=== PATIENT | male | born 1950 | race Caucasian/White ===

== ENCOUNTER 2020-07-13 16:32 | Emergency (ER) | payer OTHER ==
[2020-07-13 17:37] LABS: Absolute Lymphocytes (CBC) 4.5 K/uL (0.7-4.9); Basophils % 0.7 % (0-1.3); Hematocrit 46.1 % (39.6-49.0); Lymphocytes % 28.9 % (15.3-44.8); MPV 6.7 fL (7.6-11.3)
[2020-07-13 17:58] LABS: Albumin 3.3 g/dL (3.4-5.0); Bilirubin Direct 0.3 mg/dL (0-0.2); Bilirubin Total 0.8 mg/dL (0.2-1.0); Potassium 4.2 mmol/L (3.5-5.1); Protein, Total 8.5 g/dL (6.4-8.2)
--- NOTE | 2020-07-13 19:46 | RAD REPORT ---
EXAM DESCRIPTION: CT - Abdomen Pelvis W Contrast - 07/13/2020 7:19 pm CLINICAL HISTORY: Abdominal pain COMPARISON: none. TECHNIQUE: Computed axial tomography of the abdomen pelvis was obtained. 100 cc Isovue-300 was admin istered intravenously. Oral contrast was not requested which limits evaluation of bowel. All CT scans are performed using dose optimization technique as appropriate and may include automated exposure control or mA/KV adjustment according to patient size. FINDINGS: Contrast is not visualized within the mid and distal splenic artery. Low-density areas are present throughout most of the spleen having the appearance of an infarct. The liver, pancreas, adrenals and kidneys are unremarkable. Pulmonary and splenic granulomata No evidence diverticulitis. Small bilateral inguinal hernias contain fat. Small gallstone. No gallbladder wall thickening. 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
--- NOTE | 2020-07-13 19:48 | RAD REPORT ---
EXAM DESCRIPTION: Lizbet Single View07/13/2020 6:04 pm CLINICAL HISTORY: Cough COMPARISON: none FINDINGS: Mild to moderate bilateral interstitial opacities probably chronic Calcified granulomas left lung Heart is normal size
[2020-07-13] MEDS ORDERED: HEPARIN/D5W 25,000 UNIT/500 ML BAG IV ONE (20:19)
[2020-07-13] MEDS ORDERED: HEPARIN 5000 UNIT/ML 1 ML VIAL ONE (20:30)
[2020-07-13] MEDS ORDERED: CODEINE 30MG/APAP 300MG TAB ONE (20:51)
--- NOTE | 2020-07-13 21:58 | ER ---
Nurse's Notes [facility] Name: Rohan Bauman Age: 69 yrs Sex: Male : 1950 Arrival Date: 07/13/2020 Time: 16:37 Bed 19 Private MD: Diagnosis: Splenic artery occlusion with splenic infarct Presentation: 07/13 17:00 Chief complaint: Patient states: Diffuse abdominal pain since yesterday. Loss of ca1 appetite, feels full. This is the 3rd time in the last 5 - 6 weeks. Lost weight. Denies fever. Denies N/V/D. Coronavirus screen: Client denies travel out of the [place] in the last 14 days. At this time, the client does not indicate any symptoms associated with coronavirus-19. The client denies any previous COVID testing. Ebola Screen: Patient negative for fever greater than or equal to 101.5 degrees Fahrenheit, and additional compatible Ebola Virus Disease symptoms Patient denies exposure to infectious person. Patient denies travel to an Ebola-affected area in the 21 days before illness onset. No symptoms or risks identified at this time. Initial Sepsis Screen: Does the patient meet any 2 criteria? No. Patient's initial sepsis screen is negative. Does the patient have a suspected source of infection? No. Patient's initial sepsis screen is negative. Risk Assessment: Do you want to hurt yourself or someone else? Patient reports no desire to harm self or others. Onset of symptoms was July 13, 2020. 17:00 Method Of Arrival: Ambulatory ca1 17:00 Acuity: SOFIA 3 ca1 Historical: - Allergies: 17:05 No Known Allergies; ca1 - Home Meds: 17:05 levothyroxine oral [Active]; Allopurinol Oral [Active]; Furosemide Oral [Active]; ca1 losartan oral oral [Active]; - PMHx: 17:05 Thyroid problem; Gout; Hypertension; ca1 - PSHx: 17:05 Knee surgery; ca1 - Immunization history:: Adult Immunizations up to date, Pneumococcal vaccine is not up to date, Flu vaccine is up to date. - Social history:: Smoking status: Patient reports the use of cigarette tobacco products, smokes one-half pack cigarettes per day. Screenin:00 Abuse screen: Denies threats or abuse. Nutritional screening: No deficits noted. ll2 Tuberculosis screening: No symptoms or risk factors identified. Fall Risk None identified. Assessment: 16:15 General: Appears in no apparent distress. Behavior is calm, cooperative, appropriate ll2 for age. Pain: Complains of pain in left upper quadrant and right upper quadrant and umbilical area. Neuro: Level of Consciousness is awake, alert, obeys commands, Oriented to person, place, time, situation. Cardiovascular: Patient's skin is warm and dry. Respiratory: Airway is patent Respiratory effort is even, unlabored, Respiratory pattern is regular, symmetrical. GI: Abd is soft Abdomen is tender to palpation in right lower quadrant and left lower quadrant. : No signs and/or symptoms were reported regarding the genitourinary system. EENT: No signs and/or symptoms were reported regarding the EENT system. Derm: Skin is intact, is healthy with good turgor, Skin is pink, warm \T\ dry. Musculoskeletal: Circulation, motion, and sensation intact. Range of motion:. 19:46 General: Appears in no apparent distress. comfortable, Behavior is calm, cooperative, aj1 appropriate for age. Pain: Complains of pain in abdomen diffusely Pain does not radiate. Neuro: Level of Consciousness is awake, alert, obeys commands, Oriented to person, place, time, situation. Cardiovascular: Patient's skin is warm and dry. Respiratory: Airway is patent Respiratory effort is even, unlabored, Respiratory pattern is regular, symmetrical. GI: Abdomen is non-distended, Bowel sounds present X 4 quads. Abd is soft X 4 quads Abdomen is tender to palpation in right lower quadrant and left lower quadrant Reports inability to pass gas Patient currently denies constipation, diarrhea. : No signs and/or symptoms were reported regarding the genitourinary system. EENT: No signs and/or symptoms were reported regarding the EENT system. Derm: No signs and/or symptoms reported regarding the dermatologic system. Skin is pink, warm \T\ dry. normal. Musculoskeletal: No signs and/or symptoms reported regarding the musculoskeletal system. Circulation, motion, and sensation intact. 20:45 Reassessment: Patient appears in no apparent distress at this time. No changes from aj1 previously documented assessment. Patient and/or family updated on plan of care and expected duration. Pain level reassessed. Patient is alert, oriented x 3, equal unlabored respirations, skin warm/dry/pink. 20:50 Reassessment: transfer center called stating pt needed general surgery Mireya Faria APNS bb notified. 21:44 Reassessment: Patient appears in no apparent distress at this time. No changes from [facility] previously documented assessment. Patient and/or family updated on plan of care and expected duration. Pain level reassessed. Patient is alert, oriented x 3, equal unlabored respirations, skin warm/dry/pink. 22:45 Reassessment: Patient appears in no apparent distress at this time. Patient and/or aj1 family updated on plan of care and expected duration. Pain level reassessed. General: Appears comfortable, Behavior is calm, cooperative, appropriate for age. Neuro: Level of Consciousness is awake, alert, obeys commands. Cardiovascular: Patient's skin is warm and dry. Respiratory: Airway is patent Respiratory effort is even, unlabored, Respiratory pattern is regular, symmetrical. GI: Abdomen is non-distended, Reports lower abdominal pain, upper abdominal pain. : No signs and/or symptoms were reported regarding the genitourinary system. Derm: Skin is pink, warm \T\ dry. normal. Musculoskeletal: Circulation, motion, and sensation intact. 22:56 Reassessment: Attempted to call report to MACY Brice at [facility], who states she cannot [facility] accept a patient on a Heparin drip. 23:08 Reassessment: Transfer center repeats that Heparin drip must be stopped prior to [facility] transfer, which is [facility] hospital policy per receiving nurse, MACY Brice. Dr. Storey notified. Vital Signs: 17:00 BP 120 / 71; Pulse 89; Resp 17 S; Temp 97.9(TE); Pulse Ox 95% on R/A; Weight 130.18 kg ca1 (R); Height 6 ft. 3 in. (190.50 cm) (R); Pain 4/10; 17:55 BP 157 / 87 RA (auto/reg); Pulse 73; Pulse Ox 96% on R/A; jp3 18:54 BP 137 / 66; Pulse 72; Resp 17; Pulse Ox 94% ; jl7 19:48 BP 142 / 78; Pulse 81; Resp 18; Pulse Ox 95% on R/A; aj1 20:45 BP 143 / 67; Pulse 84; Resp 18; Pulse Ox 96% on R/A; aj1 21:44 BP 142 / 77; Pulse 75; Resp 18; Pulse Ox 95% on R/A; aj1 22:45 BP 147 / 74; Pulse 74; Resp 18; Pulse Ox 95% on R/A; aj1 17:00 Body Mass Index 35.87 (130.18 kg, 190.50 cm) ca1 ED Course: 16:37 Patient arrived in ED. ds1 16:47 [facility] snw 16:47 Romeo Morgan MD is Attending Physician. snw 17:02 Triage completed. ca1 17:05 Arm band placed on right wrist. ca1 17:10 Bed in low position. Call light in reach. Lights dimmed. Verbal reassurance given. jp3 Pulse ox on. NIBP on. 17:10 Patient maintains SpO2 saturation greater than 95% on room air. jp3 17:15 Inserted saline lock: 20 gauge in left antecubital area, using aseptic technique. Blood jp3 collected. 17:15 First set of blood cultures drawn by me. jp3 17:25 Initial lab(s) drawn, by me, sent to lab. Second set of blood cultures drawn by me. jp3 17:49 Luisana Francis, RN is Primary Nurse. ll2 17:49 EKG done, by ED staff, reviewed by Mireya MULLEN. jp3 18:05 Chest Single View XRAY In Process Unspecified. EDMS 19:20 CT Abd/Pelvis - PO and IV Contrast In Process Unspecified. EDMS 19:46 No provider procedures requiring assistance completed. aj1 20:07 Initiated transfer with Lexus at [facility]. tt3 21:09 Updated Lexus on the case. tt3 21:20 Shell called back with the vascular surgeon for Dr. Storey. tt3 21:46 Lexus called back with Dr. Mcdaniel for Dr. Storey. tt3 Administered Medications: 20:43 Drug: Heparin (DVT/PE Drip) 18 units/kg/hr - (HEParin 49275 units, D5W 500 ml) aj1 {Co-Signature: jb4 (Basim Hernandez RN).} Route: IV; Rate: calculated rate; Site: right antecubital; 20:55 Drug: Tylenol #3 (300 mg-30 mg) 2 tabs {Note: RASS score 1.} Route: PO; aj1 Outcome: 21:58 ER care complete, transfer ordered by . rn 23:47 Patient left the ED. bb Signatures: Dispatcher [employer] Kasandra Husain, RN RN aj1 Mireya Faria, MRI SPECIALIST-C MRI SPECIALIST-Csnw Walker, Renu ds1 Bernie Parrish, RN RN bb Fransico Storey MD MD rn Leal, Jahala RN RN jl7 Joselito Hare jp3 Jackeline Hays RN RN ca1 Luisana Francis RN RN ll2 Gui Ruby 3 Basim Hernandez RN jb4 Corrections: (The following items were deleted from the chart) 17:31 17:00 Patient maintains SpO2 saturation greater than 95% on room air. jp3 jp3 22:57 21:50 Reassessment: Attempted to call [facility] to notify them that we aj had arranged transport for patient, no answer to multiple calls [facility]
--- NOTE | 2020-07-13 21:58 | EDPHYS ---
Physician Documentation [facility] Name: Rohan Bauman Age: 69 yrs Sex: Male : 1950 Arrival Date: 07/13/2020 Time: 16:37 Bed 19 Private MD: VANESSA Physician Romeo Morgan HPI: 07/13 17:54 This 69 yrs old Male presents to ER via Ambulatory with complaints of SENT BY snw DR LOUIE, Abdominal Pain. 17:54 The patient presents with abdominal pain that is diffuse. Onset: The symptoms/episode snw began/occurred gradually, 6 week(s) ago, and became worse 3 week(s) ago. The symptoms do not radiate. Associated signs and symptoms: Pertinent positives: early satiety, wt loss. The symptoms are described as "I feel like I swallowed a bowling ball". Modifying factors: The symptoms are alleviated by nothing. Severity of pain: At its worst the pain was moderate severe. The patient has not experienced similar symptoms in the past. The patient has been recently seen by a physician: the patient's primary care provider, Dr. Louie. Historical: - Allergies: 17:05 No Known Allergies; ca1 - Home Meds: 17:05 levothyroxine oral [Active]; Allopurinol Oral [Active]; Furosemide Oral [Active]; ca1 losartan oral oral [Active]; - PMHx: 17:05 Thyroid problem; Gout; Hypertension; ca1 - PSHx: 17:05 Knee surgery; ca1 - Immunization history:: Adult Immunizations up to date, Pneumococcal vaccine is not up to date, Flu vaccine is up to date. - Social history:: Smoking status: Patient reports the use of cigarette tobacco products, smokes one-half pack cigarettes per day. ROS: 17:49 Constitutional: Negative for fever, chills, and weight loss, Eyes: Negative for injury, snw pain, redness, and discharge, ENT: Negative for injury, pain, and discharge, Neck: Negative for injury, pain, and swelling, Cardiovascular: Negative for chest pain, palpitations, and edema, Respiratory: Negative for shortness of breath, cough, wheezing, and pleuritic chest pain, Back: Negative for injury and pain, : Negative for injury, bleeding, discharge, and swelling, MS/Extremity: Negative for injury and deformity, Skin: Negative for injury, rash, and discoloration, Neuro: Negative for headache, weakness, numbness, tingling, and seizure, Psych: Negative for depression, anxiety, suicide ideation, homicidal ideation, and hallucinations. 17:49 Abdomen/GI: Positive for abdominal pain, weight loss, early satiety. Exam: 17:48 Constitutional: This is a well developed, well nourished patient who is awake, alert, snw and in no acute distress. Head/Face: Normocephalic, atraumatic. Eyes: Pupils equal round and reactive to light, extra-ocular motions intact. Lids and lashes normal. Conjunctiva and sclera are non-icteric and not injected. Cornea within normal limits. Periorbital areas with no swelling, redness, or edema. ENT: Nares patent. No nasal discharge, no septal abnormalities noted. Tympanic membranes are normal and external auditory canals are clear. Oropharynx with no redness, swelling, or masses, exudates, or evidence of obstruction, uvula midline. Mucous membranes moist. Neck: Trachea midline, no thyromegaly or masses palpated, and no cervical lymphadenopathy. Supple, full range of motion without nuchal rigidity, or vertebral point tenderness. No Meningismus. Chest/axilla: Normal chest wall appearance and motion. Nontender with no deformity. No lesions are appreciated. Cardiovascular: Regular rate and rhythm with a normal S1 and S2. No gallops, murmurs, or rubs. Normal PMI, no JVD. No pulse deficits. 17:48 Back: No spinal tenderness. No costovertebral tenderness. Full range of motion. Skin: Warm, dry with normal turgor. Normal color with no rashes, no lesions, and no evidence of cellulitis. MS/ Extremity: Pulses equal, no cyanosis. Neurovascular intact. Full, normal range of motion. Neuro: Awake and alert, GCS 15, oriented to person, place, time, and situation. Cranial nerves II-XII grossly intact. Motor strength 5/5 in all extremities. Sensory grossly intact. Cerebellar exam normal. Normal gait. Psych: Awake, alert, with orientation to person, place and time. Behavior, mood, and affect are within normal limits. 17:48 Respiratory: the patient does not display signs of respiratory distress, Respirations: normal, no acute changes, Breath sounds: wheezing: expiratory is heard diffusely. 17:48 Abdomen/GI: Inspection: abdomen appears normal, Bowel sounds: diminished, Palpation: moderate abdominal tenderness, in the umbilical area, right upper quadrant and left upper quadrant. Vital Signs: 17:00 BP 120 / 71; Pulse 89; Resp 17 S; Temp 97.9(TE); Pulse Ox 95% on R/A; Weight 130.18 kg ca1 (R); Height 6 ft. 3 in. (190.50 cm) (R); Pain 4/10; 17:55 BP 157 / 87 RA (auto/reg); Pulse 73; Pulse Ox 96% on R/A; jp3 18:54 BP 137 / 66; Pulse 72; Resp 17; Pulse Ox 94% ; jl7 19:48 BP 142 / 78; Pulse 81; Resp 18; Pulse Ox 95% on R/A; aj1 20:45 BP 143 / 67; Pulse 84; Resp 18; Pulse Ox 96% on R/A; aj1 21:44 BP 142 / 77; Pulse 75; Resp 18; Pulse Ox 95% on R/A; aj1 22:45 BP 147 / 74; Pulse 74; Resp 18; Pulse Ox 95% on R/A; aj1 17:00 Body Mass Index 35.87 (130.18 kg, 190.50 cm) ca1 MDM: 17:06 Patient medically screened. evelin 20:00 Counseling: I had a detailed discussion with the patient and/or guardian regarding: the snw historical points, exam findings, and any diagnostic results supporting the discharge/admit diagnosis, the presence of at least one elevated blood pressure reading (>120/80) during this emergency department visit, lab results, radiology results, the need to transfer to another facility, for higher level of care, [facility] does not immediately have the required specialist. Physician consultation: [facility] initiate transfer. 21:09 Data reviewed: vital signs, nurses notes, lab test result(s), EKG, radiologic studies. snw Data interpreted: Pulse oximetry: on room air is 96 %. Interpretation: acceptable. Physician consultation: Basim Rockwell MD was called at 21:10, was contacted at 21:10, regarding consult, patient's condition, after a discussion of the case, a recommendation for transfer for higher level of care is made. 21:26 Transition of care: After a detail discussion of the patient's case, care is snw transferred to Fransico Storey MD. 21:27 Physician consultation: [facility] was called at 21:28, was contacted at 21:28, snw regarding regarding transfer, to [facility]. consult, patient's condition, Will consult, need Hospitalist to admit. 07/13 16:48 Order name: Blood Culture Adult (2) sn 07/13 16:48 Order name: BMP; Complete Time: 18:07 snw 07/13 16:48 Order name: CT Abd/Pelvis - PO and IV Contrast; Complete Time: 19:50 snw 07/13 16:48 Order name: CBC with Diff; Complete Time: 17:38 snw 07/13 16:48 Order name: Hepatic Function; Complete Time: 18:07 w 07/13 16:48 Order name: Lipase; Complete Time: 18:07 w 07/13 16:48 Order name: EKG - Nurse/Tech; Complete Time: 19:31 w 07/13 16:48 Order name: IV Saline Lock; Complete Time: 17:31 snw 07/13 16:48 Order name: Labs collected and sent; Complete Time: 17:31 snw 07/13 16:48 Order name: NPO; Complete Time: 17:32 snw 07/13 17:43 Order name: Chest Single View XRAY; Complete Time: 19:51 snw Administered Medications: 20:43 Drug: Heparin (DVT/PE Drip) 18 units/kg/hr - (HEParin 63354 units, D5W 500 ml) aj1 {Co-Signature: jbAmerico (Basim Hernandez RN).} Route: IV; Rate: calculated rate; Site: right antecubital; 20:55 Drug: Tylenol #3 (300 mg-30 mg) 2 tabs {Note: RASS score 1.} Route: PO; aj1 Disposition: 21:57 Co-signature as Attending Physician, Fransico Storey MD. rn Disposition: 07/13/20 21:58 Transfer ordered to [facility]. Diagnosis is Splenic artery occlusion with splenic infarct. - Reason for transfer: Higher level of care. - Accepting physician is Dr. Mcdaniel. - Condition is Stable. - Problem is new. - Symptoms are unchanged. Signatures: Dispatcher [employer] Kasandra Husain, RN RN aj1 Romeo Morgan MD MD cha Waters, Shelly, MANAGER OF EXHIBITIONS AND COLLECTIONS-C MANAGER OF EXHIBITIONS AND COLLECTIONS-Csnw Bernie Parrish, RN RN bb Fransico Storey MD MD rn Acob, Cheryl, RN RN ca1 Basim Hernandez RN jb4 Corrections: (The following items were deleted from the chart) 23:47 21:58 07/13/2020 21:58 Transfer ordered to [facility]. bb Diagnosis is Splenic artery occlusion with splenic infarct. Reason for transfer: Higher level of care. Accepting physician is Dr. Mcdaniel. Condition is Stable. Problem is new. Symptoms are unchanged. rn
[2020-07-14 06:01] VITALS: TEMP 97.9
[2020-07-14 06:09] VITALS: O2SAT 95
[2020-07-14 06:11] VITALS: BP 147/74
--- NOTE | 2020-07-14 18:06 | EKG ---
Test Date: 2020-07-13 Test Time: 17:49:28 Floor And Wall Applier Liquid: SRINIVAS MEASUREMENT RESULTS: Intervals: Rate: 75 SC: 160 QRSD: 88 QT: 380 QTc: 424 [place]: P: 68 SC: 160 QRS: 22 T: 64 INTERPRETIVE STATEMENTS: Normal sinus rhythm Normal ECG No previous ECG available for comparison Electronically Signed On 07-14-20 18:02:48 MAMMOGRAPHY TECHNOLOGIST by Gabe Pizarro
== END 2020-07-13 23:47 | disposition short-term general hospital (02) ==
LOC: ER 16:32
DX: D73.5 Infarction of spleen (principal); I10 Essential (primary) hypertension; E07.9 Disorder of thyroid, unspecified; F17.210 Nicotine dependence, cigarettes, uncomplicated
CPT/HCPCS: 93005; 87040 ×2; 85025; 80048; 36415; 80076; 83690; 74177; 71045; Q9967; J1644 ×2; 96374; 99285

== ENCOUNTER 2020-11-15 10:04 | Observation (INO) | payer OTHER ==
--- OUTSIDE RECORDS SUMMARY | 2020-11-15 10:08 | XMS REPORT | Continuity of Care Document ---
:1950 Author Organization [facility] t Address [address] [place] [address] Care Team Providers Name Role Phone CHRISTO KOCH Attending Clinician Unavailable Christo oKch MD Attending Clinician Unavailable Anthony Crowley MD Attending Clinician KEVIN MCDANIEL Attending Clinician Unavailable Kevin Mcdaniel MD Attending Clinician Shyanne Mcclain MD Attending Clinician CHRISTO KOCH Admitting Clinician Unavailable KEVIN MCDANIEL Admitting Clinician Unavailable Payers Payer Name Policy Type Policy Effective Date Expiration Date Sour ce Number AETNA - MEDICARE [id number] [address] [facility] [address] Carmona ukes MGD CAREAETNA 00:00:00 - Medical MEDICARE HMO Center [id number] [phone], [place] [address]Kfsh Contracted Problems Condition Condition Condition Status Onset Resolution Last Treating Co mments Source Name Details Category Date Date Treatment Clinician Date Lung Lung Disease Active 2019-[address] [facility] nodule nodule 09-19kes - 00:00: Medical 00 [place] Splenic Splenic Disease Active 2019-[address] infarct infarct 09-13 - :: Medical 00 [place] Allergies, Adverse Reactions, Alerts This patient has no known allergies or adverse reactions. Social History Social Habit Start Date Stop Date Quantity Comments Source Sex Assigned At [facility] Cigarettes smoked 2020-07-20 2020-07-20 [facility] - current (pack per 00:00:00 00:00:00 Medical Center day) - Reported Cigarette 2020-07-20 2020-07-[address] [facility] - pack-years 00:00:00 00:00:00 [facility] Tobacco use and 2020-07-20 2020-07-[address] [facility] [address] Candi kes - exposure 00:00:00 00:00:00 [facility] Alcohol intake 2020-07-20 2020-07-20 Ex-drinker [facility] es - 00:00:00 00:00:00 (finding) [facility] Alcohol Comment 2020-07-19 2020-07-19 usually 3-[address] [facility] [address] [facility] - 00:00:00 00:00:00 beers/week but Medical Ce nter non currently History of tobacco 2020-07-13 [facility] sm[facility] - use 00:[facility]00 [facility] Smoking Status Start Date Stop Date Source Former smoker 2020-07-20 00:00:00 2020-07-20 00:00:00 [facility] - [facility] Medications Ordered Filled Start Stop Current Ordering Indication Dosage Frequency Signature Comments Components Source Medication Medication Date Date Medication? Clinician (SIG) Name Name apixaban 2019-09- No Take [address] [facility] [address] (ELIQUIS) 5 1-18 12-25 tablets Luke s - mg Tab 00:00: 23:59 (10 mg Medical tablet 00 :00 total) by [place] mouth 2 (two) times daily for 7 days, THEN 1 tablet (5 mg total) 2 (two) times daily for 30 days. tadalafil 2019-09 Yes QD Take by [facility] S t (CIALIS 1-17 mouth [facility] - ORAL) 13:03: daily. Medical 18 [place] acetaminoph 2019-09 Yes 2{tbl} QD Take [address] (TYLENOL 1-17 tablets by Candi montoya - ARTHRITIS 13:03: mouth Medical ORAL) 18 daily. [place] budesonide- 2019-09- No 2{puff} Q.5D Inhale [address] formoteroL -12 11-12 puffs by Dino s - (SYMBICORT) 00:00: 23:59 mouth via Medical 160-4.5 00 :00 inhaler 2 [place] mcg/actuati (two) on inhaler times daily. tiotropium 2019-09- No 18ug QD Inhale [address] (SPIRIVA) -12 11-12 capsule [facility] - 18 mcg 00:00: 23:59 (18 mcg Medical inhalation 00 :00 total) by Cent er capsule mouth via inhaler daily. albuterol 2019-09 No 1{puff} Inhale [address] HFA 1-12 11-12 puff by [facility] - (VENTOLIN 00:00: 23:59 mouth via Me dical HFA) 90 00 :00 inhaler Center mcg/actuati every 6 on inhaler (six) hours as needed for Wheezing or Shortness of Breath. HYDROcodone 2019-09- No 1{tbl} Take [address] -acetaminop 09-14 11-22 tablet by Candi mancia (NORCO 00:00: 23:59 mouth Medic al 10-325) 00 :00 every 6 Center 10-325 mg (six) per tablet hours as needed for up to 10 days. Max Daily Amount: 4 tablets enoxaparin 2019-09 No 120mg Inject 0.[address] (LOVENOX) 12 11-15 mLs (120 [facility] - 120 mg/0.8 00:00: 23:59 mg total) M edical mL Syrg 00 :00 subcutaneo Center usly every 12 (twelve) hours for 3 days Last dose Sunday. Then start Eliquis after the biopsy. tiotropium 2019-09- No 18ug QD Inhale [address] (SPIRIVA) - 11-12 capsule [facility] - 18 mcg 00:00: 00:00 (18 mcg Medical inhalation 00 :00 total) by Cent er capsule mouth via inhaler daily. budesonide- 2019-09- No 2{puff} Q.5D Inhale [address] formoteroL -12 11-12 puffs by Luke s - (SYMBICORT) 00:00: 00:00 mouth via Medical 160-4.5 00 :00 inhaler 2 Center mcg/actuati (two) on inhaler times daily. albuterol 2019-09- No 1{puff} Inhale [address] HFA 1-12 11-12 puff by [facility]ukes - (VENTOLIN 00:00: 00:00 mouth via Me dical HFA) 90 00 :00 inhaler Center mcg/actuati every 6 on inhaler (six) hours as needed for Wheezing or Shortness of Breath. spironolact 2019-09 Yes 50mg QD Take [address] one 0-14 by mouth [facility] - (ALDACTONE) 00:00: every Medic al 50 MG 00 morning. [place] tablet testosteron 2019-09 Yes INJECT [address] e cypionate 0-12 ML ONCE [facility] - (DEPOTESTOT 00:00: EVERY 4 Med ical ERONE 00 WEEKS [place] CYPIONATE) 200 mg/mL injection torsemide Yes 20mg QD Take [address] (DEMADEX) 9-24 by mouth [facility] - 20 MG 00:00: every Medical tablet 00 morning. [place] levothyroxi Yes 200ug QD Take [address] ne 9-14 mcg by [facility]ukes - (SYNTHROID, 00:00: mouth Medic al LEVOTHROID) 00 every Center 200 MCG morning. tablet allopurinoL Yes 300mg QD Take [address] (ZYLOPRIM) 9-06 mg by [facility] - 300 MG 00:00: mouth Medical tablet 00 every Center morning. Vital Signs Vital Name Observation Time Observation Value Comments Source Systolic blood 2020-07-20 12:15:00 125 mm[Hg] [facility] Diastolic blood 2020-07-20 12:15:00 70 mm[Hg] [facility] S [facility] Heart rate 2020-07-20 12:15:00 88 /min [facility] Respiratory rate 2020-07-20 12:15:00 20 /min [facility] Oxygen saturation in 2020-07-20 12:15:00 97 /min [facility] - Arterial blood by Medical Ce nter Pulse oximetry Body temperature 2020-07-20 11:00:00 36.67 Radha [facility] Body height 2020-07-20 05:45:00 190.5 cm [facility] Body weight 2020-07-20 05:45:00 123.197 kg [facility] BMI 2020-07-20 05:45:00 33.95 kg/m2 [facility] Procedures Procedure Date / Time Performed Performing Clinician Sourc e XR CHEST 1 VIEW 2020-07-20 11:19:00 Zee, Ali [facility] PORTABLE/BEDSIDE Medical Center REPORT OF PROCEDURE - 2020-07-20 10:58:[facility] 2020-07-20 10:36:31 Solange Koch [facility] FINE NEEDLE ASPIRATE BY 2020-07-20 10:36:00 Solange Koch [facility] EBUS FNA REQUEST 2020-07-20 10:31:49 Solange Koch [facility] FINE NEEDLE ASPIRATE BY 2020-07-20 10:31:00 Solange Koch [facility] EBUS FNA REQUEST 2020-07-20 10:23:39 Solange Koch [facility] FINE NEEDLE ASPIRATE BY 2020-07-20 10:23:00 Solange Koch [facility] EBUS FNA REQUEST 2020-07-20 10:16:43 Solange Koch [facility] FINE NEEDLE ASPIRATE BY 2020-07-20 10:16:00 Solange Koch [facility] FUNGUS CULTURE + SMEAR 2020-07-20 10:05:03 Solange Koch [facility] BRONCHIAL CULTURE + GRAM 2020-07-20 10:05:03 Solange Koch [facility] AFB CULTURE + SMEAR 2020-07-20 10:05:03 Solange Koch [facility] - (NON-SPUTUM) [facility] SPIN/CONCENTRATION CHARGE 2020-07-20 10:05:00 Solange Koch [facility] FL FLUORO NON-SPECIFIC UP 2020-07-20 10:00:00 Solange Koch [facility] - TO 1 HOUR [facility] FUNGUS CULTURE + SMEAR 2020-07-20 09:41:34 Solange Koch [facility] SURGICALLY OBTAINED 2020-07-20 09:41:34 [facility]AM STAIN Medical [facility] ter AFB CULTURE + SMEAR 2020-07-20 09:41:34 Solange Kochul [facility] uk - (NON-SPUTUM) [facility] MISCELLANEOUS LAB ORDER 2020-07-20 09:41:00 [facility] 2020-07-20 09:40:00 [facility] FINE NEEDLE ASPIRATE 2020-07-20 09:13:09 [facility] FINE NEEDLE ASPIRATION BY 2020-07-20 09:13:00 Solange Koch [facility] AFB CULTURE + SMEAR 2020-07-20 08:59:37 [facility] ([facility] FUNGUS CULTURE + SMEAR 2020-07-20 08:59:37 Solange Koch [facility] SURGICALLY OBTAINED 2020-07-20 08:59:37 [facility] + GRAM STAIN [facility] MISCELLANEOUS LAB ORDER 2020-07-20 08:59:00 Solange Koch [facility] FINE NEEDLE ASPIRATE 2020-07-20 08:55:29 [facility] FINE NEEDLE ASPIRATION BY 2020-07-20 08:55:00 Solange Koch [facility] BRONCHOSCOPY,ENDOBRONCHIA 2020-07-20 07:34:00 Solange Koch CH [facility] ULTRASOUND (EBUS) Medical Cent er TRANSTRACH/ TRANSBRONCH SAMPLING BRONCHOSCOPY,SUPER D 2020-07-20 07:34:00 Solange Koch [facility] PROCEDURE W/ C-ARM 2020-07-20 07:34[facility]00 [facility],TRANSBRONCHI 2020-07-20 07:34:00 Solange Koch CH, I [facility] NEEDLE ASPIRATION [facility] ter BIOPSY BRONCHOSCOPY,TRANSBRONCHI 2020-07-20 07:34:00 Solange Koch CH [facility] LUNG BIOPSY [facility] BRONCHOSCOPY,BRONCHIAL 2020-07-20 07:34:00 [facility] ALVEOL[facility] LAVAGE [facility] BRONCHOSCOPY,ENDOBRONCHIA 2020-07-20 07:34:00 Solange Koch [facility] ULTRASOUND (EBUS) Medical [facility] er DIAGNOSTIC/ THERAPEUTIC ABORH, MANUAL 2020-07-20 06:42:00 Anika Stover [facility] COMPREHENSIVE METABOLIC 2020-07-20 06:17:00 [facility]T [facility] & AUTO 2020-07-20 06:17:00 [facility] PROTHROMBIN TIME/INR 2020-07-20 06:17:00 Zee [facility] APTT 2020-07-20 06:17:00 Solange Koch [facility] TYPE AND SCREEN, 2020-07-20 06:17:00 Solange Koch [facility] AUTOMATED [facility] POCT-GLUCOSE METER 2020-07-20 06:00:00 Solange Koch [facility] SARS-COV2/RT-PCR ([facility] & 2020-07-15 16:24:00 Farhan Mcclain [facility] LABS) [facility] CT CHEST WITHOUT IV 2020-07-15 15:25:00 Solange Koch [facility] ukes - CONTRAST [facility] PROTHROMBIN TIME/INR 2020-07-15 04:02:00 Farhan Mcclain [facility] CBC (HEMOGRAM ONLY) 2020-07-15 04:02:00 Farhan Mcclain [facility] COMPREHENSIVE METABOLIC 2020-07-15 04:02:00 Farhan Mcclain CH, I [facility] ECHO W CONTRAST & DOPPLER 2020-07-14 10:37:42 Lori Larry sa [facility] CTA CHEST 2020-07-14 09:44:00 Lori Larry [facility] SARS-COV2/RT-PCR ([facility] & 2020-07-14 03:50:00 Lori Larry [facility] - REF LABS) [facility] CBC W/PLT COUNT & AUTO 2020-07-14 03:43:00 Lori Larry [facility] DIFFERENTIAL [facility] HC LAB PROTHROMBIN FACTOR 2020-07-14 03:43:00 Lori Larry sa [facility] II [facility] (CELLAVISION MANUAL DIFF) 2020-07-14 03:43:00 Lori Larry sa [facility] BASIC METABOLIC PANEL (7) 2020-07-14 03:42:00 Lori Larry sa [facility] MAGNESIUM 2020-07-14 03:42:00 Lori Larry [facility] PHOSPHORUS 2020-07-14 03:42:00 Lori Larry [facility] FACTOR 5 LEIDEN PCR 2020-07-14 03:42:00 Lori Larry [facility] (THROMBOTIC RISK) [facility] PROTEIN S ACTIVITY 2020-07-14 03:42[facility]IV[facility] 2020-07-14 03:42:00 Lori Larry [facility] REPORT OF PROCEDURE - 2020-07-14 00:00:00 Provider, Norris [facility] ENDOSCOPY SCAN Scanning [facility] Plan of Care Planned Activity Planned Date Details Comments Source Future Scheduled 2020-09-[address] [facility] - Test 00:00:00 WELLNESS (YEAR 2 or [facility] FIRST YEAR if no IPPE) [code = MEDICARE ANNUAL WELLNESS (YEAR 2 or FIRST YEAR if no IPPE)] Future Scheduled 2020-09-[address] [facility] - Test 00:00:00 (12+) [code = Medical Center DEPRESSION SCREENING (12+)] Future Scheduled 2020-05-04 INFLUENZA VACCINE (#1) [facility] - Test 00:00:00 [code = INFLUENZA Medical Ce nter VACCINE (#1)] Future Scheduled 2016 PNEUMOCOCCAL 65+ YRS [facility] - Test 00:00:00 (1 of 1 - [facility] [id number] PCV13) [code = PNEUMOCOCCAL 65+ YRS (1 of 1 - [id number] PCV13)] Future Scheduled 1950 Screening for [facility] es - Test 00:00:00 malignant neoplasm of Medica l Center colon (procedure) [code = 459567568] Results Test Description Test Time Test Comments Results Result Comments Source AFB culture + smear (non-sputum) 2020-09-07 09:16:00 Test Item Value Reference Range Interpretation Comme nts Result (test code = 6463-4) No acid-fast bacilli isolated in 42 day s AFB Smear (test code = 69319-6) No acid fast bacilli [facility] (NON-SPUTUM)2020-09-07 09:16:00 Test Item Value Reference Range Interpretation Comments CULTURE (BEAKER) (test No acid-fast bacilli code = 1095) isolated in 42 days AFB SMEAR (BEAKER) No acid fast bacilli (test code = 994) seen AFB CULTURE + SMEAR (NON-SPUTUM)2020-09-07 09:16:00 Test Item Value Reference Range Interpretation Comments CULTURE (BEAKER) (test No acid-fast bacilli code = 1095) isolated in 42 days AFB SMEAR (BEAKER) No acid fast bacilli (test code = 994) seen AFB CULTURE + SMEAR (NON-SPUTUM)2020-09-07 09:16:00 Test Item Value Reference Range Interpretation Comments CULTURE (BEAKER) (test No acid-fast bacilli code = 1095) isolated in 42 days AFB SMEAR (BEAKER) No acid fast bacilli (test code = 994) seen MISCELLANEOUS LAB [id number] 07:55:00 Test Item Value Reference Range Interpretation Comments SCAN RESULT (test code = 1350916) MISCELLANEOUS LAB [id number] 07:54:00 Test Item Value Reference Range Interpretation Comments SCAN RESULT (test code = 6653812) [place] [id number] 07:54:00[facility] + [id number] 02:35:00 Test Item Value Reference Range Interpretation Comments Result (test code = No fungus isolated in 6463-4) 28 days Fungus Smear (test No fungi seen code = 1406) [facility] + [id number] 02:35:00 Test Item Value Reference Range Interpretation Comments CULTURE (BEAKER) (test No fungus isolated in code = 1095) 28 days FUNGUS SMEAR (BEAKER) No fungi seen (test code = 1406) FUNGUS CULTURE + [id number] 02:35:00 Test Item Value Reference Range Interpretation Comments CULTURE (BEAKER) (test No fungus isolated in code = 1095) 28 days FUNGUS SMEAR (BEAKER) No fungi seen (test code = 1406) FUNGUS CULTURE + [id number] 02:35:00 Test Item Value Reference Range Interpretation Comments CULTURE (BEAKER) (test No fungus isolated in code = 1095) 28 days FUNGUS SMEAR (BEAKER) <1+ yeast (test code = 1406) Surgically obtained culture + gram [id number] 14:21:00 Test Item Value Reference Range Interpretation Comments Result (test code = 6463-4) No growth Gram Stain Result (test No organisms seen code = 1123) [facility] GRAM [id number] 14:21:00 Test Item Value Reference Range Interpretation Comments CULTURE (BEAKER) (test code No growth = 1095) GRAM STAIN RESULT (BEAKER) <1+ WBCs (test code = 1123) GRAM STAIN RESULT (BEAKER) No organisms seen (test code = 38601) SURGICALLY OBTAINED CULTURE + GRAM [id number] 14:20:00 Test Item Value Reference Range Interpretation Comments CULTURE (BEAKER) (test code No growth = 1095) GRAM STAIN RESULT (BEAKER) <1+ WBCs (test code = 1123) GRAM STAIN RESULT (BEAKER) No organisms seen (test code = 77770) Bronchial culture + gram [id number] 11:52:00 Test Item Value Reference Range Interpretation Comments Result (test code = <1+ Normal respiratory 6463-4) reyes present Gram Stain Result No organisms seen (test code = 1123) [facility] GRAM [id number] 11:52:00 Test Item Value Reference Range Interpretation Comments CULTURE (BEAKER) <1+ Normal respiratory (test code = 1095) reyes present GRAM STAIN RESULT <1+ WBCs (BEAKER) (test code = 1123) GRAM STAIN RESULT No organisms seen (BEAKER) (test code = 65283) Tissue [id number] 11:37:00 Test Item Value Reference Range Interpretation Comments Case Report (test code Surgical Pathology = 104) Report Case: [id number] Authorizing Provider: Solange Koch MD Collected: 07/20/2020 09:40 AM Ordering Location: [facility] Received: 07/20/2020 11:53 AM SERVICES Pathologist: Maria A Ayala MD Specimen: Lung, Left Upper Lobe, TBBX. Process in Cytology for collodion bag. Reflex Genetic Markers. DIAGNOSIS (test code = z8fxxMSrCKGqe5rlEWRpbGQ 3220) uZzEwMzNcZnRuYmpcdWMxIH tccnRmMVxlcGljOTIwMFxhb iTtMDZzyCXlH8KzeyhaQQck SC3mKR8wnDqefLBcfBPsSSK kBiXyh7awm903sYOyj9ntVK QGxytyjPy0yAoeP03cr2K4Q qgkR51wnGPpEImkbONvaqsu uwFyWDNxiiCSRsSQHE6CPBI MRUZUIFVQUEVSIExPQkUsIF WRZH4IKoQZDnNDAUYIRBIVW 1BTWTpccGFyICAgICAtIFNR LPDRS2UKYRCQTFciH7EZT3b YP86TBjmfQXHcNXIwRC6xC9 RJPUEOTG5HLdNpVCHibp01A ZM6LgWfs1M2UFZ1GXFuLDIp w1dcNILvgEDzLxQrUfTdZqE cUuagiDVjNRYkJcNqm4gkz4 11vHPlx1hjNODpIsP9tYGpL TRtyQStC118SPDxRIclx5wi z9KnKXVitLShn2E4IVRBmjf mpBx7kTpcH40qn9B6NhhxJ6 oaPBVuGRJoZ9JdNU7zOVOgG ec7TWI9ZBF3DUGrSUNsA4Uv OL0aBETmuILwJZy4d7qvuAk cVGEkLZS9a7cyLZvzwvUoOJ 7ujn9xnSw2d5bbteJbABXtF EDaxECVQWWuB6QbzMrwEl6g qUl5wTkrQhcwGYY2Rlz2LX0 aqs71lim4aMmiRIFmhuiwMu O1MKvyYTWptwxiCGs0BEnrO GCfaJT2EXCjdISaJ1SqAGJv AN2erup2KJM8IAadYFOfMwZ 2MNSsgKVgRXZuoAurWOsrh9 80LFE8GzVeYN9sX3Bri8E0d A7rxREfJGTfkTKlHgAfFPRq ra1jsBPiNXbyg5ZeVYF2udX 5pAYsbVNkWEReNlM3ACgbXA 8kvc16LGYdKSK0kd1reDZyp CivyqDxhGWkCHlzS5MtGZWy g571IYEnQ3TrIONew5H9llD xGpXpARQdpCF0dvM8FUCtKL 6lqrqan8vdVWdnKMyrTLZcq jA3aiR7ZQMymPRjT5NvuU8w JEKcLD7nsqkyd4chEQW0OAg nJZAzVTI6BbZvNSScr0Groo n8CmDrm2FbaZVpDUcnS26bh 682ZADbivNxF2usdNYoaqcv fEBvyimoEQacnvF3XLKzGLn oqwkhXIKiFOzzK1vpCqUzEJ YkdVbeNMsrj8QhNEHmMFIxK lPhiOFqFPKeZdw6RIWxtKWn WABtXiNrT5cwcszlDyCSXUC ex3qtO1zxtNUTtZIvN8AhKG huyzHnGZmaAVpiUKEoEOZ3A S4kGvF5XFKvgw82 COMMENT (test code = n0ssxLTrIKDqcAG3YgSzMEF 3359) ki9swy0EarQQljSPmRBqlyB QygnFhzs79gWO2kR29BT5dY CYdLrV2RLNjccA1Iak7RLNg ZRTytDEwD253k9oim2xvxlS qjEN9pJpxDYWyDUKbFZiaVO WaAhNoJFwtQZO1lV1aXRmfV CBvk0h5tTCmGURnqnRYYKOh FV3wEQ2gN4V6fDNlEQRjquQ OJc44ETVgZGYWXBPjUT4vBP Bhcn0= CPT Code(s) (test code r6rtqECwKUDyrCC8ExJoEAA = 3357) iw2kwq3LuwJCtlATbYHjpoP SjfcXpcg26gOC5lO41XD7jY UNvBtZ7OSDgwrZ4Tfg6EEAd PGFxaLJvS200z1djv9cfxqW oqSR1zTopNNScSVUkXAeyMX VoSvAkTFvdUQJnIAy3DmUcM YK1YLI2TZD9CNIrxPPztA== GROSS DESCRIPTION b4awvEJhNGHfgRZ7UqSnOLX (test code = 3366) iu1xrn9VntVBsuNCmUItijO WkmwYdpk22cQO7yD10IP1eD XYfDrM4NWQqfoK7Twp5DMNf QSZppCSiB180b6ohz7iwojZ jlAS0aJpnPYNpEZLrYIjuZB AkUuNaU5BmK3wgWG9iWCywL GhlIHNwZWNpbWVuIGlzIHJl C9BtzwKhBYbuMJStIs7yeVR vsL0gBbvmcWJuFPPsdwEimU 6hfdBkwgQsyYNlFVhzNMH9b LTqLMWqIXNdGNLkDT41K1Tu nC9cl3GvOKRwq61fZU6mEAy hYmVsZWQgIkxlZnQgdXBwZX SvfN7pXANhiN9oCEYYXakjT IEmBPGbw54bzYN5rvCsWkCs aQu8sQRpCVNgtjTvgKIfnAL lu0ZugCZjJR8sMxV6sDz0JK Fal7D4RWWpk1I3CPCmopGro BTho0VjpWRweCGxa32lbTL5 lNSggXGogW5iXTtrxyOvTJN kAW4gTKP4eeoaJjNnJwPcwI KoUsNxQ85gRHD8Sc9rnXGsJ CBlbnRpcmVseSBBMSBpbiBh VH6cd7cnBsMgNrQjgjskHHL ccGFyfQ== MICROSCOPIC y8rygVYyXBBjwEE4LxTaWEN DESCRIPTION (test code sr7gnz6QksYQabWHvPCjovK = 3371) KqumCorm65nZL1dW78HN2kU BNvVkN5IFWuvwB9Mqv2XSCs JBRwoQTaQ119w7lrr1omhvM weFS9oHwdYFFpXEEdJGyfHL XnShSjLUAyXp4exWKqNebxI XJ9 SPECIAL STUDIES (test x0stfAYuQQCer2kyAQYwdNM code = 3376) uZzEwMzNcZnRuYmpcdWMxIH ufoqYwKQafn2YwX2VpWpBiN FxhbnNpXGRlZmxhbmcxMDMz WUQ4foNgIDJgQFgyNUQxSFj uNb9cePCvpShtXfIxXHEfd5 dmsbYQzeadjNw1f4smPQGpO wR3pRKfNMcwL0tngwXddVTu S4PunIKcfZt1n9jzXuHeMwC 1tMKjSKewR1ilvcZzvOSiWQ QsBDz1gS12GHKxgL4kqQTpI OgqemAfFiS2MKqhRPGyFdY7 WZRgrSLiZAVeE3zzBWMrVGk zRYKwIGppwSGcQSX0mOiac1 X3qOBbsWHhnWfqNuWqWyEoI jCFg7BxZYu6gLaxC8IyBPWw TiG6iDVbLRGuRLihSQAgRDW foaX1mZhuesAeb49fiTDrQX YwXGZzMjBcbGkwXHJpMCBDb 8ZkoTfzKLB2oSh4rMxqHgig GSH4Wkc3PM9dif19mxg6vKd vGLYoijztMnL3YKogCVXple bsSBa2XCknKFUpsSQ8QTNjw SMtS1DaXWZfIW2orky5DDI0 AGvgQWGsRhK8OKQqjGLoAWH veGkpKVhfx877DKO6KaMxWM 5iC6Dyy8W5aY6hgEPcOZRyp NJwLcMvVBBwiw2bcUMsQBhx b7YkZHL9jrN4qKJxhZFtWCG iLY72Baqjz5HcIxtuq8ElD6 4alTH1RQwfh7meBX1qZrJ4k jGlUXxlq6glfR3lPkX8GRce VV8jKR3nQLUklQ7gxgmuFDS nYnJkcmhlYWRccGdicmRyZm 6yiAxbGCB1OXsmD7hmxM2gY eB8FGppQ7pnqH5wQGf5ZUpq yIX3OPDoeR9jZP7rekoqe0c yCIqtSXpqGRLnevX2eyO0UQ JpcVTtZ0QvmG4hPSIvME3pd yyfx1dyYUB1GQugBLRiEOO5 ImAuKEPxo3Vhzip5VoCdp7K euNYtZJciQ25fq689SBMjux PtW1jmzGQwtsuouWDnnqzeH IcbqcW4AZHkETEtBBovGOTi XGZzMjJcbGFuZzEwMzNcaGl jaFxmMVxkYmNoXGYxXGxvY2 ogGjIpP1UzHMSbEoQcQIjyB RqrySYjjYBqtFA7eT9hCH5p ZMImpHRuE1TrQWOkobBurYG kHUC0cHDvgWLqLQ2vODqxuC Pqz1amk4RzT8tbgBetsKR7D W1wACBgQSKiMZftd9HmkE1d LlxwbGFpblxmMVxmczIyXGx uouhxPIFaOAfcA0rnThNdRE TneAecRQpbi8MoHDLiYMNtG fyzktXyQCe5jxBwQNVgbcos BWXlzDkpbW7jCjFaTfMxMky yGT5yANMcU0uvtLVaTFWfAA BtG1oiZnEkdS5oqQvqTTfvC zKxPyCuNnIHx531mm3xAIJc sGDxfzTVtTJocB7eYQsjPTj jRHhkzQUeTLtyg3vuDKYhs1 c4sIRzAFBtmrDwv0anLLtfy uYzOUVmjTScbASwRPTbu83f HPzmrEglpMurXQVpc2VmlIc lc6OqUaZeFWqja7YlS71hyA JvbCBzbGlkZXMgcnVuIGFsb 74kv7ecEVDuCjT2xABpxFO0 fGGovXQnq8IbkKklTCVeh4n iSONnug3riboocLCup8GigO 5pbmcuIEludGVybmFsIHBvc 4u3fXDaQAIyUPDaDFrvoQz0 STOlj931ou6ezeI5rCPvGMG 2YWlsYWJsZSBhcmUgZXZhbH VhdGVkXHBsYWluXGYxXGZzM jJcbGFuZzEwMzNcaGljaFxm AAogSlVnGHRyGDuqF1quYaO mU5NwIYEcQnKtdDRcQ5mfmD FyXHBsYWluXGYxXGZzMjJcb GFuZzEwMzNcaGljaFxmMVxk JnBvSBAeNAqyU0qyAhWeV1V yXGZzMjIgIFxwbGFpblxmMV xmczIyXGxhbmcxMDMzXGhpY 9ysYrWwZNIyqYwlARtdc2Yz NQLxWVXiQkazrbBqOAm0xtU oXHBhclxwbGFpblxmMVxmcz WiTUmyzaimJXMiAQpzM9lcX fQrLWMzxPsoSExev7WyETUu CDFsGvatmjJzKPbanYVex0k mv1FmT8ikxNvawRI6NGAxC2 kitCUxvPO9ODT9sU8gOEonk cUiWHCmi3BrFKOkTGZkKxT3 nI9tHEC7LcPRoMuzKBFcRZh uXGYxXGZzMjJcbGFuZzEwMz NcaGljaFxmMVxkYmNoXGYxX KaoQ0skHjJvG6IrTKXgZiGd aZurJArfPKq0BxkjeSRugrm mMVxmczIyXGxhbmcxMDMzXG cqX2qgEyYhVQNeoLsnEOhzd 2NoXGYxXGNmMlxmczIyIHMg LMUuoIBsgANVRD81QYCoHFI lxZayvN8caCXTJSOzzmM3u4 M5VPtoEERzXYw4SKmnafJoN QGyhM4mKGGoDG6aYYj4fzRa LARee3IvRI2zDXTgyVZbROV 9EYKym3UrL6Agd4NkXFHhAG Gazl1fsxYpPaINmQFsUZHuj s75FEJjXM0eV5nxZEShULLo nyLkeGDbw5BaKXRdrTL2eRL sPN4XFhEPs33fQHQdCZZFbm GnVYLwnIpawQA8tdC9aE3gY iBUaGUgRkRBIGhhcyBkZXRl qn0vhbBgRHFsMAMfs1XyhHC oyNCpfaWjA1Vbg0IcOMHeek 93GOulpYZxli68UU4jY5Ndc 3FdlL8uZRtvEVJxh5ZmrNDv gJXmOWAit1DxR6dniakvPFy vtWIxsO2dBDFoSLq2CLYsr8 JhBXUlt2QtYeHuokBuZFAnC SNhHYLfdJ89DHB6xMxqqEds qyFfYX7hURLnvuBgNFTvEDU suQ2bWYkufcLsQTUdjdW3n1 S3SHssFLYlcdPsFevlQCA7h jJuwfS2qFGsN4ceeejtTCuw QUXeo1GfsX3xlBMQaTTai6Z aeMGwhQLCzGYaTR8vllYcWW 6mSQY8FDtfIGGLYGDvPUwsW HBxFLM8AWsmHdtmRHX7zdUr CQVtn2ToGWcuA2zeD82guYb tkOh2wLCwsWemfHUihNXcWM ZnopH8b1T8ACHin5YfpitpO HBsYWluXGYyXGZzMjJcbGFu ZzEwMzNcaGljaFxmMlxkYmN tKGMhWGolF5fmNzUrFxZqDu haCHY3rQ== Gross assessment was [facility] performed at ([facility], code = 2777) Department of Pathology, [address] [place] [address], Technical component [facility] was performed at ([facility], code = 2778) Department of Pathology, [address] [place], [place] [address], Professional component [facility] was performed at ([facility], code = 2779) Department of Pathology, [address] [place] [address], [facility] Hospital[facility] [id number] 11:37:00Surgical Pathology Report Case: [id number] Authorizing Provider: Solange Koch MD Collected: 07/20/2020 09:40 AM Ordering Location: [facility] Received: 07/20/2020 11:53 AM SERVICES Pathologist: Maria A Ayala MD Specimen: Lung, Left Upper Lobe, TBBX. Process in Cytology for collodion bag. Reflex Genetic Markers. A. LUNG, LEFT UPPER LOBE, TRANSBRONCHIAL BIOPSY: - SQUAMOUS CELL CARCINOMA. - SEE COMMENT. Signing PathologistDirect Phone Line: [phone] signed by Maria A Ayala MD on 07/22/2020 at 11:37 AMThe tumor is positive for P40 and negative for CK-7 and TTF-1. 04561, 63840, 48484 x 2Specimen A: The specimen is received in a formalin-filled container and labeled with the patient's information and labeled "Left upper lobe lung TBBX" and consists of multiple fragments of gan off white soft tissue and hemorrhagic soft tissue in aggregate measuring 2.0 x 2.0 cm, submitted entirely A1 in a mesh bag. Performed.The interpretation of this case included the use of immunohistochemistry or special stains.Control Slides Examined: In-house known positive controls were evaluated along with the test tissue. These control slides run alongside of the patients sample show appropriate staining. Internal positive and negative controls when available are evaluated Immunohistochemistry technical testing was performed at [facility], Pathology Laboratory where it was developed and its performance characteristics were determined. It has not been cleared or approved by the U.S. Food and Drug Admi nistration. The FDA has determined that such clearance or approval is not necessary. The test is used for clinical purposes. It should not be regarded as investigational or for research. This laboratory is certified under the Clinical Laboratory Improvement Amendments of 1988 (CLIA-88) as qualified toperform high complexity clinical laboratory testing.[facility], Department of Pathology, [address] [place] [address], [facility], Department of Pathology, [address] [place], [place] [address], ExpiclSan [facility], Department of Pathology, [address] [place] [address], QGKS NEEDLE ASPIRATION BY [id number] 08:49:00Medical Cytology Report Case: [id number] Authorizing Provider: Solange Koch MD Collected: 07/20/2020 08:55 AM Ordering Location: [facility] Received: 07/20/2020 09:03 AM SERVICES Pathologist: Adir Rangel MD Specimen: Lung, Left Upper Lobe POSITIVE FOR MALIGNANCY LUNG, LEFT UPPER LOBE, MASS, FNA #1 BY CLINICIAN (DIRECT SMEARS AND CELL BLOCK OF ASPIRATE): - SQUAMOUS CELL CARCINOMA (SEE COMMENT) Signing Pathologist Direct Phone Line: [phone] signed by Adri Rangel MD on 07/22/2020 at 8:49 AMPlease also see surgical pathology report [id number] cytopathology reports [id number] through [id number]. 51224, 52474, 00744Kqfa upper lobe lung nodule,history of smokingLUNG, LEFT UPPER LOBE, MASS FNA #1Prepared 6 direct smear slides from FNA samples collected in 40 ml cytorich red fixative; prepared cell block(A2)PASS 1-3 : BORDERLINE ADEQUATE, DR KOCH DOING BIOPSIES (9:16 AM, )Performed. [facility], Department of Pathology, [address] [place] [address], LuclhgSan Joaquin [facility], Department of Pathology, [address] [place] [address], DklzjmSan Joaquin [facility], Department of Pathology, [address] [place] [address], [employer] Needle Aspirate by [id number] 08:36:00 Test Item Value Reference Range Interpretation Comments Case Report (test code = Medical Cytology 104) Report Case: [id number] Authorizing Provider: Solange Koch MD Collected: 07/20/2020 09:13 AM Ordering Location: [facility] Received: 07/20/2020 11:18 AM PERIOPERATIVE SERVICES Pathologist: Adri Rangel MD Specimen: Lung, Left Upper Lobe DIAGNOSIS (test code = t5qioPFtANCmm0jtIOZhg 3220) GFuZzEwMzNcZnRuYmpcdW MxIHtccnRmMVxlcGljOTI qTGgclvLwMXFlbXKfG3Ho xnblTStmJA6cWA4sjVpbw KTgyERbYVNuAcDom4rge1 57oQUdo0jqHANMtlrjaJw 2sVqpW25np7X4AxxrC77w cGFyZFxwbGFpblxmczIwI ExVTkcsIExFRlQgVVBQRV QyZW7FZCilWGKRVzXaPmB FQlVTIEZOQSBCWSBDTElO YFXANU0mRBNFNjCVJEEYV KLNHyDjPR9QWKSMCJcnFv xTC4ooN3MgWVUNBITRQPS aBpBenMAtAUPbQX3hR2SR DS3UVQHfA5ZIPDRDJGZFG D4ATLYfdDWbnGwifjEdWG syg7VvCRvcFDTeTV7ddQq xQIHbWL9cKLThG7jfqE7t glv0VwXiPZUfKxL5RXNqx nS3Inl2GMGyWHksn0gsa8 QyCHWkGUh4fTonUvTfLRX cf7tyszTjJqEuEODeYWKs DEMdqGWyK007b3wpo3ibr zGgpBF1XIAtBGK0ERjlmx FhulK3IWfwtDTcVeU1CPs ccmVkMFxncmVlbjBcYmx1 IZRbX229DCP6rFjyy6lmY SZ9QONvLLBcToAvHb6enF EmU192WIAuHTIFAEGyuSk 2FRJganAodnNquZEGs119 K408p4fpONMikbIbcCrFt ryxz8uqV467SBUpzZKceq NxBbCyTMOhpKSayTA9NHV fWU3gthqxOIegZNnqCAXb bhC8NIDcmCOvK2XbDBGnQ W7avhumRZL9QRnsFOUrED C6BdBuJNOtn5Badyg8AzN fxc8gqm09CUC8v6BqwLgx DWR5UTC5WeOvQd9oqUOqS OVsSW9hCxSbhCOqGWFrbn 83eUslACwdIMO6UOEiedR rg0Jif8orBtHnlwDbE6xv I2SfMZXeMNXcSZZrLmTuj oXon8Hyo3XblSSicWr0w7 coNDNiIWKhfFrcs7mhBQH 8NKFckDDoK9ggqA4mRHMk CY7zltnpt5qcWOnbCUvyB EHalSB7bwI8GQZuqGDoB6 NszL2sACRaGQpxMVLnnpi 1SjPhBp5qyOXomEalQNzw YmtwYWdlXHBnbmNvbnRcc GduZGVjXHBsYWluXHBsYW luXGYwXGZzMjRccWxcbGF uZzEwMzNcaGljaFxmMVxk QgItWPHfRVrhQ8zbHmFaL jQkWid9KRSynHCuXLJzLs h2XSDphUSlHKVRbQmtsO3 hCNBnmJmupJ9loSD8DAVb llRrjVZLdX4xUEWKvX2nJ oS6JvXfVhC7KQU7IfcIEM Bhcn19 COMMENT (test code = r6mbsESfOSLkcNL7TyJcT 3354) RWfe0bnn0OwfQLnnGHnZJ lwaZLsgaJxaj48hLK6sZ5 7RO7hQLPzNyJ5VSClqcH7 Hsh2YUEjCQSxgXYvC332n 4slq2hdveJcyYZ7wIdrHL JkXHBsYWluXGZzMjAgVGh oBGX7hB6uXRAxrNwmQKUr EZVta3UbzJm4XFAvv4Qwz RJoCFElyZnkv8L5ESVgUU FjFyYdEUKMHl3dHUGbOYC UeD6bwUEpoHw0j6nmQQQl YPHjCCzelCm4XD3yOWwzR X5mocAdf4qsB1wwWZ2sEO ldvFNpw8Wvv4QpyELhSPR hKTEbdiAid5EyjyJqa3c8 pHGwgCOdzD98oiCiRBnfT PVfyoSjwm7kEJOjcgNewl PeeALwt3YnlIN4FUEoaRr fjGBtvBAgXSR2rN6zHfgl YXJccGFyXGYwIFBsZWFzZ SBhbHNvIHNlZSBzdXJnaW VsgGIyHQSil8mhC1uwstM bl8Z6VHAfBK2oBthdHfIg duZuS6z4w8BnbCgrnJ7ej JZgMZIclgSqZULjXK7jPI HcNJOnOUSJLzEyYfy7FYM 8zUZxxMftGIZzWA3wIKC9 LiBccGFyfQ== CPT Code(s) (test code = g8yhmUUfNDFwaOY0WxCaU 3357) UNmy5pks8KksHWrjOSvGD qwbXSycwXjan40ePH2uK9 4IV7xXXCxDoE9MWAuuxC5 Ola7GOFsPQMngEVlI153o 7ylj2gofuSnyQI8lQfsSL JkXHBsYWluXGZzMjAgODg dOgLsRDs2SZzrJBQ2DWRs ZRkqIElbXIU4XQn7HiZuA TbnH2uhZAV7 CLINICAL DATA (test code k3muxFLwFZLrdPT4UpXiL = 3355) AKzh3asm6PrfXKutRAwDN ojrWScxpIaxc38dNJ0jE3 8XS5nQKQlNfF9XJVlkcP8 Cex1UHUvXHSijTMfK267l 2yrw5ilqmEliNH6gQeqTE JkXHBsYWluXGZzMjAgTGV bxPM8vTAoqrKqu1MdWWb7 ielekh4moIehYLAlhLS5q 3B7JM3uWPBmn9inorcfkD FyfQ== SPECIMEN SOURCE (test n4klzRVqNTAtuSW1FkNrA code = 3377) HJwq8iwm5VasZEqdVSvTP edaYEqikSznl17tKS3qB5 6IG2jHMXcChQ2FUNtysG2 Zug4DAMsJHSnmSLeF677g 1hbe0uxzwYyfAH0qHzuCC JkXHBsYWluXGZzMjAgTFV ORywgTEVGVCBVUFBFUiBM P1FCLZWKZVIZUJCDTANaQ lxwYXJ9 GROSS DESCRIPTION (test j6kwrENoWOHltHH2GfHjM code = 3366) CGai1mqb5KrzLPbdHXlDU pffCJrtoTtqo37oYS3kS3 7KA1cLEJbNbF2EEJldmF0 Qwu3SQDaVFRmsMLhC547m 0kjt1xuhwBniNR4nZsrWI JkXHBsYWluXGZzMjAgMiB 3EDZ1CN2kmjIizyUtqUYj hhjorZTuYFQ0ZBXpAIoeQ WL5IFFeVRIyDTCejZNope bpE4KsfVOwiS9rgoPcDKR pXHBhcn0= INTRAPROCEDURAL ADEQUACY f4qvuDPnDSIoyVK2CnTaC (test code = 3370) ZGkt7jqd2LuxAZyrREdOW lwaIErnoNfsc22sAQ1lN2 1WS5xTVNwXnU2VYFzlwA3 Bgn1RRCpQUZytXCeN825y 3tub2lhnqKqwMJ4fVwnDC JkXHBsYWluXGZzMjAgUFJ LTI0EMC4FLyUFEITZLV6V RCBBTkQgQSBSQVJFIEFUW VAHS1XWHFrEE1MSZPXvmq 0= MICROSCOPIC DESCRIPTION r0rtbEQxHNJeaUK7IhFyI (test code = 3371) NLqh3ucy8RsnBQvbXGiUX daxZNwbeGynh19dYW9nX5 3DN3kJMCcMtE3HYPikrD4 Xhd8LJEsMUMpsEVeK528v 6eyw9fpxnJivCQ4jHstKB JkXHBsYWluXGZzMjAgUGV wTe2xlKZiKmDceSSqeP== SPECIAL STUDIES (test z7ggkGWgVCLpuCR0PlVbV code = 3376) QHjw1ykj2BveMWdiTGgQJ ysyJYdylPeqs06qAS7rL2 7ZV1wPDTrXjW8IHCvonZ7 Eai0JBFtBNKcvTGjQ470G DJaIRVryVwvrwk9cY90NB CexL8zxVBuBBn0TPIoscO trAmdkE9zFbZzHsTiXtHX mSNmvZ75ISAxmuF4GSPin 77ve0GkcAdcvsVyRZXfJJ wbI1r0EIZcAGLmZXD7n7C aj9CpxR3xzJ1wrRdyfT5n gQSjfMI3zprzp0Rgh7JrD 2lhbCBzdGFpbnMuXHBhci VVJVHiTLbqP3pOBXJTG6X IWVNJTjsgUDQwOyBQNjNc tQVoQJXnxnAui6ovP2yyR SOqVAE6RG6gjoOmQlTbCQ 6rxV27m2Mgf19wp93ybT1 eaJSszaKbN66utVTcsQRj o4LbROXfpdSdtEL5LZHaE Avznwcpx2f5iUE5xLJvkT CbpIU7eIBuoZIyJOSOyLC tPLGpr988tz9jYELmtOFs gzWeaO8mDUaycbezqWSfQ Q2sPCXmNWArJZTaHD01eg TtMD2prMNkp0btknMfaNG bb1YbzLU1EXHxiXBndakq Ih6fZB24FPNkTEdrrN6nw DAtggFoDU4uAK5vV5U8cV HjYMLqgaVka6xiCXboXC0 gYXZhaWxhYmxlIGFyZSBl eyGijJJ6UKCarHJgAEIyv QHvJJhkwDOya2oux3YqL5 cakKmcnVI2DCRdI4hlhNC zjGL6HPB0nU7nNXxnauQc VQSns3HiZNOiQJRrQkR9u T5bKHP4CxZMoFiaHJP2Te D1SWzjVKPdER5oYLvkZSo xT3LseSIeMWXQHWBls0lu I2dvRCLas7ChxL8peEV7v NIaMDUgmTR2GLJoZYP1EF xvcGVkIGFuZCBpdHMgcGV bBa1clNAoQ6RfH0thayKv tSSawIO9lSQlZSmcnjLqH PZ5EHGthG9dYK1iGOXgzL XbHX6rpVSrCIEcXJHrZAO uPVTrk0GkODNlgi57WVYp TrsouKftLYQqZp8vZq7xR TTkcdOjNEO9SeFUDE3sbj ozxMFwoKxhxr5bAHixKLJ JKOBoQNXqYLB6RMVndB2p RPF9nCX8KNY0X1trT9sqP DLmskLnJP7yZLMmkZBzek OeOPabZS5yhGUeYHImy8K cqvkeCUZaXMC0MAV2XRup AIYbRPKqBf6yQQAkqS6wT 5XuXMB8hqUpt5DhAsNJwI HzyY59lLOrbd67YBLoNPF vS8OaEZTjSUAaTWquqwAl bRcfBTAsx89iuGSpjtDgd 8NdqsEjAOYnW4tfAODesA TnwODgl9TlrA4vlUKlfcE wDXA2zVXaEKGxeT8eCMCp wNraJASxmB0tV9FbFDthR m4sPVCtcychVS0jyw70SM 8amoNwSK3prpXtQX28tmG kTcYiWXu7XCkYAEnUMDo2 KSBhcyBxdWFsaWZpZWQgd K8rxYDvZz5vqAAtbKcrMY ZvmNHuEUlelPbpG4gonno aCUkoiCPvs0FyqD2coJY5 YXM5fA8oMboxTIJ2 Gross assessment was [facility] performed at ([facility], = 2777) Department of Pathology, [address] [place] [address], Technical component was [facility] performed at ([facility], = 4058) Department of Pathology, [address] [place] [address], Professional component [facility] was performed at ([facility], code = 2775) Department of Pathology, [address] [place] [address], [facility] HospitalF[facility] ASPIR[facility] BY [id number] 08:36:00 Medical Cytology Report Case: [id number] Authorizing Provider: Solange Koch MD Collected: 07/20/2020 10:16 AM Ordering Location: [facility] Received: 07/20/2020 11:18 AM PERIOPERATIVE SERVICES Pathologist: Adri Rangel MD Specimen: Lymph Node, Interlobar, Right, Station 11R LYMPH NODE, INTERLOBAR RIGHT, STATION 11R EBUS FNA BY CLINICIAN (CYTOSPINS AND CELL BLOCK OF ASPIRATE): - STRIPS OF DYSPLASTIC SQUAMOUS EPITHELIUM IN THE CELL BLOCK ONLY, SUSPICIOUS FOR METASTASIS FROM SQUAMOUS CELL CARCINOMA (SEE COMMENT) Signing Pathologist Direct Phone Line: [phone] signed by Adri Rangel MD on 07/22/2020 at 8:36 AMCorrelation with radiologic studies recommended.Please also see surgical pathology report [id number] and cytopathology reports [id number] and [id number] through [id number]. 13636, 53683Foys upper lobe lung nodule, history of smokingLYMPH NODE, INTERLOBAR RIGHT, STATION 11R EBUS FNA50 mls in cytorich red; 2 cytospins, cell block (A2)Performed. The interpretation of this case included the use of immunohistochemistry or special stains.Control Slides Examined: In-house known positive controls were evaluated along with the test tissue. These control slides run alongside of the patients sample show appropriate staining. Internal positive and negativecontrols when available are evaluated Immunohistochemistry technical testing was performed at [facility], Pathology Laboratory where it was developed and its performance characteristics were determined. It has not been cleared or approved by the U.S. Food and Drug Administration.The FDA has determined that such clearance or approval is not necessary. The test is used for clinical purposes. It should not be regarded as investigational or for research. This laboratory is certified under the Clinical Laboratory Improvement Amendments of 1988 (CLIA-88) as qualified to perform high complexity clinical laboratory testing.[facility], Department of Pathology, [address] [place] [address], YrzpngSan [facility]aquin [facility], Department of Pathology, [address] [place] [address], CyaclhSan Joaquin Valley Rehabilitation [facility], Department of Pathology, [address] [place], [place] [address], DMJQ NEEDLE ASPIRATION BY [id number] 08:36:00Medical Cytology Report Case: [id number] Authorizing Provider: Solange Koch MD Collected: 07/20/2020 09:13 AM Ordering Location: [facility] Received: 07/20/2020 11:18 AM PERIOPERATIVE SERVICES Pathologist: Adri Rangel MD Specimen: Lung, Left Upper Lobe LUNG, LEFT UPPER LOBE, MASS #2 EBUS FNA BY CLINICIAN (DIRECT SMEARS AND CELL BLOCK OF ASPIRATE): - SQUAMOUS CELL CARCINOMA Signing Pathologist Direct Phone Line: [phone] signed by Adri Rangel MD on 07/22/2020 at 8:36 AMThe tumor cells are positive for u53-jgwuwbxe and p63. TTF-1 and Synaptophysin are negative. The morphology and immunoprofile are consistent with squamous cell carcinoma in an appropriate clinical setting.Please also see surgical pathology report [id number] and cytopathology reports [id number] and [id number] through [id number]. 51081, 36736, 44618; 11169; 21604 x 3Left upper lobe lung nodule, history of smokingLUNG, LEFT UPPER LOBE, MASS FNA #22 x 45 mls in cytorich red; 5 direct smear slides, cell block (A2)PREDOMINANTLY BLOOD AND A RARE ATYPICAL GROUPPerformed. The interpretation of this case included the use of immunohistochemistry or special stains.TTF-1; SYNAPTOPHYSIN; P40; P85Befccsl Slides Examined: In-house known positive controls were evaluated along with the test tissue. These control slides run alongside of the patients sample show appropriate staining. Internal positive and negative controls when available are evaluated Immunohistochemistry technicaltesting was performed at [facility], Pathology Laboratory where it was developed and its performance characteristics were determined. It has not been cleared or approved by the U.S. Food and Drug Administration. The FDA has determined that such clearance or approval is not necessary. The test is used for clinical purposes. It should not be regarded as investigational or for research. This laboratory is certified under the Clinical Laboratory Improvement Amendments of 1988 (CLIA-88) as qualified to perform high complexity clinical laboratory testing.[facility], Department of Pathology, [address] [place] [address], VbwgmdGood [facility]aritan Hospital, Department of Pathology, [address] [place] [address], YntpkzSan Joaquin Valley Rehabilitation [facility], Department of Pathology, [address] [place] [address], TFAT NEEDLE ASPIRATE BY [id number] 12:02:00Medical Cytology Report Case: [id number] Authorizing Provider: Solange Koch MD Collected: 07/20/2020 10:31 AM Ordering Location: [facility] Received: 07/20/2020 11:18 AM PERIOPERATIVE SERVICES Pathologist: Adri Rangel MD Specimen: Lymph Node, Subcarinal, Station 7 LYMPH NODE, SUBCARINAL, STATION 7 EBUS FNA BY CLINICIAN (CYTOSPINS AND CELL BLOCK OF ASPIRATE): - NEGATIVE FOR EPITHELIAL MALIGNANCY LYMPHOCYTES AND HISTIOCYTES PRESENT Signing Pathologist Direct Phone Line: [phone] signed by Adri Rangel MD on 07/21/2020 at 12:02 PMPlease also see surgical pathology report [id number] and cytopathology reports [id number] and [id number] through [id number]. [address], [address]Gkpu upper lobe lung nodule, history of smokingLYMPH NODE, SUBCARINAL, STATION 7 [id number] mls in cytorich red; 2 cytospins, cell block (A2)Performed. The interpretation of this case included the use of immunohistochemistry or special stains.Control Slides Examined: In-house known positive controls were evaluated along with the test tissue. These control slides run alongside of the patients sample show appropriate staining. Internal positive and negative controls when available areevaluated Immunohistochemistry technical testing was performed at [facility], Pathology Laboratory where it was developed and its performance characteristics were determined. It has not been cleared or approved by the U.S. Food and Drug Administration. The FDA has determined thatsuch clearance or approval is not necessary. The test is used for clinical purposes. It should not be regarded as investigational or for research. This laboratory is certified under the Clinical Laboratory Improvement Amendments of 1988 (CLIA-88) as qualified to perform high complexity clinical laboratory testing.[facility], Department of Pathology, [address] [place] [address], ZccentSan Joaquin Valley Rehabilitation [facility], Department of Pathology, [address] [place] [address], XktlhhSan Joaquin Valley Rehabilitation Hospital, Department of Pathology, [address] [place] [address], [employer] Needle Aspiration by [id number] 11:53:00 Test Item Value Reference Range Interpretation Comments Case Report (test code Medical Cytology Report = 104) Case: [id number] Authorizing Provider: Solange Koch MD Collected: 07/20/2020 10:36 AM Ordering Location: [facility] Received: 07/20/2020 11:18 AM PERIOPERATIVE SERVICES Pathologist: Adri Rangel MD Specimen: Lymph Node, Interlobar, Left, Station 11L DIAGNOSIS (test code = z4utcCQqJRQcw8wlFVHvzLL 3220) uZzEwMzNcZnRuYmpcdWMxIH tccnRmMVxlcGljOTIwMFxhb jSsEYEjvWPdS9AiwsiqQUjy OC2uPI2ltRjakAGiiSExQTA iQfTwj4bap298nMXir3ieNZ GSmlzxlKc1lSsjU82wb8Z1I ruiT31ftZAfXApgpIFpafmc aaJnLHqDXYPJYN5PSRByOBf TBPUZVW2INYOpYPyLHcKgFG HXIKPNC26gJLFEISNDDTLuC r8LKWKJKYXPQN1RK3kFPvFk Q0pJM8NKXN5YVFZVOHHXONj FHLDGX3PSWX4PXQPSASoSED RMQUttbUTxQAVtOO1kPpVHZ TOIJvQcNh6AKNINAZYWZRsS EGfyBILFUAuVAY8IJWiiFKZ gFGKlEEITZC7WJW7PPMZRHs EISjNTCU0KVOOxtd27YJX8F uMfs1F7QLK7XYEhFVEmg3ti ZGVmbGFuZzEwMzNcZnRuYmp raHSeEKAdQbUyn2kjq708iC Jyl3pwSFQmAeZ5dEOnXSMua XSuR556KDPfWKgql2gze7Td BFXvhSNfv3W0PLYOhlegdXa 6dEcwZ62ga0M1OgsaD5yeTV JkFEQvM2QcKX5pFFUrAye7E YZ6ZZH8JAHoBLTiV7FpNE1q HAZyeICrKEy9b9xujVojZZT gXXO5c8kqDCkhhyNnDW6ete 4zeCl9c3ckqlJfJGAfASVwf FQLSTNjD0JqhDnuQc7fzCn3 cTvjTghdBCA7Zef6UO0gpu6 0qtx2zSytMHSlpprcYzM0QI ejTZRpzflmFJk4HKnpSQRqb YW4AUHcnQEfB6EsXVWwOM0g bqa5RDZ5GFioVPVzWqJ4PAU zfMXdSISviYgtUGlxv330YI V8BsAiKW4pT6Yud9K8pH9ac HXtYQAxnOLdWeZgGCPqlm8x xPByBJmjd5ArZEV8liO6rFV eeOYcAYMjAuF4JPadUI3fqc 14KDBkHNU9yq1kmIQguLtje kEvxNYpZXcbI2WwSWPfn513 DQZuP0DuRIKpq4D6wlJrMcJ wHGRjdWZ8ibH6EPMdPX8hdz lzn3roIGtvVPlzFMOwoyO7a eH5UOTulLZbD4SzrP9rRDVf BR6hmwmmz2gwIOA6GLeoJMM gNCZ9IdRjNXCwa6Amgpo5Ke Kro9SjjSMrAKioN32ka203L GDcdvQnN7ltmTJlsxgymAGu lvpbXVytkcP8ISTkYHdmpqx fTTOgQWtbA3phWzXoWQKauV tcSZqlv4QfUVIvCCOaJlDxn NDfCCYmVup6XRTkmMFhACEo OfTxN4zotlmwGrRQLEPis0n yM4zpoMGWkWCyG2RyKOuidc IvYKawLMwtLWXtTUP8BB31Y IV6CoheVAR5uL== COMMENT (test code = s5hpgVWnQGOksYN2NaQiSPE 335) un9hnj9BfqEVzlVLrKDuarK ZqrcTixg44dAR9fO01ZF4iY FIeBkL1KBJmrdF7Epw9QTEf PYEuzUPpW122l5zfz6hsbmE hbPY1vCahACYkEBKeXXqwFX ZzMjBccGFyIFBsZWFzZSBhb HNvIHNlZSBzdXJnaWNhbCBw CDJel7njK1hlfaZas8X0VNX nAG5pUhvoRrGspeUfF3n1a4 CxjWumoD7ugUFlPRIlfhAfJ FAgVD7vJGWyMBSyHLUGJiFe Yww8RAO1aMKdeTlfDDBjXE2 gLMR7GpEebGXytE== CPT Code(s) (test code g0nehWZnEMCcwMS9GmFpNKK = 3357) fw2sxq1XnnOWnjKGbFNdfqE IurzNpyw78rIY5oC78QL7wR HDaWiS1SHPvaqI4Mum0MUBb FMRfnZVxO565b6lwa9samcT vhAI1gWzzQXIoGZEvADwnHJ BpSpDhXIteVxIfRQx1OuV8J HBhcn0= CLINICAL DATA (test z2pyaCLzWTBqyOM6VvFsHBD code = 3355) qq6vgq2HonYZcaTTtNPjccR GbleGtun45rDD0lN58FM2sJ KJpRkL1JHDnvvT7Vzg8MRGg JDPhgWCcD243s3fgk0maylS hrSN3wDytYYEgRPKjVFwbJQ FxZcRcUDMvwGS0pBRohzDta 3NrFNq2ntthir1ddUgyIFDo cEW9i0J9HJ0dERWpz6jivyt ccGFyfQ== SPECIMEN SOURCE (test e6vpnPHkXKRnwNH2NsKvCRM code = 3377) eh0myx0ZtzIJmvAJoILpnhU DbfdJont01mOD7aD74RS3kW DXzMjU3GZFtavO2Brb3HGUa BFZwbYKlP647n6gyf0lqizV nsSN9bJebMGHjHNCdBGnpJH YvDkQdITuYKCmnRu9IVAyjA E9XOUVLQ6FWYoneNTQNYVgj Z2WKWArPKmFnBVvyYUTYPsD GTkFccGFyfQ== GROSS DESCRIPTION m6cqpZEiHQNsoUV2EtMdEUE (test code = 3366) rf8hmc0ZfaTIzvJCpUSnzyB GnanMong26dZC1dP36NT1yS HRgTbO5KGFcpkN9Vwq7HZZf TAWrgPYyG978d0hrs4ebcgT dcOR7xCvhKOSlIVBiHGotNP JuQrBxPNEhcQruKZfmYBL8c B2gvNLcOZRaRDsdJkTceSOl c6HtcsEuCVXgxQxeRehxM8p gKEEyKVxwYXJ9 MICROSCOPIC f4rnbMGzCZJrmJQ1LcDpHYR DESCRIPTION (test code vf9fpi1XwqKRhaQTbPQsubV = 3371) PwdgQehc21cXG2fZ47HH1hC UXrIgY3MXUlngB9Yom6KSTf ZHZxgXPaA371q5vdo1hwwrZ zpHV6vMuwFBRfEQIfHRaxFJ OcAxFcTFNoPi7nxWYmSpUpk GFyfQ== SPECIAL STUDIES (test h3ftcPYmOJBnz3bgGPMnaMD code = 3376) uZzEwMzNcZnRuYmpcdWMxIH vkqiSvBVwrm0MaQ3UgNlXfK FxhbnNpXGRlZmxhbmcxMDMz BET0cnQbZWTyGTdfCASyBSr xCk9roPKwpIiaFpSvHBTdq6 aapdXJkoefhTe5c7cwKGGyI jO2bXCoBYurS2zvpcVnkRYs E9JtlOZsyIu8t2nfChPtFxC 5wUGfKMaeO2gjoyQyqXZzEM BdQDp7qL55KHCetJ6lzZGlB TdcflLvNsX8AJecYPWlRfW6 TKVcqCEySEQrD4hoEYCtRNf xRDRfDJmdmVLvUPH0rShss0 I0jVPkyNRaxIohDrBaBmDyW dKGd3QuSZy3uNiwA8XpMMZn QwI6tSBcZGZeEDmuLRNzSGU whtA8dVpafeVvb44wrNStFD YwXGZzMjBcbGkwXHJpMCBDb 8MbmPrdPZI3aRw7zJhxJhrj TBX2Ohe1XZ4nla04rwj3qBa pKYVdmapcOpG8HUryUHVivj smDAj2HTbbMQRqmBN4WTYlw PUfS5LcEUNqWO7xilo8GFP4 PHubRUEmEgV9HUKdcKSuCKG tvDdpGWzmr793DAF0UnBxVF 3iW4Hua7J6dJ8djOHwWXRvz CJlQdCpVKKxcj6taPIcKTpp k0IhHDJ0orL1dTUkdZVuTCK dKV51Ebgsp2YkYwvbo3XvQ1 3nbUV2FUuda6vuKJ6iFzB1y nInMRdac0zxiX4rByR8QUsu PZ2nCS7gHEXemH4jtjskHQF nYnJkcmhlYWRccGdicmRyZm 2lcIvjHSJ2NEqtK6evnC2qW pO7SWahU6ixbT0iCDr1PAgb tZN3JGXvqF6vHG0heikso1f dLCztBIuvXFRmauM1tfW0HV IfpYVdS5VhnB0dWOKtLR0ps wxbi1xfAGX5ZLttGOJrLIM4 OnOhNQDdt9Tlahj1GcXvu2Q vbEGmBGfaA53vn581IDDwrr ZyE3yfzQYqljjlwRToieqjR VdcamX4RCHeNZHzURkiRBSt XGZzMjJcbGFuZzEwMzNcaGl jaFxmMVxkYmNoXGYxXGxvY2 wcPiZiK4ZvAJZkIvTaELqaO KozyQKosRWcsBT0vV3cDX2b ESPngVDuS5DcQCPuhjTobND lUEQ8lJRqpPFwEU2kPKvjgT Btp2orq2PjB8gqyPfydTE3I R7yTHJnBMSjHSmgw8MlgT4d LlxwbGFpblxmMVxmczIyXGx mpwqoYGPzRTbgQ0thInNhMQ SoaAldCFlgx6RgAVMzUSKzN ufqrtWvHCh1jlYnPLJadxgl VXVolMicxB8gFoMxSfAvHmw gSA3vEWWrC7gjuAWtCKUpER DpV0vdJjKetG0kgVdnZBhmV yGbKgEdCbLRv508gt8aUGBk zJOhreCNrBKhpF8fSGnfEDo fTHzurCVsUDgnu5ziYGSvv7 n4xOOmBBKvqjLlv6ekJKrrv cVhGBAheYLzzCWyULWng49q NBvirIimoEqmRHWjf1RahFf yb9YpVgOkQNkfg0AjY16mcN JvbCBzbGlkZXMgcnVuIGFsb 82cj2asIUTsDrA7eLMcxWU8 iVNuqVLfo8GbfLaePDQwh9k wYWQwbj8mrewgiSGqg2OdiP 5pbmcuIEludGVybmFsIHBvc 5n7wRPgJXEpTXJyIImpoJf1 HELav686qy7fgnK3gMFhZWQ 2YWlsYWJsZSBhcmUgZXZhbH VhdGVkXHBsYWluXGYxXGZzM jJcbGFuZzEwMzNcaGljaFxm IWaaJbOuJGAjCBqcR0akAjE gY1DsJYYtGxPaaIAeZ5uwdD FyXHBsYWluXGYxXGZzMjJcb GFuZzEwMzNcaGljaFxmMVxk AnLeEDGcFXipQ6mgEoEdO7O yXGZzMjIgIFxwbGFpblxmMV xmczIyXGxhbmcxMDMzXGhpY 6tjUqMuMCQvqQulWUjtm7Ny KHWpIKSvKcsncfDaGZf6cmI oXHBhclxwbGFpblxmMVxmcz QmZTdhpckhOZKsPNioU8tdT xTcSMRggMukNWhaa8IjCHHk WJLfRvjakaFiPEpnrUKhd6f xj7PmN0sbyZdyrAX7AZXjZ1 ipzBMonBC0WTC0lN6jLLzhs bVvFOLqs3YsFBVySLAbPhQ4 lT6cODT1TpPVhKsbQJIdHIm uXGYxXGZzMjJcbGFuZzEwMz NcaGljaFxmMVxkYmNoXGYxX LihQ9kgUjIeP3FaUIKmMdKz bQsdEZihGJd6PtyoiYLyltd mMVxmczIyXGxhbmcxMDMzXG agA6pzLjJqCLOsvFalOQtuy 2NoXGYxXGNmMlxmczIyIHMg FYTgpCKqvFOEXI33MRLpWJI qzCoqsQ6dnZMTXMXqarK5w6 G7HXueAKVkCPa2COrzwnOaW CCxpK6lNSPlEK8lGWg0byJh ESMlc3IrYW2yUYGplOQzGID 5UVOgg5GgF1Gxr3YbARZtTH Gbnt6xvfNhZgFSdDXwODAic b79ICWvFW2zB9bwWNWiSCNh mwFcnEXlj1WuWMQbmDS2lDL aCC8VTxYFc39jTEHhDYDJck MhMPTxxLhwfMM7tmO6yD0nS iBUaGUgRkRBIGhhcyBkZXRl bj2lukLyBLVfFEQku7AorIH qmCUomuHvG4Pdr3DnAMMuei 55DGaalCZrgu00AX0hC4Rvn 6HvuE4aGUuaTVIyz0DrpWUa cJSvUXXdu6SvX5eiruivABo haBDshX4bCGZbXNa4VRRtv4 CvYPFxi8UnTgVrzwFbKJUaC IHdXPKsjD40KHS9sBbwqIfl otYjTJ4vISKgbtYvDZJcTOP rgD0rMLtgvrAuCDTitpX9k2 K7GPhiYOGxqbWiLprsODC3x yZjpsT9uIXlH3hdmutrDGpc QLJtm1QufY1dvKZHaJQjv6C oiKRbtGCBfGZiQL3iliSrFY 3aKZB6CAexFFBLETJwYHjkP EUpGPL5KKyhXnabNKH9ctUj PRNol7UrRQaxG0ixH86ieAg myMt0hOGrfXqivPWliCThSS HprhP1s6U2GJBow4DzxhdhC HBsYWluXGYyXGZzMjJcbGFu ZzEwMzNcaGljaFxmMlxkYmN lDIYcZPlyE7bwHjFzKzMdXb bvBYN1sJ== Gross assessment was [facility] performed at ([facility], code = 2777) Department of Pathology, [address] [place] [address], Technical component [facility] was performed at ([facility], code = 2778) Department of Pathology, [address] [place] [address], Professional component [facility] was performed at ([facility], code = 2779) Department of Pathology, [address] [place] [address], [facility] Hospital[facility] ASPIRATE BY [id number] 11:53:00 Medical Cytology Report Case: [id number] Authorizing Provider: Solange Koch MD Collected: 07/20/2020 10:36 AM Ordering Location: [facility] Received: 07/20/2020 11:18 AM PERIOPERATIVE SERVICES Pathologist: Adri Rangel MD Specimen: Lymph Node, Interlobar, Left, Station 11L LYMPH NODE, INTERLOBAR, LEFT, STATION 11L EBUS FNA BY CLINICIAN (CYTOSPINS AND CELL BLOCK OF ASPIRATE): - NEGATIVE FOR EPITHELIAL MALIGNANCY LYMPHOCYTES PRESENT Signing Pathologist Direct Phone Line: [phone] signed by Adri Rangel MD on 07/21/2020 at 11:53 AMPlease also see surgical pathology report [id number] and cytopathology reports [id number] and [id number] through [id number]. 14630, 52031Wmjz upper lobe lung nodule, history of smokingLYMPH NODE, INTERLOBAR, LEFT, STATION 11L [id number] mls in cytorich red; 2 cytospins, cell block (A2)Performed. The interpretation of this case included the use of immunohistochemistry or special stains.Control Slides Examined: In-house known positive controls were evaluated along with the test tissue. These control slides run alongside of the patients sample show appropriate staining. Internal positive and negative controls when available areevaluated Immunohistochemistry technical testing was performed at [facility], Pathology Laboratory where it was developed and its performance characteristics were determined. It has not been cleared or approved by the U.S. Food and Drug Administration. The FDA has determined thatsuch clearance or approval is not necessary. The test is used for clinical purposes. It should not be regarded as investigational or for research. This laboratory is certified under the Clinical Laboratory Improvement Amendments of 1988 (CLIA-88) as qualified to perform high complexity clinical laboratory testing.[facility], Department of Pathology, [address] [place] [address], XtwtenSan [facility], Department of Pathology, [address] [place] [address], BbyupfSan Joaquin Valley [facility] Hospital, Department of Pathology, [address] [place], [place] [id number], QASF NEEDLE ASPIRATE BY [id number] 11:33:00Medical Cytology Report Case: [id number] Authorizing Provider: Solange Koch MD Collected: 07/20/2020 10:23 AM Ordering Location: [facility] Received: 07/20/2020 11:18 AM PERIOPERATIVE SERVICES Pathologist: Adri Rangel MD Specimen: Lymph Node, Lower Paratracheal, Right, Station 4R LYMPH NODE, LOWER PARATRACHEAL, RIGHT, STATION 4R EBUS FNA BY CLINICIAN (CYTOSPINS AND CELL BLOCK OF ASPIRATE): - NEGATIVE FOR EPITHELIAL MALIGNANCY LYMPHOCYTES AND HISTIOCYTES PRESENT Signing Pathologist DirectPhone Line: [phone] signed by Adri Rangel MD on 07/21/2020 at 11:33AMPlease also see surgical pathology report [id number] and cytopathology reports [id number] and [id number] through [id number]. 70015, 70230Cvdy upper lobe lung nodule, history of smokingLYMPH NODE, LOWER PARATRACHEAL, RIGHT, STATION 4R EBUS FNA37 mls in cytorich red; 2 cytospins, cell block (A2)Performed. The interpretation of this case included the use of immunohistochemistry or special stains.Control Slides Examined: In-house known positive controls were evaluated along with the test tissue. These control slides run alongside of the patients sample show appropriate staining. Internal positive and negative controls when available are evaluated Immunohistochemistry technical testing was performed at [facility], Pathology Laboratory where it was developed and its performance characteristics were determined. It has not been cleared or approved by the U.S. Food and Drug Administration. The FDA has determined that such clearance or approval is not necessary. The test is used for clinical purposes. It should not be regarded as investigational or for research. This laboratory is certified under the Clinical Laboratory Improvement Amendments of 1988 (CLIA-88) as qualified to performhigh complexity clinical laboratory testing.[facility], Department of Pathology, [address] [place] [address], CflgngSan Joaquin Valley Rehabilitation [facility], Department of Pathology, [address] [place] [address], IfwpxpSan Joaquin Valley Rehabilitation Hospital, Department of Pathology, [address] [place] [address], KHSD/CONCENTRATION [id number] 02:37:00 Test Item Value Reference Range Interpretation Comments Concentration charged (test code = Done 2657) [facility] [id number] 02:37:00 Test Item Value Reference Range Interpretation Comments CONCENTRATION CHARGED (BEAKER) (test Done code = 2657) FINE NEEDLE ASPIRATE (FNA) [id number] 13:00:00 Test Item Value Reference Range Interpretation Comments Cytology (test code = See Separate Report 2629) [facility] Hospital[facility] F[facility] [id number] 13:00:00 Test Item Value Reference Range Interpretation Comments Cytology (test code = See Separate Report 2629) [facility] HospitalEB FNA [id number] 13:00:00 Test Item Value Reference Range Interpretation Comments CYTOLOGY RESULT POINTER See Separate Report (BEAKER) (test code = 2629) EBUS FNA [id number] 13:00:00 Test Item Value Reference Range Interpretation Comments CYTOLOGY RESULT POINTER See Separate Report (BEAKER) (test code = 2629) EBUS FNA [id number] 13:00:00 Test Item Value Reference Range Interpretation Comments CYTOLOGY RESULT POINTER See Separate Report (BEAKER) (test code = 2629) EBUS FNA [id number] 13:00:00 Test Item Value Reference Range Interpretation Comments CYTOLOGY RESULT POINTER See Separate Report (BEAKER) (test code = 2629) FINE NEEDLE ASPIRATE (FNA) [id number] 13:00:00 Test Item Value Reference Range Interpretation Comments CYTOLOGY RESULT POINTER See Separate Report (BEAKER) (test code = 2629) RAD, CHEST, 1 VIEW, NON [id number] 12:01:00Reason for exam:->s/p KRYSTAL TBBX [facility] : 1950 Sex: MFINAL REPORT CLINICAL HISTORY: s/p KRYSTAL TBBX TECHNIQUE: 1 view of the chest. COMPARISON: CT 07/15/2020 IMPRESSION: There is no evidence of pneumothorax status post biopsy of the left upper lobe mass. Diffuse bilateral interstitial lung opacities are grossly similarto the CT allowing for differences in technique. There are no significant appearing effusions. The ca rdiomediastinal silhouette is magnified by technique. Signed: Jonny Franklin Verified Date/Time: 07/20/2020 12:01:07 Reading Location: [facility] Radiology Reading Room XR chest 1 view portable / [id number] 12:01:00 Interface, External Ris In - 07/20/2020 12:03 PM CSTFINAL REPORT CLINICAL HISTORY: s/p KRYSTAL TBBX TECHNIQUE: 1 view of the chest. COMPARISON: CT 07/15/2020 IMPRESSION: There is noevidence of pneumothorax status post biopsy of the left upper lobe mass. Diffuse bilateral interstitial lung opacities are grossly similar to the CT allowing for differences in technique. There are no significant appearing effusions. The cardiomediastinal silhouette is magnified by technique. Signed: Jonny Franklin Verified Date/Time: 07/20/2020 12:01:07 Reading Location: [facility] Radiology Reading Room [facility] ([facility]NA) [id number] 11:00:00 Test Item Value Reference Range Interpretation Comments CYTOLOGY RESULT POINTER See Separate Report (BEGAETANO) (test code = 2629) FL, FLUORO, NON-SPECIFIC, UP TO 1 [id number] 10:36:00Reason for exam:- >bronch procedure [facility] : 1950 Sex: MFluoroscopic unit utilized for a procedure performed in the OR. No interpretation wasrequested. Refer to the operative report for findings. Refer to PACS for patient radiation dose information.FL fluoro non-specific up to 1 [id number] 10:00:00 Interface, External Ris In - 07/20/2020 1:29 PM CSTFluoroscopic unit utilized for a procedure performed in the OR. No interpretation was requested. Refer to the operative report for findings. Referto PACS for patient radiation dose information.[facility] HospitalABORH, [id number] 07:40:00 Test Item Value Reference Range Interpretation Comments ABO Grouping (test code = 2588) A Rh Factor (test code = 2589) POS [facility] HospitalType and screen, [id number] 07:20:00 Test Item Value Reference Range Interpretation Comments ABO/RH AUTOMATED (BEAKER) (test A POSITIVE code = 2260) Ab Scrn (test code = 890-4) NEGATIVE [facility] HospitalComprehensive metabolic [id number] 07:07:00 Test Item Value Reference Range Interpretation Comments Protein, Total (test 8.1 See_Comment [Autom ated code = 2885-2) message] The system which generated this result transmit anthony reference range : 6.0 - 8.3 gm/dL . The reference range was not u sed to interpret th is result as normal/abnormal . Albumin (test code = 3.7 g/dL 3.5-5 48692-6) Alkaline Phosphatase 165 U/L 40-150 H (test code = 6768-6) Total Bilirubin (test 0.7 mg/dL 0.2-1.2 code = 1975-2) Sodium (test code = 131 meq/L 136-145 L 2951-2) Potassium (test code 4.5 meq/L 3.5-5.1 = 2823-3) Chloride (test code = 98 meq/L 98-107 2074-0) CO2 (test code = 25 meq/L -2027-9) BUN (test code = 14 mg/dL 7-21 3094-0) Creatinine (test code 0.94 mg/dL 0.57-1.25 = 2160-0) Glucose (test code = 125 mg/dL 70-105 H 2345-7) Calcium (test code = 9.3 mg/dL 8.4-10.2 76897-1) AST (test code = 39 U/L 5-34 H 1920-8) ALT (test code = 47 U/L 6-55 1742-6) EGFR (test [place] = [place] [address]-0) CLINICAL DATA T O CALCULATE ESTIMATED GFR. ALAINA (test code = ALAINA) Internet Researcher ID - PENNY M Lab Interpretation Abnormal (test code = 86348-7) [facility] HospitalCOMPREHENSIVE METABOLIC [id number] 07:07:00 Test Item Value Reference Range Interpretation Comments TOTAL PROTEIN 8.1 gm/dL 6.0-8.3 (BEAKER) (test code = 770) ALBUMIN (BEAKER) 3.7 g/dL 3.5-5.0 (test code = 1145) ALKALINE PHOSPHATASE 165 U/L 40-150 H (BEAKER) (test code = 346) BILIRUBIN TOTAL 0.7 mg/dL 0.2-1.2 (BEAKER) (test code = 377) SODIUM (BEAKER) (test 131 meq/L 136-145 L code = 381) POTASSIUM (BEAKER) 4.5 meq/L 3.5-5.1 (test code = 379) CHLORIDE (BEAKER) 98 meq/L 98-107 (test code = 382) CO2 (BEAKER) (test 25 meq/L - code = 355) BLOOD UREA NITROGEN 14 mg/dL 7-21 (BEAKER) (test code = 354) CREATININE (BEAKER) 0.94 mg/dL 0.57-1.25 (test code = 358) GLUCOSE RANDOM 125 mg/dL 70-105 H (BEAKER) (test code = 652) CALCIUM (BEAKER) 9.3 mg/dL 8.4-10.2 (test code = 697) AST (SGOT) (BEAKER) 39 U/L 5-34 H (test code = 353) ALT (SGPT) (BEAKER) 47 U/L 6-55 (test code = 347) EGFR (BEAKER) (test INSUFFIC IENT CLINICAL code = 1092) DATA TO CALCULA TE ESTIMATED GFR. Internet Researcher ID - PENNY [id number] 06:44:00 Test Item Value Reference Range Interpretation Comments PTT (test code = 60432-3) 29.6 See_Comment [ Automated message] The system whic h generated this result transmitted ref erence range: 22.5 - 3 6.0 seconds. The re ference range was not u sed to interpret this result as normal/abnor mal. Lab Interpretation (test Normal code = 82514-7) [facility] HospitalAPTT2020-11-17 06:44:00 Test Item Value Reference Range Interpretation Comments PARTIAL THROMBOPLASTIN TIME 29.6 seconds 22.5-36.0 (BEAKER) (test code = 760) Prothrombin time/[id number] 06:43:00 Test Item Value Reference Interpretation Comments Range Protime (test code = 13.3 See_Comment [Autom ated 5902-2) message] The system which generated this result transmitted reference range : 11.9 - 14.2 seconds. The reference range was not used to interpret this result as normal/abnormal . INR (test code = 1.04 See_Comment [Automated 6301-6) message] The system which generated this result transmitted reference range : <=5.90. The reference range was not used to interpret this result as normal/abnormal . ALAINA (test code = Effective 01/29/2019: ALAINA) PT Reference Range ChangeNew: 11.9-14.2 Previous: 11.7-14.7 RECOMMENDED COUMADIN/WARFARIN INR THERAPY RANGESSTANDARD DOSE: 2.0-3.0 Includes: PROPHYLAXIS for venous thrombosis, systemic embolization; TREATMENT for venous thrombosis and/or pulmonary embolus.HIGH RISK: Target INR is 2.5-3.5 for patients wiht mechanical heart valves. Lab Interpretation Normal (test code = 95365-4) [facility] HospitalPROTHROMBIN TIME/[id number] 06:43:00 Test Item Value Reference Range Interpretation Comments PROTIME (BEAKER) (test code = 13.3 seconds 11.9-14.2 759) INR (BEAKER) (test code = 370) 1.04 <=5.90 Effective 01/29/2019: PT Reference Range ChangeNew: 11.9-14.2 Previous: 11.7- 14.7RECOMMENDED COUMADIN/WARFARIN INR THERAPY RANGESSTANDARD DOSE: 2.0-3.0 Includes: PROPHYLAXIS for venous thrombosis, systemic embolization; TREATMENT for venous thrombosis and/or pulmonary embolus.HIGH RISK: Target INR is2.5-3.5 for patients wiht mechanical heart valves.CBC with platelet count + automated [id number] 06:35:00 Test Item Value Reference Range Interpretation Comments WBC (test code = 6690-2) 12.4 See_Comment H [A utomated message] The system [employer] generated this result transmitted ref erence range: 3.5 - 10 .5 K/L. The refe rence range was not u sed to interpret this result as normal/abnor mal. RBC (test code = 789-8) 4.89 See_Comment [Au tomated message] The system [employer] generated this result transmitted ref erence range: 4.63 - 6 .08 M/L. The refe rence range was not u sed to interpret this result as normal/abnor mal. MCHC (test code = 786-4) 33.2 See_Comment [A utomated message] The system [employer] generated this result transmitted ref erence range: 32.3 - 3 6.5 GM/DL. The refe rence range was not u sed to interpret this result as normal/abnor mal. Hematocrit (test code = 46.7 % 40.1-51 4544-3) MCV (test code = 787-2) 95.5 fL 79-92.2 H MCH (test code = 785-6) 31.7 pg 25.7-32.2 RDW (test code = 788-0) 13.1 % 11.6-14.4 Platelets (test code = 355 See_Comment [Aut omated message] 777-3) The system [employer] generated this result transmitted ref erence range: 150 - 45 0 K/CU MM. The referen ce range was not u sed to interpret this result as normal/abnor mal. MPV (test code = 8.5 fL 9.4-12.4 L 16981-6) nRBC (test code = 413) 0 See_Comment [Aut omated message] The system [employer] generated this result transmitted ref erence range: 0 - 0 /1 00 WBC. The refere nce range was not u sed to interpret this result as normal/abnor mal. % Neutros (test code = 48 % 429) % Lymphs (test code = 36 % 430) % Monos (test code = 10 % 431) % Eos (test code = 432) 5 % % Baso (test code = 437) 1 % # Neutros (test code = 5.90 See_Comment H [Aut omated message] 670) The system [employer] generated this result transmitted ref erence range: 1.78 - 5 .38 K/L. The refe rence range was not u sed to interpret this result as normal/abnor mal. # Lymphs (test code = 4.48 See_Comment H [Auto mated message] 414) The system [employer] generated this result transmitted ref erence range: 1.32 - 3 .57 K/L. The refe rence range was not u sed to interpret this result as normal/abnor mal. # Monos (test code = 1.27 See_Comment H [Autom ated message] 415) The system [employer] generated this result transmitted ref erence range: 0.30 - 0 .82 K/L. The refe rence range was not u sed to interpret this result as normal/abnor mal. # Eos (test code = 416) 0.56 See_Comment H [Au tomated message] The system [employer] generated this result transmitted ref erence range: 0.04 - 0 .54 K/L. The refe rence range was not u sed to interpret this result as normal/abnor mal. # Baso (test code = 417) 0.10 See_Comment H [A utomated message] The system [employer] generated this result transmitted ref erence range: 0.01 - 0 .08 K/L. The refe rence range was not u sed to interpret this result as normal/abnor mal. Immature 1 % 0-1 Granulocytes-Relative (test code = 2801) Lab Interpretation (test Abnormal code = 07457-7) [facility] W/PLT COUNT & AUTO [id number] 06:35:00 Test Item Value Reference Range Interpretation Comments WHITE BLOOD CELL COUNT (BEAKER) 12.4 K/ L 3.5-10.5 H (test code = 775) RED BLOOD CELL COUNT (BEAKER) 4.89 M/ L 4.63-6.08 (test code = 761) HEMOGLOBIN (BEAKER) (test code = 15.5 GM/DL 13.7-17.5 410) HEMATOCRIT (BEAKER) (test code = 46.7 % 40.1-51.0 411) MEAN CORPUSCULAR VOLUME (BEAKER) 95.5 fL 79.0-92.2 H (test code = 753) MEAN CORPUSCULAR HEMOGLOBIN 31.7 pg 25.7-32.2 (BEAKER) (test code = 751) MEAN CORPUSCULAR HEMOGLOBIN CONC 33.2 GM/DL 32.3-36.5 (BEAKER) (test code = 752) RED CELL DISTRIBUTION WIDTH 13.1 % 11.6-14.4 (BEAKER) (test code = 412) PLATELET COUNT (BEAKER) (test 355 K/CU MM 150-450 code = 756) MEAN PLATELET VOLUME (BEAKER) 8.5 fL 9.4-12.4 L (test code = 754) NUCLEATED RED BLOOD CELLS 0 /100 WBC 0-0 (BEAKER) (test code = 413) NEUTROPHILS RELATIVE PERCENT 48 % (BEAKER) (test code = 429) LYMPHOCYTES RELATIVE PERCENT 36 % (BEAKER) (test code = 430) MONOCYTES RELATIVE PERCENT 10 % (BEAKER) (test code = 431) EOSINOPHILS RELATIVE PERCENT 5 % (BEAKER) (test code = 432) BASOPHILS RELATIVE PERCENT 1 % (BEAKER) (test code = 437) NEUTROPHILS ABSOLUTE COUNT 5.90 K/ L 1.78-5.38 H (BEAKER) (test code = 670) LYMPHOCYTES ABSOLUTE COUNT 4.48 K/ L 1.32-3.57 H (BEAKER) (test code = 414) MONOCYTES ABSOLUTE COUNT (BEAKER) 1.27 K/ L 0.30-0.82 H (test code = 415) EOSINOPHILS ABSOLUTE COUNT 0.56 K/ L 0.04-0.54 H (BEAKER) (test code = 416) BASOPHILS ABSOLUTE COUNT (BEAKER) 0.10 K/ L 0.01-0.08 H (test code = 417) IMMATURE GRANULOCYTES-RELATIVE 1 % 0-1 PERCENT (BEAKER) (test code = 2801) POC-Glucose [id number] 06:11:00 Test Item Value Reference Range Interpretation Comments POC-Glucose Meter (test 114 mg/dL 70-110 H : TE STED AT [facility] code = 1538) [address] [facility], 7[address]: Internet Researcher/Techni rosalva ID = [id number] for Susan Crews Lab Interpretation (test Abnormal code = 79971-4) [facility] HospitalPOCT-GLUCOSE [id number] 06:11:00 Test Item Value Reference Range Interpretation Comments POC-GLUCOSE METER 114 mg/dL 70-110 H : TESTED A T [facility] 6720 (BEAKER) (test code = [facility], 1538) [address]: Internet Researcher/Techni rosalva ID = [id number] for Susan Celestin Prothrombin Gene [id number] 13:07:00 Test Item Value Reference Interpretation Comments Range PROTHROMBIN GENE SEE BELOW RESULT: G20 210A ANALYSIS (test code variant not detected = [id number]) Interpretation SEE BELOW INTERPRETATIO N: This (test code = individual is n egative 0067668) (normal) for e Z22550E variant in the Prothrombin/Fac tor II gene. Increased risk of thrombophili a can becaused by a v ariety of genetic and non-genetic fac tors not screened fo r bythis assay. Laboratory test ing supervised and results monitored by Opal Robledo, Ph.D.,D [facility]. The G20 210A mutation [AF478 696.1: g.50740G>A (c.* 97G>A)] in theProthrombin/ Factor II gene is the second most common inh erited risk factorfor thrombosis occu rring in approximatel y 2% of Caucasians. Pre sence of themutation is associated with an elevation of prothrombin lev els to about 30%above normal in heterozygote s and to 70% above no rmal in homozygotes. Prothrombin (G2 0210A) mutations are d etected by amplificatio n of theirselected g po regions by poly merase chain reaction (PCR) and fluorescent probe hybridization t o the targeted region , followed by george leyva curveanalysis w ith a real time PCR s ystem. Although rare, false positive or falsenegative r esults may occur. All results should be inter preted in context ofcl inical findings, relev ant history, and ot her laboratory data . Health care pro viders, please contact your local [employer] geneticcounselo r or call [phone] ([phone]) for assistance withinterpretat ion of these results. This test was develo ped and its analytical performance characteristics havebeen determ ined by [employer] [facility] .It has not been cleare d or approved by FDA . This assay has been validatedpursua nt to the CLIA regula tions and is used for clinical purpos es. ALAINA (test code = Performing Lab ALAINA) [employer] [facility] [address] [place] [address] Bryson Lopez MD, PhD, GLENN [facility] HospitalFactor 5 Leiden PCR (thrombotic risk)2020-07-17 15:45:00 Test Item Value Reference Interpretation Comments Range Factor V Leiden SEE BELOW RESULT: FACT OR V Mutation (test code LEIDEN ( R506Q) VARIANT = [id number]) NOT DETECTED Interpretation SEE BELOW INTERPRETATIO N: This (test code = individual is n egative 4263964) (normal) for th e Factor V Leiden (R506Q) variant in the Factor V gene. Increas ed risk of thrombophili a can becaused by a v ariety of genetic and non-genetic fac tors not screened fo r bythis assay. Laboratory test ing supervised and results monitored by Betsy Boss MD, PhD, FACMG, MBS. MUTATI ON ANALYSIS:The Fa ctor V Leiden (R506Q) mutation [NM 00 0130.2: c.1601G>A (p.R5 34Q)] inthe Factor V gene is one of the most common causes of inheritedthromb ophilia . This mutation causes resistance to degradation of activatedFactor V protein by acti vated protein C (APC) . The Factor V Leiden (R506Q)mutation is detected by amplification o f the selected region of Factor V geneby polymerase rafa n reaction (PCR) and fluorescent pro be hybridization t o thetargeted reg ion, followed by george ting curve analysis with a real time PCRsy stem. Although rare, false positive or fal se negative result s may occur.All resul ts should be inter preted in context of c linical findings, relevanthistory , and other laborator y data. This test was developed and i ts analytical perf ormance characteristics havebeen determ ined by [employer] [facility] .It has not been cleare d or approved by FDA . This assay has been validatedpursua nt to the CLIA regula tions and is used for clinical purpos es. Health care pro viders, please contact your local [employer] geneticcounselo r or call [phone] [employer] ([phone]) for assistance withinterpretat ion of these results. ALAINA (test code = Performing Lab ALAINA) [employer] [facility] [address] [place] [address] Bryson Lopez MD, PhD, GLENN [facility] HospitalProtein S [id number] 00:12:00 Test Item Value Reference Range Interpretation Comments Protein S 75 See_Comment Decreased leve ls of Functional (test Protein S a ctivity code = 7696347) may be found in patients withhereditary deficiency, war farin therapy, vitami n k deficiency, vik er disease,DIC, or recent thrombos is as well as after surgery. In addition, it ma y bephysiologic i n . An elevated Protei n S activity is not clinicallysigni fican t. Only deficie ncies are associated with an increased thromboticrisk. [Automated mess age] The system [employer] generated this result transmit anthony reference range : 70 - 150 % normal. The reference range was not used to interpret this result as normal/abnormal . ALAINA (test code = Performing Lab ALAINA) [employer] [place] [address] [place] [address] Bryson Lopez MD, PhD, GLENN [facility]ARS-CoV[facility]/RT-PCR (Asymptomatic ONLY)2020-07-16 16:25:00 Test Item Value Reference Range Interpretation Comments SARS-COV2/RT-PCR Negative Not Detected, (test code = Negative, See 18700-6) external report for linked test SARS-COV-2 [facility] PERFORMING LAB (test code = 00013-8) ALAINA (test code = Negative result for this ALAINA) test determines that SARS-CoV-2 RNA was not present in the specimen above the Limit of Detection (LOD). However, Negative results do not preclude SARS-CoV-2 infection and should not be used as the sole basis for treatment or patient management decisions. Negative results must be combined with clinical observations, patient history, and epidemiological information. A false negative result may occur if a specimen is improperly collected, transported or handled. A false negative result should be considered if patient's recent exposures or clinical presentation indicate that COVID-19 (SARS-CoV-2) is likely and diagnostic tests for other causes of illness are negative. Re-testing should be considered in cases of suspected false negatives. The limit of detection for this assay is 800 copies/mL. This SARS CoV-2 test is a real-time RT-PCR test intended for the qualitative detection of nucleic acid from SARS-CoV-2 in a nasopharyngeal swab specimen collected from individuals suspected of COVID-19 by their healthcare provider. This test has not been Food and Drug Administration (FDA) cleared or approved. This is a modified version of an approved Emergency Use Authorization (EUA) and is in the process of review by the FDA. Once authorized by the FDA, the issued EUA will be effective until the declaration that circumstances exist justifying the authorization of the emergency use of in vitro diagnostic tests for detection and/or diagnosis of COVID-19 is terminated under Section 564(b)(2) of the Act or the EUA is revoked under Section 564(g) of the Act. Fact Sheet for Healthcare Providers:https://www.[employer]/sites/default/f donta/product/documents/F act_Sheet_HC_Providers_L xzf_VWFH-PvR-9.pdf Fact Sheet for Healthcare Patients:https://www.[employer].com/sites/default/fi les/product/documents/Fa ct_Sheet_Patients_Lyra_S ARS-CoV-2.pdf Performing Laboratory:[facility] [place] [address] [facility]2020-07-16 16:25:00 Test Item Value Reference Range Interpretation Comments SARS-COV2/RT-PCR (test Negative Not Detected, Negative, code = 3368801) See external report for linked test SARS-COV-2 PERFORMING LAB [facility] (test code = 9384243) Negative result for this test determines that SARS-CoV-2 RNA was not present in the specimen above the Limit of Detection (LOD). However, Negative results do not preclude SARS-CoV-2 infection and should not be used as the sole basis for treatment or patient management decisions. Negative results mustbe combined with clinical observations, patient history, and epidemiological information. A false negative result may occur if a specimen is improperly collected, transported or handled. A false negative result should be considered if patient's recent exposures or clinical presentation indicate that COVID-19 (SARS-CoV-2) is likely and diagnostic tests for other causes of illness are negative. Re-testing should be considered in cases of suspected false negatives.The limit of detection for this assay is 800 copies/mL.This SARS CoV-2 test is a real-time RT-PCR test intended for the qualitative detection of nucleic acid from SARS-CoV-2 in a nasopharyngeal swab specimen collected from individuals susp ected of COVID-19 by their healthcare provider.This test has not been Food and Drug Administration (FDA) cleared or approved. This is a modified version of an approved Emergency Use Authorization (EUA) and is in the process of review by the FDA. Once authorized by the FDA, the issued EUA will be effective until the declaration that circumstances exist justifying the authorization of the emergency use of in vitro diagnostic tests for detection and/or diagnosis of COVID-19 is terminated under Section 564(b)(2) of the Act or the EUA is revoked under Section 564(g) of the Act.Fact Sheet for Healthcare Providers:https://www.[employer]/sites/default/files/product/documents/Fact_Shelionel boewrsf_ZV_Sdreustky_Nimc_ZWAK-VlT-7.pdfFact Sheet for Healthcare Patients:https://www.[employer]/sites/default/files/product/ documents/Kxvc_Gnabr_Kkhhewbg_Fecc_YBXI-HsJ-0.pdfPerforming Laboratory:[facility], [place] [address]RD, CHEST, WITHOUT [id number] 15:54:00THIN CUT, 0.625 mm, HIGH RES, VERAN CUTSFOR OR PROCEDUREUnlisted Reason for Exam - Click Yes and Enter Reason Below->No [facility] : 1950 Sex: MFINAL REPORT TECHNIQUE: CT of the chest WITHOUT intravenous contrast. Dose modulation, iterative reconstruction, and/or weight-based adjustment of the mA/kV was utilized to reduce the radiation dose to as low as reasonably achievable. INDICATION: Lung nodule greater than 1 cm. COMPARISON: CTA 07/14/2020. FINDINGS: ABSENCE OF INTRAVENOUS CONTRAST DECREASES SENSITIVITY FOR DETECTION OF FOCAL LESIONS AND VASCULAR PATHOLOGY. LINES/TUBES: None. LUNGS AND AIRWAYS: Mild bronchial wall thickening and subsegmental mucus plugging in the bilateral lung bases. Central airways are otherwise patent. There is severe centrilobular and paraseptal emphysema.. There is a spiculated left upper lobe pulmonary nodule measuring 2.5 x 2.7 cm. (Axial image 165). Two calcified granulomas in the anterior basilar segment of the left lower lobe. Mild dependent atelectasis in the left lower lobe significant pleural effusion. Spiculated nodule within the medial segment of the right middle lobe measuring 1.7 x 1.4 cm. On (axial image 341). 0.7 cm nodule along the right minor fissure likely representing intrapulmonary lymph node. On (axial image 272). 0.8 subpleural nodule within the anterior right upper lobe. (Axial image 285). Subpleural nodule in the posterior right upper lobe measuring 0.9 cm. (See axial image 162). There is mild biapical scarring. PLEURA: Small left-sided pleural effusion, new since previous exam yesterday.. HEART AND MEDIASTINUM: Partially calcified left hilar lymph node.. No significant mediastinal, hilar, or axillary lymphadenopathy. The heart and pericardium are within normal limits. Atherosclerotic calcifications in the thoracic aorta and coronary arteries. SOFT TISSUES AND BONES: Unremarkable. UPPER ABDOMEN: Unremarkable. IMPRESSION:Emphysema. 2.7 cm spiculated nodule in the left upper lobe concerning for primary bronchogenic carcinoma. 1.7 cm spiculated nodule within the right middle lobe which is also concerning for malignancy. Few additional nonspecific subcentimeter pulmonary nodules in the right lung. Metastatic disease is not excluded. New small left-sided pleural effusion and lower lobe atelectasis Severe emphysema. Signed: Gio Joya MDReport Verified Date/Time: 07/15/2020 15:54:45 Reading Location: [address] Body Reading Room CT chest without IV [id number] 15:54:00Interface, External Ris In - 07/15/2020 3:57 PM CSTFINAL REPORT TECHNIQUE: CT of the chest WITHOUT intravenous contrast. Dose modulation, iterative reconstruction, and/or weight-based adjustment of the mA/kV was utilized to reduce the radiation dose to as low as reasonably achievable. INDICATION: Lung nodule greater than 1 cm. COMPARISON: CTA 07/14/2020. FINDINGS: ABSENCE OFINTRAVENOUS CONTRAST DECREASES SENSITIVITY FOR DETECTION OF FOCAL LESIONS AND VASCULAR PATHOLOGY. SONA ES/TUBES: None. LUNGS AND AIRWAYS: Mild bronchial wall thickening and subsegmental mucus plugging inthe bilateral lung bases. Central airways are otherwise patent. There is severe centrilobular and paraseptal emphysema.. There is a spiculated left upper lobe pulmonary nodule measuring 2.5 x 2.7 cm. (Axial image 165). Two calcified granulomas in the anterior basilar segment of the left lower lobe. Mild dependent atelectasis in the left lower lobe significant pleural effusion. Spiculated nodule within the medial segment of the right middle lobe measuring 1.7 x 1.4 cm. On (axial image 341). 0.7 cm nodule along the right minor fissure likely representing intrapulmonary lymph node. On (axial image 272). 0.8 subpleural nodule within the anterior right upper lobe. (Axial image 285). Subpleural nodule in the posterior right upper lobe measuring 0.9 cm. (See axial image 162). There is mild biapical scarring. PLEURA: Small left- sided pleural effusion, new since previous exam yesterday.. HEART AND MEDIAST INUM: Partially calcified left hilar lymph node.. No significant mediastinal, hilar, or axillary lymphadenopathy. The heart and pericardium are within normal limits. Atherosclerotic calcifications in the thoracic aorta and coronary arteries. SOFT TISSUES AND BONES: Unremarkable. UPPER ABDOMEN: Unremarkable. IMPRESSION:Emphysema. 2.7 cm spiculated nodule in the left upper lobe concerning for primary bronchogenic carcinoma. 1.7 cm spiculated nodule within the right middle lobe which is also concerning for malignancy. Few additional nonspecific subcentimeter pulmonary nodules in the right lung. Metastatic disease is not excluded. New small left-sided pleural effusion and lower lobe atelectasis Severe emphysema. Signed: Gio Joya MDReport Verified Date/Time: 07/15/2020 15:54:45 ReadingLocation[facility] Body Reading Room Electronically signed by: GIO JOYA MD on07/15/2020 03:54 [facility], [id number] 10:19:00Unlisted Reason for Exam - Click Yes and Enter Reason Below->YesUnlisted Reason for Exam->Splenic embolism/infarct. Rule out proximal aortic source (ulcer, aneurysm) [facility] : 1950 Sex: MAddendum BeginsREPORT STATUS:A I agree with the nonvascular find ings with the following additional comment: There is diffusely decreased enhancement of the spleen with mild adjacent fat stranding consistent with history of splenic infarct. Signed: Gio Joya Verified Date/Time: 07/15/2020 10:19:44 Reading Location: [address] Body Reading RoomAddendum EndsFINAL REPORT CT angiography of the thoracic aorta, 14-Jul-20 INDICATION: This is a 69 year old male male with splenic embolism, concern for any aortic aetiology. TECHNIQUE: Spiral acquisition before and during intravenous contrast administration using a Marty CT scanner. Images were obtained before and during the dynamic passage of intravenous contrast material. Multi-planar 3-D volume-rendering reconstruction was performed using an independent workstation interactively by the interpreting physician as well as the 3-D specialist for optimal visualisationof the thoracic aorta and its proximal branches. Please refer to the contrast sheet scanned in the EPIC system for the amount and route of contrast given. This exam was performed according to our departmental dose- optimisation programme, which includes automated exposure control, adjustment of the mA and/or kV according to patient size and/or use of iterative reconstruction technique. Dose modulation, iterative reconstruction, and/or weight based adjustment of the mA/kV was utilized to reduce the radiation dose to as low as reasonably achievable. FINDINGS: VASCULAR: No pericardial effusion is identified. The central pulmonary artery is normal in calibre. The cardiac chambers demonstrate normal atrioventricular and ventriculoarterial concordance, and systemic and pulmonary venous return. The leftventricle is normal in size. Left atrial prominence is identified. Mild mitral annular calcificationis seen in the posterior mitral valve annulus. No aortic valve calcification is seen. Coronary artery origins are normal. There is diffuse calcification identified in the ramus system, also calcific lesion seen in the proximal and mid LAD, as well as in the left main coronary artery. Aspiration is also identified in the LCx and RCA territories. The aortic root is ectatic, and descending thoracic aorta and the transverse arch and descending thoracic aorta is normal in calibre. Scattered calcific lesion is seen in the descending thoracic aorta. In both the axial and sagittal orientation, no hanging atherosclerosis is seen. No atherosclerotic ulceration is appreciated. There is no evidence of acute aortic pathology, specifically, there is no dissection, intramural hematoma, or contained rupture. The arch vessel branching pattern is normal and the visualised portion of the arch vessels are widely patent. Quantitaive dimensions of the aorta are as follows: 4.1 x 4.2 cm at the sinuses of Valsalva (the sino-tubular junction is preserved); 3.6 x 3.5 cm at the proximal ascending thoracic aorta; 3.8 x 3.8 cm at the mid ascending aorta; 3.7 x 3.6 cm at the distal ascending aorta; 3.0 cm at the mid transverse arch; 2.5 cm at the proximal descending aorta; 2.5 cm at the mid descending aorta; 2.5 cm at the diaphragmatic hiatus. NON-VASCULAR: The thyroid gland is unremarkable. The chest wall and mediastinum appear normal. Some scattered small lymph nodes are seen in the mediastinum, not enlarged, considered nonspecific in nature. Some hilar lymph nodes are seen, with calcification seen in the left indicating prior granulomatous disease. Mild gynecomastia is identified. In the lung windows, no endobronchial lesion is seen, and no pleural effusion identified. Diffuse centrilobular emphysematous changes is identified, bilaterally. Most importantly, aneurysmal margin nodule is identified in the leftupper lobe at image 64. Please see snapshot for details. By multiplanar reformation, this measured 2.4 x 2.1 cm with a height of 2.1 cm. In the right lung, image 108, a 7 mm nodule is identified, and at image 130, a 1.7 x 1.2 cm nodule is seen, with irregular margin. Another nodule is seen in the right lung at image 101, measure 4 to 5 mm in diameter. Calcified granuloma is identified in the left lung at image 135. No prior examinations available for comparison. Limited images of the upper abdomen reveals no gross abnormality. Fatty infiltration of the liver is identified with precontrast Hounsfield unit less than 40. In the bony windows, no acute bony pathology is present. Mild degenerative changes is noted. No obvious lytic or blastic lesion is appreciated. CONCLUSIONS: 1. There is mild ectasia identified in the descending thoracic aorta, and thereafter remainder of the thoracic aorta is normal in course, contour, and calibre. Scattered atherosclerosis is seen. NO atherosclerotic ulcerationis seen and NO hanging atherosclerosis is identified. There is no evidence of acute aortic pathology, specifically, there is no dissection, intramural hematoma, or contained rupture. Quantitative dimension of the thoracic aorta are as described above. No aortic aneurysm is identified. Please see snapshot for details. 2. Coronary atherosclerosis. The left ventricle and the left atrial appendage is free of thrombus. 3. The central pulmonary artery is normal in calibre. Evidence of prior granulomatous disease. Most importantly, various pulmonary nodules are seen with the largest one identified in the right upper lobe measure 2.4 x 2.1 cm with irregular margin. Other smaller nodules are seen. No prior examination is available for comparison. The concern is of underlying lung cancer. An addendum will be dictated thereafter regarding optimal recommendation and in the setting of diffuse pulmonary emphysematous changes, it is uncertain if biopsy is possible for the 2.4 cm mass. A formal addendum will be provided thereafter. 4. Other findings as described above. 5. An addendum will be dictated regarding the non-vascular findings by the Climatologist Radiologist. Signed: Deandre Lujan MDReport Verified Date/Time: 07/14/2020 10:42:49 Reading Location: [place] [address] CT Reading [facility] [id number] 05:29:00 Test Item Value Reference Range Interpretation Comments TOTAL PROTEIN 7.0 gm/dL 6.0-8.3 (BEAKER) (test code = 770) ALBUMIN (BEAKER) 3.3 g/dL 3.5-5.0 L (test code = 1145) ALKALINE PHOSPHATASE 117 U/L 40-150 (BEAKER) (test code = 346) BILIRUBIN TOTAL 1.9 mg/dL 0.2-1.2 H (BEAKER) (test code = 377) SODIUM (BEAKER) (test 132 meq/L 136-145 L code = 381) POTASSIUM (BEAKER) 4.2 meq/L 3.5-5.1 (test code = 379) CHLORIDE (BEAKER) 98 meq/L 98-107 (test code = 382) CO2 (BEAKER) (test 26 meq/L 22-29 code = 355) BLOOD UREA NITROGEN 12 mg/dL 7-21 (BEAKER) (test code = 354) CREATININE (BEAKER) 0.87 mg/dL 0.57-1.25 (test code = 358) GLUCOSE RANDOM 116 mg/dL 70-105 H (BEAKER) (test code = 652) CALCIUM (BEAKER) 8.7 mg/dL 8.4-10.2 (test code = 697) AST (SGOT) (BEAKER) 27 U/L 5-34 (test code = 353) ALT (SGPT) (BEAKER) 23 U/L 6-55 (test code = 347) EGFR (BEAKER) (test INSUFFIC IENT CLINICAL code = 1092) DATA TO CALCULA TE ESTIMATED GFR. Internet Researcher ID - PENNY MPROTHROMBIN [id number] 04:56:00 Test Item Value Reference Range Interpretation Comments PROTIME (BEAKER) (test code = 14.8 seconds 11.9-14.2 H 759) INR (BEAKER) (test code = 370) 1.19 <=5.90 Effective 01/29/2019: PT Reference Range ChangeNew: 11.9-14.2 Previous: 11.7- 14.7RECOMMENDED COUMADIN/WARFARIN INR THERAPY RANGESSTANDARD DOSE: 2.0-3.0 Includes: PROPHYLAXIS for venous thrombosis, systemic embolization; TREATMENT for venous thrombosis and/or pulmonary embolus.HIGH RISK: Target INR is2.5-3.5 for patients wiht mechanical heart valves.CBC (Hemogram only)2020-07-15 04:25:00 Test Item Value Reference Range Interpretation Comments WBC (test code = 6690-2) 19.5 See_Comment H [A utomated message] The system [employer] generated this result transmitted ref erence range: 3.5 - 10 .5 K/L. The refe rence range was not u sed to interpret this result as normal/abnor mal. RBC (test code = 789-8) 4.78 See_Comment [Au tomated message] The system [employer] generated this result transmitted ref erence range: 4.63 - 6 .08 M/L. The refe rence range was not u sed to interpret this result as normal/abnor mal. MCHC (test code = 786-4) 33.1 See_Comment [A utomated message] The system [employer] generated this result transmitted ref erence range: 32.3 - 3 6.5 GM/DL. The refe rence range was not u sed to interpret this result as normal/abnor mal. Hematocrit (test code = 46.2 % 40.1-51 4544-3) MCV (test code = 787-2) 96.7 fL 79-92.2 H MCH (test code = 785-6) 32.0 pg 25.7-32.2 RDW (test code = 788-0) 13.1 % 11.6-14.4 Platelets (test code = 241 See_Comment [Aut omated message] 777-3) The system [employer] generated this result transmitted ref erence range: 150 - 45 0 K/CU MM. The referen ce range was not u sed to interpret this result as normal/abnor mal. MPV (test code = 8.4 fL 9.4-12.4 L 37030-5) nRBC (test code = 413) 0 See_Comment [Aut omated message] The system [employer] generated this result transmitted ref erence range: 0 - 0 /1 00 WBC. The refere nce range was not u sed to interpret this result as normal/abnor mal. Lab Interpretation (test Abnormal code = 65056-6) [facility] (HEMOGRAM ONLY)2020-07-15 04:25:00 Test Item Value Reference Range Interpretation Comments WHITE BLOOD CELL COUNT (BEAKER) 19.5 K/ L 3.5-10.5 H (test code = 775) RED BLOOD CELL COUNT (BEAKER) 4.78 M/ L 4.63-6.08 (test code = 761) HEMOGLOBIN (BEAKER) (test code = 15.3 GM/DL 13.7-17.5 410) HEMATOCRIT (BEAKER) (test code = 46.2 % 40.1-51.0 411) MEAN CORPUSCULAR VOLUME (BEAKER) 96.7 fL 79.0-92.2 H (test code = 753) MEAN CORPUSCULAR HEMOGLOBIN 32.0 pg 25.7-32.2 (BEAKER) (test code = 751) MEAN CORPUSCULAR HEMOGLOBIN CONC 33.1 GM/DL 32.3-36.5 (BEAKER) (test code = 752) RED CELL DISTRIBUTION WIDTH 13.1 % 11.6-14.4 (BEAKER) (test code = 412) PLATELET COUNT (BEAKER) (test 241 K/CU MM 150-450 code = 756) MEAN PLATELET VOLUME (BEAKER) 8.4 fL 9.4-12.4 L (test code = 754) NUCLEATED RED BLOOD CELLS 0 /100 WBC 0-0 (BEAKER) (test code = 413) ECHO W CONTRAST & [id number] 14:46:21Ejection FractionSLEH ECHO HEARTLAB MKCKESSON CPACSInterface, External Ris In - 07/14/2020 2:46 PM C STTransthoracic Echocardiography Report (TTE) Demographics Patient Name LISA HERRON Date of Study 07/14/2020 OMARI Gender Male Visit Number [id number] Race Unknown Room Number 2442 Number Date of 1950 Referring DELGADO MCDANIEL Physician Age 69 year(s) Bag Cutter Odilia Marino Communicable Disease Specialist Sheryl James [facility] Interpreting Maya Durand Physician Procedure Type of Study TTE procedure:2DECHO W/CONTRAST & DOPPLER (Pending Discharge) Indications:Embolism.Clinical HistoryHYPOTHYROID, HTNHGB 15.2HCT44.7 %Contrast Medium: Definity.Height: 75 inches Weight: 128.82 kg (284 lbs) BSA: 2.55 m^2 BMI: 35.5 kg/m^2HR: 85 bpm BP: 136/75 mmHg Summary 1. All of the LV segments are hyperkinetic. LVEF is increased (>70%) . 2. RV is normal size and function. 3. Grade 1 diastolic dysfunction (impaired relaxation and low-normal LA pressure). 4. Unable to estimate peak systolic PA pressure 5. IV saline contrast injection was negative for a PFO (patent foramen ovale) at rest and post Valsalva Previous Study No prior studies available for comparison. Signature Findings Technical Quality: Technically difficult exam. Left Ventricle LV endocardium is adequately visualized with IV ultrasound enhancing agent. The left ventricle is chamber size (by vol index) is normal (male - LVED vol - 34-74ml/m2). No evidence of LV hypertrophy. All of the LV segments are hyperkinetic . Global LV systolic function hyperdynamic . LVEF by Atkins's method of disk assessment is increased (>70%) . Grade 1 diastolic dysfunction (impaired relaxation and low-normal LA pressure). Left Atrium LA size is normal (16-34 ml/m2) . Right Ventricle The right ventricular chamber size and systolic function are within normal limits. Right Atrium RA size is normal. Atrial Septum IV saline contrast injection was negative for a PFO (patent foramen ovale) at rest and post Valsalva . Aortic Valve Mild AoV cusp thickening. No evidence of aortic regurgitation. Mitral Valve Mild MV leaflet calcification. Trace mitral regurgitation. Tricuspid Valve TV structure is normal. A trace of tricuspid regurgitation. Unable to estimate peak systolic PA pressure; inadequate TR velocity signal. Pulmonic Valve Normal PV structure and function by limited views and Doppler. Aorta Aortic root size (SInus of Valsalva diameter) is normal . Pericardium No pericardial effusion is visualized. IVC/SVC/PA/PV/Pleural The estimated RA pressure by IVC dynamics 0-5mmHg . Chambers/Structures Left Atrium LA Volume: 62.35 ml LA Area: 20.32 cm^2 LA Vol. Index: 24 ml/m^2 Left Ventricle LVIDd: 5.16 cm LV Septum Diastolic: 0.76 cm LV PW Diastolic: 0.79 cm LVEDV Atkins's:125.21 ml LVESV Atkins's:34.22 ml LVEF Atkins's: 72.7 % LVEDVI: 49 ml/m^2 LVESVI: 13 ml/m^2 LVOT Diameter: 2.2 cm Aorta Ao Root S of Ashwini.: 3.88 cm Doppler/Quantitative Measurements Mitral Valve MV Peak E-Wave: 0.53 m/s MV Peak A-Wave: 0.8 m/s E/A Ratio: 0.67 Peak Gradient: 1.14 mmHg Deceleration Time: 402.5 msec MV Zack. Peak: Tissue Doppler E' Lateral Velocity: 0.06 m/s E/E': 8.37 Aortic Valve Peak Velocity: 1.37 m/s MeanVelocity: 0.96 m/s Peak Gradient: 7.48 mmHg Mean Gradient: 4.16 mmHg AV Area (continuity): 3.37 cm^2 AV VTI: 23.08 cm AV DVI: 0.89 LVOT Peak Velocity: 1.23 m/s Peak Gradient: 6.04 mmHg Mean Velocity: 0.91 m/s Mean Gradient: 3.67 mmHg LVOT Diameter: 2.2 cm LVOT VTI: 20.45 cm LVOT Area: 3.8 cm^2 LVOT SV:77.7 ml LVOT CO: 6.6 l/min LVOT CI: 2.59 l/min/m^2C[facility]– [place]ARS[place] ([facility])2020-07-14 12:56:00 Test Item Value Reference Range Interpretation Comments SARS-COV2/RT-PCR (test Negative Not Detected, Negative, code = 4973250) See external report for linked test SARS-COV-2 PERFORMING LAB [facility] (test code = 7383844) Negative result for this test determines that SARS-CoV-2 RNA was not present in the specimen above the Limit of Detection (LOD). However, Negative results do not preclude SARS-CoV-2 infection and should not be used as the sole basis for treatment or patient management decisions. Negative results mustbe combined with clinical observations, patient history, and epidemiological information. A false negative result may occur if a specimen is improperly collected, transported or handled. A false negative result should be considered if patient's recent exposures or clinical presentation indicate that COVID-19 (SARS-CoV-2) is likely and diagnostic tests for other causes of illness are negative. Re-testing should be considered in cases of suspected false negatives.The limit of detection for this assay is 800 copies/mL.This SARS CoV-2 test is a real-time RT-PCR test intended for the qualitative detection of nucleic acid from SARS-CoV-2 in a nasopharyngeal swab specimen collected from individuals susp ected of COVID-19 by their healthcare provider.This test has not been Food and Drug Administration (FDA) cleared or approved. This is a modified version of an approved Emergency Use Authorization (EUA) and is in the process of review by the FDA. Once authorized by the FDA, the issued EUA will be effective until the declaration that circumstances exist justifying the authorization of the emergency use of in vitro diagnostic tests for detection and/or diagnosis of COVID-19 is terminated under Section 564(b)(2) of the Act or the EUA is revoked under Section 564(g) of the Act.Fact Sheet for Healthcare Providers:https://www.[employer]/sites/default/files/product/documents/Fact_Shee n_CF_Dxkxbwvhx_Ckbw_USSJ-LuU-0.pdfFact Sheet for Healthcare Patients:https://www.[employer]/sites/default/files/product/ documents/Ticb_Mbkgd_Evredvrg_Wgfb_LAMU-ZqQ-4.pdfPerforming Laboratory:[facility], [place] [address]Gbaundy C activity 2020-07-14 11:44:00 Test Item Value Reference Range Interpretation Comments Protein C Activity (test code = 89.0 % 70-130 38809-7) Lab Interpretation (test code = Normal 21923-7) [facility] [id number] 11:44:00 Test Item Value Reference Range Interpretation Comments PROTEIN C ACTIVITY (BEAKER) (test code 89.0 % 70.0-130.0 = 582) CTA [id number] 10:42:00Interface, External Ris In - 07/15/2020 10:21 AM CSTAddendum BeginsREPORT STATUS:A I agree with the nonvascular findings with the following additional comment: There is diffusely decreased enhancement of the spleen with mild adjacent fat stranding consistent with history of splenic infarct. Signed: Gio Joya MDReport Verified Date/Time: 07/15/2020 10:19:44 ReadingLocation[facility] C[facility] Body Reading RoomAddendum EndsFINAL REPORT CT angiography of the thoracic aorta, 14-Jul-20 INDICATION: This is a 69 year old male male with splenic embolism, concern for any aortic aetiology. TECHNIQUE: Spiral acquisition before and during intravenous contrast administration using a Marty CT scanner. Images were obtained before and during the dynamic passage of intravenous contrast material. Multi-planar 3-D volume-rendering reconstruction was performed using an independent workstation interactively by the interpreting physician as well as the 3-D specialist for optimal visualisation of the thoracic aorta and its proximal branches. Please refer to the contrast sheet scanned in the [employer] system for the amount and route of contrast given. This exam was performed according to our departmental dose- optimisation programme, which includes automated exposure control, adjustment of the mA and/or kV according to patient size and/or use of iterative giorgi nstruction technique. Dose modulation, iterative reconstruction, and/or weight based adjustment of the mA/kV was utilized to reduce the radiation dose to as low as reasonably achievable. FINDINGS: VASCULAR: No pericardial effusion is identified. The central pulmonary artery is normal in calibre. The cardiac chambers demonstrate normal atrioventricular and ventriculoarterial concordance, and systemicand pulmonary venous return. The left ventricle is normal in size. Left atrial prominence is identified. Mild mitral annular calcification is seen in the posterior mitral valve annulus. No aortic valvecalcification is seen. Coronary artery origins are normal. There is diffuse calcification identifiedin the ramus system, also calcific lesion seen in the proximal and mid LAD, as well as in the left main coronary artery. Aspiration is also identified in the LCx and RCA territories. The aortic root isectatic, and descending thoracic aorta and the transverse arch and descending thoracic aorta is normal in calibre. Scattered calcific lesion is seen in the descending thoracic aorta. In both the axial and sagittal orientation, no hanging atherosclerosis is seen. No atherosclerotic ulceration is appreciated. There is no evidence of acute aortic pathology, specifically, there is no dissection, intramural hematoma, or contained rupture. The arch vessel branching pattern is normal and the visualised portion of the arch vessels are widely patent. Quantitaive dimensions of the aorta are as follows: 4.1 x 4.2 cm at the sinuses of Valsalva (the sino-tubular junction is preserved); 3.6 x 3.5 cm at the proximal ascending thoracic aorta; 3.8 x 3.8 cm at the mid ascending aorta; 3.7 x 3.6 cm at the distal ascending aorta; 3.0 cm at the mid transverse arch; 2.5 cm at the proximal descending aorta; 2.5 cm at the mid descending aorta; 2.5 cm at the diaphragmatic hiatus. NON-VASCULAR: The thyroid gland isunremarkable. The chest wall and mediastinum appear normal. Some scattered small lymph nodes are seen in the mediastinum, not enlarged, considered nonspecific in nature. Some hilar lymph nodes are seen, with calcification seen in the left indicating prior granulomatous disease. Mild gynecomastia is identified. In the lung windows, no endobronchial lesion is seen, and no pleural effusion identified. Diffuse centrilobular emphysematous changes is identified, bilaterally. 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 Please see snapshot for details. By multiplanar reformation, this measured 2.4 x 2.1 cm with a height of 2.1 cm. In the right lung, image 108, a 7 mm nodule is identified, and at image 130, a 1.7 x 1.2 cm nodule is seen, with irregular margin. Another nodule is seen in the right lung at image 101, measure 4 to 5 mm in diameter. Calcified granuloma is identified in the left lung at image 135. No prior examinations available for comparison.Limited images of the upper abdomen reveals no gross abnormality. Fatty infiltration of the liver is identified with precontrast Hounsfield unit less than 40. In the bony windows, no acute bony pathology is present. Mild degenerative changes is noted. No obvious lytic or blastic lesion is appreciated.CONCLUSIONS: 1. There is mild ectasia identified in the descending thoracic aorta, and thereafter remainder of the thoracic aorta is normal in course, contour, and calibre. Scattered atherosclerosis is seen. NO atherosclerotic ulceration is seen and NO hanging atherosclerosis is identified. There isno evidence of acute aortic pathology, specifically, there is no dissection, intramural hematoma, orcontained rupture. Quantitative dimension of the thoracic aorta are as described above. No aortic aneurysm is identified. Please see snapshot for details. 2. Coronary atherosclerosis. The left ventricle and the left atrial appendage is free of thrombus. 3. The central pulmonary artery is normal in calibre. Evidence of prior granulomatous disease. Most importantly, various pulmonary nodules are seen with the largest one identified in the right upper lobe measure 2.4 x 2.1 cm with irregular margin.Other smaller nodules are seen. No prior examination is available for comparison. The concern is of underlying lung cancer. An addendum will be dictated thereafter regarding optimal recommendation and in the setting of diffuse pulmonary emphysematous changes, it is uncertain if biopsy is possible for the 2.4 cm mass. A formal addendum will be provided thereafter. 4. Other findings as described above. 5. An addendum will be dictated regarding the non-vascular findings by the Climatologist Radiologist.Signed: Deandre Lujan MDReport Verified Date/Time: 07/14/2020 10:42:49 Reading Location: [place] [address] [address] Reading [facility] [id number] 07:48:00 Test Item Value Reference Range Interpretation Comments % Neutros (test code = 70 % 2816) % Lymphs (test code = 6 % 2817) % Monos (test code = 17 % 2818) % Eos (test code = 1 % 2819) % Baso (test code = 1 % 2820) % Atypical Lymphs (test 5 % 0-0 H code = 2829) # Neutros (test code = 11.27 K/ul 1.78-5.38 H 2830) # Lymphs (test code = 0.97 K/ul 1.32-3.57 L 2831) # Monos (test code = 2.74 K/uL 0.3-0.82 H 2832) # Eos (test code = 0.16 K/uL 0.04-0.54 2834) # Baso (test code = 0.16 K/uL 0.01-0.08 H 2835) # Atypical Lymphs (test 0.81 K/uL 0-0 H code = 2858) Total Counted (test 100 code = 1351) WBC Morphology (test Normal code = 487) Giant Platelet (test Present code = 313) Large Platelet (test Present code = 2156) Basophilic Stippling Present (test code = 473) Artifact (test code = Present 3432) Platelet Conc (test Adequate code = 3438) ALAINA (test code = ALAINA) Internet Researcher ID - Melinda Smithshivani comments: Slide comments: Lab Interpretation Abnormal (test code = 82140-3) [facility] W/PLT COUNT & AUTO [id number] 07:48:00 Test Item Value Reference Range Interpretation Comments WHITE BLOOD CELL COUNT (BEAKER) 16.1 K/ L 3.5-10.5 H (test code = 775) RED BLOOD CELL COUNT (BEAKER) 4.74 M/ L 4.63-6.08 (test code = 761) HEMOGLOBIN (BEAKER) (test code = 15.2 GM/DL 13.7-17.5 410) HEMATOCRIT (BEAKER) (test code = 44.7 % 40.1-51.0 411) MEAN CORPUSCULAR VOLUME (BEAKER) 94.3 fL 79.0-92.2 H (test code = 753) MEAN CORPUSCULAR HEMOGLOBIN 32.1 pg 25.7-32.2 (BEAKER) (test code = 751) MEAN CORPUSCULAR HEMOGLOBIN CONC 34.0 GM/DL 32.3-36.5 (BEAKER) (test code = 752) RED CELL DISTRIBUTION WIDTH 13.0 % 11.6-14.4 (BEAKER) (test code = 412) PLATELET COUNT (BEAKER) (test 295 K/CU MM 150-450 code = 756) MEAN PLATELET VOLUME (BEAKER) 8.3 fL 9.4-12.4 L (test code = 754) NUCLEATED RED BLOOD CELLS 0 /100 WBC 0-0 (BEAKER) (test code = 413) (CELLAVISION MANUAL DIFF)2020-07-14 07:48:00 Test Item Value Reference Range Interpretation Comments NEUTROPHILS - REL 70 % (CELLAVISION)(BEAKER) (test code = 2816) LYMPHOCYTES - REL 6 % (CELLAVISION)(BEAKER) (test code = 2817) MONOCYTES - REL 17 % (CELLAVISION)(BEAKER) (test code = 2818) EOSINOPHILS - REL 1 % (CELLAVISION)(BEAKER) (test code = 2819) BASOPHILS - REL 1 % (CELLAVISION)(BEAKER) (test code = 2820) ATYPICAL LYMPHOCYTES - REL 5 % 0-0 H (CELLAVISION)(BEAKER) (test code = 2829) NEUTROPHILS - ABS 11.27 K/ul 1.78-5.38 H (CELLAVISION)(BEAKER) (test code = 2830) LYMPHOCYTES - ABS 0.97 K/ul 1.32-3.57 L (CELLAVISION)(BEAKER) (test code = 2831) MONOCYTES - ABS 2.74 K/uL 0.30-0.82 H (CELLAVISION)(BEAKER) (test code = 2832) EOSINOPHILS - ABS 0.16 K/uL 0.04-0.54 (CELLAVISION)(BEAKER) (test code = 2834) BASOPHILS - ABS 0.16 K/uL 0.01-0.08 H (CELLAVISION)(BEAKER) (test code = 2835) ATYPICAL LYMPHOCYTES - ABS 0.81 K/uL 0.00-0.00 H (CELLAVISION)(BEAKER) (test code = 2858) TOTAL COUNTED (BEAKER) (test code 100 = 1351) WBC MORPHOLOGY (BEAKER) (test code Normal = 487) GIANT PLATELETS (BEAKER) (test Present code = 313) LARGE PLT(BEAKER) (test code = Present 2156) BASOPHILIC STIPPLING (BEAKER) Present (test code = 473) ARTIFACT (CELLAVISION)(BEAKER) Present (test code = 3432) PLATELET CONCENTRATION Adequate (CELLAVISION)(BEAKER) (test code = 3438) Internet Researcher ID - Melinda Roman comments: Slide comments:Basic Metabolic [id number] 04:42:00 Test Item Value Reference Range Interpretation Comments Sodium (test code = 131 meq/L 136-145 L 2951-2) Potassium (test code 4.8 meq/L 3.5-5.1 = 2823-3) Chloride (test code = 97 meq/L 98-107 L 2075-0) CO2 (test code = 26 meq/L 22-29 8-9) BUN (test code = 12 mg/dL 7-21 3094-0) Creatinine (test code 0.85 mg/dL 0.57-1.25 = 2160-0) Glucose (test code = 137 mg/dL 70-105 H 2345-7) Calcium (test code = 8.7 mg/dL 8.4-10.2 76676-7) EGFR (test code = [place] [address]-0) CLINICAL DATA T O CALCULATE ESTIMATED GFR. ALAINA (test code = ALAINA) Internet Researcher ID - EDASI Lab Interpretation Abnormal (test code = 44034-4) [facility] [id number] 04:42:00 Test Item Value Reference Range Interpretation Comments SODIUM (BEAKER) (test 131 meq/L 136-145 L code = 381) POTASSIUM (BEAKER) 4.8 meq/L 3.5-5.1 (test code = 379) CHLORIDE (BEAKER) 97 meq/L 98-107 L (test code = 382) CO2 (BEAKER) (test 26 meq/L 22-29 code = 355) BLOOD UREA NITROGEN 12 mg/dL 7-21 (BEAKER) (test code = 354) CREATININE (BEAKER) 0.85 mg/dL 0.57-1.25 (test code = 358) GLUCOSE RANDOM 137 mg/dL 70-105 H (BEAKER) (test code = 652) CALCIUM (BEAKER) 8.7 mg/dL 8.4-10.2 (test code = 697) EGFR (BEAKER) (test INSUFFIC IENT CLINICAL code = 1092) DATA TO CALCULA TE ESTIMATED GFR. Internet Researcher ID - [id number] 04:40:00 Test Item Value Reference Range Interpretation Comments Magnesium (test code = 1.9 mg/dL 1.6-2.6 28900-0) ALAINA (test code = ALAINA) Internet Researcher ID - EDASI Lab Interpretation (test Normal code = 26553-3) [facility]2020-[facility] 04:40:00 Test Item Value Reference Range Interpretation Comments Phosphorus (test code = 3.5 mg/dL 2.3-4.7 2777-1) ALAINA (test code = ALAINA) Internet Researcher ID - EDASI Lab Interpretation (test Normal code = 27318-8) [facility]2020-[facility]-11 04:40:00 Test Item Value Reference Range Interpretation Comments MAGNESIUM (BEAKER) (test code = 1.9 mg/dL 1.6-2.6 627) Internet Researcher ID - [id number] 04:40:00 Test Item Value Reference Range Interpretation Comments PHOSPHORUS (BEAKER) (test code = 3.5 mg/dL 2.3-4.7 604) Internet Researcher ID - [id number] 00:00:00Ordered by an unspecified provider.[facility]
[2020-11-15 10:55] LABS: Absolute Lymphocytes (CBC) 1.4 K/uL (0.7-4.9); Basophils % 0.5 % (0-1.3); Hematocrit 43.1 % (39.6-49.0); Lymphocytes % 11.9 % (15.3-44.8); MPV 7.4 fL (7.6-11.3)
[2020-11-15 10:56] LABS: Protime INR 1.25
--- NOTE | 2020-11-15 10:58 | RAD REPORT ---
EXAM DESCRIPTION: RAD - Chest Single View - 11/15/2020 10:38 am CLINICAL HISTORY: COUGH COMPARISON: August 2020 radiation planning study, portable chest July 2020 TECHNIQUE: AP portable chest image was obtained 11/15/2020 10:38 am . FINDINGS: Patient has prominent interstitial opacification throughout both lung shaw. Spiculated m ass in the left upper lobe is present known malignant site. There is focal nodular density along the right heart border also matching the small mass seen on the planning study. Focal right upper lung pa renchymal opacification abuts the minor fissure. Reviewing the radiation planning study this is proba jerri chronic disease. Correlation is needed with any acute respiratory symptoms. Heart and vasculature are normal. No measurable pleural effusion and no pneumothorax. No acute bony abnormality seen. No acute aortic findings suspected. IMPRESSION: Spiculated mass left upper lobe and along the medial right heart border known findings s imilar August 2020 radiation planning study. Focal lung parenchymal opacification along the minor fissure right upper lobe appears to be chronic b ased on the radiation planning study. Correlation is needed with any acute respiratory symptoms. Overall diffuse interstitial pattern matches comparison.
[2020-11-15] MEDS ORDERED: NA CHLORIDE 0.9% 1,000 ML ONE (11:02)
[2020-11-15] MEDS ORDERED: METOPROLOL TAR 50 MG TAB ONE (11:02)
[2020-11-15] MEDS ORDERED: METOPROLOL TARTRATE 5 MG/5 ML INJ IV ONE ×2 (11:02→11:29)
[2020-11-15] MEDS ORDERED: DIGOXIN 0.25 MG/ML AMP ONE (11:28)
[2020-11-15] MEDS ORDERED: FAMOTIDINE 20 MG/2 ML VIAL IV ONE (11:29)
[2020-11-15 11:36] LABS: ALT/SGPT 30 U/L (12-78); AST/SGOT 23 U/L (15-37); Albumin 2.8 g/dL (3.4-5.0); Alkaline Phosphatase 114 U/L (45-117); BUN Blood Urea Nitrogen 20 mg/dL (7-18); Bicarbonate 23 mmol/L (21-32); Bilirubin Direct 0.2 mg/dL (0-0.2); Bilirubin Total 0.4 mg/dL (0.2-1.0); Glucose Level 376 mg/dL (74-106); Lipase 98 U/L (73-393); Magnesium 2.3 mg/dL (1.8-2.4); NT PRO-BNP 2363 pg/mL (<125); Potassium 4.8 mmol/L (3.5-5.1); Protein, Total 7.7 g/dL (6.4-8.2); Sodium Level 136 mmol/L (136-145); Thyroid Stimulating Hormone 0.063 uIU/mL (0.360-3.740); Troponin (Emerg Dept Use Only) < 0.02 ng/mL (0.0-0.045)
--- NOTE | 2020-11-15 11:57 | EDPHYS ---
Physician Documentation [facility] Name: Rohan Bauman Age: 70 yrs Sex: Male : 1950 Arrival Date: 11/15/2020 Time: 10:05 Bed 4 Private MD: Toño Louie T ED Physician Romeo Morgan HPI: 11/15 11:03 This 70 yrs old Male presents to ER via Ambulatory with complaints of evelin Abdominal Pain, pulse high. 11:03 The patient presents with a history of heart racing. Context: The symptoms occur at [facility]. Onset: The symptoms/episode began/occurred yesterday. Duration: The patient or guardian reports a single episode, that is still ongoing. Modifying factors: The symptoms are aggravated by nothing. The patient presents with abdominal pain right lower quadrant. Onset: The symptoms/episode began/occurred yesterday. Associated signs and symptoms: The patient has no apparent associated signs or symptoms. The symptoms do not radiate. 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 - Social history:: Smoking status: Patient/guardian denies using tobacco, Stopped _ months ago 4. - Family history:: not pertinent. ROS: 11:03 Constitutional: Negative for fever, chills, and weight loss, Eyes: Negative for injury, evelin pain, redness, and discharge, ENT: Negative for injury, pain, and discharge, Neck: Negative for injury, pain, and swelling, Respiratory: Negative for shortness of breath, cough, wheezing, and pleuritic chest pain, Back: Negative for injury and pain, : Negative for injury, bleeding, discharge, and swelling, MS/Extremity: Negative for injury and deformity, Skin: Negative for injury, rash, and discoloration, Neuro: Negative for headache, weakness, numbness, tingling, and seizure, Psych: Negative for depression, anxiety, suicide ideation, homicidal ideation, and hallucinations, Allergy/Immunology: Negative for hives, rash, and allergies, Endocrine: Negative for neck swelling, polydipsia, polyuria, polyphagia, and marked weight changes, Hematologic/Lymphatic: Negative for swollen nodes, abnormal bleeding, and unusual bruising. 11:03 Cardiovascular: Positive for palpitations. 11:03 Abdomen/GI: Positive for abdominal pain, of the left lower quadrant. Exam: 11:03 Constitutional: This is a well developed, well nourished patient who is awake, alert, evelin and in no acute distress. Head/Face: Normocephalic, atraumatic. Eyes: Pupils equal round and reactive to light, extra-ocular motions intact. Lids and lashes normal. Conjunctiva and sclera are non-icteric and not injected. Cornea within normal limits. Periorbital areas with no swelling, redness, or edema. ENT: Nares patent. No nasal discharge, no septal abnormalities noted. Tympanic membranes are normal and external auditory canals are clear. Oropharynx with no redness, swelling, or masses, exudates, or evidence of obstruction, uvula midline. Mucous membranes moist. Neck: Trachea midline, no thyromegaly or masses palpated, and no cervical lymphadenopathy. Supple, full range of motion without nuchal rigidity, or vertebral point tenderness. No Meningismus. Chest/axilla: Normal chest wall appearance and motion. Nontender with no deformity. No lesions are appreciated. Back: No spinal tenderness. No costovertebral tenderness. Full range of motion. Male : Normal genitalia with no discharge or lesions. Skin: Warm, dry with normal turgor. Normal color with no rashes, no lesions, and no evidence of cellulitis. MS/ Extremity: Pulses equal, no cyanosis. Neurovascular intact. Full, normal range of motion. Neuro: Awake and alert, GCS 15, oriented to person, place, time, and situation. Cranial nerves II-XII grossly intact. Motor strength 5/5 in all extremities. Sensory grossly intact. Cerebellar exam normal. Normal gait. Psych: Awake, alert, with orientation to person, place and time. Behavior, mood, and affect are within normal limits. 11:03 Cardiovascular: Rate: tachycardic, Rhythm: regular, Pulses: Pulses are 4+ in bilateral radial, brachial, femoral, popliteal, posterior tibial and and dorsalis pedis arteries.. Heart sounds: normal, Edema: is not appreciated, JVD: is not appreciated. 14:45 ECG was reviewed by the Attending Physician. evelin 14:45 ECG was reviewed by the Attending Physician. evelin Vital Signs: 10:13 BP 135 / 86; Pulse 146; Resp 18 S; Temp 97.7(O); Pulse Ox 94% on R/A; Weight 136.08 kg ca1 (R); Height 6 ft. 3 in. (190.50 cm) (R); Pain 1/10; 10:59 BP 111 / 60; Pulse 131; Resp 18; Pulse Ox 92% on R/A; ph 11:10 BP 119 / 79; Pulse 131; Resp 19; Pulse Ox 95% ; jl7 11:30 BP 104 / 71; Pulse 128; Resp 15; Pulse Ox 96% ; jl7 12:30 BP 132 / 96; Pulse 131; Resp 17; Pulse Ox 96% on R/A; jl7 13:30 BP 103 / 89; Pulse 130; Resp 17; Pulse Ox 95% ; jl7 14:00 BP 114 / 94; Pulse 110; Resp 18; Pulse Ox 96% ; jl7 14:15 BP 114 / 93; Pulse 104; Resp 17; Pulse Ox 96% ; jl7 10:13 Body Mass Index 37.50 (136.08 kg, 190.50 cm) ca1 MDM: 10:13 Patient medically screened. evelin 11:06 Differential diagnosis: arrythmia, bowel obstruction, cholecystitis, Cholelithiasis, evelin diverticulitis, gastritis, gastroesophageal reflux disease. Data reviewed: vital signs, nurses notes, old medical records, lab test result(s), EKG, radiologic studies, CT scan, plain films. Data interpreted: athletic monitor: rate is 131 beats/min, rhythm is regular, Pulse oximetry: on room air is 136 %. Test interpretation: by ED physician or midlevel provider: ECG, plain radiologic studies. Counseling: I had a detailed discussion with the patient and/or guardian regarding: the historical points, exam findings, and any diagnostic results supporting the discharge/admit diagnosis, lab results, radiology results, the need for further work-up and treatment in the hospital. 11/15 10:15 Order name: Basic Metabolic Panel [facility] 11/15 10:15 Order name: CBC with Diff [facility] 11/15 10:15 Order name: LFT's; Complete Time: 11:49 [facility] 11/15 10:15 Order name: Magnesium; Complete Time: 11:49 [facility] 11/15 10:15 Order name: NT PRO-BNP; Complete Time: 11:49 [facility] 11/15 10:15 Order name: PT-INR; Complete Time: 10:59 [facility] 11/15 10:15 Order name: Troponin (emerg Dept Use Only); Complete Time: 11:49 [facility] 11/15 10:15 Order name: Lipase; Complete Time: 11:49 [facility] 11/15 10:15 Order name: Urine Culture [facility] 11/15 10:15 Order name: TSH; Complete Time: 11:49 [facility] 11/15 10:16 Order name: Basic Metabolic Panel; Complete Time: 11:49 [facility] 11/15 10:16 Order name: CBC with Automated Diff; Complete Time: 10:59 [facility] 11/15 12:02 Order name: SARS-COV-2 RT PCR [facility] 11/15 10:15 Order name: XRAY Chest (1 view); Complete Time: 10:59 [facility] 11/15 10:15 Order name: EKG; Complete Time: 10:16 [facility] 11/15 11:03 Order name: CT Abd/Pelvis - IV Contrast Only evelin 11/15 13:57 Order name: EKG; Complete Time: 13:58 evelin 11/15 10:15 Order name: Cardiac monitoring; Complete Time: 10:20 11/15 10:15 Order name: EKG - Nurse/Tech; Complete Time: 10:20 11/15 10:15 Order name: IV Saline Lock; Complete Time: 10:42 11/15 10:15 Order name: Labs collected and sent; Complete Time: 10:42 [facility] 11/15 10:15 Order name: O2 Per Protocol; Complete Time: 10:42 [facility] 11/15 10:15 Order name: O2 Sat Monitoring; Complete Time: 10:43 11/15 13:57 Order name: EKG - Nurse/Tech; Complete Time: 14:49 [facility] EC:45 Rate is 141 beats/min. Rhythm is regular. QRS Beth[place] is Normal. NC interval is normal. evelin QRS interval is normal. QT interval is normal. No Q waves. T waves are Normal. No ST changes noted. Clinical impression: Atrial Flutter. Interpreted by me. Reviewed by me. 14:45 Rate is 102 beats/min. Rhythm is irregular. QRS Bethany is Normal. NC interval is normal. evelin QRS interval is normal. QT interval is normal. No Q waves. T waves are Normal. No ST changes noted. Clinical impression: Atrial Flutter. Interpreted by me. Reviewed by me. Administered Medications: 10:55 Drug: NS 0.9% 500 ml Route: IV; Rate: bolus; Site: right forearm; ph 11:25 Follow up: IV Status: Completed infusion; IV Intake: 500ml jl7 10:56 Drug: Lopressor 5 mg Route: IVP; Site: right forearm; ph 11:10 Follow up: Response: No adverse reaction; Cardiac rhythm is unchanged jl7 10:56 Drug: Lopressor (metoprolol TARTRATE) 50 mg Route: PO; ph 11:56 Follow up: Response: No adverse reaction; Cardiac rhythm is unchanged jl7 11:11 Drug: Lopressor 2.5 mg Route: IVP; Site: right forearm; jl7 11:20 Follow up: Response: No adverse reaction; Cardiac rhythm is unchanged jl7 11:15 Drug: Pepcid 20 mg Route: IVP; Site: right forearm; jl7 11:57 Follow up: Response: No adverse reaction jl7 11:20 Drug: Lopressor 2.5 mg Route: IVP; Site: right forearm; jl7 11:35 Follow up: Response: No adverse reaction; Cardiac rhythm is unchanged jl7 11:25 Drug: NS 0.9% 1000 ml Route: IV; Rate: 125 ml/hr; Site: right forearm; jl7 15:10 Follow up: IV Status: Infusion continued upon admission jl7 11:35 Drug: Lopressor 2.5 mg Route: IVP; Site: right forearm; jl7 11:40 Follow up: Response: No adverse reaction; Cardiac rhythm is unchanged jl7 11:40 Drug: Lopressor 2.5 mg Route: IVP; Site: right forearm; jl7 11:56 Follow up: Response: No adverse reaction; Cardiac rhythm is unchanged jl7 12:25 Drug: Digoxin 0.5 mg Route: IVP; Site: right forearm; 7 13:00 Follow up: Response: No adverse reaction; Cardiac rhythm is unchanged jl 13:54 CANCELLED (Duplicate Order): amiodarone 150 mg 100 ml IVPB once over 10 mins; (mix in evelin D5W) 13:54 CANCELLED (Duplicate Order): amiodarone 900 mg, D5W 500 ml IVPB at 1 mg/min continuous; evelin for 6 hrs, then change to 0.5 mg/min Disposition: 11/15/20 11:57 Hospitalization ordered by Memo Saenz for Inpatient Admission. 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 - Bed requested for Telemetry/MedSurg (Inpatient). - Status is Inpatient Admission. iw - Condition is Fair. - Problem is new. - Symptoms have improved. Signatures: Dispatcher [employer] [facility] Florencia Ryan RN RN Romeo Morgan MD MD cha Williams, Irene, RN RN Shilpa Hough RN RN ph Leal, Jahala, RN RN jl7 Jackeline Hays RN RN ca1 Corrections: (The following items were deleted from the chart) 11:23 11:02 CORONAVIRUS+LAB.ESDRAS ordered. [facility] 13:46 11:57 Hospitalization Ordered by Memo Saenz DO for Inpatient Admission. 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 Bed requested for Telemetry/MedSurg (Inpatient). Status is Inpatient Admission. Condition is Fair. Problem is new. Symptoms have improved. evelin 13:54 13:53 amiodarone 150 mg 100 ml IVPB once over 10 mins; (mix in D5W) ordered. evelin evelin 13:54 13:53 amiodarone 900 mg, D5W 500 ml IVPB at 1 mg/min continuous; for 6 hrs, then change evelin to 0.5 mg/min ordered. evelin 14:31 10:21 PMHx: Hypertension; ca1 jl7 15:34 13:46 11/15/2020 11:57 Hospitalization Ordered by Memo Saenz DO for Inpatient iw Admission. 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 Bed requested for Telemetry/MedSurg (Inpatient). Status is Inpatient Admission. Condition is Fair. Problem is new. Symptoms have improved. dw
--- NOTE | 2020-11-15 11:57 | ER ---
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 in the last 14 days. At this ca1 time, the client does not indicate any symptoms associated with coronavirus-19. Ebola Screen: Patient negative for fever greater than or equal to 101.5 degrees Fahrenheit, and additional compatible Ebola Virus Disease symptoms Patient denies exposure to infectious person. Patient denies travel to an Ebola-affected area in the 21 days before illness onset. No symptoms or risks identified at this time. Initial Sepsis Screen: Does the patient meet any 2 criteria? No. Patient's initial sepsis screen is negative. Does the patient have a suspected source of infection? No. Patient's initial sepsis screen is negative. Risk Assessment: Do you want to hurt yourself or someone else? Patient reports no desire to harm self or others. Onset of symptoms was November 15, 2020. 10:13 Method Of Arrival: Ambulatory ca1 10:13 Acuity: SOFIA 2 ca1 10:13 Chief complaint: Patient states: L flank pain x 9-10 days. Was going to have 1st chemo ca1 session today for lung Ca, they checked pulse and it was high. Denies chest pain. 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 - Social history:: Smoking status: Patient/guardian denies using tobacco, Stopped _ months ago 4. - Family history:: not pertinent. Screenin:30 Abuse screen: Denies threats or abuse. Denies injuries from another. Nutritional jl7 screening: No deficits noted. Tuberculosis screening: No symptoms or risk factors identified. Fall Risk IV access (20 points). Total Huerta Fall Scale indicates No Risk (0-24 pts). Assessment: 10:30 General: Appears in no apparent distress. uncomfortable, Behavior is calm, cooperative, jl7 appropriate for age. Pain: Complains of pain in posterior aspect of left lateral abdomen and anterior aspect of left lateral abdomen Pain currently is 1 out of 10 on a pain scale. Neuro: Level of Consciousness is awake, alert, obeys commands, Oriented to person, place, time, situation. Cardiovascular: Heart tones S1 S2 present Patient's skin is warm and dry. Respiratory: Airway is patent Respiratory effort is even, unlabored, Respiratory pattern is regular, symmetrical, Breath sounds are clear bilaterally. GI: Abdomen is round non-distended, Bowel sounds present X 4 quads. Abd is soft and non tender. Derm: Skin is pink, warm \T\ dry. 10:56 General: Appears in no apparent distress. comfortable, well groomed, Behavior is calm, ph cooperative, appropriate for age, Denies fever. Pain: Complains of pain in anterior aspect of left lateral abdomen and posterior aspect of left lateral abdomen. Neuro: Level of Consciousness is awake, alert, obeys commands, Oriented to person, place, time, situation. Cardiovascular: Denies chest pain, nausea, vomiting, Capillary refill < 3 seconds in bilateral fingers Patient's skin is warm and dry. Rhythm is sinus tachycardia. Respiratory: Airway is patent Respiratory effort is even, unlabored, Respiratory pattern is regular, symmetrical. GI: Abdomen is round non-distended. : Reports pain in left flank(s). Derm: Skin is intact, is healthy with good turgor, Skin is pink, warm \T\ dry. Musculoskeletal: Circulation, motion, and sensation intact. Range of motion: intact in all extremities. 11:57 Reassessment: Patient appears in no apparent distress at this time. No changes from jl7 previously documented assessment. Patient and/or family updated on plan of care and expected duration. Pain level reassessed. Patient is alert, oriented x 3, equal unlabored respirations, skin warm/dry/pink. Patient denies pain at this time. 13:00 Reassessment: Patient appears in no apparent distress at this time. No changes from jl7 previously documented assessment. Patient and/or family updated on plan of care and expected duration. Pain level reassessed. Patient is alert, oriented x 3, equal unlabored respirations, skin warm/dry/pink. 14:00 Reassessment: Patient appears in no apparent distress at this time. No changes from jl7 previously documented assessment. Patient and/or family updated on plan of care and expected duration. Pain level reassessed. Patient is alert, oriented x 3, equal unlabored respirations, skin warm/dry/pink. Vital Signs: 10:13 BP 135 / 86; Pulse 146; Resp 18 S; Temp 97.7(O); Pulse Ox 94% on R/A; Weight 136.08 kg ca1 (R); Height 6 ft. 3 in. (190.50 cm) (R); Pain 1/10; 10:59 BP 111 / 60; Pulse 131; Resp 18; Pulse Ox 92% on R/A; ph 11:10 BP 119 / 79; Pulse 131; Resp 19; Pulse Ox 95% ; jl7 11:30 BP 104 / 71; Pulse 128; Resp 15; Pulse Ox 96% ; jl7 12:30 BP 132 / 96; Pulse 131; Resp 17; Pulse Ox 96% on R/A; jl7 13:30 BP 103 / 89; Pulse 130; Resp 17; Pulse Ox 95% ; jl7 14:00 BP 114 / 94; Pulse 110; Resp 18; Pulse Ox 96% ; jl7 14:15 BP 114 / 93; Pulse 104; Resp 17; Pulse Ox 96% ; jl7 10:13 Body Mass Index 37.50 (136.08 kg, 190.50 cm) ca1 ED Course: 10:05 Patient arrived in ED. am2 10:05 Toño Louie MD is Private Physician. am2 10:13 Romeo Morgan MD is Attending Physician. evelin 10:13 Arm band placed on right wrist. ca1 10:19 Triage completed. ca1 10:22 Jad Simon RN is Primary Nurse. jl7 10:30 Patient has correct armband on for positive identification. Placed in gown. Bed in low jl7 position. Call light in reach. Side rails up X 1. monitoring analyst on. Pulse ox on. NIBP on. 10:30 Missed attempt(s): 20 gauge in right wrist. Bleeding controlled, band aid applied, jl7 catheter tip intact. 10:38 XRAY Chest (1 view) In Process Unspecified. EDMS 10:42 Initial lab(s) drawn, by wa, sent to lab. Inserted saline lock: 20 gauge in right ph forearm, using aseptic technique. Blood collected. 10:58 Basic Metabolic Panel Sent. [facility] 10:58 CBC with Diff Sent. [facility] 10:58 LFT's Sent. [facility] 10:59 Magnesium Sent. [facility] 10:59 NT PRO-BNP Sent. [facility] 11:53 Memo Saenz DO is Hospitalizing Provider. [facility] 12:05 CT Abd/Pelvis - IV Contrast Only In Process Unspecified. EDMS 14:37 No provider procedures requiring assistance completed. Patient admitted, IV remains in jl7 place. intact, No redness/swelling at site. 14:49 EKG done, by ED staff, reviewed by Romeo Morgan MD. jl7 Administered Medications: 10:55 Drug: NS 0.9% 500 ml Route: IV; Rate: bolus; Site: right forearm; ph 11:25 Follow up: IV Status: Completed infusion; IV Intake: 500ml jl7 10:56 Drug: Lopressor 5 mg Route: IVP; Site: right forearm; ph 11:10 Follow up: Response: No adverse reaction; Cardiac rhythm is unchanged jl7 10:56 Drug: Lopressor (metoprolol TARTRATE) 50 mg Route: PO; ph 11:56 Follow up: Response: No adverse reaction; Cardiac rhythm is unchanged jl7 11:11 Drug: Lopressor 2.5 mg Route: IVP; Site: right forearm; jl7 11:20 Follow up: Response: No adverse reaction; Cardiac rhythm is unchanged jl7 11:15 Drug: Pepcid 20 mg Route: IVP; Site: right forearm; jl7 11:57 Follow up: Response: No adverse reaction jl7 11:20 Drug: Lopressor 2.5 mg Route: IVP; Site: right forearm; jl7 11:35 Follow up: Response: No adverse reaction; Cardiac rhythm is unchanged jl7 11:25 Drug: NS 0.9% 1000 ml Route: IV; Rate: 125 ml/hr; Site: right forearm; jl7 15:10 Follow up: IV Status: Infusion continued upon admission jl7 11:35 Drug: Lopressor 2.5 mg Route: IVP; Site: right forearm; jl7 11:40 Follow up: Response: No adverse reaction; Cardiac rhythm is unchanged jl7 11:40 Drug: Lopressor 2.5 mg Route: IVP; Site: right forearm; jl7 11:56 Follow up: Response: No adverse reaction; Cardiac rhythm is unchanged jl7 12:25 Drug: Digoxin 0.5 mg Route: IVP; Site: right forearm; jl7 13:00 Follow up: Response: No adverse reaction; Cardiac rhythm is unchanged jl7 13:54 CANCELLED (Duplicate Order): amiodarone 150 mg 100 ml IVPB once over 10 mins; (mix in evelin D5W) 13:54 CANCELLED (Duplicate Order): amiodarone 900 mg, D5W 500 ml IVPB at 1 mg/min continuous; evelin for 6 hrs, then change to 0.5 mg/min Intake: 11:25 IV: 500ml; Total: 500ml. jl7 Outcome: 11:57 Decision to Hospitalize by Provider. evelin 14:37 Condition: stable jl7 14:49 Admitted to Tele accompanied by [facility], via wheelchair, room 212, with chart, Report jl7 called to MACY Yoo 14:49 Discharge instructions given to patient, Instructed on the need for admit, Demonstrated understanding of instructions. 15:34 Patient left the ED. iw Signatures: Dispatcher [employer] EDRomeo Perez MD MD cha Williams, Irene, RN Shilpa Jerome RN Lisa Aparicio ph Jad Proctor RN RN jl7 Bárbara Apple Cheryl, RN RN ca1 Corrections: (The following items were deleted from the chart) 10:22 10:21 Chief complaint: Patient states: L flank pain x 9-10 days. Was going to have 1st ca1 chemo session today for lung Ca, they checked pulse and it was high. Denies chest pain ca1 11:54 11:40 Response: No adverse reaction; Cardiac rhythm is unchanged jl7 jl7 11:55 11:40 Lopressor 2.5 mg IVP in right forearm jl7 jl7 14:31 10:21 PMHx: Hypertension; ca1 jl7
--- NOTE | 2020-11-15 12:30 | RAD REPORT ---
EXAM DESCRIPTION: CT - Abdomen Pelvis W Contrast - 11/15/2020 12:05 pm CLINICAL HISTORY: ABD PAIN, left flank pain for 9 days, history of lung cancer COMPARISON: Abdomen Pelvis W Contrast dated 07/13/2020 TECHNIQUE: Biphasic, helical CT imaging of the abdomen and pelvis was performed following 100 ml non -ionic IV contrast. No oral contrast administered. All CT scans are performed using dose optimization technique as appropriate and may include automated exposure control or mA/KV adjustment according to patient size. FINDINGS: No cardiomegaly or pericardial effusion. Patient has small left-side and small to moderate right-sided pleural effusions. A 13 millimeter pleural abutting nodular focus lateral lower left donita g field present. This can be monitored as part of the patient's lung cancer surveillance. Liver and pancreas show no suspicious findings. Liver attenuation is borderline to mild fatty infiltr ated. Minimal cholelithiasis without acute gallbladder finding. No biliary tree dilatation. Spleen has lost volume since the prior study. There is nodularity in areas of diminished attenuation . 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 Current findings indicate infarct ion related volume loss. Splenic artery has reduced in size since the comparison study likely due to thrombosed artery. An acute splenic artery finding is not confirmed. Symmetric renal function is seen with no hydronephrosis or suspicious renal mass. No pyelonephritis o r acute parenchymal process. No bladder abnormalities. No adrenal abnormalities. No dilated bowel loops or bowel wall thickening. No acute colon finding. No free air, free fluid or i nflammatory stranding. No bulky lymphadenopathy or mass. Patient has bilateral fat filled inguinal h ernias with no acute component. Disc and bone degenerative changes are present. Significant L4-5 spinal stenosis is present with slig htly less prominent L3-4 spinal stenosis. Changes are due to disc bulge, facet hypertrophy and ligame ntous thickening. 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 An acu te process of the spleen is not identifiable. No pyelonephritis, renal obstruction or other acute finding to explain left flank pain. Patient maldonado s no colitis or acute GI etiology for the left-sided pain pattern. Small left-side and small to moderate right-sided pleural effusions. Small pleural abutting nodule lo wer left lung field can be monitored at over the course of the lung cancer surveillance. Additional nonacute findings detailed in the body of the report.
--- NOTE | 2020-11-15 13:59 | P.HP ---
Certification for Inpatient Patient admitted to: Observation With expected LOS: >2 Midnights Patient will require the following post-hospital care: None Practitioner: I am a practitioner with admitting privileges, knowledge of patient current condition, hospital course, and medical plan of care. Services: Services provided to patient in accordance with Admission requirements found in Title 42 Section 412.3 of the Code of Federal Regulations Patient History Date of Service: 11/15/20 Primary Care Provider: Dr. Louie; Oncology-Dr. Mccray; Rad/Onc-Dr. Fuchs Reason for admission: Abnormal heart rate History of Present Illness: 70-year-old male with history of stage II squamous cell lung cancer, hypothyroidism, and splenic infarct. Patient presented to the ER after he was seen at the chemotherapy clinic. Patient had rapid heart rate. He was sent to the ER for further evaluation. Patient recently diagnosed with stage 2 lung squamous cell carcinoma. Patient reports that he recently had radiation therapy. He was to get chemotherapy today. Patient reported that this all started after he had some abdominal pain were he found to have a splenic infarct. He currently takes levothyroxine for thyroid disease, torsemide and Aldactone, and Eliquis. He denies any significant chest pain, shortness of breath. Some palpitations noted. In the ER patient was evaluated. EKG shows possible AFib verses a flutter. Patient was given digoxin and multiple rounds of metoprolol. Heart rate still in the 120s. Chest x-ray showed a spiculated mass to the left upper lobe and to the medial right side. Tsh low at 0.063. Troponin unremarkable. BNP 2363. Sodium 136, potassium 4.5. BN of 20, creatinine 1.01 with a GFR 73. Glucose 376. White count 11.5. CT scan perform showed a splenic infarct. Small left and moderate right pleural effusion noted. Patient admitted for further evaluation and treatment. Patient does not appear in any distress. Home medications list reviewed: Yes - Past Medical/Surgical History Diabetic: No -: Stage II squamous cell lung carcinoma -: Splenic infarct -: Hypothyroidism -: Chronic anti coagulation therapy -: Hernia repair Psychosocial/ Personal History: Patient is . Lives by himself. - Family History Family History: Reviewed- Non-Contributory - Social History Smoking Status: Former smoker Alcohol use: No CD- Drugs: No Caffeine use: Yes Place of Residence: Home Review of Systems General: As per HPI Eyes: Unremarkable ENT: Unremarkable Respiratory: As per HPI Cardiovascular: Palpitations, As per HPI Gastrointestinal: Abdominal Pain, As per HPI Musculoskeletal: Pedal edema, As per HPI Integumentary: Unremarkable Neurological: Unremarkable Lymphatics: Unremarkable Physical Examination - Physical Exam General: Alert, In no apparent distress, Oriented x3, Cooperative HEENT: Atraumatic, Normocephalic, Mucous membr. moist/pink Neck: Supple Respiratory: Diminished (Decreased to the bases bilateral) Cardiovascular: Irregular heart rate/rhythm (AFib rate around 120) Gastrointestinal: Normal bowel sounds, Non-distended, No ascites, No tenderness, No masses, No rebound, No guarding Integumentary: No erythema, No warmth, No cyanosis, Tenderness/swelling (Nonpitting edema to the lower extremities) Neurological: Normal speech, Normal strength at 5/5 x4 extr, Normal tone, Normal affect - Studies Laboratory Data (last 24 hrs) 11/15/20 10:40: PT 14.4 H, INR 1.25 11/15/20 10:40: WBC 11.50 H, Hgb 14.3, Hct 43.1, Plt Count 320 11/15/20 10:40: Sodium 136, Potassium 4.8, BUN 20 H, Creatinine 1.01, Glucose 376 H, Magnesium 2.3, Total Bilirubin 0.4, AST 23, ALT 30, Alkaline Phosphatase 114, Lipase 98 Assessment and Plan - Plan Impression: Palpitations secondary to atrial fibrillation/atrial flutter Hypothyroidism 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 Patient now in sinus tachycardia with rate around 110. Case discussed with cardiology. Was to start amiodarone but since patient is in sinus tachycardia we will continue with metoprolol. Will adjust accordingly. Patient already takes Eliquis, therefore well continue with medication. Will monitor this patient closely. Obtain echocardiogram to further evaluate. Await further recommendations from cardiology. Anticipate improvement over the next 24 hr. Hypothyroidism: Tsh abnormal. Will decrease thyroid medication to 150 mcg daily. 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 Stage II squamous cell lung carcinoma: Patient recently had radiation therapy. Was to have chemotherapy today. Will discuss with Oncology. Hyperglycemia suspect diabetes mellitus type 2: Will check A1c. Monitor Accu- Cheks. Will provide sliding scale. Bilateral pleural effusions likely related to carcinoma: Will obtain echocardiogram. Continue with diuresis. Patient takes torsemide and Aldactone. Continue IV Lasix and Aldactone now. Discharge Plan: Home Plan to discharge in: 48 Hours - Advance Directives Does patient have a Living Will: No Does patient have a Durable POA for Healthcare: No - Code Status/Comfort Care Code Status Assessed: Yes (Patient is full code) Time Spent Managing Pts Care (In Minutes): 55
[2020-11-15 15:56] VITALS: BMI 37.5
[2020-11-15] MEDS ORDERED: D50W 25 GM/50 ML SYRINGE IV PRN (15:57)
[2020-11-15] MEDS ORDERED: ACETAMINOPHEN 500 MG TAB PO PRN (15:57)
[2020-11-15] MEDS ORDERED: GLUCAGON 1 MG/VIAL IM PRN (15:57)
[2020-11-15] MEDS ORDERED: ONDANSETRON 4 MG/2 ML VIAL IV PRN (15:57)
[2020-11-15] MEDS: INSULIN -REGULAR HUMAN 50 UNIT/0.5 ML ML SQ SCH ×2 (16:30→21:00)
[2020-11-15] MEDS: FUROSEMIDE 20 MG/ 2ML VIAL IV SCH (17:00)
[2020-11-15] MEDS: METOPROLOL TAR 25 MG TAB PO SCH (17:37)
[2020-11-15 17:53] LABS: CKMB Creatine Kinase MB 1.5 ng/mL (0.3-3.6); Creatine Phosphokinase 47 U/L (39-308); Troponin I < 0.02 ng/mL (0.0-0.045)
[2020-11-15] MEDS: APIXABAN 5 MG TABLET PO SCH (21:29)
[2020-11-15] MEDS: SPIRONOLACTONE 25 MG TABLET PO SCH (21:29)
[2020-11-15 21:54] VITALS: O2SAT 93
[2020-11-16] MEDS ORDERED: LORazepam 2 MG/ML VIAL IV PRN (00:11)
[2020-11-16 01:44] LABS: CKMB Creatine Kinase MB 1.3 ng/mL (0.3-3.6); Creatine Phosphokinase 50 U/L (39-308); Troponin I < 0.02 ng/mL (0.0-0.045)
[2020-11-16] MEDS: METOPROLOL TAR 25 MG TAB PO SCH (05:31)
[2020-11-16 06:16] LABS: Absolute Lymphocytes (CBC) 1.8 K/uL (0.7-4.9); Basophils % 0.1 % (0-1.3); Hematocrit 41.5 % (39.6-49.0); Lymphocytes % 12.6 % (15.3-44.8); MPV 7.2 fL (7.6-11.3); RBC Red Blood Cell Count 4.28 M/uL (4.33-5.43)
[2020-11-16] MEDS ORDERED: LEVOTHYROXINE SOD 0.075 MG TAB PO SCH (06:30)
[2020-11-16 06:31] LABS: Magnesium 2.6 mg/dL (1.8-2.4); Potassium 4.6 mmol/L (3.5-5.1); Thyroid Stimulating Hormone 0.053 uIU/mL (0.360-3.740)
[2020-11-16] MEDS: INSULIN -REGULAR HUMAN 50 UNIT/0.5 ML ML SQ SCH ×2 (07:22→11:30)
--- NOTE | 2020-11-16 08:01 | RAD REPORT ---
EXAM DESCRIPTION: Handyt Pa And Lat (2 Views)11/16/2020 5:27 am CLINICAL HISTORY: Pleural effusions COMPARISON: November 15 FINDINGS: No significant change in the bilateral pulmonary opacities/masses. Right upper lobe alveolar opacity unchanged perhaps post treatment change. Small pleural effusions are unchanged. Heart is normal size
[2020-11-16] MEDS: FUROSEMIDE 20 MG/ 2ML VIAL IV SCH (08:40)
[2020-11-16] MEDS: APIXABAN 5 MG TABLET PO SCH (08:40)
[2020-11-16] MEDS: SPIRONOLACTONE 25 MG TABLET PO SCH (08:44)
--- NOTE | 2020-11-16 09:41 | P.DS ---
Admission Date: 11/15/20 Discharge Date: 11/16/20 Primary Care Provider: Dr. Louie; Oncology-Dr. Mccray; Rad/Onc-Dr. Fuchs Disposition: ROUTINE DISCHARGE Discharge Condition: GOOD Reason for Admission: Abnormal heart rate Consultations: Cardiology-Dr. Pizarro/Dr. Tabares Procedures: COVID: Negative CT Scan: FINDINGS: No cardiomegaly or pericardial effusion. Patient has small left-side and small to moderate right-sided pleural effusions. A 13 millimeter pleural abutting nodular focus lateral lower left lung field present. This can be monitored as part of the patient's lung cancer surveillance. Liver and pancreas show no suspicious findings. Liver attenuation is borderline to mild fatty infiltrated. Minimal cholelithiasis without acute gallbladder finding. No biliary tree dilatation. Spleen has lost volume since the prior study. There is nodularity in areas of diminished attenuation. 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 Current findings indicate infarction related volume loss. Splenic artery has reduced in size since the comparison study likely due to thrombosed artery. An acute splenic artery finding is not confirmed. Symmetric renal function is seen with no hydronephrosis or suspicious renal mass. No pyelonephritis or acute parenchymal process. No bladder abnormalities. No adrenal abnormalities. No dilated bowel loops or bowel wall thickening. No acute colon finding. No free air, free fluid or inflammatory stranding. No bulky lymphadenopathy or mass. Patient has bilateral fat filled inguinal hernias with no acute component. Disc and bone degenerative changes are present. Significant L4-5 spinal stenosis is present with slightly less prominent L3-4 spinal stenosis. Changes are due to disc bulge, facet hypertrophy and ligamentous thickening. 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 An acute process of the spleen is not identifiable. No pyelonephritis, renal obstruction or other acute finding to explain left flank pain. Patient has no colitis or acute GI etiology for the left-sided pain pattern. Small left-side and small to moderate right-sided pleural effusions. Small pleural abutting nodule lower left lung field can be monitored at over the course of the lung cancer surveillance. Additional nonacute findings detailed in the body of the report. Follow up CXR: COMPARISON: November 15 FINDINGS: No significant change in the bilateral pulmonary opacities/masses. Right upper lobe alveolar opacity unchanged perhaps post treatment change. Small pleural effusions are unchanged. 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 Patient presented to the ER after he was seen at the chemotherapy clinic. Patient had rapid heart rate. He was sent to the ER for further evaluation. Patient recently diagnosed with stage 2 lung squamous cell carcinoma. Patient reports that he recently had radiation therapy. He was to get chemotherapy today. Patient reported that this all started after he had some abdominal pain were he found to have a splenic infarct. He currently takes levothyroxine for thyroid disease, torsemide and Aldactone, and Eliquis. He denies any significant chest pain, shortness of breath. Some palpitations noted. In the ER patient was evaluated. EKG shows possible AFib verses a flutter. Patient was given digoxin and multiple rounds of metoprolol. Heart rate still in the 120s. Chest x-ray showed a spiculated mass to the left upper lobe and to the medial right side. Tsh low at 0.063. Troponin unremarkable. BNP 2363. Sodium 136, potassium 4.5. BN of 20, creatinine 1.01 with a GFR 73. Glucose 376. White count 11.5. CT scan perform showed a splenic infarct. Small left and moderate right pleural effusion noted. Patient admitted for further evaluation and treatment. Hospital Course: Patient presented with accelerated heart rate. He had been seen at the [facility] to initiate medication. Patient was seen in the ER and found to have atrial fibrillation/atrial flutter. Patient was given digoxin and metoprolol. Patient admitted for further evaluation and treat. Patient was seen and evaluated by Cardiology. The patient has done well with metoprolol. Medication had to be increased while in the hospital due to elevated HR. Blood pressure stable with rate around 80-110s. Patient already takes anti coagulation therapy for splenic infarct. At discharge patient will continue with metoprolol 50 mg 1 pill twice daily. The patient will also continue with Eliquis 5 mg 1 pill twice daily. Recommend follow up with cardiology this week to monitor his progress and follow up this hospitalization. Education on atrial fibrillation will be provided. Patient with hypothyroidism. Tsh was abnormal. Medications have been adjusted. Patient previously on levothyroxine 200 mcg daily. Medication will be decreased to 175 mcg daily. At discharge patient will continue with levothyroxine 175 mcg daily. Recommend to recheck tsh and free T4 in 1 month to monitor his progress. Further adjustment can be done by his PCP. Patient with history of splenic infarct. Currently on chronic anti coagulation therapy. At discharge she will continue with Eliquis 5 mg 1 pill twice daily. Patient with stage II squamous cell lung carcinoma. Patient recently had radiation therapy. Patient is to start chemotherapy soon. Recommend follow up with oncology in the next week to further address and monitor. Patient with bilateral pleural effusions. This appears chronic. Patient takes diuretic therapy. At discharge patient will continue with a 1500 cc per day fluid restriction and low-salt diet. Patient will continue with torsemide 20 mg daily and Aldactone 50 mg daily. Patient does not require any oxygen. Recommend recheck chest x-ray in 2-4 weeks to monitor resolution. Patient with hyperglycemia. Hemoglobin A1c obtained and pending at discharge. He had been on prednisone recently for his chemo. Recommend to follow up with his PCP in one week to further address and follow up on this lab. If greater than 7 then he may need to start medication. Education on diabetes will be provided. Suspect underlying obstructive sleep apnea. Recommend patient to follow up with PCP to order sleep study to be done as an outpatient to further evaluate and address. Vital Signs/Physical Exam: Temp Pulse Resp BP Pulse Ox 97 F 92 H 14 116/63 94 11/16/20 04:00 11/16/20 04:00 11/16/20 04:00 11/16/20 04:00 11/16/20 04:00 General: Alert, In no apparent distress, Oriented x3, Cooperative HEENT: Atraumatic Neck: Supple Respiratory: Clear to auscultation bilaterally (anteriorly), Diminished (to the bases, slightly) Cardiovascular: Irregular heart rate/rhythm (atrial fibrillation) Gastrointestinal: Normal bowel sounds, No tenderness, No masses, No rebound, No guarding Integumentary: No tenderness/swelling Neurological: Normal speech, Normal strength at 5/5 x4 extr, Normal tone, Normal affect Laboratory Data at Discharge: WBC 14.60 K/uL (4.3-10.9) H D 11/16/20 05:41 Hgb 13.8 g/dL (13.6-17.9) 11/16/20 05:41 Hct 41.5 % (39.6-49.0) 11/16/20 05:41 Plt Count 338 K/uL (152-406) 11/16/20 05:41 PT 14.4 SECONDS (9.5-12.5) H 11/15/20 10:40 INR 1.25 11/15/20 10:40 Sodium 138 mmol/L (136-145) 11/16/20 05:41 Potassium 4.6 mmol/L (3.5-5.1) 11/16/20 05:41 BUN 20 mg/dL (7-18) H 11/16/20 05:41 Creatinine 0.89 mg/dL (0.55-1.3) 11/16/20 05:41 Glucose 160 mg/dL (74-106) H 11/16/20 05:41 Magnesium 2.6 mg/dL (1.8-2.4) H 11/16/20 05:41 Total Bilirubin 0.4 mg/dL (0.2-1.0) 11/15/20 10:40 AST 23 U/L (15-37) 11/15/20 10:40 ALT 30 U/L (12-78) 11/15/20 10:40 Alkaline Phosphatase 114 U/L (45-117) 11/15/20 10:40 Troponin I < 0.02 ng/mL (0.0-0.045) 11/16/20 00:53 Triglycerides 80 mg/dL (<150) 11/16/20 05:41 Cholesterol 196 mg/dL (<200) 11/16/20 05:41 HDL Cholesterol 28 mg/dL (40-60) L 11/16/20 05:41 Cholesterol/HDL Ratio 7.00 11/16/20 05:41 Lipase 98 U/L (73-393) 11/15/20 10:40 Home Medications: Allopurinol 300 mg PO DAILY 11/15/20 Apixaban [Eliquis] 5 mg PO BID 11/15/20 Spironolactone [Aldactone] 50 mg PO DAILY 11/15/20 Torsemide [Demadex*] 20 mg PO DAILY 11/15/20 Levothyroxine Sodium [Levothyroxine] 175 mcg PO DAILY #30 capsule 11/16/20 Metoprolol Tartrate [Lopressor*] 50 mg PO BID #60 tab 11/16/20 New Medications: Levothyroxine Sodium [Levothyroxine] 175 mcg PO DAILY #30 capsule Metoprolol Tartrate [Lopressor*] 50 mg PO BID #60 tab Physician Discharge Instructions: Patient presented with accelerated heart rate. He had been seen at the chemotherapy center to initiate medication. Patient was seen in the ER and found to have atrial fibrillation/atrial flutter. Patient was given digoxin and metoprolol. Patient admitted for further evaluation and treat. Patient was seen and evaluated by Cardiology. The patient has done well with metoprolol. Medication had to be increased while in the hospital due to elevated HR. Blood pressure stable with rate around 80-110s. Patient already takes anti coagulation therapy for splenic infarct. At discharge patient will continue with metoprolol 50 mg 1 pill twice daily. The patient will also continue with Eliquis 5 mg 1 pill twice daily. Recommend follow up with cardiology this week to monitor his progress and follow up this hospitalization. Education on atrial fibrillation will be provided. Patient with hypothyroidism. Tsh was abnormal. Medications have been adjusted. Patient previously on levothyroxine 200 mcg daily. Medication will be decreased to 175 mcg daily. At discharge patient will continue with levothyroxine 175 mcg daily. Recommend to recheck tsh and free T4 in 1 month to monitor his progress. Further adjustment can be done by his PCP. Patient with history of splenic infarct. Currently on chronic anti coagulation therapy. At discharge she will continue with Eliquis 5 mg 1 pill twice daily. Patient with stage II squamous cell lung carcinoma. Patient recently had radiation therapy. Patient is to start chemotherapy soon. Recommend follow up with oncology in the next week to further address and monitor. Patient with bilateral pleural effusions. This appears chronic. Patient takes diuretic therapy. At discharge patient will continue with a 1500 cc per day fluid restriction and low-salt diet. Patient will continue with torsemide 20 mg daily and Aldactone 50 mg daily. Patient does not require any oxygen. Recommend recheck chest x-ray in 2-4 weeks to monitor resolution. Patient with hyperglycemia. Hemoglobin A1c obtained and pending at discharge. He had been on prednisone recently for his chemo. Recommend to follow up with his PCP in one week to further address and follow up on this lab. If greater than 7 then he may need to start medication. Education on diabetes will be provided. Suspect underlying obstructive sleep apnea. Recommend patient to follow up with PCP to order sleep study to be done as an outpatient to further evaluate and address. Diet: AHA Activity: Ad nancy Followup: Toño Louie MD [Primary Care Provider] - Time spent managing pt's care (in minutes): 55
[2020-11-16 10:27] LABS: Urine Appearance CLEAR; Urine Bilirubin NEGATIVE (NEG); Urine Blood NEGATIVE (NEG); Urine Color YELLOW; Urine Glucose TRACE (NEG); Urine Protein NEGATIVE (NEG); Urine pH 6.5 (5.0-7.0)
[2020-11-16 11:06] LABS: Urine Microscopic Reflex NO UMIC
[2020-11-16] MEDS: METOPROLOL TARTRATE 5 MG/5 ML INJ IV PRN ×2 (12:14→14:04)
[2020-11-16 14:33] VITALS: BP 115/20; TEMP 97.5
--- NOTE | 2020-11-17 04:37 | EKG ---
Test Date: 2020-11-15 Test Time: 13:40:11 Legal Billing Clerk: JORDYN MEASUREMENT RESULTS: Intervals: Rate: 102 DE: QRSD: 102 QT: 336 QTc: 437 [place]: P: DE: QRS: 5 T: 78 INTERPRETIVE STATEMENTS: Suspect unspecified pacemaker failure Atrial flutter with variable AV block Abnormal ECG Compared to ECG 11/15/2020 09:22:23 T-wave abnormality no longer present Electronically Signed On 11-17-20 04:32:50 CDT by Gabe Pizarro
--- NOTE | 2020-11-17 09:03 | ECHO ---
HEIGHT: 6 ft 3 in WEIGHT: 300 lb 0 oz DATE OF STUDY: 11/16/[address]: Memo Saenz DO 2-DIMENSIONAL: YES M.MODE: YES DOPPLER: YES COLOR FLOW: YES TDS: YES PORTABLE: NO DEFINITY: NO BUBBLE STUDY: NO DIAGNOSIS: ATRIAL FIBRILLATION, ATRIAL FLUTTER CARDIAC HISTORY: CATHERIZATION: NO SURGERY: NO PROSTHETIC VALVE: NO PACEMAKER: NO MEASUREMENTS (cm) DIASTOLIC (NORMALS) SYSTOLIC (NORMALS) IVSd 1.1 (0.6-1.2) LA Diam 3.3 (1.9-4.0) LVEF 53% LVIDd 4.4 (3.5-5.7) LVIDs 3.2 (2.0-3.5) %FS 27% LVPWd 1.1 (0.6-1.2) Ao Diam 3.3 (2.0-3.7) 2 DIMENSIONAL ASSESSMENT: RIGHT ATRIUM: NORMAL LEFT ATRIUM: NORMAL RIGHT VENTRICLE: NORMAL LEFT VENTRICLE: NORMAL TRICUSPID VALVE: NORMAL MITRAL VALVE: NORMAL PULMONIC VALVE: NORMAL AORTIC VALVE: SCERLOSIS PERICARDIAL EFFUSION: NONE AORTIC ROOT: NORMAL LEFT VENTRICULAR WALL MOTION: NORMAL DOPPLER/COLOR FLOW: NORMAL COMMENTS: NORMAL LEFT VENTRICULAR SIZE AND FUNCTION. AORTIC SCLEROSIS WITH NO STENOSIS. NO WALL MOTION ABNORMALITY. TECHNOLOGIST: Marisela CONTRERAS
== END 2020-11-16 16:08 | disposition home or self-care (01) ==
LOC: ER 10:04 → ERHOLD 12:57 → 2ND 14:59
PROVIDERS: ADMIT Family Medicine; ATTEND Family Medicine
DX: I48.91 Unspecified atrial fibrillation (principal); I48.92 Unspecified atrial flutter; E03.9 Hypothyroidism, unspecified; D73.5 Infarction of spleen; Z79.01 Long term (current) use of anticoagulants; E11.65 Type 2 diabetes mellitus with hyperglycemia; Z20.822 Contact with and (suspected) exposure to COVID-19; J90 Pleural effusion, not elsewhere classified; C34.12 Malignant neoplasm of upper lobe, left bronchus or lung; Z92.3 Personal history of irradiation; Z87.891 Personal history of nicotine dependence
CPT/HCPCS: 93005 ×2; 93306; 87088; 85025 ×2; 87086; 80048 ×2; 36415; 83735 ×2; 82550 ×2; 85610; 80061; 82947 ×2; 80076; 84443 ×2; 81003; 83036; 84484 ×3; 82553 ×2; 84439; 83690; 83880; 74177; 71045; 71046; U0003; Q9967; J1940 ×2; J1160; J7030; 96361; 96367; 96374; 96375; 99285; G0378; J1200; J1453; J2150; J2469; J3475; J3480; J7042; J7050; J9060; J9171

== ENCOUNTER 2020-12-07 12:00 | Inpatient (IN) | payer OTHER ==
--- OUTSIDE RECORDS SUMMARY | 2020-12-07 12:05 | XMS REPORT | Continuity of Care Document ---
:1950 Author Organization [facility] t Address [address] [place] [address] Care Team Providers Name Role Phone CHRISTO KOCH Attending Clinician Unavailable Christo Koch MD Attending Clinician Unavailable Anthony Crowley MD Attending Clinician KEVIN GURROLA Attending Clinician Unavailable Jonas ESTRADA, Kevin Attending Clinician Shyanne Mcclain MD Attending Clinician CHRISTO KOCH Admitting Clinician Unavailable KEVIN GURROLA Admitting Clinician Unavailable Payers Payer Name Policy Type Policy Effective Date Expiration Date Sour ce Number AETNA - MEDICARE [id number] [address] [facility] [address] Carmona ukes MGD CAREAETNA 00:00:00 - Medical MEDICARE HMO Center [id number] [address]Gfbk Contracted Problems Condition Condition Condition Status Onset Resolution Last Treating Co mments Source Name Details Category Date Date Treatment Clinician Date Lung Lung Disease Active 2019-09 [facility] [address] nodule nodule 09-19 - 00:00: Medical 00 [place] Splenic Splenic Disease Active 2019-09 [facility] [address] infarct infarct 09-13 - :: Medical 00 [place] Allergies, Adverse Reactions, Alerts This patient has no known allergies or adverse reactions. Social History Social Habit Start Date Stop Date Quantity Comments Source Sex Assigned At [facility] Cigarettes smoked 2020-07-20 2020-07-20 [facility] - current (pack per 00:00:00 00:00:00 Medical Center day) - Reported Cigarette 2020-07-20 2020-07-[address] [facility] - pack-years 00:00:00 00:00:00 [facility] Tobacco use and 2020-07-20 2020-07-[address] [facility] kes - exposure 00:00:00 00:00:00 [facility] Alcohol intake 2020-07-20 2020-07-20 Ex-drinker [facility] [place] es - 00:00:00 00:00:00 (finding) [facility] Alcohol Comment 2020-07-19 2020-07-19 usually 3-[address] [facility] [address] [facility] - 00:00:00 00:00:00 beers/week but Medical Ce nter non currently History of tobacco 2020-07-13 [facility] sm[facility] use 00[facility]00 [facility] Smoking Status Start Date Stop Date Source Former smoker 2020-07-20 00:00:00 2020-07-20 00:00:00 [facility] - [facility] Medications Ordered Filled Start Stop Current Ordering Indication Dosage Frequency Signature Comments Components Source Medication Medication Date Date Medication? Clinician (SIG) Name Name apixaban 2019-09- No Take [address] [facility] (ELIQUIS) 5 1-18 12-25 tablets Luke s - mg Tab 00:00: 23:59 (10 mg Medical tablet 00 :00 total) by [place] mouth 2 (two) times daily for 7 days, THEN 1 tablet (5 mg total) 2 (two) times daily for 30 days. tadalafil 2019-09 Yes QD Take by [facility] S t (CIALIS 1-17 [facility] - ORAL) 13:03: daily. [address] acetaminoph 2019-09 Yes 2{tbl} QD Take [address] (TYLENOL 1-17 tablets by Candi montoya - ARTHRITIS 13:03: mouth Medical ORAL) 18 daily. [place] budesonide- 2019-09- No 2{puff} Q.5D Inhale [address] formoteroL 1-12 11-12 puffs by Luke s - (SYMBICORT) 00:00: 23:59 mouth via Medical 160-4.5 00 :00 inhaler 2 [place] mcg/actuati (two) on inhaler times daily. tiotropium 2019-09- No 18ug QD Inhale [address] (SPIRIVA) 1-12 11-12 capsule [facility] - 18 mcg 00:00: 23:59 (18 mcg Medical inhalation 00 :00 total) by Cent er capsule mouth via inhaler daily. albuterol 2019-09- No 1{puff} Inhale 1 [...] days. Max Daily Amount: 4 tablets enoxaparin 2019-09- No 120mg Inject 0.[address] (LOVENOX) 09-14 11-15 mLs (120 [facility] - 120 mg/0.8 00:00: 23:59 mg total) M edical mL Syrg 00 :00 subcutaneo Center usly every 12 (twelve) hours for 3 days Last dose Sunday. Then start Eliquis after the biopsy. tiotropium 2019-09- No 18ug QD Inhale [address] (SPIRIVA) 1-12 11-12 [facility] - 18 mcg 00:00: 00:00 (18 mcg Medical inhalation 00 :00 total) by Cent er capsule mouth via inhaler daily. budesonide- 2019-09- No 2{puff} Q.5D Inhale [address] formoteroL 1-12 11-12 puffs by Luke s - (SYMBICORT) [...] every Medic al 50 MG 00 morning. [place] tablet testosteron 2019-09 Yes INJECT [address] e cypionate 0-12 ML ONCE [facility] - (DEPOTESTOT 00:00: EVERY 4 Med ical ERONE 00 WEEKS [place] CYPIONATE) 200 mg/mL injection torsemide Yes 20mg QD Take [address] (DEMADEX) 9-24 by mouth [facility] - 20 MG 00:00: every Medical tablet 00 morning. [place] levothyroxi Yes 200ug QD Take 200 C [...] Source Systolic blood 2020-07-20 12:15:00 125 mm[Hg] [facility] Diastolic blood 2020-07-20 12:15:00 70 mm[Hg] [facility] S [facility] Heart rate 2020-07-20 12:15:00 88 /min [facility] Respiratory rate 2020-07-20 12:15:00 20 /min [facility] Oxygen saturation in 2020-07-20 12:15:00 97 /min [facility] - Arterial blood by Medical Ce nter Pulse oximetry Body temperature 2020-07-20 11:00:00 36.67 Radha [facility] Body height 2020-07-20 05:45:00 190.5 cm [facility] Body weight 2020-07-20 05:45:00 123.197 kg [facility] BMI 2020-07-20 05:45:00 33.95 kg/m2 [facility] Procedures Procedure Date / Time Performed Performing Clinician Sourc e XR CHEST 1 VIEW 2020-07-20 11:19[facility] REPORT OF PROCEDURE - 2020-07-20 10:58:17 [facility] EBUS FNA REQUEST 2020-07-20 10:36:31 Solange Koch [facility] FINE NEEDLE ASPIRATE BY 2020-07-20 10:36:[address] [facility] EBUS FNA REQUEST 2020-07-20 10:31:49 Solange Koch [facility] FINE NEEDLE ASPIRATE BY 2020-07-20 10:31:[address] [facility] EBUS FNA REQUEST 2020-07-20 10:23:39 Solange Koch [facility] FINE NEEDLE ASPIRATE BY 2020-07-20 10:23:[address] [facility] EBUS FNA REQUEST 2020-07-20 10:16:43 Solange Koch [facility] FINE NEEDLE ASPIRATE BY 2020-07-20 10:16:[address] [facility] FUNGUS CULTURE + SMEAR 2020-07-20 10:05:03 Solange Koch [facility] BRONCHIAL CULTURE + GRAM 2020-07-20 [facility]:05[facility] 2020-07-20 10:05:03 [facility] SPIN/CONCENTRATION CHARGE 2020-07-20 10:05:00 Solange Koch [facility] [place] FLUORO NON-SPECIFIC UP 2020-07-20 10:00:00 Solange Koch [facility] - TO 1 HOUR [facility] FUNGUS CULTURE + SMEAR 2020-07-20 09:41:34 Solange Koch [facility] SURGICALLY OBTAINED 2020-07-20 09:41:34 Solange Koch Christo [facility] - CULTURE + GRAM STAIN Medical [facility] ter AFB CULTURE + SMEAR 2020-07-20 09:41:34 Solange Koch [facility] - (NON-SPUTUM) [facility] MISCELLANEOUS LAB ORDER 2020-07-20 09:41:00 [facility] 2020-07-20 09:40:00 Solange Koch [facility] FINE NEEDLE ASPIRATE 2020-07-20 09:13:09 [facility] FINE NEEDLE ASPIRATION BY 2020-07-20 09:13:00 Solange Koch [facility] [employer] CULTURE + SMEAR 2020-07-20 08:59:37 Solange Koch [facility] - (NON-SPUTUM) [facility] FUNGUS CULTURE + SMEAR 2020-07-20 08:59:37 Solange Koch [facility] SURGICALLY OBTAINED 2020-07-20 08:59:37 [facility] GRAM STAIN Medical [facility] ter MISCELLANEOUS LAB ORDER 2020-07-20 08:59:00 Solange Koch [facility] FINE NEEDLE ASPIRATE 2020-07-20 08:55:29 [facility] FINE NEEDLE ASPIRATION BY 2020-07-20 08:55:00 Solange Koch [facility] BRONCHOSCOPY,ENDOBRONCHIA 2020-07-20 07:34:00 Solange Koch CH, I [facility] ULTRASOUND (EBUS) Medical Cent er TRANSTRACH/ TRANSBRONCH SAMPLING BRONCHOSCOPY,SUPER D 2020-07-20 07:34:00 [facility]/ C-ARM 2020-07-20 07:34[facility]TRANSBRONCHI 2020-07-20 07:34:00 Solange Koch CH[facility] I [facility] NEEDLE ASPIRATION Medical [facility] ter BIOPSY BRONCHOSCOPY,TRANSBRONCHI 2020-07-20 07:34:00 [facility] [place] LUNG BIOPSY [facility] BRONCHOSCOPY,BRONCHIAL 2020-07-20 07:34:00 Solange Koch [facility] ALVEOLAR LAVAGE [facility] BRONCHOSCOPY,ENDOBRONCHIA 2020-07-20 07:34:00 Solange Koch [facility] ULTRASOUND (EBUS) Medical Cent er DIAGNOSTIC/ THERAPEUTIC ABORH, MANUAL 2020-07-20 06:42:00 Anika Stover [facility] COMPREHENSIVE METABOLIC 2020-07-20 06:17:[address] [facility] CBC W/PLT COUNT & AUTO 2020-07-20 06:17:00 Solange Koch [facility] PROTHROMBIN TIME/INR 2020-07-20 06:17:00 Solange Koch [facility] APTT 2020-07-20 06:17:00 Zee [facility] TYPE AND SCREEN, 2020-07-20 06:17:00 Solange Koch [facility] AUTOMATED [facility] POCT-GLUCOSE METER 2020-07-20 06:00:00 Solange Koch [facility] SARS-COV2/RT-PCR ([facility] & 2020-07-15 16:24:[address] [facility] REF LABS) [facility] CT CHEST WITHOUT IV 2020-07-15 15:25:00 Solange Koch [facility] ukes - CONTRAST [facility] PROTHROMBIN TIME/INR 2020-07-15 04:02:00 Farhan Mcclain [facility] CBC (HEMOGRAM ONLY) 2020-07-15 04:02:00 Farhan Mcclain [facility] COMPREHENSIVE METABOLIC 2020-07-15 04:02:00 Farhan Mcclain CH, I [facility] ECHO W CONTRAST & DOPPLER 2020-07-14 10:37:42 Lori Larry sa [facility] CTA CHEST 2020-07-14 09:44:00 Lori Larry [facility] SARS-COV2/RT-PCR ([facility] & 2020-07-14 03:50:00 Lori Larry [facility] - REF LABS) [facility] CBC W/PLT COUNT & AUTO 2020-07-14 03:43:[address] [facility] DIFFERENTIAL [facility] HC LAB PROTHROMBIN FACTOR 2020-07-14 03:43:[address] [facility] II [facility] (CELLAVISION MANUAL DIFF) 2020-07-14 03:43:00 Lori Larry sa [facility] BASIC METABOLIC PANEL (7) 2020-07-14 03:42:00 Lori Larry sa [facility] MAGNESIUM 2020-07-14 03:42:00 Lori Larry [facility] PHOSPHORUS 2020-07-14 03:42:00 Lori Larry [facility] FACTOR 5 LEIDEN PCR 2020-07-14 03:42:[address] [facility] (THROMBOTIC RISK) [facility] PROTEIN S ACTIVITY 2020-07-14 03:42[facility] 2020-07-14 03:42:00 Lori Larry [facility] REPORT OF PROCEDURE - 2020-07-14 00:00:00 Provider, [facility] ENDOSCOPY SCAN Scanning [facility] Plan of Care Planned Activity Planned Date Details Comments Source Future Scheduled 2020-09-[address] [facility] [facility] - Test 00:00:00 WELLNESS (YEAR 2 or [facility] FIRST YEAR if no IPPE) [code [...] - Test 00:00:00 (1 of 1 - Medical Center [id number] PCV13) [code = PNEUMOCOCCAL 65+ YRS (1 of 1 - [id number]_Xvoqxot PCV13)] Future Scheduled 1950 Screening for [facility] es - Test 00:00:00 malignant neoplasm of Medica l Center colon (procedure) [code = 810569913] Results Test Description Test Time Test Comments Results Result Comments Source AFB culture + smear (non-sputum) 2020-09-07 09:16:00 Test Item Value Reference Range Interpretation Comme nts Result (test code = 6463-4) No acid-fast bacilli isolated in 42 day s AFB Smear (test code = 31524-5) No acid fast bacilli seen [facility] (NON-SPUTUM)2020-09-07 09:16:00 Test Item [...] (test code = 994) seen MISCELLANEOUS LAB [id number] 07:55:00 Test Item Value Reference Range Interpretation Comments SCAN RESULT (test code = 8331067) MISCELLANEOUS LAB [id number] 07:54:00 Test Item Value Reference Range Interpretation Comments SCAN RESULT (test code = 6184117) [place] [id number] 07:54:00[facility] HospitalFung[facility] culture + [id number] 02:35:00 Test Item Value Reference Range Interpretation Comments Result (test code = No fungus isolated in 6463-4) 28 days Fungus Smear (test No fungi seen code = 1406) [facility] + [id number] 02:35:00 Test Item Value Reference Range Interpretation Comments CULTURE (BEAKER) (test No fungus isolated in code = 1095) 28 days FUNGUS SMEAR (BEAKER) No fungi seen (test code = 1406) FUNGUS CULTURE + [id number] 02:35:00 Test Item Value Reference Range Interpretation Comments CULTURE (BEAKER) (test No fungus isolated in code = 1095) 28 days FUNGUS SMEAR (BEAKER) No fungi seen (test code = 1406) FUNGUS CULTURE + [id number] 02:35:00 Test Item Value Reference Range Interpretation Comments CULTURE (BEAKER) (test No fungus isolated in code = 1095) 28 days FUNGUS SMEAR (BEAKER) <1+ yeast (test code = 1406) Surgically obtained culture + gram [id number] 14:21:00 Test Item Value Reference Range Interpretation Comments Result (test code = 6463-4) No growth Gram Stain Result (test No organisms seen code = 1123) [facility] + GRAM [id number] 14:21:00 Test Item Value Reference Range Interpretation Comments CULTURE (BEAKER) (test code No growth = 1095) GRAM STAIN RESULT (BEAKER) <1+ WBCs (test code = 1123) GRAM STAIN RESULT (BEAKER) No organisms seen (test code = 39369) SURGICALLY OBTAINED CULTURE + GRAM [id number] 14:20:00 Test Item Value Reference Range Interpretation Comments CULTURE (BEAKER) (test code No growth = 1095) GRAM STAIN RESULT (BEAKER) <1+ WBCs (test code = 1123) GRAM STAIN RESULT (BEAKER) No organisms seen (test code = 31291) Bronchial culture + gram [id number] 11:52:00 Test Item Value Reference Range Interpretation Comments Result (test code = <1+ Normal respiratory 6463-4) reyes present Gram Stain Result No organisms seen (test code = 1123) [facility] GRAM [id number] 11:52:00 Test Item Value Reference Range Interpretation Comments CULTURE (BEAKER) <1+ Normal respiratory (test code = 1095) reyes present GRAM STAIN RESULT <1+ WBCs (BEAKER) (test code = 1123) GRAM STAIN RESULT No organisms seen (BEAKER) (test code = 68399) Tissue [id number] 11:37:00 Test Item Value Reference Range Interpretation Comments Case Report (test code Surgical Pathology = 104) Report Case: [id number] Authorizing Provider: Solange Koch MD Collected: 07/20/2020 09:40 AM Ordering Location: [facility] Received: 07/20/2020 11:53 AM SERVICES Pathologist: Maria A Ayala MD Specimen: Lung, Left Upper Lobe, TBBX. Process in Cytology for collodion bag. Reflex Genetic Markers. DIAGNOSIS (test code = [id number] 3220) uZzEwMzNcZnRuYmpcdWMxIH tccnRmMVxlcGljOTIwMFxhb hTyAOYvjGMhG1MhylqiFHzi XH7oSK6ifWkacTXlkZZuBES aDhJte8kej556fUStr6dbJY RJvpvyuXp9aZygR26qr9B7L awrO76tlNLsCTyggWXnoopc uyPbKZFwugKCWmOEWX3CSMG MRUZUIFVQUEVSIExPQkUsIF QFDL8WCdHQVpCQYLOJUEHOL 1BTWTpccGFyICAgICAtIFNR KLVGZ6JUAOQQKTexL8YUP1w TT15HGnvfQLBzMSJmNM0hW2 INXEQECJ3EXpTyMKMzhj24Z WY6TyDpz5F2BOH8JLWuIRNk d5baKKSydCPoEmLbQvMpFeY yLljvdFEhVOZqVqJuf1eft2 86uPRgo3rfCFFlHoX3iCNmW SRetOUlP862PPXeTKhhd7uq o3CuBKOjuEYwp0X1BOZOerw ngVc1xJvkM63ch6V3ZaccQ7 rcQXUoSERxQ0VmDB8uSSNeM fw6ICU3PAB4FFFsDKUtR5Ix XK2zQXWueZRfPTd7r9wbnOe hKGEcNRN7g8jsBTwwiwJdML 9nko7btDv4q1cjejShTQKuY SEvsWMGAZUzK6QexZtvQx9e nGt0qQikNxmnGEZ4Aag7AI1 kdw90vhs6kBuuWSRapzdwSg O1EOqaREStajwuKWf0NBtaF CHrwFL1SAZofACaA2DyBEUf IP1rifr0CNB0WQndUEOfOuG 9LSMivNUtOTJssFskMMiid3 98YHG7DrRmID5hS1Mzy7R5l P8efMLbHZYvjXGwEwWjPLPs zn4tzGHbJMtgv8CgLQM8uzF 4bRPzsOYnMYTnJvR0GHkrAJ 5txe90OFXkKJE0ob9kdPGqf CvsiqXfaJVnEOunK3UkBYBq v730CXMyT2EuKAZgb7K6coY aSiAxTMAslAX8xqA9ZFSsVF 9btlncr6tiWBdlCPfhTOEqo aF2fgY2KAQdaOBlL9EgxQ8t XTPiBL8dpmzrd4uiJZE4PXd rPSAcVOY9YeEoQFDxm9Rlhn n7ZcXvc5NauUOiHAjoQ95lr 724IFRxeuNeF6jafQZyejra bGYlabqfSYdvqbS9AQAjJSy zvojkVAVgLGheM2izUiLcEL LhvLbcWMdqq5GeZKTtQTZrQ kNodKWyPSXoXfi2HPAvyNCk JLRlGtPzT0rlbygcIuXZPPA ma8jrH4vrwLZGgXTzL4HbBB ufzfCqZGqeEPwkZNJaPLL8V B5qUcG0OVAkrn65 COMMENT (test code = n4nrwJEoLVWjvJB0JrLwPAU 3359) yb0ylh8XbhFUmgGFtWSolvG ZcynDvhf87qWB0fC68HO0qU KEcPbU1ELKtncB4Faz0DINz TVKgdGHhV552z0chj6jwziY lxGZ1aIqxDYKcZNJtMCaeLY TxTgJtRKhcSWP4tI8vNKnxT PVnw7e2wFIdQRPqxhTGFBFw OE7aCC9rO5F2xMAuHAFibhV ZJw62FGSpNVSVBTCnLG7zWF Bhcn0= CPT Code(s) (test code j5pvyEUqSLOjwCM9KnZjSFY = 3357) ww8qjd1AwfCFjaQDeLGufvL QksbXbhv15aOL8hM86OV5oS CWmNhE1JEIurfZ7Rlc9CAYt NSVlaCNnZ832p9hme7mxzbE gjRC2iKffRAPsPWVnWMkgWG AhFfDhFMknGCHrKMr4KrRnV BJ8GVQ5YAS0FZQieSFqoH== GROSS DESCRIPTION z6cduJJpTFYxjPG8IzSsIUI (test code = 3366) kg1bdp7GmkIYutYMhZWjpsV PmnrExfd33cGW1kC86SH6sH DNkUfH1QEOsasD8Gef2DOWm RTVsuQYkU040c6lqh8eoabI dyJL3rDxzFYOiRZLlJWazJV OdZkGiN5JoY4lyIV0oLGvbP GhlIHNwZWNpbWVuIGlzIHJl C6CvwwEkNKudYNOfXr3zxQA dmI1wEypdoXToVXJkweNeyR 6nhfJstkOjrHXzZVhsVIJ0k UIgTTJsOJCrCIMvSB68D2Fs rG9dt5TpUUFor41oGP3xRBt hYmVsZWQgIkxlZnQgdXBwZX LdqQ0uLBZxzN8fCCLDTahrE NZrWVJhx17pgDP9olShOcUf sQb2sODfVDIbeiUxzNVizMO ec6PhhCAqPN2xVeC3zHs1FD Cfm5E9YIQdq0F0WPXqbsGiq HLtx3ZowOGgiFTgu98bgHX1 rIPodDKdlM4wWIbedxHrLHB vIA8lFZI1phcpBvQsUsHjpS YmFbUoK24yQMZ0Kd7vzYLnE CBlbnRpcmVseSBBMSBpbiBh EZ5ma3pqWwPmUnOhzyhuGZM ccGFyfQ== MICROSCOPIC h9eirXDzBMTljJY5VlGtZQG DESCRIPTION (test code rp2iyl1EcfZShoSJwHKpgyQ = 3371) UgqcPbdj60iBY1bE28IG7hW BQyFmR5UVOeweV9Jvv8UOKu KBHwnREwP278q8ktu2vrnmW ylJQ8uZoiOILjBKCqBTczNR KoPmKiGAPlAt2lrISvDozxQ XJ9 SPECIAL STUDIES (test m3focDJiGDIwr0rpSQVhbMO code = 3376) uZzEwMzNcZnRuYmpcdWMxIH sdiqMiKLqgc3OwV7BeIqMlJ FxhbnNpXGRlZmxhbmcxMDMz LZP2dlQdQXEuQByeCLUqLNq nYf6fcYPxzVilGeQlQYQmj8 nuhqGSowwksHt8a7eqTOQbS jK5tPJdWEbkI3auaiZlmTBh J2NxtOKmeFc8w7yvCbDdRoE 4aOJeYZyfE3paliZyvQHaDU KeKXe1vO59AUOtfA7mvIGcZ XvldzZxKrF6EZodSLYlYgO4 QZShpRAwZIWaP0auJGFrXAq uTHZoYIpajDQmRSV5xGijg8 Y8gIKvtNVqjRotMdTgGwQmM qGSr4HtCQc9pElaR5NuSKGq RaL0oMQvULFjLGzxJTIgYLH fktB8hCmfjlGka61dkYPmJO YwXGZzMjBcbGkwXHJpMCBDb 7HiuOwhCWP8rFa6iZobDobj UIS5Zlm4IM1sja16yhg4uWa jCXAmenyhMnM3LGriZKNgvj ebYCn0INcuKLSrfTF4BJFht XDlG7IeHBZeEY5ikme2QUW5 HMguCPXyVnY6UPLvnNKsKXQ tyFglBZrdo317VJD6SkXcAP 9gE6Ltn6S7fO4ekVScKFWnf HTmMzAiHIJtlg3zqJOyQWfr f7OlQSP5ljO7kXDyfDRpEWE cTY97Jbmbs1UhFtlrm6TsM2 8hvBG5IWaqv2voYH4tDfC6v mBxZYfvj8khuQ0gCfV5DEiw QU6kJW3lGZXmyA7nlntsPNI nYnJkcmhlYWRccGdicmRyZm 7ziEptXFZ7AMtsS5ldpG7vR cI4GMmzE3rvfD6vHWb9PQcd uLB8GWYzmK3wLI1zyyhco6l dNLvsJKakDUScfoM7riE4HH OdlRGnM0LrkQ4xPEGdZU0sj ugaq1izBYO9AGeqPTQpVOY7 MqYqXCGhs6Djytp9FkEzc7S rtLBmWKusL72vl261QVGmii UaR7urdOWxnseosNQgyvsiS JkqpxJ0XIRbBKEkZZphKLUn XGZzMjJcbGFuZzEwMzNcaGl jaFxmMVxkYmNoXGYxXGxvY2 pvMfUqG4LbABKzIcIqUTwaI GzdqYEbkLEvcXE4kH4dNN0y BNJegOCfW0LnYNUwiwEpsEP wSXD7jFLieJQtTD6oBYougM Bpw0vst7HhM2dhwQljmAZ6A V6zHIBpDBUeAShrf6UszT0a LlxwbGFpblxmMVxmczIyXGx clnpuPMOzWJxsZ1ghIfCgAE QglTteIAyex2SeHOTuNSIgA jhcyqEdHXu7kdOyUECnphkc CKBqkTyrpU8qBeIwItOwBck wUA5bAHNnQ0dhgNHnRKYuUB KtM6rlLgQwvB2jzMwfTZcyL wReDhEsCfHLk717aw3uQOBz kOAekvJMgZLsgP0kZMclTRl fUQrdaOEzCTcnv8qvETYjh0 u9mEEuWJTexzHxx3gyIRqgs lMzWWDhbHKbwYMdVCJqx88h TNkifTmilXmvUDYfc8BsrQp tb3LzVzOuMGffy2TiV98imS JvbCBzbGlkZXMgcnVuIGFsb 01le9opVGBjYcR6mDXueFG6 wYSzhDYgo9MovJanVMPke8d aDUUame1aefrswQZzs5PcoS 5pbmcuIEludGVybmFsIHBvc 0q9gSHrKUCsKFMjDEemyJw0 MGTwm127hm0xlcE5rUYrJET 2YWlsYWJsZSBhcmUgZXZhbH VhdGVkXHBsYWluXGYxXGZzM jJcbGFuZzEwMzNcaGljaFxm RYqxCyBzZWBxQDykM7vvWwO lJ3YwAUJtWxQqcJYlR0oltX FyXHBsYWluXGYxXGZzMjJcb GFuZzEwMzNcaGljaFxmMVxk NbSlDNErMAsuW9wyWcAtZ0H yXGZzMjIgIFxwbGFpblxmMV xmczIyXGxhbmcxMDMzXGhpY 5qaCxBsLAEvcLviSCseq6Cx HAKzLOAhOmjtmxJrNGh8tkJ oXHBhclxwbGFpblxmMVxmcz NeSFlvavfwEWEmSKdgJ6qwK yRnCZAxjDziMTjoc0RdLDIw XGNaXkvlvhKgBWulxCWws2r nl0UnM0dpaRcvfJK5HJDoH2 zmtJIwpGF0PUC7zQ5cOVgyu pUaCHEbu2EoIETbDYFbKpX3 dS5fPRF3GrHKkQidYDTpOUh uXGYxXGZzMjJcbGFuZzEwMz NcaGljaFxmMVxkYmNoXGYxX NdrP4vdGqOrV1XcTBWhYtHl gHamNZzeHPz5QsulmVSsqdi mMVxmczIyXGxhbmcxMDMzXG xgQ1msNdLkKCDmpKsmPTneh 2NoXGYxXGNmMlxmczIyIHMg ASGoeBBkeWVPQT35ILZkHHU cnSzwvL3ejAOMHSQlskD5o5 N7DLvhGEFhSTq9CVxbiwHzQ JAxmK2lUTUkZK0hCYq0hsNf AMVea2NhAE8aXPGtoYMsNSJ 9UDCxy9SzF4Jjs1DgKGTbLL Cqay1qcpQeJqCWaNTzHAEcc e66WUThLQ0mA8boHTCbXTUy ipUlpYYxa3AyPLQonMA3rOB wSD7RQrCKm06eQFTxZRISco JpBUGydQttaBZ8syD2qP7nN iBUaGUgRkRBIGhhcyBkZXRl tn5doiYpVFGfXDJey7ZweXP rcDVkgaSeP8Orm0OzSUIuxq 75CXipjXHqrv50FH4xX1Sjf 3HylN5wTNakTSUtk1ZwsZZw fFSvREJum5AkT9lmturgABk zyBCunR5hDVDeKWp7FUQqh7 GzNTZte0MaSgOvasCxZRRgC PRvYZUyhD42MMZ9iUwucZic vuKgCJ6rXQQcsvHcBJFeEHX ybB2tCXswqoKzJUEsdnV7g2 G7LRnjGZWmjbKyYvpyWEA1k tHmzcR6aRDgA9olxugtZGax XXUxc0JkkL3paZBPnNKty4L dhQKuzLXUlXCdAZ9cumLwHC 0bTIN2JAorZAZYGQCcSAleY OStIXM3BKucAkavHAR1owHu BMPua5YsMOgsD6nzK98osAf wrKa6gGEskYhmcCIvwISoKS DssbU6r7X8KLEjy2IcixmjV HBsYWluXGYyXGZzMjJcbGFu ZzEwMzNcaGljaFxmMlxkYmN mYBDjRXctM9axBxSmMsCrBl otERN8mJ== Gross assessment was [facility] performed at ([facility], code = 2777) Department of Pathology, [address] [place] [address], Technical component [facility] was performed at ([facility], code = 2778) Department of Pathology, [address] [place] [address], Professional component [facility] was performed at ([facility], code = 2779) Department of Pathology, [address] [place] [address], [facility] [id number] 11:37:00Surgical Pathology Report Case: [id number] Authorizing Provider: Solange Koch MD Collected: 07/20/2020 09:40 AM Ordering Location: [facility] Received: 07/20/2020 11:53 AM SERVICES Pathologist: Maria A Ayala MD Specimen: Lung, Left Upper Lobe, TBBX. Process in Cytology for collodion bag. Reflex Genetic Markers. A. LUNG, LEFT UPPER LOBE, TRANSBRONCHIAL BIOPSY: - SQUAMOUS CELL CARCINOMA. - SEE COMMENT. Signing [employer] Phone Line: [phone] signed by Maria A Ayala MD on 07/22/2020 at 11:37 AMThe tumor is positive for P40 and negative for CK-7 and TTF-1. [id number], [id number], [id number] x 2Specimen A: The specimen is received [...] evaluated Immunohistochemistry technical testing was performed at [facility], Pathology Laboratory where it was developed [...] as qualified toperform high complexity clinical laboratory testing.[facility], Department of Pathology, [address] [place] [id number], [facility], [address] [place] [id number], [facility], [address] [place] [id number], ZBJR NEEDLE ASPIRATION BY [id number] 08:49:00Medical Cytology Report Case: [id number] Authorizing Provider: Solange Koch MD Collected: 07/20/2020 08:55 AM Ordering Location: [facility] Received: 07/20/2020 09:03 AM SERVICES Pathologist: Adri Rangel MD Specimen: Lung, Left Upper Lobe POSITIVE FOR MALIGNANCY LUNG, LEFT UPPER LOBE, MASS, FNA #1 BY CLINICIAN (DIRECT SMEARS AND CELL BLOCK OF ASPIRATE): - SQUAMOUS CELL CARCINOMA (SEE COMMENT) Signing Pathologist Direct Phone Line: [phone] signed by Adri Rangel MD on 07/22/2020 at 8:49 AMPlease also see surgical pathology report [id number] cytopathology reports [id number] through [id number]. 35641, 11844, 85870Pkau upper lobe lung nodule,history of smokingLUNG, LEFT UPPER LOBE, MASS FNA #1Prepared 6 direct smear slides from FNA samples collected in 40 ml cytorich red fixative; prepared cell block(A2)PASS 1-3 : BORDERLINE ADEQUATE, DR KOCH DOING BIOPSIES (9:16 AM, )Performed. [facility], Department of Pathology, [address] [place] [address], [facility], [facility] of Pathology, [address] [place] [address], [facility], Department of Pathology, [address] [place] [address], Tmpr Needle Aspirate by [id number] 08:36:00 Test Item Value Reference Range Interpretation Comments Case Report (test code = Medical Cytology 104) Report Case: [id number] Authorizing Provider: Solange Koch MD Collected: 07/20/2020 09:13 AM [facility]ing [facility] Received: 07/20/2020 11:18 AM PERIOPERATIVE SERVICES Pathologist: Adri Rangel MD Specimen: Lung, Left Upper Lobe DIAGNOSIS (test code = a9kaiVExVAFkp6yzNTAcx 3220) GFuZzEwMzNcZnRuYmpcdW MxIHtccnRmMVxlcGljOTI tZXecfjElZEBufYVgN3Vv tnjiTFrsPP9xSD8rePuha SMeuXFiRKHlAbDep1gaw0 30iPLvt2tjGUKJlgyutAo 6rFdkM04ep1K2XxifZ79o cGFyZFxwbGFpblxmczIwI ExVTkcsIExFRlQgVVBQRV IlLM0DYXjfDXKYPtZxCeJ FQlVTIEZOQSBCWSBDTElO LRNPON8hBOFGUrUHNGRMC XUFQdBpPQ6CNZWQINlcYt tTK3tcO1DtHVHXZBEBGWZ iUdGivQVmKSOtVP9vD4HP YN8KTSMkN0OLKAFPIKZYK T8CGPXtrHEzfQwmriVkJP grz3WxDPibMIZcDF8iiOh cCKAzZS5qROAmI6gulU5q qny1YsSsTDPzFmO2GVNph vY6Rrh4YMCyGGzkw1gll4 HfPWHgVLo2pEdgRcExDXN oy3jivoKuJtIeVPIcIIZk VQSkcVYcN301z1tbr5vdi xCgbDN2WHMvHAS0PQynus AkqhI2EMwksMWeCpT5BRh ccmVkMFxncmVlbjBcYmx1 ABLbU971LIO4jHemr4paU BR0ACYtQGCgCaXbNy4xiD PrN964JWSoFDQETVFyeFy 2PLBwbgTqjxVfiEVQi684 U353z2srBBIxlgDlxRkOh urlq1bnX993XPHvnTGqka XtCsDjSUMunWAlkBG5BFJ zIZ7eavuhWPtgKXsyPHNc eiC2IFGxbBIaO4OeGVKeV J3xvlpiUKO9JDjfVZGwPG T8RxLwCRVbm2Hmogv1QrR qgz7scd86LLQ8e6QqdWod FXR5HNK0YiFpMm6auASfS UPcBD4dKxAnzBQjRQAuvn 10cXcyHUdeYDL5URKzbqB gq4Unf1yrGbNlvnPcZ3ey X2SaABOkUKRuTNCuTxTag eAih3Gmm7BgiWOqqSo4v0 xbWGJkJREiqXdmt4dsZSH 4JAWtyFIbV9nwfG2wBDZn CD0jhhkmc7vsBJiePSvmY RCsoKQ8iuJ8IJXirCOwZ3 IolJ1nVTTjTGvvXKFxeme 8BhEeXy2ldYGfjSvnMFzy YmtwYWdlXHBnbmNvbnRcc GduZGVjXHBsYWluXHBsYW luXGYwXGZzMjRccWxcbGF uZzEwMzNcaGljaFxmMVxk SbKnXFXoKNqkE6wjEwVqQ eMwSph0HWFyrKToZQSsTa e6ITGnlMYgEAAFkZuupF3 ySJYytFbcuG6rbAV5HACz wgAdcMCOpX8hUBKZrT1jJ oY8BmByWpE7DRV1EgkQXS Bhcn19 COMMENT (test code = l8vuuCNmCMVumBZ0EmEzJ 3350) UYof5vru9CwsQAzyNPgME phlFVvetGrpl31qJG1lD5 4MB6dGFBbUmM0NTPgkeS8 Sao6GHTgIMNxjSEoD134j 1ocw4lvedEcsDD2yHxlIX JkXHBsYWluXGZzMjAgVGh yWIF7eD0yMCQvbKoeWPNz FFWzu5QkaXs9KADfj1Tkf UPgRLShlUamj9P5NUKgVK QzUvLsJECOPe9wQXSdRLL VuK0htPSzyBn2v9qrHNZa QHFsYJewjVm0GP8cHHwvN W7zfiLgf7hiF8iiZT5sNP ozbJThc7Mlt1UzfYNcNRU xRJUzspKew0QwjrElc6z4 mYOejOXyhW35qrEwLAojD VYrnlVdzj1pXDGgqiEreo MhaYUkx7XrxPT8BNArmTb ugWTubDUoDRY3yX9jSbvr YXJccGFyXGYwIFBsZWFzZ SBhbHNvIHNlZSBzdXJnaW DpeMXcCVWxy5lcB0biifM qk3Z3ETAqGO3rLybdGxQr wfUaC4b8x0DqcCcpcI8yx GOdQKFudiLmNJAaTN3qXV IvZYCuZEUKNiXqXee8MKZ 2tRJcvEneGUVaDJ6lBLU3 LiBccGFyfQ== CPT Code(s) (test code = e9bqaVGjODDuqTS8SeIlK 3357) QYlz5kzn2UvgWKxwPCzMM lzzKZjjcBxta15kYW7mZ8 5BD7rIGHwJmX2RLClpoI0 Fpi7QEIsHWVqlRXbR719k 8nqz4mvjkYnoSM7kEvtHX JkXHBsYWluXGZzMjAgODg qXeZeEBh9QWqoCOE4UNLi PCxkRGikZAB6WTu7ZkXnK RfmP5svDRI6 CLINICAL DATA (test code z4tzdSTjALCyaTV6FeFkO = 3355) QCwr5tsi0FccWDofHVgIO atcIVsnaDjpu52cQM8qH1 1HR8pXMQwIcN7WSAnyiS9 Hzn5LWZrDWIpxPRbS551b 1ckw4eyfqTwhIX4kSyaCK JkXHBsYWluXGZzMjAgTGV dfKX3nPLqorZvi4WoGPc3 tvpyxc5ezTnlNSFalDO5u 4F7JT5yAFJou1pmdgdchK FyfQ== SPECIMEN SOURCE (test s9cnyMFuCNTzcHI3QyByR code = 3377) YQcm8npe4KyfTRcmOLgMU rznCVgpaWgyd50bUN3wU7 8VU0dKDVeQvH6KFIaypA5 Keh5VICjEXNnpCEfP172r 6aff1bznfZygSP9mBtaSQ JkXHBsYWluXGZzMjAgTFV ORywgTEVGVCBVUFBFUiBM F7LKUGLUXVJEXNLBUAYmX lxwYXJ9 GROSS DESCRIPTION (test l6walSUfUNRlyAI4UfUmI code = 3366) FGjf4ezn9BvfDDpyBQxWR cvdZWwilDoqr26aJV7zV4 6DC8eBRXpCmO2QUKnbmP0 Pfv1AVIvDWZumUEvV799c 8bgc2thsxKvxKF1xTjtGW JkXHBsYWluXGZzMjAgMiB 7YAV5DY6xmmYcfiLdrKDr kigrnFSeEXO9GGBdSYcbV PT3NIYrDVVrRIUruZFznl dcK1PmhKAbbJ4tlnUnQAP pXHBhcn0= INTRAPROCEDURAL ADEQUACY d8oyfLNdEDHplOI8FyUgI (test code = 3370) GAfx0qyn9QmlGZvbJTjUM zneZXfhmJedi85fIY1nH0 0FO1hPWAjZeX3FVUjjlM6 Ldn4QTJzTTKirAYbT229g 6hen2firvEtqUE0aHnkNS JkXHBsYWluXGZzMjAgUFJ ORA1SWD0MMuPHPQCESU0I RCBBTkQgQSBSQVJFIEFUW TWSU8MYRXbTX6OHXBGoid 0= MICROSCOPIC DESCRIPTION x0ctjXJoTBAukJQ0OcNxO (test code = 3371) RXzg1cct6CjuBCrsNDnPV zwkQHfsfKtty79oSA2aJ0 8SS9mUINlVtV5OFWaqoV0 Tbb0ANPsLBDbwLBaN780i 7yle9rxqiOzjBU1aCudQF JkXHBsYWluXGZzMjAgUGV mGz3xnZXuJjLehCKtyA== SPECIAL STUDIES (test s7sacZSsOEHobUL6TsVoR code = 3376) ROrq8ogm7PysAOeiMLzIV fulXFikuEkiu99aRP9bE2 5YX7tTEQxMwR1IVFhqrR4 Qpr4MBZwVIKetZNbW273U IHzEPVtpAocnbv4dI61NP TyvZ5qrZKxVMh0GIZzlsH lhXelqA9rAfFlSlXrRgID xHTdeI77AKNsawU6KWXbd 77lm4FeaEvouhPwFTNjFS wcT9m5YVTvDPQzURD5t6F bw9KwtO4jkO0ciGgkfV8i oVPtdNM0koqda9Gba2ZgB 2lhbCBzdGFpbnMuXHBhci ZTOTPnMLveE6vGHOIYU2C IWVNJTjsgUDQwOyBQNjNc kLPkPTVpzhPmp5cbC8rfE CFhYEQ4RU8zbcNcReCgCF 5vlM06z1Qbq02za60wyL3 juVMjtxXkI78ipZWapJNc u4NcEODyprZmgFH7ZSTfV Qmpilzuo8h2tYM6zFEqrH ZnaFU9nUCusEMvUZDLgKQ mUJXfa998bb1hAQRmgHJv vvLmlN5dQFmtrutloPJuF G8bDKRuWSAfTPLmIO46gp YaEY8gvOFeg2fmoaEhaDU ou6DgcIN9ZIIiiEOzawnc Zh9oCY15JDQcTNkgzI2lj QTpkiTbWL3wPZ6nN3P0zY HjFXKgfjJtz8lxMItkAZ6 gYXZhaWxhYmxlIGFyZSBl asIdzTV7FETvpYBuPMBsm KFrKBbyuLFck1nbg7CeW2 ejnAeejRY1PGNbW0ijwRM ooWP3COO3yB1vEZxcduFx TYBsn7ZbRUIqOKXqOmE2m Y1iORW3AeUTkZgbNUY7Nx L6FBufDNGtUA5uNUyoOCp yK8VdoDUyJCDYDXKlf5pj X3knFWEyw2DxrM6jrWS8j UBoBWCjyFO7QZAsHEA7CA xvcGVkIGFuZCBpdHMgcGV iRd5upHGxC3UmW3awwnSc tCOhsBB0gIIsXXcxanHxQ WM1TDJyhQ4gIO2oUGCplC TsCR1vuLOoJKKxOPJlVAU jCXWby4ReJUZlok71YAGy CyazqKmxKTPiGc7sTz4sH NYypqSsHBB0FsVPZC2rqg ccsWHwaZvpaq7dOXolFMN EINVmUQOxXYQ7KNHohJ5m PJS5oXZ2XDW9B0znM0ohX YUcigLyIU1bBVDcsHQxkl BuEOztCO4neKGmBRBug5X qnzwwVOXyHYB4LPJ4SNlp LIVfCRTmVx0gHBUmvM1mM 3EkWJW9emAhd5IqAzBNjF KswJ49nCYnjs39KTAoASF fX2EaRYThBVRgQKbzgcWs rXweARFtq20vqZQidvBwm 4EtuvOrCEKkM1kbUGPacE ObvXPvz6PehA8anKFytjA vGGZ8eIRdEFCreR6yAZFl pUzzABRjbA5fB4OzGHmgS q0cCDCgipxhRS5jan96LY 9iqrWnJO5wdvJsNB54tgI hImClKRh9HTqYXOcCSDq1 KSBhcyBxdWFsaWZpZWQgd V6swXExCx3luERbjWxxIR CrpBOfZRezvWjpU7pamdp uONxqpBIvn0GjtR3cdRI0 IFZ3vT0pSfjiZMK3 Gross assessment was [facility] performed at ([facility], = 2777) Department of Pathology, [address] [place] [address], Technical component was [facility] performed at ([facility], = 4273) Department of Pathology, [address] [place] [address], Professional component [facility] was performed at ([facility], code = 2770) Department of Pathology, [address] [place] [address], [facility] ASPIR[facility] BY [id number] 08:36:00 Medical Cytology Report Case: [id number] Authorizing Provider: Solange Koch MD Collected: 07/20/2020 10:16 AM [facility] Received: 07/20/2020 11:18 AM PERIOPERATIVE SERVICES Pathologist: Adri Rangel MD Specimen: Lymph Node, Interlobar, Right, Station 11R LYMPH NODE, INTERLOBAR RIGHT, STATION 11R EBUS FNA BY CLINICIAN (CYTOSPINS AND CELL BLOCK OF ASPIRATE): - STRIPS OF DYSPLASTIC SQUAMOUS EPITHELIUM IN THE CELL BLOCK ONLY, SUSPICIOUS FOR METASTASIS FROM SQUAMOUS CELL CARCINOMA (SEE COMMENT) Signing Pathologist Direct Phone Line: [phone] signed by Adri Rangel MD on 07/22/2020 at 8:36 AMCorrelation with radiologic studies recommended.Please also see surgical pathology report [id number] and cytopathology reports [id number] and [id number] through [id number]. [address], 43700Xivv upper lobe lung nodule, history of smokingLYMPH [...] evaluated Immunohistochemistry technical testing was performed at [facility], Pathology Laboratory where it was developed [...] qualified to perform high complexity clinical laboratory testing.[facility], Department of Pathology, [address] [place] [address], [facility]fwuzK[facility], Department of Pathology, [address] [place] [address], BpdrleAd[facility], Department of Pathology, [address] [place] [address], FNCL NEEDLE ASPIRATION BY [id number] 08:36:00Medical Cytology Report Case: [id number] Authorizing Provider: Solange Koch MD Collected: 07/20/2020 09:13 AM [facility] Received: 07/20/2020 11:18 AM PERIOPERATIVE SERVICES Pathologist: Adri Rangel MD Specimen: Lung, Left Upper Lobe LUNG, LEFT UPPER LOBE, MASS #2 EBUS FNA BY CLINICIAN (DIRECT SMEARS AND CELL BLOCK OF ASPIRATE): - SQUAMOUS CELL CARCINOMA Signing Pathologist Direct Phone Line: [phone] signed by Adri Rangel MD on 07/22/2020 at 8:36 AMThe tumor cells are positive for c00-pghxasxm and p63. TTF-1 and Synaptophysin are negative. The morphology and immunoprofile are consistent with squamous cell carcinoma in an appropriate clinical setting.Please also see surgical pathology report [id number] and cytopathology reports [id number] and [id number] through [id number]. 69019, 49733, 04193; 59382; 09150 x 3Left upper lobe lung nodule, history of smokingLUNG, LEFT UPPER LOBE, MASS FNA #22 x 45 mls in cytorich red; 5 direct smear slides, cell block (A2)PREDOMINANTLY BLOOD AND A RARE ATYPICAL GROUPPerformed. The interpretation of this case included the use of immunohistochemistry or special stains.TTF-1; SYNAPTOPHYSIN; P40; P50Yrpxzdk Slides Examined: In-house known positive controls were evaluated along with the test tissue. These control slides run alongside of the patients sample show appropriate staining. Internal positive and negative controls when available are evaluated Immunohistochemistry technicaltesting was performed at [facility], Pathology Laboratory where it was developed [...] qualified to perform high complexity clinical laboratory testing.[facility], Department of Pathology, [address] [place] [address], [facility]vb[facility], Department of Pathology, [address] [place] [address], JvidupAd[facility], Department of Pathology, [address] [place] [address], YRRV NEEDLE ASPIRATE BY [id number] 12:02:00Medical Cytology Report Case: [id number] Authorizing Provider: Solange Koch MD Collected: 07/20/2020 10:31 AM [facility] Received: 07/20/2020 11:18 AM PERIOPERATIVE SERVICES Pathologist: Adri Rangel MD Specimen: Lymph Node, Subcarinal, Station 7 LYMPH NODE, SUBCARINAL, STATION 7 EBUS FNA BY CLINICIAN (CYTOSPINS AND CELL BLOCK OF ASPIRATE): - NEGATIVE FOR EPITHELIAL MALIGNANCY LYMPHOCYTES AND HISTIOCYTES PRESENT Signing Pathologist Direct Phone Line: [phone] signed by Adri Rangel MD on 07/21/2020 at 12:02 PMPlease also see surgical pathology report [id number] and cytopathology reports [id number] and [id number] through [id number]. 72562, 34065Iwvj upper lobe lung nodule, history of smokingLYMPH NODE, SUBCARINAL, STATION 7 [id number] mls in cytorich red; 2 cytospins, cell block (A2)Performed. The interpretation of this case included the use of immunohistochemistry or special stains.Control Slides Examined: In-house known positive controls were evaluated along with the test tissue. These control slides run alongside of the patients sample show appropriate staining. Internal positive and negative controls when available areevaluated Immunohistochemistry technical testing was performed at [facility], Pathology Laboratory where it was developed [...] qualified to perform high complexity clinical laboratory testing.[facility], Department of Pathology, [address] [place] [address], HeyuokAd[facility], Department of Pathology, [address] [place], [place] [address], QlupagAd[facility]ist [facility], Department of Pathology, [address] [place] [address], Roic Needle Aspiration by [id number] 11:53:00 Test Item Value Reference Range Interpretation Comments Case Report (test code Medical Cytology Report = 104) Case: [id number] Authorizing Provider: Solange Koch MD Collected: 07/20/2020 10:36 AM [facility] Received: 07/20/2020 11:18 AM PERIOPERATIVE SERVICES Pathologist: Adri Rangel MD Specimen: Lymph Node, Interlobar, Left, Station 11L DIAGNOSIS (test code = e5dzeSVdWWQsj3utAFZyjOS 3220) uZzEwMzNcZnRuYmpcdWMxIH tccnRmMVxlcGljOTIwMFxhb zYvRTNwiSKgL4KwkiwwFXry PV3aNZ3zpBgyxDEuwBYwUSW oTkPnv7wcz121iOEly8soDV KNxzttbKa7gLbcL62cq1W8M slmX95gcAUpLEbxsKLjlnyv wiBfDHeAEYGSAT7GWGRuUWl MORTPLD1XRIBkCUoPEkYvDQ RNTVTNO96rUWPWPQPEFVXdO w6EWDACPSRXKJ6QM5nZPfZk S5gCQ7AFHM9SQOZENXTBPFw UDYHRR8CZPT0STDYASJsZCF IOBHxcvRUjHMYsEJ7xHbJPL RONZhWnTl1VJMQIGBNUOLfN NOtpIODLCXeTPR2YBFxcUXU zSJRhPWOGLQ9LYP5ZLCZTIl IJVfNOAG7DTSNmnh54ZWR1B qPbp8N7NKV5KEZcJEHuk1mf ZGVmbGFuZzEwMzNcZnRuYmp aoXEvRXHjUcRhk6hig848rZ Zqc1zxVTQzQuN1eVVbLPDum LHmG999IJFcNXcab1ayo1Us QDNwbUOuz7F5EKSPqbqjaBw 0iUjpT26wv7H5LkppF3piDI EtXQTmU8WyQZ7xWLWbHtj4P ZC0ULO0BAIbXIAuF0QnGA7j IXPbtJAqUKz3v1nlzPfnPKY hAMF2s9dkMNtkcqCzKL5axm 9pcHp5y5iqgcJcLMMkWFPde RWNYRGyQ0AmgHwgWt4ccAu2 rXyqPylcJOG4Zwe7BG1sjq8 0qjj4xWmlUJFkwxyiLmJ7WQ zmVIFktdwkMGu7YXdqUMIba DI5TQNeePNcH5YePYXhKD3w qjs5FNS7GKrdCAIsWhG1WNP eoAKeFSRpmVnuTNxyu299QH Q9SwHrCP8jH8Kmv5J4lS5vy GYhMDPplMQnCtNxZCTmat3g aZPjATmld1SuUKU5jhE3ySZ hqKJvBCOcNpP3CWlySH6lyl 04HCFgUYY5ud5mgNIjkNyec jZojSKdIOodD0TxBYSge608 PTYjO9IdRBGqy2A4isPoGrS oOCOkjWI5mwV0XSMdPS6etr zfh4waKDxdIEvvOLEwwoH5y tO5TIMzoUNmZ2VgvM0hRQBm AV6hvyuse9jhWLI4MUsbQVJ gSNX4WpVfFWPch0Rjgov6Yl Pfd2UvgVDhGYczF54qz577W RJncfJdD4pvkSOjpkbakVTp dxbpKWotllA9CCXvGLoatxk nTFBdZMyoT9lbFjQxIHWemJ euFGyht5ClHQUnBYKhSjBoa LYkLCUzBmp7AYIoyBVoUWEp McJgF9yxsoxqOyQXHFKrq7j sJ4kycHTPoRAiP9HcBSajtr BuXVsqGMufNOXsMKY7PX75S GP6VvltFHT1pP== COMMENT (test code = w8eaiHOfEMAjaRH1ZiXnIKG 3354) jw1tqa9UcqLHiqESlDJdfvS BmdoFuid68mXX6pA38QI8uL EUfHxG0RYZrugI7Vjb2CPEd IITksINyK772s8cha5iuauZ zoHV3vUeqVNLmRPLcKMmoPW ZzMjBccGFyIFBsZWFzZSBhb HNvIHNlZSBzdXJnaWNhbCBw MOOdw9jwP0rsddDhs7O3MRS eME1tJihwEbPpnoZnM0w4x0 XvxTsndQ6vrIVtKJZoqaHyB ARcGC0mPSEmZCGrLSKBZqQx Cqu1HHP5iXWpaMzwTUFrRD4 zBSL9LrFupFNkgV== CPT Code(s) (test code s5jcrVGlBFOupMD4WdHlVKG = 3357) by7tpb4OhnOCixHNePMniaH BixiMgss10xNR8aJ59JL5yZ QOuXvK6SODoxpW1Twg6LWYg LRMofSPdT581w0els7ftxtS epYV9pBcwGLOyAFPySNvgTK OiYfKpMBchKiHvZTi1GwL2M HBhcn0= CLINICAL DATA (test r5lscMWsAGPmjGO0SxGmMJP code = 3355) lx2zzc4IhhQBgfKQjBHhpkI HtunMigs35fPJ3aA28BD3lE VKiUzZ2RYTiegK1Ugv3LXMb SGChxCEfJ673e8ubb0oixeN sbIA7xQtkEGOvTBHtHEouHD LsCaDpEYIvdBQ2sTChrdHwj 1MmMDj3iwdrsk4kzLmrTKWn gKT6y5I9KW6gBRIhv7koxbc ccGFyfQ== SPECIMEN SOURCE (test h4lplEKyIKNpzZV1JqLrWVI code = 3377) bo2dua0PpwALglCSpJTzvwH EmtwZphl58gIG3kT95QR4aB NZiOhD2WTEypgL6Dtf4MQRf YBPfrOBvX601g4wwi8zjxoW yhNM4xOdwSNOoQOKcNNbhLC YaSoFcLYyJLIykZs3VFPtzW U4BQVQDQ4CLMyvrXZMELVpo F1CSYYiAZvOwEQptCIUWBjD GTkFccGFyfQ== GROSS DESCRIPTION m3gtrPSwBYKwgRP6WyWfTEY (test code = 3366) jd5zwc9AvaOYigBGdXQpgaK CqyvKcnj02bBZ0oP41UV9hZ FKkJjB6XRBefmK1Klh6QUJn LEUxhIXlU975s4ruh7kbqqE vsCC5cTdzRZKyKHDgLIfyJU GoTvCePMKpaOidCWfeGFZ9h R5ceFCmJPByHJesExVspQQb r0KtpdPdVDLlaKydFbjkT4s gKEEyKVxwYXJ9 MICROSCOPIC h8iqwFYzVOYyqEN0NsQsHNC DESCRIPTION (test code co0xew5JkjGXnrQFeMVuiyV = 3371) KmtdSnya93tNB3cB28QN4lW HXhJgE1BOGmhnA6Qsb5KKJt XNRrxLBnO388h4rwb4zmvzU fwQZ2hTpuEYNfSYRpFCzvKJ UrFgXqBFTdRx5llGLgMsVdb GFyfQ== SPECIAL STUDIES (test y7fttKHnJEFzs1gzCEEejPT code = 3376) uZzEwMzNcZnRuYmpcdWMxIH sntmTgLGzgu4LdC5WfCaSqB FxhbnNpXGRlZmxhbmcxMDMz RTH1hfEuNPCeHUmxDCNyUKb mHh9mdIUsaZngDqEjZDHil2 dshcOIypyziQy0w8keMKTaX xR9wRLaTVsyV9bgoxEixVVl L2LdbENneTf0l4ptSyUoItU 6wLRvDVyaL9xwkxQpvCWiTY PjLHg7oG18FDXosB1waYDvS WxqqdMjSvF8URqyVDUbWbR7 ZFXjwKXzXWIzL9kbXBPiUCf qXMMtZZfcuVGfKDM9sKcxe6 M2qJLgzTEkqZecOzBnOvWnK wCPq5TwVPs4sFuoJ9QsWMYa OmQ6oNKnUNRiETenCWLkDKK bqjK2qCbjhoRfa83xwYBxSU YwXGZzMjBcbGkwXHJpMCBDb 4HjyOvwEWH0wIf4sFskIhxy OQO2Jiu2NL9ewh36yhn9bRp zRRUbybsfCsT7AEieLTMpfv zwYXr5QRxrCXCdqWH1XSBdm ZFtK2ByFJVaFD0sikt1LLF3 JKpbGKTtAgF4BMRrcRYqIWM qeXxrZCeii134YTN1JiZwSW 3xM2Tsv8Z8tQ8sdPQjXDAsd ICyImSxFIAcxm8wlDNlLFak q8FuAQC3voB4tSEbiBOgTRO hOW52Vmbtk9GnUjrnd0AzC3 0enYF5BNdcn7kuAT9aTpO6m rGnQGzjq7konK4eKjW8GEkv XL4oNA5wGXRbqN3fqcfrESE nYnJkcmhlYWRccGdicmRyZm 7fkVnmXIT1SAkoU5vahO6rN vM8UErpA5lrvC2pWXi5YPke mVV2FTAfkY4oRG4azljut4y rKGaiEUozPMXsdwM3jsD1AV UusBFqD9WsvI7mZOYfZC0qn fjkb1fpPSQ5RWfaCBKrGZA6 AcHmVEKpu5Sbalj6BnKnq5W eaUScMHavM49bn218XOLtpk KpL2bvbMYhpnsfbRJtczsqG HgwumG7HOShHXLaNJbgBCLb XGZzMjJcbGFuZzEwMzNcaGl jaFxmMVxkYmNoXGYxXGxvY2 voIuHjV1KjPPQlNmTkDCmxA IlxlYJmiKAnjGK3lD8sVL5z KDTboCLpC6WjMKDmowWveTX oESN8qVEpkWJnKP9pZPnopW Ufq8nob3AkV6ekgHhgmJE0I C7iQXKaLWYbUWrzi5XqdU4m LlxwbGFpblxmMVxmczIyXGx dgiitUPDaCUpuT6wbHaWoEE TimFbdESdgj6CdWBRaUEPaX jxqinVdIFb5ihAhTXVoutwc RDUkoTzuoR8oPvDhQjPqAfk qBT5eKAMlS5peoWWiFHEuDG YdS2kzOkZkjY4ezRzuFSbqS fQqQfGhXhCCq846tw7yXTPc oMLxyjVMrXOouE8lJQwgOIx vSRrnlHGcOIagj1ffJAOzv6 n6zDPhSFBupiVqh7ykFUxcy fAxBVDdgELwlTMyMBDdw92w GVltuRqsbHxtXVAlu1WtjYn yn8HbWbKxVZcll4XiD07ekA JvbCBzbGlkZXMgcnVuIGFsb 82tc1gtBPXzPeO2hAHfpQI9 hWZypVHrg6SndHysTYXpp2p eJXQexz0pypjsuAXdo4JajM 5pbmcuIEludGVybmFsIHBvc 2l3hGJwTUNaTUHtTUkqiJh2 EZYgx749wj2kgzP3fGJjRNK 2YWlsYWJsZSBhcmUgZXZhbH VhdGVkXHBsYWluXGYxXGZzM jJcbGFuZzEwMzNcaGljaFxm EPcmMmRgLHQsMXbpU3pjVwS yQ9QfDPFeVmOzaSUdE5btwL FyXHBsYWluXGYxXGZzMjJcb GFuZzEwMzNcaGljaFxmMVxk BpVbUAYpHHibK1mmYhBgR3W yXGZzMjIgIFxwbGFpblxmMV xmczIyXGxhbmcxMDMzXGhpY 1kdGeVdOQUvdIsiWXrgc2Ed AOJiVAYxRdsqwiAcWVf3dlB oXHBhclxwbGFpblxmMVxmcz SzLSnzgdqtDEPzWSinJ0vhN jTmLRXadEuhTOhaf5VdVILa NOWgWqfbzbGyKRqiaWIye9l xw8GqL3hsdKxemLS0KRBnK8 nrmHWkmII9BJH1nS9dWRqnr bBiYWKmd2PoPTEbAFUoAlV1 kR9kPVK3VbBHeHfzTABxJYy uXGYxXGZzMjJcbGFuZzEwMz NcaGljaFxmMVxkYmNoXGYxX VvnK7xdDtUuK0VgUVZoHcKk aBkgVZssGFs8FhdexRTagke mMVxmczIyXGxhbmcxMDMzXG qsK8xtUsJtOQVlaMqhJEdei 2NoXGYxXGNmMlxmczIyIHMg DAUyrLJbeRCKBJ53LKNhOZG uxBekgE6hqQSNCZGikwL9x4 K2OUjySUUsTNa9OIyxuuNqV YGydO4iWQUtFV6nBJc2uoZs UVVsi9MaAG0xOYEqtKXzPYP 3LORnx5KgE7Rks9GaUMXnWA Ygco7pacYdZyEXhTUfYCOlt p74CIXaPM1dA9wfLSKtXIZx waWfkUCaj0YzITDimKM8sBJ iOM4DIjNKv26jWVQdXNRAqg HtZMHwlNqkpYB9dpN7bB2fR iBUaGUgRkRBIGhhcyBkZXRl ok9ewiKrPBZgPBEst9RebAX maNBhkmCjI5Xpa7ClUMRzuu 43OFfccPYsmm65WD1oJ9Tae 6EuvJ6oHKfaYTJkr0UotACn hUZfMKKbe3PtN9ssjstvWFp esAVhwQ7gBOHeRZd7UTOib9 ZmSJKet7WqSiFgqhWbLAIxR HDnRIYezK17SSV2iAygwFft kgGfXM2yQYBciyWvQBBaFWF nnF8jMRezzfLjQEPwklC2x6 Z9DWioDLTyluGzRjibJMS7m rCawvS8qNQfK1hwpsmlHSua MSJna7TlsK5awSAWjCSrt3A kmZZkuDAPnOLzBC2smnAwQW 5rMHM3SQanNIGRANNqSUcqB PSnCDA1GMixFbbuGYG4mdRq VPHgt7WxWPpwC8ovD79cvDe gyJm7oUKpwKyncLVoaPHhIB GuxvU2p8L2DNYva0PvtyueB HBsYWluXGYyXGZzMjJcbGFu ZzEwMzNcaGljaFxmMlxkYmN jRZEdFDimL9veDqRsRoNeUl uqEPN4aZ== Gross assessment was [facility] performed at ([facility], code = 2777) Department of Pathology, [address] [place] [address], Technical component [facility] was performed at ([facility], code = 2778) Department of Pathology, [address] [place] [id number], Professional component [facility] was performed at ([facility], code = 2779) Department of Pathology, [address] [place] [address], [facility] ASPIR[facility] BY [id number] 11:53:00 Medical Cytology Report Case: [id number] Authorizing Provider: Solange Koch MD Collected: 07/20/2020 10:36 AM Ordering Location: [facility] Received: 07/20/2020 11:18 AM PERIOPERATIVE SERVICES Pathologist: Adri Rangel MD Specimen: Lymph Node, Interlobar, Left, Station 11L LYMPH NODE, INTERLOBAR, LEFT, STATION 11L EBUS FNA BY CLINICIAN (CYTOSPINS AND CELL BLOCK OF ASPIRATE): - NEGATIVE FOR EPITHELIAL MALIGNANCY LYMPHOCYTES PRESENT Signing Pathologist Direct Phone Line: [phone] signed by Adri Rangel MD on 07/21/2020 at 11:53 AMPlease also see surgical pathology report [id number] and cytopathology reports [id number] and [id number] through [id number]. 01961, [id number] upper lobe lung nodule, history of smokingLYMPH NODE, INTERLOBAR, LEFT, STATION 11L [id number] mls in cytorich red; 2 cytospins, cell block (A2)Performed. The interpretation of this case included the use of immunohistochemistry or special stains.Control Slides Examined: In-house known positive controls were evaluated along with the test tissue. These control slides run alongside of the patients sample show appropriate staining. Internal positive and negative controls when available areevaluated Immunohistochemistry technical testing was performed at [facility], Pathology Laboratory where it was developed [...] qualified to perform high complexity clinical laboratory testing.[facility], Department of Pathology, [address] [place] [address], [facility], [facility] of [facility], [address] [place] [address], [facility], Department of Pathology, [address] [place] [address], PBAF NEEDLE ASPIRATE BY [id number] 11:33:00Medical Cytology Report Case: [id number] Authorizing Provider: Solange Koch MD Collected: 07/20/2020 10:23 AM Ordering Location: [facility] Received: 07/20/2020 11:18 AM PERIOPERATIVE SERVICES Pathologist: Adri Rangel MD Specimen: Lymph Node, Lower Paratracheal, Right, Station 4R LYMPH NODE, LOWER PARATRACHEAL, RIGHT, STATION 4R EBUS FNA BY CLINICIAN (CYTOSPINS AND CELL BLOCK OF ASPIRATE): - NEGATIVE FOR EPITHELIAL MALIGNANCY LYMPHOCYTES AND HISTIOCYTES PRESENT Signing Pathologist DirectPhone Line: [phone] signed by Adri Rangel MD on 07/21/2020 at 11:33AMPlease also see surgical pathology report [id number] and cytopathology reports [id number] and [id number] through [id number]. 20297, [id number] upper lobe lung nodule, history of smokingLYMPH [...] evaluated Immunohistochemistry technical testing was performed at [facility], Pathology Laboratory where it was developed [...] as qualified to performhigh complexity clinical laboratory testing.[facility], Department of Pathology, [address] [place] [address], [facility], Department of Pathology, [address] [place] [address], [facility]Ad[facility], Department of Pathology, [address] [place] [address], NOYC/CONCENTRATION [id number] 02:37:00 Test Item Value Reference Range Interpretation Comments Concentration charged (test code = Done 2657) [facility] [id number] 02:37:00 Test Item Value Reference Range Interpretation Comments CONCENTRATION CHARGED (BEAKER) (test Done code = 2657) FINE NEEDLE ASPIRATE (FNA) [id number] 13:00:00 Test Item Value Reference Range Interpretation Comments Cytology (test code = See Separate Report 2629) [facility] [id number] 13:00:00 Test Item Value Reference Range Interpretation Comments Cytology (test code = See Separate Report 2629) [facility] [id number] 13:00:00 Test Item Value Reference Range Interpretation Comments CYTOLOGY RESULT POINTER See Separate Report (BEAKER) (test code = 2629) EBUS FNA [id number] 13:00:00 Test Item Value Reference Range Interpretation Comments CYTOLOGY RESULT POINTER See Separate Report (BEAKER) (test code = 2629) EBUS FNA [id number] 13:00:00 Test Item Value Reference Range Interpretation Comments CYTOLOGY RESULT POINTER See Separate Report (BEAKER) (test code = 2629) EBUS FNA [id number] 13:00:00 Test Item Value Reference Range Interpretation Comments CYTOLOGY RESULT POINTER See Separate Report (BEAKER) (test code = 2629) FINE NEEDLE ASPIRATE (FNA) [id number] 13:00:00 Test Item Value Reference Range Interpretation Comments CYTOLOGY RESULT POINTER See Separate Report (BEAKER) (test code = 2629) RAD, CHEST, 1 VIEW, NON [id number] 12:01:00Reason for exam:->s/p KRYSTAL TBBX [facility] 1950 Sex: MFINAL REPORT [...] Franklin Verified Date/Time: 07/20/2020 12:01:07 Reading Location: [facility] Radiology Reading Room XR chest 1 view portable / [id number] 12:01:00 Interface, External Ris In - 07/20/2020 [...] Franklin Verified Date/Time: 07/20/2020 12:01:07 Reading Location: [facility] Radiology [facility] [id number] 11:00:00 Test Item Value Reference Range Interpretation Comments CYTOLOGY RESULT POINTER See Separate Report (NYDIA) (test code = 2629) FL, FLUORO, NON-SPECIFIC, UP TO 1 [id number] 10:36:00Reason for exam:- >bronch procedure [facility] : 1950 Sex: MFluoroscopic unit utilized for a procedure performed in the OR. No interpretation wasrequested. Refer to the operative report for findings. Refer to PACS for patient radiation dose information.FL fluoro non-specific up to 1 [id number] 10:00:00 Interface, External Ris In 07/20/2020 1:29 PM CSTFluoroscopic unit utilized for a procedure performed in the OR. No interpretation was requested. Refer to the operative report for findings. Referto PACS for patient radiation dose information.[facility] CenterABORH, [id number] 07:40:00 Test Item Value Reference Range Interpretation Comments ABO Grouping (test code = 2588) A Rh Factor (test code = 2589) POS [facility] CenterType and screen, [id number] 07:20:00 Test Item Value Reference Range Interpretation Comments ABO/RH AUTOMATED (BEAKER) (test A POSITIVE code = 2260) Ab Scrn (test code = 890-4) NEGATIVE [facility] CenterComprehensive metabolic [id number] 07:07:00 Test Item Value Reference Range Interpretation Comments Protein, Total (test 8.1 See_Comment [Autom ated code = 2885-2) message] The system which generated this result transmit anthony reference range : 6.0 - 8.3 gm/dL . The reference range was not u sed to interpret th is result as normal/abnormal . Albumin (test code = 3.7 g/dL 3.5-5 46290-6) Alkaline Phosphatase 165 U/L 40-150 H (test code = 6768-6) Total Bilirubin (test 0.7 mg/dL 0.2-1.2 code = 1974-2) Sodium (test code = 131 meq/L 136-145 L 2951-2) Potassium (test code 4.5 meq/L 3.5-5.1 = 2823-3) Chloride (test code = 98 meq/L 98-107 2074-0) CO2 (test code = 25 meq/L -29 2027-9) BUN (test code = 14 mg/dL 7- 3094-0) Creatinine (test code 0.94 mg/dL 0.57-1.25 = 2160-0) Glucose (test code = 125 mg/dL 70-105 H 2345-7) Calcium (test code = 9.3 mg/dL 8.4-10.2 21574-8) AST (test code = 39 U/L 5-34 H 1920-8) ALT (test code = 47 U/L 6-55 1742-6) EGFR (test [place] = [place] [address]-8) CLINICAL DATA T O CALCULATE ESTIMATED GFR. ALAINA (test code = ALAINA) Corporate Relations Manager ID - PENNY M Lab Interpretation Abnormal (test code = 42045-5) [facility] CenterCOMPREHENSIVE METABOLIC [id number] 07:07:00 Test Item Value Reference Range Interpretation [...] = 355) BLOOD UREA NITROGEN 14 mg/dL 7- (BEAKER) (test code = 354) CREATININE (BEAKER) [...] 1092) DATA TO CALCULA TE ESTIMATED GFR. Corporate Relations Manager ID - PENNY [id number] 06:44:00 Test Item Value Reference Range Interpretation Comments PTT (test code = 18240-7) 29.6 See_Comment [ Automated message] The system whic h generated this result transmitted ref erence range: 22.5 - 3 6.0 seconds. The re ference range was not u sed to interpret this result as normal/abnor mal. Lab Interpretation (test Normal code = 44354-2) [facility] 06:44:00 Test Item Value Reference Range Interpretation Comments PARTIAL THROMBOPLASTIN TIME 29.6 seconds 22.5-36.0 (BEAKER) (test code = 760) Prothrombin time/[id number] 06:43:00 Test Item Value Reference Interpretation Comments Range Protime (test code = 13.3 See_Comment [Autom ated 5902-2) message] The system which generated this result transmitted reference range : 11.9 - 14.2 seconds. The reference range was not used to interpret this result as normal/abnormal . INR (test code = 1.04 See_Comment [Automated 7621-6) message] The system which generated this result [...] valves. Lab Interpretation Normal (test code = 73683-5) [facility] CenterPROTHROMBIN TIME/[id number] 06:43:00 Test Item Value Reference Range Interpretation [...] heart valves.CBC with platelet count + automated [id number] 06:35:00 Test Item Value Reference Range Interpretation Comments WBC (test code = 6690-2) 12.4 See_Comment H [A utomated message] The system [employer] generated this result transmitted ref erence range: 3.5 - 10 .5 K/L. The refe rence range was not u sed to interpret this result as normal/abnor mal. RBC (test code = 789-8) 4.89 See_Comment [Au tomated message] The system [employer] generated this result transmitted ref erence range: 4.63 - 6 .08 M/L. The refe rence range was not u sed to interpret this result as normal/abnor mal. MCHC (test code = 786-4) 33.2 See_Comment [A utomated message] The system [employer] generated this result transmitted ref erence range: [...] See_Comment [Aut omated message] 777-3) The system [employer] generated this result transmitted ref erence range: 150 - 45 0 K/CU MM. The referen ce range was not u sed to interpret this result as normal/abnor mal. MPV (test code = 8.5 fL 9.4-12.4 L 43808-1) nRBC (test code = 413) 0 See_Comment [Aut omated message] The system [employer] generated this result transmitted ref erence range: [...] H [Aut omated message] 670) The system [employer] generated this result transmitted ref erence range: 1.78 - 5 .38 K/L. The refe rence range was not u sed to interpret this result as normal/abnor mal. # Lymphs (test code = 4.48 See_Comment H [Auto mated message] 414) The system [employer] generated this result transmitted ref erence range: 1.32 - 3 .57 K/L. The refe rence range was not u sed to interpret this result as normal/abnor mal. # Monos (test code = 1.27 See_Comment H [Autom ated message] 415) The system [employer] generated this result transmitted ref erence range: 0.30 - 0 .82 K/L. The refe rence range was not u sed to interpret this result as normal/abnor mal. # Eos (test code = 416) 0.56 See_Comment H [Au tomated message] The system [employer] generated this result transmitted ref erence range: 0.04 - 0 .54 K/L. The refe rence range was not u sed to interpret this result as normal/abnor mal. # Baso (test code = 417) 0.10 See_Comment H [A utomated message] The system [employer] generated this result transmitted ref erence range: 0.01 - 0 .08 K/L. The refe rence range was not u sed to interpret this result as normal/abnor mal. Immature 1 % 0-1 Granulocytes-Relative (test code = 2801) Lab Interpretation (test Abnormal code = 51715-9) [facility] W/PLT COUNT & AUTO [id number] 06:35:00 Test Item Value Reference Range Interpretation [...] PERCENT (BEAKER) (test code = 2801) POC-Glucose [id number] 06:11:00 Test Item Value Reference Range Interpretation Comments POC-Glucose Meter (test 114 mg/dL 70-110 H : TE STED AT [facility] code = 1538) [address] [facility], 770 30: Corporate Relations Manager/Techni rosalva ID = [id number] for Susan Crews Lab Interpretation (test Abnormal code = 13117-1) [facility] CenterPOCT-GLUCOSE [id number] 06:11:00 Test Item Value Reference Range Interpretation Comments POC-GLUCOSE METER 114 mg/dL 70-110 H : TESTED A T [facility] 6720 (BEAKER) (test code = [facility], 1538) [address]: Corporate Relations Manager/Techni rosalva ID = [id number] for Susan Celestin Prothrombin Gene [id number] 13:07:00 Test Item Value Reference Interpretation Comments Range PROTHROMBIN GENE SEE BELOW RESULT: G20 210A ANALYSIS (test code variant not detected = [id number]) Interpretation SEE BELOW INTERPRETATIO N: This (test code = individual is n egative 5519779) (normal) for th e Y28014C variant in the Prothrombin/Fac tor II gene. Increased risk of thrombophili a can becaused by a v ariety of genetic and non-genetic fac tors not screened fo r bythis assay. Laboratory test ing supervised and results monitored by Opal Robledo, Ph.D.,D ABG, [facility]. The G20 210A mutation [AF478 696.1: g.53130T>A (c.* 97G>A)] in theProthrombin/ Factor II gene [...] care pro viders, please contact your local [facility]' geneticcounselo r or call [phone] ([phone]) for assistance withinterpretat ion of these results. This test was develo ped and its analytical performance characteristics havebeen determ ined by [employer] [facility] .It has not been cleare d or approved by FDA . This assay has been validatedpursua nt to the CLIA regula tions and is used for clinical purpos es. ALAINA (test code = Performing Lab ALAINA) [facility] [address] [place] [address] Bryson Lopez MD, PhD, GLENN [facility] CenterFactor 5 Leiden PCR (thrombotic risk)2020-07-17 15:45:00 Test Item Value Reference Interpretation Comments Range Factor V Leiden SEE BELOW RESULT: FACT OR V Mutation (test code LEIDEN ( R506Q) VARIANT = [id number]) NOT DETECTED Interpretation SEE BELOW INTERPRETATIO N: This (test code = individual is n egative 0721574) (normal) for th e Factor V Leiden (R506Q) variant in the Factor V gene. Increas ed risk of thrombophili a can becaused by a v ariety of genetic and non-genetic fac tors not screened fo r bythis assay. Laboratory test ing supervised and results monitored by Betsy Boss MD, PhD, FACMG, CGMBS. MUTATI ON ANALYSIS:The Fa ctor V Leiden [...] perf ormance characteristics havebeen determ ined by [employer] [facility] .It has not been cleare d or approved by FDA . This assay has been validatedpursua nt to the CLIA regula tions and is used for clinical purpos es. Health care pro viders, please contact your local [facility] geneticcounselo r or call [phone] ([phone]) for assistance withinterpretat ion of these results. ALAINA (test code = Performing Lab ALAINA) [facility] [address] [place] [address] Bryson Lopez MD, PhD, GLENN [facility] CenterProtein S [id number] 00:12:00 Test Item Value Reference Range Interpretation Comments Protein S 75 See_Comment Decreased leve ls of Functional (test Protein S a ctivity code = 1938027) may be found in patients withhereditary deficiency, war farin therapy, vitami n k deficiency, vik er disease,DIC, or recent thrombos is as well as after surgery. In addition, it ma y bephysiologic i n . An elevated Protei n S activity is not clinicallysigni fican t. Only deficie ncies are associated with an increased thromboticrisk. [Automated mess age] The system [employer] generated this result transmit anthony reference range : 70 - 150 % normal. The reference range was not used to interpret this result as normal/abnormal . ALAINA (test code = Performing Lab ALAINA) [employer] [facility] [address] [place] [address] Bryson Lopez MD, PhD, GLENN [facility] CenterARS-CoV[facility]/RT-PCR (Asymptomatic ONLY)2020-07-16 16:25:00 Test Item Value Reference Range Interpretation Comments SARS-COV2/RT-PCR Negative Not Detected, (test code = Negative, See 79[address]-9) external report for linked test SARS-COV-2 [facility] PERFORMING LAB (test code = 98102-1) ALAINA (test code = Negative result for [...] of the Act. Fact Sheet for Healthcare Providers:https://www.Readmill.com/sites/default/f donta/product/documents/F act_Sheet_HC_Providers_L qvg_KWUT-BfW-0.pdf Fact Sheet for Healthcare Patients:https://www.Group Commerce.com/sites/default/fi les/product/documents/Fa ct_Sheet_Patients_Ly_S ARS-CoV-2.pdf Performing Laboratory:[facility] [place] [address] [facility] CenterARS-COV2/RT-PCR ([facility] & REF LABS)2020-07-16 16:25:00 Test Item Value Reference Range Interpretation Comments SARS-COV2/RT-PCR (test Negative Not Detected, Negative, code = 7855062) See external report for linked test SARS-COV-[address] [facility] (test code = 1860612) Negative result for this test determines that [...] 564(g) of the Act.Fact Sheet for Healthcare Providers:https://www.Everest/sites/default/files/product/documents/Fact_Ana bowerst_RG_Baovjutfn_Sxms_XGDX-JkC-2.pdfFact Sheet for Healthcare Patients:https://www.Everest/sites/default/files/product/ documents/Tlcq_Dvesq_Zqctmbui_Mjmh_THCB-QzD-8.pdfPerforming Laboratory:[facility], [place] [address]QT, CHEST, WITHOUT [id number] 15:54:00THIN CUT, 0.625 mm, HIGH RES, VERAN CUTSFOR OR PROCEDUREUnlisted Reason for Exam - Click Yes and Enter Reason Below->No [facility] 1950 Sex: MFINAL REPORT [...] lower lobe atelectasis Severe emphysema. Signed: Gio oJya MDReport Verified Date/Time: 07/15/2020 15:54:45 Reading Location: [address] Body Reading Room CT chest without IV [id number] 15:54:00Interface, External Ris In - 07/15/2020 3:57 [...] Joya MDReport Verified Date/Time: 07/15/2020 15:54:45 ReadingLocation: [facility] B1 C013Y CT Body Reading Room Electronically signed by: GIO JOYA MD on07/15/2020 03:54 [facility], [facility], [id number] 10:19:00Unlisted Reason for Exam - Click Yes and Enter Reason Below->YesUnlisted Reason for Exam->Splenic embolism/infarct. Rule out proximal aortic source (ulcer, aneurysm) [facility] CENTERName: [facility] : 1950 Sex: MAddendum BeginsREPORT STATUS:A I agree with the nonvascular find ings with the following additional comment: There is diffusely decreased enhancement of the spleen with mild adjacent fat stranding consistent with history of splenic infarct. Signed: Gio Joya MDReport Verified Date/Time: 07/15/2020 10:19:44 Reading Location: [address] Body Reading RoomAddendum EndsFINAL REPORT [...] dictated regarding the non-vascular findings by the Stock Feeder Radiologist. Signed: Deandre Lujan MDReport Verified Date/Time: 07/14/2020 10:42:49 Reading Location: [place] [address] [address] Reading Room COMPREHENSIVE METABOLIC [id number] 05:29:00 Test Item Value Reference Range Interpretation [...] 1092) DATA TO CALCULA TE ESTIMATED GFR. Corporate Relations Manager ID - PENNY MPROTHROMBIN TIME/[id number] 04:56:00 Test Item Value Reference Range Interpretation [...] See_Comment H [A utomated message] The system [employer] generated this result transmitted ref erence range: 3.5 - 10 .5 K/L. The refe rence range was not u sed to interpret this result as normal/abnor mal. RBC (test code = 789-8) 4.78 See_Comment [Au tomated message] The system [employer] generated this result transmitted ref erence range: 4.63 - 6 .08 M/L. The refe rence range was not u sed to interpret this result as normal/abnor mal. MCHC (test code = 786-4) 33.1 See_Comment [A utomated message] The system [employer] generated this result transmitted ref erence range: [...] See_Comment [Aut omated message] 777-3) The system [employer] generated this result transmitted ref erence range: 150 - 45 0 K/CU MM. The referen ce range was not u sed to interpret this result as normal/abnor mal. MPV (test code = 8.4 fL 9.4-12.4 L 02639-9) nRBC (test code = 413) 0 See_Comment [Aut omated message] The system [employer] generated this result transmitted ref erence range: 0 - 0 /1 00 WBC. The refere nce range was not u sed to interpret this result as normal/abnor mal. Lab Interpretation (test Abnormal code = 21447-4) [facility] (HEMOGRAM ONLY)2020-07-15 04:25:00 Test Item Value Reference [...] code = 413) ECHO W CONTRAST & [id number] 14:46:21Ejection FractionSLEH ECHO HEARTLAB MKCKESSON CPACSInterface, External Ris In - 07/14/2020 2:46 PM C STTransthoracic Echocardiography Report (TTE) Demographics Patient Name LISA HERRON Date of Study 07/14/2020 OMARI Gender Male Visit Number [id number] Race Unknown Room Number 2442 Number Date of 1950 Referring DELGADO GURROLA Physician Age 69 year(s) District Administrative Assistant Odilia Marino School Bus Driver Sheryl James [facility] Interpreting Maya Durand, Physician Procedure Type of Study TTE procedure:2DECHO [...] LVOT CO: 6.6 l/min LVOT CI: 2.59 l/min/m^2CKaiser Fremont Medical CenterARS-COV2/RT-PCR ([facility] REF LABS)2020-07-14 12:56:00 Test Item Value Reference Range Interpretation Comments SARS-COV2/RT-PCR (test Negative Not Detected, Negative, code = 3042981) See external report for linked test SARS-COV-2 PERFORMING LAB [facility] (test code = 8851821) Negative result for this test determines that [...] 564(g) of the Act.Fact Sheet for Healthcare Providers:https://www.Gigaclear.Podimetrics/sites/default/files/product/documents/Fact_Shee j_JV_Hxdfrygzp_Efdw_GYRE-TnW-6.pdfFact Sheet for Healthcare Patients:https://www.Gigaclear.com/sites/default/files/product/ documents/Wqai_Eeozu_Bdfzesrn_Jziy_SQBN-GjL-1.pdfPerforming Laboratory:[facility], [place] [address]Cdlawgi C activity 2020-07-14 11:44:00 Test Item Value Reference Range Interpretation Comments Protein C Activity (test code = 89.0 % 70-130 12629-2) Lab Interpretation (test code = Normal 96987-3) [facility] CenterPROTEIN C [id number] 11:44:00 Test Item Value Reference Range Interpretation Comments PROTEIN C ACTIVITY (BEAKER) (test code 89.0 % 70.0-130.0 = 582) CTA [id number] 10:42:00Interface, External Ris In - 07/15/2020 10:21 AM CSTAddendum BeginsREPORT STATUS:A I agree with the nonvascular findings with the following additional comment: There is diffusely decreased enhancement of the spleen with mild adjacent fat stranding consistent with history of splenic infarct. Signed: Gio Joya MDReport Verified Date/Time: 07/15/2020 10:19:44 ReadingLocation: [facility] B1 C013Y CT Body Reading RoomAddendum [...] to the contrast sheet scanned in the Nanot[employer]ure system for the amount and route of [...] dictated regarding the non-vascular findings by the Stock Feeder Radiologist.Signed: Deandre Lujan [facility] Verified Date/Time: 07/14/2020 10:42:49 Reading Location: [place] [address] [address] Reading Room [facility] CenterManual [id number] 07:48:00 Test Item Value Reference Range Interpretation [...] = 3438) ALAINA (test code = ALAINA) Corporate Relations Manager ID - Melinda Smithshivani comments: Slide comments: Lab Interpretation Abnormal (test code = 84678-9) [facility] W/PLT COUNT & AUTO [id number] 07:48:00 Test Item Value Reference Range Interpretation [...] CONCENTRATION Adequate (CELLAVISION)(BEAKER) (test code = 3438) Corporate Relations Manager ID - Melinda Roman comments: Slide comments:Basic Metabolic [id number] 04:42:00 Test Item Value Reference Range Interpretation Comments Sodium (test code = 131 meq/L 136-145 L 2951-2) Potassium (test code 4.8 meq/L 3.5-5.1 = 2823-3) Chloride (test code = 97 meq/L 98-107 L 2075-0) CO2 (test code = 26 meq/L 22-29 2028-9) BUN (test code = 12 mg/dL 7-21 3094-0) Creatinine (test code 0.85 mg/dL 0.57-1.25 = 2160-0) Glucose (test code = 137 mg/dL 70-105 H 2345-7) Calcium (test code = 8.7 mg/dL 8.4-10.2 59839-5) EGFR (test code = [place] [address]-5) CLINICAL DATA T O CALCULATE ESTIMATED GFR. ALAINA (test code = ALAINA) Corporate Relations Manager ID - EDASI Lab Interpretation Abnormal (test code = 42310-5) [facility] CenterBASIC METABOLIC [id number] 04:42:00 Test Item Value Reference Range Interpretation [...] 1092) DATA TO CALCULA TE ESTIMATED GFR. Corporate Relations Manager ID - NDOJPOtcofuuou7044-51-16 04:40:00 Test Item Value Reference Range Interpretation Comments Magnesium (test code = 1.9 mg/dL 1.6-2.6 55157-7) ALAINA (test code = ALAINA) Corporate Relations Manager ID - EDASI Lab Interpretation (test Normal code = 76494-5) [facility] CenterPhosphorus2020-11-11 04:40:00 Test Item Value Reference Range Interpretation Comments Phosphorus (test code = 3.5 mg/dL 2.3-4.7 2777-1) ALAINA (test code = ALAINA) Corporate Relations Manager ID - EDASI Lab Interpretation (test Normal code = 51709-2) [facility] CenterMAGNESIUM2020-11-11 04:40:00 Test Item Value Reference Range Interpretation Comments MAGNESIUM (BEAKER) (test code = 1.9 mg/dL 1.6-2.6 627) Corporate Relations Manager ID - [id number] 04:40:00 Test Item Value Reference Range Interpretation Comments PHOSPHORUS (BEAKER) (test code = 3.5 mg/dL 2.3-4.7 604) Corporate Relations Manager ID - [id number]-GVSDKVM0582-20-11 00:00:00Ordered by an unspecified provider.[facility]
[2020-12-07] MEDS ORDERED: ONDANSETRON 4 MG/2 ML VIAL IV PRN (12:52)
[2020-12-07 12:53] VITALS: BMI 35.7
[2020-12-07 13:46] LABS: Absolute Lymphocytes (CBC) 1.3 K/uL (0.7-4.9); Basophils % 0.7 % (0-1.3); Lymphocytes % 31.3 % (15.3-44.8); RBC Red Blood Cell Count 4.46 M/uL (4.33-5.43)
[2020-12-07 13:59] LABS: Protime INR 1.55
[2020-12-07 14:15] LABS: Albumin 2.7 g/dL (3.4-5.0); Bilirubin Total 1.9 mg/dL (0.2-1.0); Folic Acid, (Folate) 12.7 ng/mL (3.1-17.5); Potassium 4.9 mmol/L (3.5-5.1); Protein, Total 7.1 g/dL (6.4-8.2)
[2020-12-07 14:43] LABS: Thyroid Stimulating Hormone 8.19 uIU/mL (0.360-3.740)
[2020-12-07] MEDS: NA CHLORIDE 0.9% 1,000 ML IV SCH (16:44)
--- NOTE | 2020-12-07 16:54 | RAD REPORT ---
EXAM DESCRIPTION: RAD - Chest Single View - 12/07/2020 3:24 pm CLINICAL HISTORY: pleural effusion Chest pain. COMPARISON: Chest Pa And Lat (2 Views) dated 11/16/2020; Chest Single View dated 11/15/2020; Chest Sin gle View dated 07/13/2020 FINDINGS: Portable technique limits examination quality. Extensive bilateral interstitial lung opacities show mild improvement since the prior study. The hear t is normal in size. Trace right pleural fluid. IMPRESSION: Mild improvement in lung aeration since comparative study.
[2020-12-07] MEDS ORDERED: AMIODARONE HCL 200 MG TAB PO ONE (18:37)
[2020-12-07] MEDS ORDERED: DIPHENHYDRAMINE 50 MG/ML VIAL IV ONE (18:39)
[2020-12-07] MEDS ORDERED: NA CHLORIDE 0.9% 250 ML IV ONE (18:40)
[2020-12-07] MEDS ORDERED: DIGOXIN 0.25 MG/ML AMP IV ONE (18:43)
[2020-12-07] MEDS: ACETAMINOPHEN 500 MG TAB PO PRN (19:10)
[2020-12-07] MEDS: APIXABAN 5 MG TABLET PO SCH (20:30)
[2020-12-07] MEDS ORDERED: DIPHENHYDRAMINE 25 MG TAB/CAP PO ONE (23:48)
[2020-12-08] MEDS: NA CHLORIDE 0.9% 1,000 ML IV SCH ×3 (02:20→18:07)
[2020-12-08] MEDS ORDERED: METOPROLOL TARTRATE 5 MG/5 ML INJ IV ONE (02:35)
[2020-12-08 04:51] LABS: Absolute Lymphocytes (CBC) 1.5 K/uL (0.7-4.9); Basophils % 0.9 % (0-1.3); Hematocrit 37.9 % (39.6-49.0); Lymphocytes % 60.3 % (15.3-44.8); MPV 9.9 fL (7.6-11.3); RBC Red Blood Cell Count 3.98 M/uL (4.33-5.43)
[2020-12-08] MEDS: AMIODARONE HCL 200 MG TAB PO SCH ×2 (05:10→08:17)
[2020-12-08 06:59] LABS: Albumin 2.5 g/dL (3.4-5.0); Bilirubin Direct 0.7 mg/dL (0-0.2); Bilirubin Total 1.6 mg/dL (0.2-1.0); Ferritin 734.3 ng/mL (26-388); Potassium 4.5 mmol/L (3.5-5.1); Prealbumin 14.1 mg/dL (20-40); Protein, Total 6.6 g/dL (6.4-8.2)
[2020-12-08] MEDS: TORSEMIDE 20 MG TAB PO SCH (08:16)
[2020-12-08] MEDS: APIXABAN 5 MG TABLET PO SCH ×2 (08:16→20:29)
[2020-12-08] MEDS: allopurinoL 300 MG TAB PO SCH (08:17)
--- NOTE | 2020-12-08 08:39 | P.HP ---
Certification for Inpatient Patient admitted to: Inpatient With expected LOS: >2 Midnights Patient will require the following post-hospital care: None Practitioner: I am a practitioner with admitting privileges, knowledge of patient current condition, hospital course, and medical plan of care. Services: Services provided to patient in accordance with Admission requirements found in Title 42 Section 412.3 of the Code of Federal Regulations Patient History Date of Service: 12/07/20 Reason for admission: GENERALIZED WEAKNESS; SHORTNESS OF BREATH; History of Present Illness: PATIENT IS A 70-YEAR-OLD GENTLEMAN WHO RECENTLY WAS ADMITTED TO THE HOSPITAL WITH ATRIAL FIBRILLATION. PATIENT ALSO HAS A HISTORY OF LUNG CANCER WITH METASTASIS. PATIENT HAS BEEN GETTING FOLLOWED BY OUTPATIENT ONCOLOGY. PATIENT WAS FOLLOWING UP WITH ONCOLOGY IN BECAUSE HE WAS SO WEAK AND SHORT OF BREATH. SHE CALLED ME FOR ADMISSION. WHEN PATIENT ARRIVED HE WAS QUIET AND NOT REALLY SAYING MUCH. I TRY TO TALK TO HIM ABOUT HIS CURRENT CLINICAL STATUS A JUST HOME WHEN HE DOES NOT FEEL WELL. HE HAS BEEN SHORT OF BREATH. WILL GO AHEAD AND GET HIM ADMITTED TO THE HOSPITAL AND DO LABS THAT WERE CHEMO INCLUDING CHEST X-RAY. HE IS A LITTLE TACHYCARDIC AND WILL GET HIM ON TELEMETRY AND SEE WHAT HIS RHYTHM AND HEART RATE IS DOING. HE WAS STARTED ON AMIODARONE WELL. HIS APPETITE HAS BEEN DIMINISHED SINCE THEN. MAY NEED TO CHANGE THE ANTI ARRHYTHMIC THEN WILL GET CARDIOLOGY CONSULTATION. LAST ECHOCARDIOGRAM REVEALED AN EJECTION FRACTION OF 53% WITH LVH. OTHERWISE NO ABNORMALITIES. THERE COULD ALSO BE A COMPONENT OF DEPRESSION. WILL REASSESS HIM IN THE MORNING. 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 Lives by himself. - Family History Father Family History: Reviewed- Non-Contributory - Social History Smoking Status: Former smoker Alcohol use: Yes CD- Drugs: No Caffeine use: Yes Place of Residence: Home Review of Systems 10-point ROS is otherwise unremarkable Physical Examination - Vital Signs Temperature: 97.7 F Blood Pressure: 128/69 Pulse: 109 Respirations: 18 Pulse Ox (%): 92 - Physical Exam General: Alert, In no apparent distress, Oriented x3 HEENT: Atraumatic, PERRLA, Mucous membr. moist/pink, EOMI, Sclerae nonicteric Neck: Supple, 2+ carotid pulse no bruit, No LAD, Without JVD or thyroid abnormality Respiratory: Diminished, Crackles/rales Cardiovascular: Irregular heart rate/rhythm, Systolic murmur Gastrointestinal: Normal bowel sounds, Soft and benign, Non-distended, No tenderness Musculoskeletal: No clubbing, No swelling, No tenderness Integumentary: No rashes Neurological: Normal gait, Normal speech, Normal strength at 5/5 x4 extr, Normal tone, Sensation intact, Cranial nerves 3-12 intact, Normal affect Lymphatics: No axilla or inguinal lymphadenopathy - Studies Laboratory Data (last 24 hrs) 12/08/20 04:04: Sodium 132 L, Potassium 4.5, BUN 25 H, Creatinine 1.05, Glucose 158 H, Total Bilirubin 1.6 H, AST 15, ALT 43, Alkaline Phosphatase 99 12/08/20 04:04: WBC 2.40 L D, Hgb 13.0 L, Hct 37.9 L, Plt Count 105 L 12/07/20 13:14: Sodium 131 L, Potassium 4.9, BUN 28 H, Creatinine 1.20, Glucose 171 H, Total Bilirubin 1.9 H, AST 16, ALT 54, Alkaline Phosphatase 109 12/07/20 13:14: PT 17.9 H, INR 1.55, APTT 29.8 12/07/20 13:14: WBC 4.00 L, Hgb 14.4, Hct 43.0, Plt Count 129 L Assessment & Plan - Problems (Diagnosis) (1) Shortness of breath Current Visit: Yes Status: Acute (2) Generalized weakness Current Visit: Yes Status: Acute (3) History of lung cancer Current Visit: Yes Status: Acute (4) Atrial fibrillation Current Visit: Yes Status: Acute (5) Depression Current Visit: Yes Status: Acute (6) Malnourished Current Visit: Yes Status: Acute - Plan PLAN: 1. MONITOR CARDIAC STATUS CLOSELY; PLACE ON TELEMETRY 2. GENTLE IV FLUIDS 3. MONITOR NUTRITIONAL STATUS 4. NUTRITIONAL SUPPLEMENTATION 5. ANTIDEPRESSANT 6. CONTINUE ANTI ARRHYTHMIC T'S IN CARDIOLOGY CONSULTATION 7. CHECK CORTISOL LEVEL, THYROID LEVEL, B12, FOLIC ACID, IRON LEVELS 8. GI AND DVT PROPHYLAXIS Discharge Plan: Home Plan to discharge in: Greater than 2 days - Advance Directives Does patient have a Living Will: No Does patient have a Durable POA for Healthcare: No - Code Status/Comfort Care Code Status Assessed: Yes Code Status: Full Code Critical Care: No Time Spent Managing PTS Care (In Minutes): 45
--- NOTE | 2020-12-08 08:40 | P.PN ---
Date of Service: 12/07/20 WAS NOTIFIED BY FOR NURSES THAT PATIENT'S TELEMETRY READINGS HAVE BEEN SHOWING HEART RATES OF 140 TO 160S. WE WENT AHEAD AND RESUMED AMIODARONE. MONITOR HEART RHYTHM AND HEART RATE. CARDIOLOGY CONSULTATION. EKG PENDING. PATIENT MAY NEED INPATIENT HOSPITALIZATION AND MAY CHANGE THIS TODAY.
--- NOTE | 2020-12-08 08:48 | P.PN ---
Subjective Date of Service: 12/08/20 Patient very been elevated. Spoke with Cardiology and change medication to sotalol. Continue anti coagulation. Hopefully symptoms start improving & weigh gets controlled. Most likely etiology of his symptoms. Thyroid studies and cortisol studies as well as nutritional status are stable. Speak with Oncology as well to keep them updated. Review of Systems 10-point ROS is otherwise unremarkable Physical Examination - Vital Signs Temperature: 97.7 F Blood Pressure: 128/69 Pulse: 109 Respirations: 18 Pulse Ox (%): 92 - Physical Exam General: Alert, In no apparent distress, Oriented x3 Respiratory: Clear to auscultation bilaterally, Normal air movement Cardiovascular: Regular rate/rhythm, Normal S1 S2, No murmurs Gastrointestinal: Normal bowel sounds, Soft and benign, Non-distended, No tend erness Musculoskeletal: No clubbing, No swelling, No tenderness Neurological: Sensation intact, Cranial nerves 3-12 intact - Studies Laboratory Data (last 24 hrs) 12/08/20 04:04: Sodium 132 L, Potassium 4.5, BUN 25 H, Creatinine 1.05, Glucose 158 H, Total Bilirubin 1.6 H, AST 15, ALT 43, Alkaline Phosphatase 99 12/08/20 04:04: WBC 2.40 L D, Hgb 13.0 L, Hct 37.9 L, Plt Count 105 L 12/07/20 13:14: Sodium 131 L, Potassium 4.9, BUN 28 H, Creatinine 1.20, Glucose 171 H, Total Bilirubin 1.9 H, AST 16, ALT 54, Alkaline Phosphatase 109 12/07/20 13:14: PT 17.9 H, INR 1.55, APTT 29.8 12/07/20 13:14: WBC 4.00 L, Hgb 14.4, Hct 43.0, Plt Count 129 L Medications List Reviewed: Yes Assessment & Plan - Problems (Diagnosis) (1) Shortness of breath Current Visit: Yes Status: Acute (2) Generalized weakness Current Visit: Yes Status: Acute (3) History of lung cancer Current Visit: Yes Status: Acute (4) Atrial fibrillation Current Visit: Yes Status: Acute (5) Depression Current Visit: Yes Status: Acute (6) Malnourished Current Visit: Yes Status: Acute - Plan PLAN: 1. changed medications is sotalol/continue anti coagulation 2. Monitor on telemetry closely 3. Continue IV hydration 4. Nutritional supplementation with Ensure 5. Continue antidepressant 6. GI and DVT prophylaxis Discharge Plan: Home Plan to discharge in: Greater than 2 days - Advance Directives Does patient have a Living Will: No Does patient have a Durable POA for Healthcare: No - Code Status/Comfort Care Code Status: Full Code Critical Care: No Time Spent Managing PTS Care (In Minutes): 35
[2020-12-08] MEDS: HOME MED 1 EA UNK (Levothyroxine Sodium [Levothyroxine] 175 MCG Capsule) PO SCH (09:00)
[2020-12-08] MEDS ORDERED: LORATADINE 10 MG TAB PO ONE (09:56)
[2020-12-08] MEDS: METOPROLOL TARTRATE 5 MG/5 ML INJ IV SCH ×3 (10:05→10:17)
[2020-12-08] MEDS: ACETAMINOPHEN 500 MG TAB PO PRN ×2 (10:16→18:05)
[2020-12-08 10:55] LABS: Platelet Estimate DECR
[2020-12-08 10:56] LABS: Blood Morphology Comment NOT SEEN (NOT SEEN)
[2020-12-08] MEDS ORDERED: SOTALOL HCL 80 MG TAB PO ONE (11:33)
[2020-12-08] MEDS ORDERED: LOPERAMIDE HCL 2 MG CAPSULE PO PRN (17:14)
[2020-12-08] MEDS: SOTALOL HCL 80 MG TAB PO SCH (18:05)
[2020-12-08] MEDS ORDERED: DIPHENHYDRAMINE 25 MG TAB/CAP PO ONE (23:56)
[2020-12-09] MEDS: NA CHLORIDE 0.9% 1,000 ML IV SCH ×2 (06:01→18:20)
[2020-12-09] MEDS: SOTALOL HCL 80 MG TAB PO SCH ×2 (06:02→17:41)
[2020-12-09 06:35] VITALS: O2SAT 96
[2020-12-09] MEDS: allopurinoL 300 MG TAB PO SCH (08:02)
[2020-12-09] MEDS: LORATADINE 10 MG TAB PO PRN (08:03)
[2020-12-09] MEDS: ACETAMINOPHEN 500 MG TAB PO PRN ×2 (08:03→21:09)
[2020-12-09] MEDS: TORSEMIDE 20 MG TAB PO SCH (08:03)
[2020-12-09] MEDS: APIXABAN 5 MG TABLET PO SCH ×2 (08:04→21:10)
--- NOTE | 2020-12-09 08:54 | EKG ---
Test Date: 2020-12-07 Test Time: 21:57:04 Industrial Hygenist: JAIDEN MEASUREMENT RESULTS: Intervals: Rate: 151 IN: QRSD: 90 QT: 272 QTc: 431 [place]: P: IN: QRS: 1 T: 136 INTERPRETIVE STATEMENTS: Atrial fibrillation with rapid ventricular response Abnormal QRS-T angle, consider primary T wave abnormality Abnormal ECG Compared to ECG 11/15/2020 13:40:11 T-wave abnormality now present Atrial flutter no longer present Electronically Signed On 12-09-20 08:50:34 CDT by Gabe Pizarro
[2020-12-09] MEDS: HOME MED 1 EA UNK (Levothyroxine Sodium [Levothyroxine] 175 MCG Capsule) PO SCH (09:00)
[2020-12-09] MEDS ORDERED: CYANOCOBALAMIN 1000MCG/ML INJ IM ONE (10:38)
[2020-12-09] MEDS ORDERED: DIPHENHYDRAMINE 25 MG TAB/CAP PO ONE (22:29)
[2020-12-10] MEDS: SOTALOL HCL 80 MG TAB PO SCH (05:40)
[2020-12-10] MEDS: LORATADINE 10 MG TAB PO PRN (06:23)
[2020-12-10] MEDS: ACETAMINOPHEN 500 MG TAB PO PRN (06:23)
[2020-12-10] MEDS ORDERED: LEVOTHYROXINE SOD 0.125 MG TAB PO SCH (06:30)
[2020-12-10] MEDS ORDERED: LEVOTHYROXINE SOD 0.05 MG TABLET PO SCH (06:30)
[2020-12-10] MEDS ORDERED: LEVOTHYROXINE SOD 0.075 MG TAB PO SCH (06:30)
[2020-12-10] MEDS: NA CHLORIDE 0.9% 1,000 ML IV SCH (07:40)
[2020-12-10] MEDS ORDERED: SOTALOL HCL 80 MG TAB PO ONE (07:42)
[2020-12-10] MEDS: APIXABAN 5 MG TABLET PO SCH (08:42)
[2020-12-10] MEDS: allopurinoL 300 MG TAB PO SCH (08:42)
[2020-12-10] MEDS: TORSEMIDE 20 MG TAB PO SCH (08:42)
[2020-12-10 13:52] VITALS: BP 101/61; TEMP 98.3
[2020-12-10] MEDS ORDERED: SOTALOL HCL 80 MG TAB PO SCH (18:00)
--- NOTE | 2020-12-10 20:14 | CON ---
Date of Consultation: 12/08/2020 Reason For Consultation: Recurrent atrial fibrillation. History Of Present Illness: Mr. Chapman is a patient who is a 70-year-old male, has been seen by Dr Altagracia Tabares, my partner recently. He has a history of atrial fibrillation that is paroxysmal. Has a hi story of lung cancer with metastatic disease. He is being followed up with Oncology, Dr. Montalvo on nancy motherapy. Came in with weakness, shortness of breath, failure to thrive. He was found to have atri al fibrillation with rapid ventricular response. He was started on amiodarone, but has been having a very low appetite since then. He has a known ejection fraction of 53%. He did not have any chest p ain. Denied PND, orthopnea, pedal edema, has palpitation, but no syncope. Denied any fever or chill s. Allergies: NONE. Medications: At home include Eliquis 5 mg b.i.d., Aldactone 50 mg daily, Demadex 20 mg daily, metopr olol 50 mg b.i.d., and he takes allopurinol 300 mg daily, torsemide 20 mg daily. Review of Systems: Negative. Social History: Negative. Family History: Noncontributory. Physical Examination: Vital Signs: Stable, afebrile, atrial fibrillation rate of 120. HEENT: Negative. Neck: Supple. No bruit. Chest: Clear. Cardiac: Exam revealed atrial fibrillation. Abdomen: Benign. Extremities: Revealed no clubbing, cyanosis, or edema. Diagnostic Data: Showed a glucose of 158, otherwise he was fairly unremarkable. His white count was low at 2.4. His INR was 1.55. His hemoglobin was 14. Impression And Plan: 1.Chronic anticoagulation therapy. 2.Paroxysmal atrial fibrillation, unresponsive to beta-blockers. He is intolerant to amiodarone. I will switch him to sotalol 80 mg b.i.d. Continue the Eliquis. 3.His other problems include splenic infarct, hypothyroidism, history of hernia repair, stage II squ amous cell carcinoma, on chemotherapy. He also has a history of gout, hypothyroidism. Has had a [facility] echocardiogram recently. I would not repeat any cardiac studies. I put him on sotalol 80 b.i.d. See how he does. If that does not work, we will consider cardioversion. NB/MODL Voice ID: [id number] Report ID: [id number]
--- NOTE | 2020-12-10 20:20 | PN ---
Date of Progress Note: 12/09/2020 Subjective: Mr. Chapman was admitted on 12/07/2020 with rapid atrial fibrillation, intolerant to be ta-igor, intolerant to amiodarone. He was placed on sotalol 80 mg 1 p.o. b.i.d. yesterday. He is on Eliquis 5 mg b.i.d. On 12/10/2019, he converted to sinus rhythm. Plan: He is feeling better. I would not repeat any cardiac studies now. His last ejection fraction was 53%. He is still undergoing chemotherapy for stage II lung cancer by Dr. Montalvo. From my standpo int, he can go home whenever it is okay with him and Dr. Benavidez, and we will see him in the office in t he next 2 weeks. AGUSTINA/LESA Voice ID: [id number] Report ID: [id number]
[2020-12-11] MEDS ORDERED: SOTALOL HCL 80 MG TAB PO SCH (06:00)
--- NOTE | 2020-12-15 23:57 | P.PN ---
Date of Service: 12/09/20 Subjective Patient is clinically improving. Who heart rate has somewhat improved. Continue adjusting medications. Add sotalol to patient's regimen and will monitor patient's heart rate closely. Review of Systems 10-point ROS is otherwise unremarkable Physical Examination - Vital Signs Reviewed - Physical Exam General: Alert, In no apparent distress, Oriented x3 Respiratory: Clear to auscultation bilaterally, Normal air movement Cardiovascular: Regular rate/rhythm, Normal S1 S2, No murmurs Gastrointestinal: Normal bowel sounds, Soft and benign, Non-distended, No tenderness Musculoskeletal: No clubbing, No swelling, No tenderness Neurological: Sensation intact, Cranial nerves 3-12 intact Assessment & Plan - Problems (Diagnosis) (1) Shortness of breath Current Visit: Yes Status: Acute (2) Generalized weakness Current Visit: Yes Status: Acute (3) History of lung cancer Current Visit: Yes Status: Acute (4) Atrial fibrillation Current Visit: Yes Status: Acute (5) Depression Current Visit: Yes Status: Acute (6) Malnourished Current Visit: Yes Status: Acute - Plan PLAN: 1. changed medications is sotalol/continue anti coagulation; monitor heart rate closely 2. Monitor on telemetry closely 3. Continue IV hydration 4. Nutritional supplementation with Ensure 5. Continue antidepressant 6. GI and DVT prophylaxis
--- NOTE | 2020-12-15 23:58 | P.DS ---
Discharge Date: 12/10/20 Disposition: ROUTINE DISCHARGE Discharge Condition: GOOD Reason for Admission: GENERALIZED WEAKNESS; SHORTNESS OF BREATH; Consultations: Cardiology - Problems (1) Shortness of breath Status: Acute (2) Generalized weakness Status: Acute (3) History of lung cancer Status: Acute (4) Atrial fibrillation Status: Acute (5) Depression Status: Acute (6) Malnourished Status: Acute Brief History of Present Illness: PATIENT IS A 70-YEAR-OLD GENTLEMAN WHO RECENTLY WAS ADMITTED TO THE HOSPITAL WITH ATRIAL FIBRILLATION. PATIENT ALSO HAS A HISTORY OF LUNG CANCER WITH METASTASIS. PATIENT HAS BEEN GETTING FOLLOWED BY OUTPATIENT ONCOLOGY. PATIENT WAS FOLLOWING UP WITH ONCOLOGY IN BECAUSE HE WAS SO WEAK AND SHORT OF BREATH. SHE CALLED ME FOR ADMISSION. WHEN PATIENT ARRIVED HE WAS QUIET AND NOT REALLY SAYING MUCH. I TRY TO TALK TO HIM ABOUT HIS CURRENT CLINICAL STATUS A JUST HOME WHEN HE DOES NOT FEEL WELL. HE HAS BEEN SHORT OF BREATH. WILL GO AHEAD AND GET HIM ADMITTED TO THE HOSPITAL AND DO LABS THAT WERE CHEMO INCLUDING CHEST X-RAY. HE IS A LITTLE TACHYCARDIC AND WILL GET HIM ON TELEMETRY AND SEE WHAT HIS RHYTHM AND HEART RATE IS DOING. HE WAS STARTED ON AMIODARONE WELL. HIS APPETITE HAS BEEN DIMINISHED SINCE THEN. MAY NEED TO CHANGE THE ANTI ARRHYTHMIC THEN WILL GET CARDIOLOGY CONSULTATION. LAST ECHOCARDIOGRAM REVEALED AN EJECTION FRACTION OF 53% WITH LVH. OTHERWISE NO ABNORMALITIES. THERE COULD ALSO BE A COMPONENT OF DEPRESSION. WILL REASSESS HIM IN THE MORNING. Hospital Course: Patient has done well during hospital stay. Patients symptoms are much better. At this time, patient's heart rate has stabilized on sotalol. Plan is to discharge patient home without patient followup. Follow with oncology as well as cardiology in 1-2 weeks. Continue with anticoagulation as well. Vital Signs/Physical Exam: Temp Pulse Resp BP Pulse Ox 98.3 F 103 H 18 101/61 95 12/10/20 12:00 12/10/20 12:00 12/10/20 12:00 12/10/20 12:00 12/10/20 12:00 General: Alert, In no apparent distress, Oriented x3 Laboratory Data at Discharge: WBC 2.40 K/uL (4.3-10.9) L D 12/08/20 04:04 Hgb 13.0 g/dL (13.6-17.9) L 12/08/20 04:04 Hct 37.9 % (39.6-49.0) L 12/08/20 04:04 Plt Count 105 K/uL (152-406) L 12/08/20 04:04 PT 17.9 SECONDS (9.5-12.5) H 12/07/20 13:14 INR 1.55 12/07/20 13:14 APTT 29.8 SECONDS (24.3-36.9) 12/07/20 13:14 Sodium 132 mmol/L (136-145) L 12/08/20 04:04 Potassium 4.5 mmol/L (3.5-5.1) 12/08/20 04:04 BUN 25 mg/dL (7-18) H 12/08/20 04:04 Creatinine 1.05 mg/dL (0.55-1.3) 12/08/20 04:04 Glucose 158 mg/dL (74-106) H 12/08/20 04:04 Total Bilirubin 1.6 mg/dL (0.2-1.0) H 12/08/20 04:04 AST 15 U/L (15-37) 12/08/20 04:04 ALT 43 U/L (12-78) 12/08/20 04:04 Alkaline Phosphatase 99 U/L (45-117) 12/08/20 04:04 Home Medications: Allopurinol 300 mg PO DAILY 11/15/20 Apixaban [Eliquis] 5 mg PO BID 11/15/20 Spironolactone [Aldactone] 50 mg PO DAILY 11/15/20 Torsemide [Demadex*] 20 mg PO DAILY 11/15/20 Levothyroxine Sodium [Levothyroxine] 175 mcg PO DAILY #30 capsule 11/16/20 Sotalol HCl [Betapace*] 80 mg PO 1800 #30 tab 12/10/20 Sotalol HCl [Betapace*] 160 mg PO [id number] #60 tab 12/10/20 New Medications: Sotalol HCl [Betapace*] 160 mg PO [id number] #60 tab Sotalol HCl [Betapace*] 80 mg PO 1800 #30 tab Physician Discharge Instructions: OK TO DC IV AND DC HOME FOLLOW-UP WITH PRIMARY CARE PROVIDER IN 1-2 WEEKS FOLLOW-UP WITH CARDIOLOGY IN 1-2 WEEKS FOLLOW-UP WITH ONCOLOGY IN 1 WEEK RETURN TO THE ER IF symptoms worsens CALL or TEXT DR. REESE AT [phone] IF ANY QUESTIONS REGARDING HOSPITAL STAY. PLEASE CALL THE FLOOR AT [phone] IF ANY MEDICATION OR NURSING QUESTIONS. Diet: AHA Activity: Fall precautions Followup: Gabe Pizarro MD [ACTIVE - CAN ADMIT] - Time spent managing pt's care (in minutes): 35
== END 2020-12-10 16:15 | disposition home or self-care (01) | DRG 309 ==
LOC: 2ND 12:00 → OBSVTOIN 12-08 12:14
PROVIDERS: ADMIT Hospitalist; ATTEND Hospitalist
DX: I48.0 Paroxysmal atrial fibrillation (principal); E44.0 Moderate protein-calorie malnutrition; C61 Malignant neoplasm of prostate; F32.9 Major depressive disorder, single episode, unspecified; E03.9 Hypothyroidism, unspecified; R00.0 Tachycardia, unspecified; Z68.35 Body mass index [BMI] 35.0-35.9, adult; Z85.118 Personal history of other malignant neoplasm of bronchus and lung; Z79.01 Long term (current) use of anticoagulants; Z79.890 Hormone replacement therapy; Z87.891 Personal history of nicotine dependence; Z79.899 Other long term (current) drug therapy; Z60.2 Problems related to living alone; Z20.822 Contact with and (suspected) exposure to COVID-19
CPT/HCPCS: 36415; 71045; 80053; 82140; 82248; 82533; 82607; 82728; 82746; 82947; 83540; 84134; 84439; 84443; 84466; 85025; 85610; 85652; 85730; 86140; 93005; G0378; G0379; J1200; J3420; J7030; J7050

== ENCOUNTER 2021-03-11 14:45 | Emergency (ER) | payer OTHER ==
--- OUTSIDE RECORDS SUMMARY | 2021-03-11 14:49 | XMS REPORT | Continuity of Care Document ---
:1950 Author Organization [facility] t Address [address] [place] [address] Care Team Providers Name Role Phone CHRISTO KOCH Attending Clinician Unavailable Christo Koch MD Attending Clinician Unavailable Anthony Crowley MD Attending Clinician KEVIN MCDANIEL Attending Clinician Unavailable Kevin Mcdaniel MD Attending Clinician Shyanne Mcclain MD Attending Clinician CHRISTO KOCH Admitting Clinician Unavailable KEVIN MCDANIEL Admitting Clinician Unavailable Payers Payer Name Policy Type Policy Effective Date Expiration Date Sour ce Number AETNA - MEDICARE [id number] [address] [facility] u[facility] MGD CAREAETNA 00:00:00 - Medical MEDICARE HMO Center [id number] [phone] [address]Imoq Contracted Problems Condition Condition Condition Status Onset Resolution Last Treating Co mments Source Name Details Category Date Date Treatment Clinician Date Lung Lung Disease Active 2019-[address] [facility] [address] nodule nodule 09-19kes - 00:00: Medical 00 [place] Splenic Splenic Disease Active 2019-[address] infarct infarct 09-13 - :: Medical 00 [place] Allergies, Adverse Reactions, Alerts This patient has no known allergies or adverse reactions. Social History Social Habit Start Date Stop Date Quantity Comments Source Sex Assigned At [facility] Cigarettes smoked 2020-07-20 2020-07-20 [facility] - current (pack per 00:00:00 00:00:00 Medical Center day) - Reported Cigarette 2020-07-20 2020-07-[address] [facility] - pack-years 00:00:00 00:00:00 [facility] Tobacco use and 2020-07-20 2020-07-[address] [facility] kes - exposure 00:00:00 00:00:00 [facility] Alcohol intake 2020-07-20 2020-07-[address] [facility] - 00:00:00 00:00:00 (finding) [facility] Alcohol Comment 2020-07-19 2020-07-19 usually 3-[address] [facility] [facility] - 00:00:00 00:00:00 beers/week but Medical Ce nter non currently History of tobacco 2020-07-13 [facility] - use 00:[facility]:00 [facility] Smoking Status Start Date Stop Date Source Former smoker 2020-07-20 00:00:00 2020-07-20 00:00:00 [facility] - [facility] Medications Ordered Filled Start Stop Current Ordering Indication Dosage Frequency Signature Comments Components Source Medication Medication Date Date Medication? Clinician (SIG) Name Name apixaban 2019-09- No Take [address] [facility] (ELIQUIS) 5 1-18 12-25 tablets Luke s - mg Tab 00:00: 23:59 (10 mg Medical tablet 00 :00 total) by [place] mouth 2 (two) times daily for 7 days, THEN 1 tablet (5 mg total) 2 (two) times daily for 30 days. tadalafil 2019-09 Yes QD Take by S t (CIALIS 1-17 [facility] - ORAL) 13:03: daily. Medical 18 [place] acetaminoph 2019-09 Yes 2{tbl} QD Take [address] [facility] (TYLENOL 1-17 tablets by Candi montoya - ARTHRITIS 13:03: mouth Medical ORAL) 18 daily. [place] budesonide- 2019-09- No 2{puff} Q.5D Inhale [address] formoteroL -12 11-12 puffs by Dino s - (SYMBICORT) 00:00: 23:59 mouth via Medical 160-4.5 00 :00 inhaler 2 [place] mcg/actuati (two) on inhaler times daily. tiotropium [...] every Medic al 50 MG 00 morning. [place] tablet testosteron 2019-09 Yes INJECT [address] [facility] [address] [facility] cypionate 0-12 ML ONCE [facility] - (DEPOTESTOT 00:00: EVERY 4 Med ical ERONE 00 WEEKS [place] CYPIONATE) 200 mg/mL injection torsemide Yes 20mg QD Take [address] (DEMADEX) 9-24 by mouth [facility] - 20 MG 00:00: every Medical tablet 00 morning. [place] levothyroxi Yes 200ug QD Take 200 C [...] Source Systolic blood 2020-07-20 12:15:00 125 mm[Hg] [facility] Diastolic blood 2020-07-20 12:15:00 70 mm[Hg] S [facility] Heart rate 2020-07-20 12:15:00 88 /min [facility] Respiratory rate 2020-07-20 12:15:00 20 /min [facility] Oxygen saturation in 2020-07-20 12:15:00 97 /min [facility] - Arterial blood by Medical Ce nter Pulse oximetry Body temperature 2020-07-20 11:00:00 36.67 Radha [facility] Body height 2020-07-20 05:45:00 190.5 cm [facility] Body weight 2020-07-20 05:45:00 123.197 kg [facility] BMI 2020-07-20 05:45:00 33.95 kg/m2 [facility] Procedures Procedure Date / Time Performed Performing Clinician Sourc e XR CHEST 1 VIEW 2020-07-20 11:19:00 Zee, Ali [facility] PORTABLE/BEDSIDE Medical Center REPORT OF PROCEDURE - 2020-07-20 10:58:17 [facility] 2020-07-20 10:36:31 Solange Koch [facility] FINE NEEDLE ASPIRATE BY 2020-07-20 10:36:00 Solange Koch [facility] EBUS FNA REQUEST 2020-07-20 10:31:49 Solange Koch [facility] FINE NEEDLE ASPIRATE BY 2020-07-20 10:31:00 Solange Koch [facility] EBUS FNA REQUEST 2020-07-20 10:23:39 Solange Koch [facility] FINE NEEDLE ASPIRATE BY 2020-07-20 10:23:00 Solange Koch [facility] EBUS FNA REQUEST 2020-07-20 10:16:43 Solange Koch [facility] FINE NEEDLE ASPIRATE BY 2020-07-20 10:16:00 Solange Koch [facility] FUNGUS CULTURE + SMEAR 2020-07-20 10:05:03 Solange Koch [facility] BRONCHIAL CULTURE + GRAM 2020-07-20 10:05:03 Solange Koch [facility] AF[facility] CULTURE + SMEAR 2020-07-20 10:05:03 Solange Koch [facility] - (NON-SPUTUM) [facility] SPIN/CONCENTRATION CHARGE 2020-07-20 10:05:00 Solange Koch [facility] [place] FLUORO NON-SPECIFIC UP 2020-07-20 10:00:00 Solange Koch [facility] - TO 1 HOUR [facility] FUNGUS CULTURE + SMEAR 2020-07-20 09:41:34 Solange Koch [facility] SURGICALLY OBTAINED 2020-07-20 09:41:[facility]AM STAIN Medical [facility] CULTURE + SMEAR 2020-07-20 09:41:34 Solange Kochul [facility] uk - (NON-SPUTUM) [facility] MISCELLANEOUS LAB ORDER 2020-07-20 09:41:00 [facility] 2020-07-20 09:40:00 Solange Koch [facility] FINE NEEDLE ASPIRATE 2020-07-20 09:13:09 [facility] FINE NEEDLE ASPIRATION BY 2020-07-20 09:13:00 Solange Koch [facility] FUNGUS CULTURE + SMEAR 2020-07-20 08:59:37 [facility] 2020-07-20 08:59:37 [facility] + GRAM STAIN Medical [facility] CULTURE + SMEAR 2020-07-20 08:59:37 [facility] MISCELLANEOUS LAB ORDER 2020-07-20 08:59:00 Solange Koch [facility] FINE NEEDLE ASPIRATE 2020-07-20 08:55:[facility] FINE NEEDLE ASPIRATION BY 2020-07-20 08:55:00 Solange Koch [facility] BRONCHOSCOPY,ENDOBRONCHIA 2020-07-20 07:34:[address] [facility] ULTRASOUND (EBUS) Medical Cent er TRANSTRACH/ TRANSBRONCH SAMPLING BRONCHOSCOPY,SUPER D 2020-07-20 07:34:00 Solange Koch [facility] PROCEDURE W/ C-ARM 2020-07-20 07:34[facility]00 [facility],TRANSBRONCHI 2020-07-20 07:34:[address] [facility] NEEDLE ASPIRATION [facility] ter BIOPSY BRONCHOSCOPY,TRANSBRONCHI 2020-07-20 07:34:[address] [facility] LUNG BIOPSY [facility] BRONCHOSCOPY,BRONCHIAL 2020-07-20 07:34:00 [facility] ALVEOLAR LAVAGE [facility] BRONCHOSCOPY,ENDOBRONCHIA 2020-07-20 07:34:00 Solange Koch [facility] ULTRASOUND (EBUS) Medical [facility] er DIAGNOSTIC/ THERAPEUTIC ABORH, MANUAL 2020-07-20 06:42:00 Anika Stover [facility] COMPREHENSIVE METABOLIC 2020-07-20 06:17:00 [facility] W/PLT COUNT & AUTO 2020-07-20 06:17:00 [facility]/INR 2020-07-20 06:17:00 Zee [facility] APTT 2020-07-20 06:17:00 Solnage Koch [facility] TYPE AND SCREEN, 2020-07-20 06:17:00 Solange Koch [facility] AUTOMATED [facility] POCT-GLUCOSE METER 2020-07-20 06:00:00 Solange Koch [facility] SARS-COV2/RT-PCR ([facility] & 2020-07-15 16:24:00 Farhan Mcclain [facility] LABS) [facility] CT CHEST WITHOUT IV 2020-07-15 15:25:00 Solange Koch [facility] ukes - CONTRAST [facility] PROTHROMBIN TIME/INR 2020-07-15 04:02:00 Farhan Mcclain [facility] CBC (HEMOGRAM ONLY) 2020-07-15 04:02:00 Farhan Mcclain [facility] COMPREHENSIVE METABOLIC 2020-07-15 04:02:00 Farhan Mcclain CH, I [facility] ECHO W CONTRAST & DOPPLER 2020-07-14 10:37:42 Lori Larry sa [facility] CTA CHEST 2020-07-14 09:44:00 Lori Larry [facility] SARS-COV2/RT-PCR ([facility] & 2020-07-14 03:50:00 Lori Larry [facility] - REF LABS) [facility] CBC W/PLT COUNT & AUTO 2020-07-14 03:43:00 Lori Larry [facility] DIFFERENTIAL [facility] HC LAB PROTHROMBIN FACTOR 2020-07-14 03:43:00 Lori Larry sa [facility] II [facility] (CELLAVISION MANUAL DIFF) 2020-07-14 03:43:00 Lori Larry sa [facility] BASIC METABOLIC PANEL (7) 2020-07-14 03:42:00 Lori Larry sa [facility] MAGNESIUM 2020-07-14 03:42:00 Lori Larry [facility] PHOSPHORUS 2020-07-14 03:42:00 Lori Larry [facility] FACTOR 5 LEIDEN PCR 2020-07-14 03:42:00 Lori Larry [facility] (THROMBOTIC RISK) [facility] PROTEIN S ACTIVITY 2020-07-14 03:42:00 [facility] C ACTIVITY 2020-07-14 03:42:00 Lori Larry [facility] REPORT OF PROCEDURE - 2020-07-14 00:00:00 Provider, Norris [facility] ENDOSCOPY SCAN Scanning [facility] Plan of Care Planned Activity Planned Date Details Comments Source Future Scheduled 2021-05-[address] [facility] - Test 00:00:00 (Season Ended) [code = [facility] INFLUENZA VACCINE (Season Ended)] Future Scheduled 2020-09-[address] [facility] - Test 00:00:00 WELLNESS (YEAR 2 or Medical Center FIRST YEAR if no IPPE) [code = MEDICARE ANNUAL WELLNESS (YEAR 2 or FIRST YEAR if no IPPE)] Future Scheduled 2020-09-[address] [facility] - Test 00:00:00 (12+) [code = Medical Center DEPRESSION SCREENING (12+)] Future Scheduled 2016 PNEUMOCOCCAL 65+ YRS [facility] - Test 00:00:00 (1 of 1 - Medical Center [id number] PCV13) [code = PNEUMOCOCCAL 65+ YRS (1 of 1 - [id number] PCV13)] Future Scheduled 2001 SHINGLES VACCINES ([address] [facility] - Test 00:00:00 of 2) [code = SHINGLES Medic al Center VACCINES (1 of 2)] Future Scheduled 1970 DTAP/TDAP/TD VACCINES [facility] - Test 00:00:00 (1 - Tdap) [code = Medical C enter DTAP/TDAP/TD VACCINES (1 - Tdap)] Future Scheduled 1969 HEPATITIS C SCREENING [facility] - Test 00:00:00 [code = HEPATITIS C Medical Center SCREENING] Future Scheduled 1950 Scre[facility] for [facility] - Test 00:00:00 malignant [facility] colon (procedure) [code = 395864458] Results Test Description Test Time Test Comments Results Result Comments Source AFB culture + smear (non-sputum) 2020-09-07 09:16:00 Test Item Value Reference Range Interpretation Comme nts Result (test code = 6463-4) No acid-fast bacilli isolated in 42 day s AFB Smear (test code = 86146-0) No acid fast bacilli seen [facility] (NON-SPUTUM)2020-09-07 09:16:00 Test Item [...] (test code = 994) seen MISCELLANEOUS LAB [id number] 07:55:00 Test Item Value Reference Range Interpretation Comments SCAN RESULT (test code = 3080622) MISCELLANEOUS LAB [id number] 07:54:00 Test Item Value Reference Range Interpretation Comments SCAN RESULT (test code = 2864474) Shelb[place] [id number] 07:54:00Scan ResultU[facility]de [facility] HospitalFungus culture + [id number] 02:35:00 Test Item Value Reference Range Interpretation Comments Result (test code = No fungus isolated in 6463-4) 28 days Fungus Smear (test No fungi seen code = 1406) [facility] + [id number] 02:35:00 Test Item Value Reference Range Interpretation Comments CULTURE (BEAKER) (test No fungus isolated in code = 1095) 28 days FUNGUS SMEAR (BEAKER) No fungi seen (test code = 1406) FUNGUS CULTURE + [id number] 02:35:00 Test Item Value Reference Range Interpretation Comments CULTURE (BEAKER) (test No fungus isolated in code = 1095) 28 days FUNGUS SMEAR (BEAKER) No fungi seen (test code = 1406) FUNGUS CULTURE + [id number] 02:35:00 Test Item Value Reference Range Interpretation Comments CULTURE (BEAKER) (test No fungus isolated in code = 1095) 28 days FUNGUS SMEAR (BEAKER) <1+ yeast (test code = 1406) Surgically obtained culture + gram [id number] 14:21:00 Test Item Value Reference Range Interpretation Comments Result (test code = 6463-4) No growth Gram Stain Result (test No organisms seen code = 1123) [facility] + GRAM [id number] 14:21:00 Test Item Value Reference Range Interpretation Comments CULTURE (BEAKER) (test code No growth = 1095) GRAM STAIN RESULT (BEAKER) <1+ WBCs (test code = 1123) GRAM STAIN RESULT (BEAKER) No organisms seen (test code = 36472) SURGICALLY OBTAINED CULTURE + GRAM [id number] 14:20:00 Test Item Value Reference Range Interpretation Comments CULTURE (BEAKER) (test code No growth = 1095) GRAM STAIN RESULT (BEAKER) <1+ WBCs (test code = 1123) GRAM STAIN RESULT (BEAKER) No organisms seen (test code = 25815) Bronchial culture + gram [id number] 11:52:00 Test Item Value Reference Range Interpretation Comments Result (test code = <1+ Normal respiratory 6463-4) reyes present Gram Stain Result No organisms seen (test code = 1123) [facility] GRAM [id number] 11:52:00 Test Item Value Reference Range Interpretation Comments CULTURE (BEAKER) <1+ Normal respiratory (test code = 1095) reyes present GRAM STAIN RESULT <1+ WBCs (BEAKER) (test code = 1123) GRAM STAIN RESULT No organisms seen (BEAKER) (test code = 34624) Tissue [id number] 11:37:00 Test Item Value Reference Range Interpretation Comments Case Report (test code Surgical Pathology = 104) Report Case: [id number] Authorizing Provider: Solange Koch MD Collected: 07/20/2020 09:40 AM Ordering Location: [facility] Received: 07/20/2020 11:53 AM SERVICES Pathologist: Maria A Ayala MD Specimen: Lung, Left Upper Lobe, TBBX. Process in Cytology for collodion bag. Reflex Genetic Markers. DIAGNOSIS (test code = o5oegYKbNYEzy0kuMUNpfXZ 3220) uZzEwMzNcZnRuYmpcdWMxIH tccnRmMVxlcGljOTIwMFxhb xKiPAIqoYJbE2IqidyvYVxq KS4nQP4kcMomrBHdmIUfAHO tDuUsh2mzk767mCBpz6loDI STaflawGq8jBkjU97jg2U8H libV65edAKqFFlrmJFymqfr akEsEADlafNJJkMURA0ASYP MRUZUIFVQUEVSIExPQkUsIF GEVX2SHdEERbFBQGAZFWWKZ 1BTWTpccGFyICAgICAtIFNR MKNTR4GHAYVZPLvpJ1SYP7x DG03QQoaiWSJsVWCtVX8uF7 KXEPJYBZ9DSaYwEBKuwz96N JH5HaIno9Y5AHS0KSIcOWDb x8xrTFElzUWyVvLtWgHcHrY tTrfzkDQhGKBuUxDar1fft8 91uLDmt2ozDUNeYaI4kWEbW WYxgSOgH760GBBtAYdcm1ok t4EtNJBkbHIli3R9VEVWqtz evOz8uYuuT45hr7U2LindY0 uqWLVaIORyB2CuZB3tQFVtV wr0VQC1GRD1UIQlOEWeK7Qc QA3yYWPisYSgOEp6s7kazLq pUGKeXNZ5d0qeMOsxdnDeZX 0vkk9ilCp7r7uwrlHkIYVhD DIpxHGPLVQjB9XtyCybPk9b gYj8aNtaCcgdAVT2Rqk6GH1 wfn70oyf9pEzyYMHwcpzyZd K5WHbsCSDsnvdnUPq1IMvhU XBzbYE9GAPtnYByB6IoHVSy AQ4fybj4YUW4IMuhLZVoFgO 1FJJwaDOhAPJapXmjKQhbi7 04VBX7ErNiLU9sD2Ksy7O3f Z5wfOTuIWAyyAVmJnQqKOOh tg1pzUIbWFxot8YvYZT4ecN 5gQJtoHWkVIWrAnO1DYpiJB 7tbq13DWQmRJR2hg4ixANyw BuuuyRjuYXfDFxrN9RiGBOd w042RZLnO8JtYCJjr8C4lqP pSdTjYOMnsFM1roT1DZHwHW 6iflksq7maAWdgUKefPBMpm zI8vyH0TZBswJQkK8PgnU1d YQXmNR8fcucyu9qqMBM6DLu sOBXmWGR4QeFoHFKvm9Mwmm s5UgHyg8FbmWJnSCwzA76ab 457IILohuWaS3sqqDDzonhd jDIszjhkFAwxnoE8SNKcRTz xnnktZPOlAXboA8fhEnMlMS HjeEcwRNkro5QuCBZkEIXhQ mVonXKwLTLpFqb6HKLuyHTf QOVqYiLoZ4ctdvfzBwYPWIY bh3rlQ8uelFJLvOHfW9SnMU hzmjNrRLxtQMfhIRFuIWQ6G T6wNcN9DHTpev52 COMMENT (test code = h4tffZAiQQPtzMU9MjMdOQT 3359) zq3pkj8ZecGJotPFoPAwdmU PncmPkmi89tCP6eB70BQ2yP SFzXiB2CSRupdH7Wvl2CCHs DFOtaYLnG871y4jtv2inefG faPS8eOavWRFlRZHuSLxaLX NkBmKrDEuoHRW3aO7mDAxkH SKsz3y0uXHyLBMuonLTOTSc LH6tVZ3eN8O7mUNsLLVykkB JBp69SZIlYVSAZEYwZR1iHH Bhcn0= CPT Code(s) (test code l0kedCKrHRNddMB3DjBeTIO = 3357) dv5mly0RujPOjgMVrFDtztN PmdjCoba02oBI1zJ65BQ8jF SSqZbR8PAMgrgA5Pfo0VDBt NQVjkKOpW816i8uuu0bvynK wmCG2gZkyGIUnUWGpWDpcKG TyZkMlOTxuTUWsSNa9PiTxL ME1SAA7TPJ9ZPNwtXHawO== GROSS DESCRIPTION o5nmlVZrJOWczYX0GrLpYBR (test code = 3366) ek0gza5GmkUMvqFYmJEvzeN DzehVepu67uGX7gT95BL2fG NVsLqE7ACIfdcN8Bvh3HMGa WHIdbFFtU240k1wqc1nfqjS ziVH3gMqxQYHuUYMyUUjhWB OfNmBeW8WmL6nlCM8mOYezG GhlIHNwZWNpbWVuIGlzIHJl B8EgioFnDKwfCNYeBt4afKQ ceL8nFeeocMIlZOSbzcXooG 2nriSgcoUzdCGoTOlzUHJ8u YUyDDLsOYPzZNEyYM86P9Yv dK9zi7OpMUGkj46tEN5lHLz hYmVsZWQgIkxlZnQgdXBwZX XscJ4iPJWhyX0gQCJCDodsX ZEfTSDnz08obIZ3shJvAtQi pGv6cSDnKBWyhbXrlAHdqYX io4QvjYAdWF3qJnD7wLm3MA Bex6I5SPOes6E0CJXipkBlj EJge2KolBQmtBAkv08hcPS1 qZOmhRKqbW7xYLsopbPhXMT lRY5pOAT9pbqiRrMcVfIzjK FcYmViA56nYFI3Xd8kvTMcP CBlbnRpcmVseSBBMSBpbiBh IO5jr8lhLjPeJrKawfckUJW ccGFyfQ== MICROSCOPIC v1kxlGFmWWRztGN1OlOtEQH DESCRIPTION (test code pf6fqj9LmrWPkbAHnVOribM = 3371) YxwaRtky62nBI2kA20MU0nZ QOuZoW8IOTvovJ7Tsv4XJIn CYHszMGbI316q9qvg3iswkG bsRZ0yJymPDCzUUZsHEccEX WtCiIjTRZlSk5sxQKdArjoY XJ9 SPECIAL STUDIES (test e7qufLVeEMQfo0vqEYWcjSH code = 3376) uZzEwMzNcZnRuYmpcdWMxIH hqkzQkYJfzr5XjS1VcAfIpH FxhbnNpXGRlZmxhbmcxMDMz EIT8bmRlQWPzDVggQSIaDRk gHt8btTRumVgkXlFbBHYxb8 jwpdDKpdpdfBb7p4zwNLTaF oC4kQBpNRtlD8odpkAjuULp J0LliBBjeIy5j9teOqHvOdF 4zKEpZJjyF5wchiEwlBVkJT IrKPn3pJ22FKHfzU9wvVTpJ RyfhvWeDkM1LSypNCDeZkO9 DMKkqLUkKXNbT8fcLUCsSGk eNNXpTMtoaENlGUY4yJzxd5 X9zDBztNKiwKpdGdJxUsHxW zVUf8AcFTe5mJthD1EfQIZh ReS0aZAdPQMnGYnaIAOdEOX hmvW3nGszmpPtf31hoTDbLE YwXGZzMjBcbGkwXHJpMCBDb 3OypIetPAK5jVm4zIzeQbhe OQL8Msm7GJ4vmk99juw3tFb gKAYtdurqLzG0XMziRJSxdm wsURj8DLfiLXFchXZ8EGQof MKcZ7IzLWQqOP1sbyf3CNP9 BWgqYTSiBaN2OHFngGSwBBW meFpgVNvzs245GDS6MbNvCL 6cP4Wom9Q2fB5jrCTpLQHqf EUlLwYzZOBbme4jiSSvKIer x7AoKVX5ceT8rCZphRQtCBA yVP33Ksxol8JrOyrmj6ZtR6 8qpUZ7GFhiw3adTQ3qMlI2t zMeTGjmd8torS8lErM5ZIue IE6pTT3kCCBuwL0iaolxSNT nYnJkcmhlYWRccGdicmRyZm 9qpHiaAPO7NLkhY8uhzA2xU qN7LJucJ4rhgT2oTXe7ETnk eXK9RYJxuR6kZC6remthy1w rKVigRWudCDHfqzO5npH1GA MhnGLhJ1ZfyL8rQENtMK8ee hfgj9pjNZB8IFtvPPQlGPC3 FnLwZPJdp0Fqzld8FkQca1F tpMWjFEqjG81yg665LETvos GxB9veaWIunfhhlYMshlhsS HiettT9VOEbFAQcPBpwPIOv XGZzMjJcbGFuZzEwMzNcaGl jaFxmMVxkYmNoXGYxXGxvY2 xlOjEjM7JyUVVxEuLrLFkcI GccvHVvqRVjkGK5pF0fVP2j VFLqeNTlB8OpPJYoslNnpLY kMSR9gPRwzJDqJJ1iBPowpW Dsq5don3OlS7zjnTkqyTZ8D I6vKXXrTKFrUYucx0UxdX8s LlxwbGFpblxmMVxmczIyXGx gdfakJLCcPIknE7whMbDeQF RdrUrhVXjyd0DkQQZjCVCaL mlqkvVgKXy3xsOxJLZuuimw SRMoiSqckZ9hRdWkYzNyUxo cEQ2sHJXjN5lweXOjHPOoXV MgH4raGcSccN6yeBdbPLnoB wGjDnOvLqJHj177qj7fUXDw gWHcooLSlOAosL2aGQdsANl pOJqxlZQfNXpmf4xmMIUoo4 h2kAMqIXPwaoOkb3vmQCnpn qMtCGUbuKFttEBwSZNch44h DVuuoMnbxDovSYMwa6ZfjLe uo1XlTeWeLHzhj4VuW60sdX JvbCBzbGlkZXMgcnVuIGFsb 68lv2dvVAKtXgI1pZWxsKH5 mRQdaUZpk8SkfNrjSQNdo3j gDSSegm9vxikonZDkm9HnsV 5pbmcuIEludGVybmFsIHBvc 8q8uGXpVIBuCORrTMemnFu6 YTGfe038vn8cioR4tSQtLIT 2YWlsYWJsZSBhcmUgZXZhbH VhdGVkXHBsYWluXGYxXGZzM jJcbGFuZzEwMzNcaGljaFxm DErjOuYgYQEyZIqnB7nhRjY tE7KvBGAhRpJknYLjX5ekpL FyXHBsYWluXGYxXGZzMjJcb GFuZzEwMzNcaGljaFxmMVxk WgTcXLPoUBxzN6oaZePqG1X yXGZzMjIgIFxwbGFpblxmMV xmczIyXGxhbmcxMDMzXGhpY 0pkVlZpPUWztIxvFAhaz2Rc WYCiTKSgZaxkimWgHLk8ayB oXHBhclxwbGFpblxmMVxmcz DnXBufexdqHVZlXHotB8dbE xPwIRGjxVbcMDdrf5ZtUMJx GOXjGsqemgPtGPkntJMhh1n tl3HcY8lweFjxqFK7DMPeB5 kowZUsgUE2FQN0wO7bOTekj sAnGAZdg2TvKFOrBELyDvS7 bC3uNWW7EmFOgJniAPDmWJm uXGYxXGZzMjJcbGFuZzEwMz NcaGljaFxmMVxkYmNoXGYxX WvvA0cpRqHdV3WpPUMxDaXr kKozXYnmDQp1RncsxGTbnhn mMVxmczIyXGxhbmcxMDMzXG fhA1yzLjXmSLWuoSwlTDwgz 2NoXGYxXGNmMlxmczIyIHMg CJFauPRadADSIV25ZQQbFIS dbLgrqR8wxFBDTXGpszO3m0 Q3SAbtVRWbFJl6YVjimsHbK FYqrK4gTXReLA8uMGk2jhGs UURai0OvTP2yBIMqtIBhNWJ 0WJEem5ItE4Rxo5AnWWVmFV Kwgo1gcbZpBqYHcBYhMRHch a17RELnVY9zP6bfVXAxIUZy exXluBMyw8NeJTYzsGO3oWN cMZ7BRzRUo56nLCCgLZROiz CpAJGdgNtetXN5pqJ0pF5lP iBUaGUgRkRBIGhhcyBkZXRl gf3dwpQbCKWyBOFxy4XchIM imQSvawRnO1Wdm5HzSRVfbi 24GMtjuUQgjs86HO1aD8Fam 8AqtX7zJAqiWVIli0XfjFSj tTYcAUIja9UjH8qjulxaYSo kkHYelO4mNNOzIWo6JVYnb7 DiZKGzd8NjOmJjsqEoZOKdP AMmQMWrkS79JBR7tSqfuKfc znQnBB8zIMGancNiSIBiETY kiP4zJUuxpbVeBSJewkX4q9 V1AWtrFGCafePvMjriCUS8f lQjjjW1pWLrK3kvdvmzEIeb HRZtx5ZleA9uaDDPcQFfz6O goEGxyLIWaWTfSF0upbBlYI 9aFZB0PSrkFHVLUXMbDNnnL AMrRFB2GHyaMubwSNX4yiNc VNJhs0CjYXxmU6qyM93toYh mvUn4nTYcsMevuCBtaMCqAL RbmsF2g1K5TNKeb3YiqacpC HBsYWluXGYyXGZzMjJcbGFu ZzEwMzNcaGljaFxmMlxkYmN yCADpELkzQ5etCzUpJtRlCt heOQD1hT== Gross assessment was [facility] performed at ([facility], code = 2777) Department of Pathology, [address] [place] [id number], Technical component [facility] was performed at ([facility], code = 2778) Department of Pathology, [address] [place] [id number], Professional component [facility] was performed at ([facility], code = 2779) Department of Pathology, [address] [place] [address], [place] [address], [facility] [id number] 11:37:00Surgical Pathology Report Case: [id number] Authorizing Provider: Solange Koch MD Collected: 07/20/2020 09:40 AM Ordering Location: [facility] Received: 07/20/2020 11:53 AM SERVICES Pathologist: Maria A Ayala MD Specimen: Lung, Left Upper Lobe, TBBX. Process in Cytology for collodion bag. Reflex Genetic Markers. A. LUNG, LEFT UPPER LOBE, TRANSBRONCHIAL BIOPSY: - SQUAMOUS CELL CARCINOMA. - SEE COMMENT. Signing [employer] Phone Line: [phone] signed by Maria A Ayala MD on 07/22/2020 at 11:37 AMThe tumor is positive for P40 and negative for CK-7 and TTF-1. [id number], [id number], [id number] x 2Specimen A: The specimen is received [...] evaluated Immunohistochemistry technical testing was performed at [facility], Pathology Laboratory where it was developed [...] as qualified toperform high complexity clinical laboratory testing.[facility], Department of Pathology, [address] [place] [address], [facility] of [facility], [address] [place] [address], [facility], [facility] of [facility]ology, [address] [place] [id number], OAWG NEEDLE ASPIRATION BY [id number] 08:49:00Medical Cytology Report Case: [id number] Authorizing Provider: Solange Koch MD Collected: 07/20/2020 08:55 AM Ordering Location: [facility] PERI[facility]ATIVE Received: 07/20/2020 09:03 AM SERVICES Pathologist: Adri Rangel MD Specimen: Lung, Left Upper Lobe POSITIVE FOR MALIGNANCY LUNG, LEFT UPPER LOBE, MASS, FNA #1 BY CLINICIAN (DIRECT SMEARS AND CELL BLOCK OF ASPIRATE): - SQUAMOUS CELL CARCINOMA (SEE COMMENT) Signing Pathologist Direct Phone Line: [phone] signed by Adri Rangel MD on 07/22/2020 at 8:49 AMPlease also see surgical pathology report [id number] cytopathology reports [id number] through [id number]. 19540, 94442, 29368Bbob upper lobe lung nodule,history of smokingLUNG, LEFT UPPER LOBE, MASS FNA #1Prepared 6 direct smear slides from FNA samples collected in 40 ml cytorich red fixative; prepared cell block(A2)PASS 1-3 : BORDERLINE ADEQUATE, DR KOCH DOING BIOPSIES (9:16 AM, )Performed. [facility], Department of Pathology, [address] [place] [address], [facility], [facility], [address] [place] [address], [facility], Department of Pathology, [address] [place] [address], Nybb Needle Aspirate by [id number] 08:36:00 Test Item Value Reference Range Interpretation Comments Case Report (test code = Medical Cytology 104) Report Case: [id number] Authorizing Provider: Solange Koch MD Collected: 07/20/2020 09:13 AM Ordering Location: [facility] Received: 07/20/2020 11:18 AM PERIOPERATIVE SERVICES Pathologist: Adri Rangel MD Specimen: Lung, Left Upper Lobe DIAGNOSIS (test code = q4sgpBUaVPSby4tgMETwf 3220) GFuZzEwMzNcZnRuYmpcdW MxIHtccnRmMVxlcGljOTI aOBnpiqTdCERopKCwI8Rf vmxdGQboKC6kQW3rwQtxn TLsnODtONQxWzVqh2uby4 88iLVro4deERZMpwgoxRn 0eAlnV48lp8B1EcytW89g cGFyZFxwbGFpblxmczIwI ExVTkcsIExFRlQgVVBQRV IhSX3ZBVvrRQLQJgMdEnG FQlVTIEZOQSBCWSBDTElO YGJWMT2pLWNABeWNULWUL WQASsTaPE2IXELSOItjBs vUN0bwW7KbYPCZDXERBMH mOoIxpLRbQHDgUZ5fY9QK VQ1GJCEhL9JJXBIVHGEYS A9XBGHbkXGybCbmvwZwPG ean9YkILbnHJQnOX6icSd pJJLiMP3bHBGeB2kbaL6s bwd4RcIuCBHaYmA9SDAwx jW6Zgl2IJPsAWgcm5kcb7 NsPAQhNLa7hNptJuTzXLE rt4nxwbYmYyPjCTKoRXIu CULzyTIdU066i4fde5bfy dJvmON5MOIlWQC1FHuczs YpphD0UMtgiKTeMzK6ZHp ccmVkMFxncmVlbjBcYmx1 PHIgJ061OKT1hBeqr4hdY UP6JNXnOVTpWxKtLx6uqQ IgK572OFPaVTFTHWOkeWt 9SFXvpyWytxCndFYYe805 O773r2rlFLDtwoHpbGzVr faxr5fkF457QESbeODbqm CgZwHsAJDupHHwaNP0AFP cEF5efcroWJlfAQzkDMNs jlR6SFNlzLWiB0AcIWIaR A1shzlzJUE1KSumNSSbXP N3AsOmDKWpb5Mvoln2LkU jgm4tlg02OGC3k4UwoMgt RVN8GIY7StBcBn9viXVlB CQsGG1dHeRygGTvOJWhgf 07wKdkCUurYAN1HSUpafZ wh0Xib2kyLmPujaTvA3oi J9NzWHUuPVMsIVGkGvVwx gZcq3Vun9RkxEYioFf2d7 ggNRNrBOMyqXrcp2xpYKX 1JSAryVWjD0watW1vBKUp IL9ocetih6nySGecMWxrM NDcxSL9oiH4RPNvzCJrO4 WsoK8bCHKgNWoxHFIxcce 1QvKzAi3pgTUdjFzaRWaz YmtwYWdlXHBnbmNvbnRcc GduZGVjXHBsYWluXHBsYW luXGYwXGZzMjRccWxcbGF uZzEwMzNcaGljaFxmMVxk ZmWqJTLjGGfsR9ntZiViI cZiSog8UPDvjNAzCIGeQs p5YXXhlCMmNNAOgWddiA5 jZGRtrGpvzU2rqQQ9BPCq leCazISFtR9wJSEKgD0jT jU6EpBuEgG4VVQ1TagVQQ Bhcn19 COMMENT (test code = s8cukHRhYSThqUF0VfQyT 3352) FKuq9uyt9UjzJUlfSWwHG vveIVboiWrae34tRW4pI7 4HA9dKLSeFmC5AVLejeA9 Gxz3DCOlECKjdZVyW979e 0hnr8ygzpOluVH5yBygGN JkXHBsYWluXGZzMjAgVGh tYWU7oQ4vBVGunYrjKSDm VUYxf2FclFx1HKCoo8Mux HDcOIPgsKewh3V4KYTcPH SnChCzVDQTRl4cSVQnIVT SqC1giYColCu5n0ghWRGq XQJnBXhteQk9GN8zBQreP L1ozyTwr9qeL6rjQJ9yUZ wjdJOnc2Idz3IcmMBaLOJ nGVTspcDtq3CxvlJrd1g1 lNKuaZEiuQ00oxZzYBtzP BIgvtTesk2mAFSuckRhne MyaEXfa1NxpWC1FWNioXu spXBzdSCkHJW7xN6iPuzh YXJccGFyXGYwIFBsZWFzZ SBhbHNvIHNlZSBzdXJnaW ZcjCZzXUUas9btY6klebG tf7V4ZMEmUX5pCducQgOt quKyL3f2v5HhvDgdzD6nz CTdDWDcluRoKAFtHZ7bAF HtBQKsRAIQFkQtTeg9HCW 9nCTxgSeaPTBfBO7fZYG8 LiBccGFyfQ== CPT Code(s) (test code = o1iveGIiSSFcpED5AfFvC 3357) PNfr3soq0VwjCExbKCuRZ niwMKkpvAoxw66bEN3eP1 9UO6tRZHaUmC1BMSaqzT2 Tok6LBIxZMUysKDvX341i 5rsy0fqvqJfyXZ8nYohRP JkXHBsYWluXGZzMjAgODg tTxGwQJk9LMqfOKJ2MNZe XUisHRmtEIG0IDa5LcAkB AstE1kaWGI1 CLINICAL DATA (test code n0gwlTEmDFWonQB4RpEcB = 3355) MQls6mpx0NndDVbcRYsMV tcpNJiqpEwvk70yIG0gJ5 2TF6lPNPpHuF0OSSygyH5 Asp9QCYiWMOfyULaW360y 2iqc7veooHzbWL9vBepGH JkXHBsYWluXGZzMjAgTGV pvCM9yAQnmySpa0AzBQy7 bqvxyp9czCjeSVVneDK5p 7M1BP6bRLXaw0nmlyqvkF FyfQ== SPECIMEN SOURCE (test x7olqDXpWSJcuSL4PuQmC code = 3377) ZFng9thn4VpmPGnuWAwFM czmPImafZsel31sJR6bB7 4XP0wKCQvOqL5URBopiB3 Mpn3NIFjCKXccBKrV546k 2soj7stazQdfLJ7kUcqUZ JkXHBsYWluXGZzMjAgTFV ORywgTEVGVCBVUFBFUiBM O0OMBRMTKCYFZGMBJGInU lxwYXJ9 GROSS DESCRIPTION (test e4zxaVUbODApbRB0RlKeC code = 3366) SJsx9uyj6UsvXRxeJVpEK elzJYykfKybn44gYX6oT8 7TC7fSIZpZmI9JCFdmfM3 Bqx2FUWlSPHopOTfI447y 0ara9qfgxFghZH7zFxoVB JkXHBsYWluXGZzMjAgMiB 9DVF3EX9ytwLrzzEqbTTw drkdyVEcVFS2BLPqXGnrE VQ6CAVsJFPxTYTmpPUmbl nnS0RlkYUfzS1jfmKzXCF pXHBhcn0= INTRAPROCEDURAL ADEQUACY z1hgzAGwRLYltHF6SjYfA (test code = 3370) TOhu5noa1QcbGXlhVLyYX cxdFRjsaJncw35sXR6yR8 7GI6gWSCiGqV3PUCbmoE5 Pay4DKVcFCPwoCFsV323l 0hjc8xbcqTdgKR8hEzaMT JkXHBsYWluXGZzMjAgUFJ XPG4IQU4OWvHZPJOHKZ3I RCBBTkQgQSBSQVJFIEFUW EDTM1WNIYaQQ3ZBDWKfsk 0= MICROSCOPIC DESCRIPTION y9bbjWOqDBCzxOU9EgWiA (test code = 3371) TRro3nuc0OzoAIocMMvOT uxlBJamdSaml58uEF6hV6 4TX4lGUDiDbY4UTHmjqW9 Nol7XQDvOJBjhOToJ960j 2ibj9vhljWgbCE1jJwfFE JkXHBsYWluXGZzMjAgUGV rGq8cbOXzTaZgrGUfiT== SPECIAL STUDIES (test w8dtbVGdGATxeQS5QqOwG code = 3376) JVsz3goe2GqfIOpqFFqBK euiPDfbcVwsf73jON0cE3 7FF7xDHRsMbN5NQNoajV7 Xpl8LLTmWLQvxCScY580K YWhGPBsnYifpzn4zZ25IF HohL4mfAMvINz3XEEvnyF nsSvjwF3xAjBwRvWkKbUL nEAjaD91PFOlhaX9YJBdp 89vh2BkaXcdtvRoLZIpMY wxO0o7EADwQAKdXGX9b0X ht5VhaO5yrW8ztJdgcH0p eHQoyQI7nlxbu8Bfd9GjM 2lhbCBzdGFpbnMuXHBhci YBDNQfPKnnY7uVBNGVP3Q IWVNJTjsgUDQwOyBQNjNc ySVpRWAyqxCyn4gpL5vjH DBrWXS0GU5mtxPdVtOoEJ 9jrE57n7Tcu82zm59gbX4 rnQCyohZuV09kuRPrsPOs j4ZeLSKvxuNgvTY1IEJtM Pfvwjsyw7d1uNO5nSNhtN YytHU5aKUjcOCcPNPUaUO qLRGcp266fa8sTCKfmWRy ciUpfG8pMGxiexbtjWQdA Q9hGKYmOEHoSTQaPX89sc PkMW0ubWTqi4ymqxNwhVE bp0WsxMR3MAKkbEOjjbqw As5dGW59RZJbNClwiT6un JYiepFpHU3nYK5fX0I7sW XiSJNdafMpd3fsBOlhEG1 gYXZhaWxhYmxlIGFyZSBl kpGeaQX3TXFtiPQsJRVyt ZTcXQdvaVIhk7uiz1ZyT0 cpcOspkDA7MAWxF8bdgGS cvSH9IES2qA1fEXvpdwQx IMYnb5MfGZLqQRRkFrT4r Q0mMBI0DjXBeLpyXFI1Vm D3KLncVPMhOD5sLAxfBFf bO1MzfIZaWIPHMINkp3yk Z9qfALAoa5AixI8dpSR1t EVhHYGziAQ4BXSrVKI9PM xvcGVkIGFuZCBpdHMgcGV sTi6ixRRjG3EnP3plcpOi hZYmwCA7pXRjMSzlkqCgD VB5EQKycU9rIY0kOPKmoJ RsCO5glNNrHULfQHThETI hXWAng9IdMCHcco68GZKr VbhyrKeeOTAtEo5oMj2mE PHjkgLbURY2PlANNK1fnn aqbCFlyOofwl2cYJbeCAB SLVCaITLyMBO2DBKsoF8a TGZ7zTC8ZMR4N0bcN8kfK TQbgqAzFX1pOHPzgDEeph CdYBufDA9irNAmHWAmf5M eauhhRNPdFSG6KAP2AUnn XZZcBHYzBg6jUATzpP4iP 5JxJGN0ibMfa3DcNkNXbF XeoG42zTKpdb97SLCnXQV pT2HlMEQwLMZzIFvrpnWd vShjKXHkp44yxGTcbqSfe 6OfuoKeGIXhI3soYTVakJ SdfRSqq3MueA0smIJmciU rFTL7sDTbDZNxfU0dHZMc yMloJILhcR9kS8NeGNjpY v8vHCCosfhnJZ2kgf20OL 7rmbIeQN8vsdFpKY75rnX lKqKeONo7ZRqNTPvPJCa9 KSBhcyBxdWFsaWZpZWQgd Z2spMQaXe7vnEPaiSlzIM CjlMJkGRnieYkyH8pjfxl dDHzhxVDgs8HfhR2hzVO6 CQD9cF3oIvfnWUU7 Gross assessment was [facility] performed at ([facility], = 2777) Department of Pathology, [address] [place] [address], Technical component was [facility] performed at ([facility], = 2778) Department of Pathology, [address] [place] [address], Professional component [facility] was performed at ([facility], code = 2779) Department of Pathology, [address] [place], [place] [id number], [facility] BY [id number] 08:36:00 Medical Cytology Report Case: [id number] Authorizing Provider: Solange Koch MD Collected: 07/20/2020 10:16 AM Ordering Location: [facility] Received: 07/20/2020 11:18 AM PERIOPERATIVE SERVICES Pathologist: Adri Rangel MD Specimen: Lymph Node, Interlobar, Right, Station 11R LYMPH NODE, INTERLOBAR RIGHT, STATION 11R EBUS FNA BY CLINICIAN (CYTOSPINS AND CELL BLOCK OF ASPIRATE): - STRIPS OF DYSPLASTIC SQUAMOUS EPITHELIUM IN THE CELL BLOCK ONLY, SUSPICIOUS FOR METASTASIS FROM SQUAMOUS CELL CARCINOMA (SEE COMMENT) Signing Pathologist Direct Phone Line: [phone] signed by Adri Rangel MD on 07/22/2020 at 8:36 AMCorrelation with radiologic studies recommended.Please also see surgical pathology report [id number] and cytopathology reports [id number] and [id number] through [id number]. 01459, 16937Vxwk upper lobe lung nodule, history of smokingLYMPH [...] evaluated Immunohistochemistry technical testing was performed at [facility], Pathology Laboratory where it was [...] qualified to perform high complexity clinical laboratory testing.[facility], Department of Pathology, [address] [place] [address], [facility], Department of Pathology, [address] [place] [address], JjutwrQueen [facility], Department of Pathology, [address] [place] [address], YVYJ NEEDLE ASPIRATION BY [id number] 08:36:00Medical Cytology Report Case: [id number] Authorizing Provider: Solange Koch MD Collected: 07/20/2020 09:13 AM Ordering Location: [facility] Received: 07/20/2020 11:18 AM PERIOPERATIVE SERVICES Pathologist: Adri Rangel MD Specimen: Lung, Left Upper Lobe LUNG, LEFT UPPER LOBE, MASS #2 EBUS FNA BY CLINICIAN (DIRECT SMEARS AND CELL BLOCK OF ASPIRATE): - SQUAMOUS CELL CARCINOMA Signing Pathologist Direct Phone Line: [phone] signed by Adri Rangel MD on 07/22/2020 at 8:36 AMThe tumor cells are positive for q30-xfbpryuo and p63. TTF-1 and Synaptophysin are negative. The morphology and immunoprofile are consistent with squamous cell carcinoma in an appropriate clinical setting.Please also see surgical pathology report [id number] and cytopathology reports [id number] and [id number] through [id number]. 28131, 42192, 93534; 44759; 39826 x 3Left upper lobe lung nodule, history of smokingLUNG, LEFT UPPER LOBE, MASS FNA #22 x 45 mls in cytorich red; 5 direct smear slides, cell block (A2)PREDOMINANTLY BLOOD AND A RARE ATYPICAL GROUPPerformed. The interpretation of this case included the use of immunohistochemistry or special stains.TTF-1; SYNAPTOPHYSIN; P40; E81Mhrghhr Slides Examined: In-house known positive controls were evaluated along with the test tissue. These control slides run alongside of the patients sample show appropriate staining. Internal positive and negative controls when available are evaluated Immunohistochemistry technicaltesting was performed at [facility], Pathology Laboratory where it was developed [...] qualified to perform high complexity clinical laboratory testing.[facility], Department of Pathology, [address] [place] [address], [facility]qffQueen [facility], Department of Pathology, [address] [place] [address], DyafddQueen [facility], Department of Pathology, [address] [place] [address], LCDH NEEDLE ASPIRATE BY [id number] 12:02:00Medical Cytology Report Case: [id number] Authorizing Provider: Solange Koch MD Collected: 07/20/2020 10:31 AM [facility]ing Location: [facility] Received: 07/20/2020 11:18 AM PERIOPERATIVE SERVICES Pathologist: Adri Rangel MD Specimen: Lymph Node, Subcarinal, Station 7 LYMPH NODE, SUBCARINAL, STATION 7 EBUS FNA BY CLINICIAN (CYTOSPINS AND CELL BLOCK OF ASPIRATE): - NEGATIVE FOR EPITHELIAL MALIGNANCY LYMPHOCYTES AND HISTIOCYTES PRESENT Signing Pathologist Direct Phone Line: [phone] signed by Adri Rangel MD on 07/21/2020 at 12:02 PMPlease also see surgical pathology report [id number] and cytopathology reports [id number] and [id number] through [id number]. 87242, 26214Ijrf upper lobe lung nodule, history of smokingLYMPH NODE, SUBCARINAL, STATION 7 [id number] mls in cytorich red; 2 cytospins, cell block (A2)Performed. The interpretation of this case included the use of immunohistochemistry or special stains.Control Slides Examined: In-house known positive controls were evaluated along with the test tissue. These control slides run alongside of the patients sample show appropriate staining. Internal positive and negative controls when available areevaluated Immunohistochemistry technical testing was performed at [facility], Pathology Laboratory where it was developed [...] qualified to perform high complexity clinical laboratory testing.[facility], Department of Pathology, [address] [place] [address], WkebitQueen [facility], Department of Pathology, [address] [place] [address], [facility]vdqghQueen [facility], Department of Pathology, [address] [place] [address], Pdrk Needle Aspiration by [id number] 11:53:00 Test Item Value Reference Range Interpretation Comments Case Report (test code Medical Cytology Report = 104) Case: [id number] Authorizing Provider: Solange Koch MD Collected: 07/20/2020 10:36 AM Ordering Location: [facility] Received: 07/20/2020 11:18 AM PERIOPERATIVE SERVICES Pathologist: Adri Rangel MD Specimen: Lymph Node, Interlobar, Left, Station 11L DIAGNOSIS (test code = y4nmmZZuKRFkk9ekZELkgBF 3220) uZzEwMzNcZnRuYmpcdWMxIH tccnRmMVxlcGljOTIwMFxhb lHcWFFifSZbW7HcokwdPSyh PI4qDZ0dmDptjVVgiKHyAYF zIdRtu3uwu046vXHbm0yeLI MCuosncUr5pMafH41ku2Q2Y sjbP64tsQQmLBazbBHgwbbv edFvAYbTEBNMGL2EWGTjAMh CRMMHWI3LHBPyWBpGDyFvCZ ZDZSXDM26tGLRZKRHPUJNmY s6KOZEMEQTFCK1IE9zTZgYu C3mEV6NTLZ0JMOCCIFZOYJk UKGLZM9PVBQ1NBGYQDRkXLU BYTQtqeZCuWVLhOU5fNwOVD KTLMjTuBv2AMHUSWEMMGGuR WAqgBDBIGSpDMA5QHOorDES tBSBgCTSVRM8LOU7CWMZAOe VZNvUKXE7JYGJspd39BXU6C uPfb8U4KVD3MTCoTDSxy7fq ZGVmbGFuZzEwMzNcZnRuYmp raMYgNPZrOnBzt6fcj543xZ Gsw3duCYYuKqX5yKAeKDBxy TAkV993EDDcBCbxh5enc2Iv LTEaeOQfs2J0QQDUfebpgOk 3bRkvL61kk8H2DvewT9gsQH VvEGPkR8SxXX7eIWIrCvb3T IA6PNI3WCTaDJUyJ5ChXY2v DLJkqMNoCKh9g8qdfSvvKUD eGRQ9p7vfZYryefJiIB4ucc 5cyHf2u5oyczPmUQOpLDGbp NSHWLJvZ7FgmJqbTm3ivAk0 sVtiKihaRCI6Jbi3FW1zwc0 8xyj2dJikTNUimvhxUpG8NW obEEHxijzsNJs6VUbxOEIzt HT9EUPffUZhY2NrDZIiFX9z xfe9ALD4MZlsRJMkHtI5DPI koVJgSYCghXhjRNsjc050GN K2QyGsKB5mT3Iie4L8dH9ro HTqLMDesMXqVvBdQCPmzu3y nWWsTLroo0OhHQX1erO0rZJ gnICjXFDyHsF0XSnfFF8omr 39KTKfUCN5rj0owCTmlJrnx pPuhSQrFKnyX8NoYPJqd280 APGfU5XoCMIeh6M0vpTsGhD nZTLlpHX2hvN6XZTgIW4sgy gtw3bfOQnyBDfkSACilzP6i uZ4YOYkmIYhV7RzjF8nMUSx JJ7vuyuok2xrNDS4RJgcQAZ eSQV9ExPpHDNyd8Jaytv1Ih Zyx3UzyRXgIIvlU94xk540V SCqzzPiL4npoOHhxizyiEXl otgdTAcmfuK3RONrZBykrdt oRTAjCPmsX0ybJiJcDJRlxO uyPDfds8TtYGHgDHGrVtXcm JArOEMwKkf0KPQacWKjIZPx MjZhG7zspnegVoXTWDWte7v tM7doqXAWrWUlK3BkWHixaj GtXPuxILidAUUwXRN3OU45J SZ8VtwoBJP5vO== COMMENT (test code = j1evtNFjPWFqoTE1KmToJNM 3359) ek5oql2HviYIevEKhZBfhvZ NtfrWmeo95fGK0iM46DV7sK FClAaQ2UDOuxrA2Bbu7CQEe DEUqkGDoR441c5yzh6sfpvN evTS0eWqyTQXzETXbOKtvAE ZzMjBccGFyIFBsZWFzZSBhb HNvIHNlZSBzdXJnaWNhbCBw HOXur6gqZ9vpgmVth3U4KCD hKC0rCkeuWpIhjhBgC1k4b4 XulQsnjA8ghSFdAZUxdqOfS MCxVI5wGFDjOYMdLZETFwXc Itf4EZK6oOXhhLdhRKMbRT8 eVGU9WuWkhBEfuZ== CPT Code(s) (test code q2tsaQEeOGPjuHC7VwBoSGN = 3357) iu2hfq0RuoBSozHWgPXrwwR ErmtCuec48kAO6uS08YM1oZ AAmYhO5DZQabuF4Utr5KUCf TNDilORoT657q8xqt7dridM ueRZ9pWzsSGMgAQEsCFrzPA AkIkKkBZqiJrBvUHb0WwO8M HBhcn0= CLINICAL DATA (test j9tmjOQvJYShrDT0XyXgFIQ code = 3355) kn7hjk2OzpYQlbKKeDXtycW BzhuGjlz98wZZ7tD04VY8cH IDdYfN4HDOyazP0Jmu1ZGFq UFCcwERtZ861h3sgu3ejlmW mrSJ1rDllBHQnRNTyFTpvGI JxBlWbUJLiwJZ8fVRjjoNna 4RbTMb5fpznzf9kwVgyGZJg gCC5n7I3TP6sCQOgi5qzdcz ccGFyfQ== SPECIMEN SOURCE (test z8qhaLGvOWWkzCJ3AvOuLJF code = 3377) wl5niu5FhqKPmaYWxMBcbhC KrmmMmat79fTF4tJ24BI1aX GUqXvQ0BNQzdoP4Pyg8EBEj VESjfEArW015d7jvv2omwkP zpHP5xAofETYnVMFgNEkwHD XjShMpNDsQAVqtZe9WVEbgB S6TLJSNY3VYKdkyXQPAVNyz W4LBTBxTDzHkQHgyNBBPIlR GTkFccGFyfQ== GROSS DESCRIPTION g6imaCGrEEXdnJP6SnXnKCA (test code = 3366) ip4goa9KmcCTcgTYdOGwbjX GokjVrto09kJP1jY70SN1lA GJrWqQ7SPDpjyY1Zkm1OUEo TQFbiCRmN700w6hbp4dxjaJ ypJU9kOqsCCTyDNFhVXhdPP VkEkHfQJLleKtrHPdlYHN5m I2liVPnXZYwEWfuSmXcsFZn f9UbzhJiUARxzOnoTyteS9p gKEEyKVxwYXJ9 MICROSCOPIC w2kvjDXfWOTynUC6GhXkCKT DESCRIPTION (test code fj2cpq5TpgJOdgWGsUXhfjI = 3371) MnssExnn52mRS8yD88BO2oG COiVwT4NEYjjxZ6Kri0OPSn IIFscVIqM575t2raq2kiuyF bcHH4kAcwLQFqKKYfYBgwSR OhLiSyQJAdPp3ncULrKkFth GFyfQ== SPECIAL STUDIES (test k1wceAHaKEOdt9jlGKQtwEJ code = 3376) uZzEwMzNcZnRuYmpcdWMxIH kdpeEhVJgzk5AbP5WsFvEnY FxhbnNpXGRlZmxhbmcxMDMz AGZ2okZpHBBfZDkxUUNxSBm gLk5tyQMhhYzfMxSdCRXqa5 vowzQXjjiipSb8k6twBBIgT eV3aHIrWVguV9ijgeQcaXBm R5DjgJFutRe0a4tdQaKzNiV 3dJRhGUzqB7xricWkcQGfTX PvUHo3eH41JDMtlG9fyUReC PlfvnQiQxV5DYdqFMDlPiG8 EJWzdENuGCUhA6jaVXFqGFy pEKOmPAlxfEFuSGV3kXqmz0 K4vKRnqDQalGxgWbTdDyUgS lLRx2NvQQo5sQomZ6RyGNVg LiV4lOBkGZAnVQcrYKFcVGX sozY8dMvxyiPuy03rdGOzXH YwXGZzMjBcbGkwXHJpMCBDb 2XygLivBKY0nQs1nAbdNwgl KLC2Xtk7OI6jmw62ghc3lZj wUWCvvjioQmJ1HJmaDPDilb eoXLc3CHvdLITcgKM6CIQfq JLkS2TeCAHmXL2klyn4UAQ8 YEksKQWvNxR5LJPgwIRwMUH bfSlwODvvr422NTY0AxQzPA 2bC3Oxx6X6rV6fuLYuEARim USwIcQoDESrww0szXLvYFjn g3RxCYL4mgU7pUHahSUvARD nVG36Obxhc8JyUhvul9YjC5 7teVC3YDrga4znFY9cFeI4y oQnTHdkq5bxyZ6iRyC0JTnh KM4lSO0sKSDiuN9smmlkKXH nYnJkcmhlYWRccGdicmRyZm 7rsKgxFTW3OTtfI5wuqB0wA cO9QRjuW7xezC0tYQo9MKfx iNM6PHBncG0tXZ2vfbyro1v iCVlrPHhdGVGvgwH7dxW1NU JqeAPrJ7ErcJ0bRWZtMC5sm nfip7fuTTU0SXmhPVGrAGY0 MxPmGLPei2Nkkbb5DbEsf2W uvIObRZmcJ60tm605DUAnkl EfU1thvHEmvavigHNqmddaL OyfdaB0UIRgRJFnXHbqRFFj XGZzMjJcbGFuZzEwMzNcaGl jaFxmMVxkYmNoXGYxXGxvY2 trPzRkC0AvTCDtGkYbPBufA PqydNKkzBXokBW2cI9bUG6g YXJyqSYnA8UhZXWbtgBteOZ iMUZ3mOYfxBUrUT7sNQagbM Unl2akf7DkB4cmfHcnfLJ4F W1sKBIyPTLrFCeaf8AquD6p LlxwbGFpblxmMVxmczIyXGx uofgyAYYnZOyiQ2vuGzGsAH AkcHqeYRpgm2RkIMTnVMWnY tcjmrBtFXc2vuWxUQRdxxkt WOHmrGliaX1cKpRrMePtRhm fVK3mUXLxY9vrbHShDWQlPB LiO6hrBuNnkJ3aoJcvHBdbL mYdBpFiYiDRe352ji7kKYXl nMKpqnPCuWGjuR3jCAyuGDf vMSmavAJnBQlmz3qkSJDpz6 b4nTXvLSOjhsFwg6ghCEizy eZkRWQbaOWwlBSsMXPrt62j WRbqaKnewMroUEThc8FszUl bt1WnLrCwIGdig1AuS22vpK JvbCBzbGlkZXMgcnVuIGFsb 85cp3atAPPhDoT1zWIfbWW8 pCPtkLBlf7ImhIxuWUDyh2y cBDQjbw1hiujgwQOdf5CtjP 5pbmcuIEludGVybmFsIHBvc 1k3gHBtBHVsGBEyPUmypBe2 VPKgp901vr6rseM1jTJnJZI 2YWlsYWJsZSBhcmUgZXZhbH VhdGVkXHBsYWluXGYxXGZzM jJcbGFuZzEwMzNcaGljaFxm VHtfQjLnPWKtKPoiG0bfYhP zN4MqCAEeEhIaoGVjC7ybaB FyXHBsYWluXGYxXGZzMjJcb GFuZzEwMzNcaGljaFxmMVxk MiEhZWJnLKwbO9olMzHsY2M yXGZzMjIgIFxwbGFpblxmMV xmczIyXGxhbmcxMDMzXGhpY 6vePfZnNNHvaPqsHAgor6Mz AMYrLDNoAkepqtUzJBp2jeZ oXHBhclxwbGFpblxmMVxmcz KaGDhxpiqeCUIlILxeF4wfH aWgPQChyEojYTsex1KoLHDn AGGeUuxldnPzYSsoqODcq1s ej1OaM7susWoqdEH5JLLnA4 xtcZSytTK0PVS3tJ9kEDwmw oGoFJCkq8KoPTUgCNGrXvQ5 dM2bFYZ6DaTUeHmsKNYrFMx uXGYxXGZzMjJcbGFuZzEwMz NcaGljaFxmMVxkYmNoXGYxX AboQ6lnMgHwN8CsJEGpObVj oSikTSmkMFc4XrtytMOitrs mMVxmczIyXGxhbmcxMDMzXG nkR2lrIyDxBVXuyNyaCDlue 2NoXGYxXGNmMlxmczIyIHMg ONRzjXYfhTJFYF54MPOuQTQ guHvjiK8whLNLQZVthhU2z5 R7OGeoBAGuMMv5HFyslpBsX RPsxG9qTCXwUT3eMCj1lfTe WTCie8MdAZ9jCCGloHWpICT 8OLMyr4YcN5Uih5QuPZCcKL Mqfj3zjqMbMkSBlFSaRQAyk p74FIAvHD8cD2kzVFEnKYHy arGxkNXyd1OeFQVauVI8vYJ xQI3MZbYWd81jSBFdHZVTff JzIRJxxXqihDL8ukB7vL1hX iBUaGUgRkRBIGhhcyBkZXRl np5jssFiZYKgOKHgx6GvoLT erNKnjbWuZ2Stn9RuDPSohk 62FIbodYDluh47NM6uX9Imz 6PuvD8uYHajYBBbb0FaiACm kZXbSXBiy5DbX4jnqyudGUi nbKQchB1pJXOdETt9CYYjn1 ZtMWVjf0YxDgVxlaSpDRDjD IUpSWDgeS05DLY1pZckgRhv hcLpBO5kVLUnsuZxWMTiOLY edS7rHLybdiEjDDItrsJ6y0 J4ZMpxFUOyivViQfroMRO0n vWsgoF9nYNuJ9yiyvraNTyc MUIax3FlzN0gtUIZcMRtq0C wkYKcaXKDnKNcFN2gcdOsLH 3kZIW5EMkuUKECPGBbAGumD XVkNMO5GMyfEencOVN4paFk VZOvi6PxAWyfK3ojC35jpSo qxFg8uXRwdCuhlEVtaTIoHM SsirX9c0T6DIVid5QtrwrdQ HBsYWluXGYyXGZzMjJcbGFu ZzEwMzNcaGljaFxmMlxkYmN sBLDvZWcgV7rsKsDiEaRtGo kzGAN1gI== Gross assessment was [facility] performed at ([facility], code = 2777) Department of Pathology, [address] [place] [id number], Technical component [facility] was performed at ([facility], code = 2778) Department of Pathology, [address] [place] [address], Professional component [facility] was performed at ([facility], code = 2779) Department of Pathology, [address] [place] [address], [facility] BY [id number] 11:53:00 Medical Cytology Report Case: [id number] Authorizing Provider: Solange Koch MD Collected: 07/20/2020 10:36 AM Ordering Location: [facility] Received: 07/20/2020 11:18 AM PERIOPERATIVE SERVICES Pathologist: Adri Rangel MD Specimen: Lymph Node, Interlobar, Left, Station 11L LYMPH NODE, INTERLOBAR, LEFT, STATION 11L EBUS FNA BY CLINICIAN (CYTOSPINS AND CELL BLOCK OF ASPIRATE): - NEGATIVE FOR EPITHELIAL MALIGNANCY LYMPHOCYTES PRESENT Signing Pathologist Direct Phone Line: [phone] signed by Adri Rangel MD on 07/21/2020 at 11:53 AMPlease also see surgical pathology report [id number] and cytopathology reports [id number] and [id number] through C20 2957. [address]2522, [id number] upper lobe lung nodule, history of smokingLYMPH NODE, INTERLOBAR, LEFT, STATION 11L [id number] mls in cytorich red; 2 cytospins, cell block (A2)Performed. The interpretation of this case included the use of immunohistochemistry or special stains.Control Slides Examined: In-house known positive controls were evaluated along with the test tissue. These control slides run alongside of the patients sample show appropriate staining. Internal positive and negative controls when available areevaluated Immunohistochemistry technical testing was performed at [facility], Pathology Laboratory where it was developed [...] qualified to perform high complexity clinical laboratory testing.[facility], Department of Pathology, [address] [place] [address], [facility], Department of Pathology, [address] [place] [address], [facility], [address] [place] [address], [facility] NEEDLE ASPIRATE BY [id number] 11:33:00Medical Cytology Report Case: [id number] Authorizing Provider: Solange Koch MD Collected: 07/20/2020 10:23 AM Ordering Location: [facility] Received: 07/20/2020 11:18 AM PERIOPERATIVE SERVICES Pathologist: Adri Rangel MD Specimen: Lymph Node, Lower Paratracheal, Right, Station 4R LYMPH NODE, LOWER PARATRACHEAL, RIGHT, STATION 4R EBUS FNA BY CLINICIAN (CYTOSPINS AND CELL BLOCK OF ASPIRATE): - NEGATIVE FOR EPITHELIAL MALIGNANCY LYMPHOCYTES AND HISTIOCYTES PRESENT Signing Pathologist DirectPhone Line: [phone] signed by Adri Rangel MD on 07/21/2020 at 11:33AMPlease also see surgical pathology report [id number] and cytopathology reports [id number] and [id number] through [id number]. 96046, [id number] upper lobe lung nodule, history of smokingLYMPH [...] evaluated Immunohistochemistry technical testing was performed at [facility], Pathology Laboratory where it was developed [...] as qualified to performhigh complexity clinical laboratory testing.[facility], Department of Pathology, [address] [place] [address], [facility] of [facility], [address] [place] [address], [facility], Department of [facility], [address] [place] [address], RLVM/CONCENTRATION [id number] 02:37:00 Test Item Value Reference Range Interpretation Comments Concentration charged (test code = Done 2657) [facility] [id number] 02:37:00 Test Item Value Reference Range Interpretation Comments CONCENTRATION CHARGED (BEAKER) (test Done code = 2657) FINE NEEDLE ASPIRATE (FNA) [id number] 13:00:00 Test Item Value Reference Range Interpretation Comments Cytology (test code = See Separate Report 2629) [facility] [id number] 13:00:00 Test Item Value Reference Range Interpretation Comments Cytology (test code = See Separate Report 2629) [facility] [id number] 13:00:00 Test Item Value Reference Range Interpretation Comments CYTOLOGY RESULT POINTER See Separate Report (BEAKER) (test code = 2629) EBUS FNA [id number] 13:00:00 Test Item Value Reference Range Interpretation Comments CYTOLOGY RESULT POINTER See Separate Report (BEAKER) (test code = 2629) EBUS FNA [id number] 13:00:00 Test Item Value Reference Range Interpretation Comments CYTOLOGY RESULT POINTER See Separate Report (BEAKER) (test code = 2629) EBUS FNA [id number] 13:00:00 Test Item Value Reference Range Interpretation Comments CYTOLOGY RESULT POINTER See Separate Report (BEAKER) (test code = 2629) FINE NEEDLE ASPIRATE (FNA) [id number] 13:00:00 Test Item Value Reference Range Interpretation Comments CYTOLOGY RESULT POINTER See Separate Report (BEAKER) (test code = 2629) RAD, CHEST, 1 VIEW, NON [id number] 12:01:00Reason for exam:->s/p KRYSTAL TBBX [facility] 1950 Sex: MFINAL REPORT [...] Franklin Verified Date/Time: 07/20/2020 12:01:07 Reading Location: [facility] Radiology Reading Room XR chest 1 view portable / [id number] 12:01:00 Interface, External Ris In - 07/20/2020 [...] Franklin Verified Date/Time: 07/20/2020 12:01:07 Reading Location: [facility] Radiology Reading Room [facility] [id number] 11:00:00 Test Item Value Reference Range Interpretation Comments CYTOLOGY RESULT POINTER See Separate Report (NYDIA) (test code = 2629) FL, FLUORO, NON-SPECIFIC, UP TO 1 [id number] 10:36:00Reason for exam:- >bronch [facility] : 1950 Sex: MFluoroscopic unit utilized for a procedure performed in the OR. No interpretation wasrequested. Refer to the operative report for findings. Refer to PACS for patient radiation dose information.FL fluoro non-specific up to 1 [id number] 10:00:00 Interface, External Ris In - 07/20/2020 1:29 PM CSTFluoroscopic unit utilized for a procedure performed in the OR. No interpretation was requested. Refer to the operative report for findings. Referto PACS for patient radiation dose information.[facility]ecaABORH, [id number] 07:40:00 Test Item Value Reference Range Interpretation Comments ABO Grouping (test code = 2588) A Rh Factor (test code = 2589) POS [facility] MantecaType and screen, [id number] 07:20:00 Test Item Value Reference Range Interpretation Comments ABO/RH AUTOMATED (BEAKER) (test A POSITIVE code = 2260) Ab Scrn (test code = 890-4) NEGATIVE [facility] MantecaComprehensive metabolic [id number] 07:07:00 Test Item Value Reference Range Interpretation Comments Protein, Total (test 8.1 See_Comment [Autom ated code = 2885-2) message] The system which generated this result transmit anthony reference range : 6.0 - 8.3 gm/dL . The reference range was not u sed to interpret th is result as normal/abnormal . Albumin (test code = 3.7 g/dL 3.5-5 55410-4) Alkaline Phosphatase 165 U/L 40-150 H (test code = 6768-6) Total Bilirubin (test 0.7 mg/dL 0.2-1.2 code = 1974-2) Sodium (test code = 131 meq/L 136-145 L 2951-2) Potassium (test code 4.5 meq/L 3.5-5.1 = 2823-3) Chloride (test code = 98 meq/L 98-107 2075-0) CO2 (test code = 25 meq/L 22-29 2028-9) BUN (test code = 14 mg/dL 7-21 3094-0) Creatinine (test code 0.94 mg/dL 0.57-1.25 = 2160-0) Glucose (test code = 125 mg/dL 70-105 H 2345-7) Calcium (test code = 9.3 mg/dL 8.4-10.2 18614-2) AST (test code = 39 U/L 5-34 H 1920-8) ALT (test code = 47 U/L 6-55 1742-6) EGFR (test code = [place] [address]-7) CLINICAL DATA T O CALCULATE ESTIMATED GFR. ALAINA (test code = ALAINA) [facility] ID - PENNY [place] Lab Interpretation Abnormal (test code = 55720-1) [facility]ecaCOMPREHENSIVE METABOLIC [id number] 07:07:00 Test Item Value Reference Range Interpretation [...] = 382) CO2 (BEAKER) (test 25 meq/L 22-29 code = 355) BLOOD UREA NITROGEN 14 [...] 1092) DATA TO CALCULA TE ESTIMATED GFR. [facility] ID - PENNY [id number] 06:44:00 Test Item Value Reference Range Interpretation Comments PTT (test code = 79260-8) 29.6 See_Comment [ Automated message] The system whic h generated this result transmitted ref erence range: 22.5 - 3 6.0 seconds. The re ference range was not u sed to interpret this result as normal/abnor mal. Lab Interpretation (test Normal code = 33795-8) [facility] MantecaAPTT2020-11-17 06:44:00 Test Item Value Reference Range Interpretation Comments PARTIAL THROMBOPLASTIN TIME 29.6 seconds 22.5-36.0 (BEAKER) (test code = 760) Prothrombin time/[id number] 06:43:00 Test Item Value Reference Interpretation Comments Range Protime (test code = 13.3 See_Comment [Autom ated 6202-2) message] The system which generated this result transmitted reference range : 11.9 - 14.2 seconds. The reference range was not used to interpret this result as normal/abnormal . INR (test code = 1.04 See_Comment [Automated 5201-6) message] The system which generated this result [...] valves. Lab Interpretation Normal (test code = 30442-8) [facility] MantecaPROTHROMBIN TIME/[id number] 06:43:00 Test Item Value Reference Range Interpretation [...] heart valves.CBC with platelet count + automated [id number] 06:35:00 Test Item Value Reference Range Interpretation Comments WBC (test code = 6690-2) 12.4 See_Comment H [A utomated message] The system Intale generated this result transmitted ref erence range: 3.5 - 10 .5 K/L. The refe rence range was not u sed to interpret this result as normal/abnor mal. RBC (test code = 789-8) 4.89 See_Comment [Au tomated message] The system Int[employer] generated this result transmitted ref erence range: 4.63 - 6 .08 M/L. The refe rence range was not u sed to interpret this result as normal/abnor mal. MCHC (test code = 786-4) 33.2 See_Comment [A utomated message] The system Intale generated this result transmitted ref erence range: [...] See_Comment [Aut omated message] 777-3) The system Intale generated this result transmitted ref erence range: 150 - 45 0 K/CU MM. The referen ce range was not u sed to interpret this result as normal/abnor mal. MPV (test code = 8.5 fL 9.4-12.4 L 28576-8) nRBC (test code = 413) 0 See_Comment [Aut omated message] The system Intale generated this result transmitted ref erence range: [...] H [Aut omated message] 670) The system Intale generated this result transmitted ref erence range: 1.78 - 5 .38 K/L. The refe rence range was not u sed to interpret this result as normal/abnor mal. # Lymphs (test code = 4.48 See_Comment H [Auto mated message] 414) The system Intale generated this result transmitted ref erence range: 1.32 - 3 .57 K/L. The refe rence range was not u sed to interpret this result as normal/abnor mal. # Monos (test code = 1.27 See_Comment H [Autom ated message] 415) The system Intale generated this result transmitted ref erence range: 0.30 - 0 .82 K/L. The refe rence range was not u sed to interpret this result as normal/abnor mal. # Eos (test code = 416) 0.56 See_Comment H [Au tomated message] The system Intale generated this result transmitted ref erence range: 0.04 - 0 .54 K/L. The refe rence range was not u sed to interpret this result as normal/abnor mal. # Baso (test code = 417) 0.10 See_Comment H [A utomated message] The system Intale generated this result transmitted ref erence range: 0.01 - 0 .08 K/L. The refe rence range was not u sed to interpret this result as normal/abnor mal. Immature 1 % 0-1 Granulocytes-Relative (test code = 2801) Lab Interpretation (test Abnormal code = 29097-2) [facility] W/PLT COUNT & AUTO [id number] 06:35:00 Test Item Value Reference Range Interpretation [...] PERCENT (BEAKER) (test code = 2801) POC-Glucose [id number] 06:11:00 Test Item Value Reference Range Interpretation Comments POC-Glucose Meter (test 114 mg/dL 70-110 H : TE STED AT [facility] code = 1538) [address] [facility], 770 30: Health Associate/Techni rosalva ID = [id number] for Susan Crews Lab Interpretation (test Abnormal code = 22921-6) [facility] MantecaPOCT-GLUCOSE [id number] 06:11:00 Test Item Value Reference Range Interpretation Comments POC-GLUCOSE METER 114 mg/dL 70-110 H : TESTED A T [facility] 6720 (BEAKER) (test code = [facility], 1538) [address]: Health Associate/Techni rosalva ID = [id number] for Susan Celestin Prothrombin Gene [id number] 13:07:00 Test Item Value Reference Interpretation Comments Range PROTHROMBIN GENE SEE BELOW RESULT: G20 210A ANALYSIS (test code variant not detected = [id number]) Interpretation SEE BELOW INTERPRETATIO N: This (test code = individual is n egative 3184075) (normal) for th e W55087L variant in the Prothrombin/Fac tor II gene. Increased risk of thrombophili a can becaused by a v ariety of genetic and non-genetic fac tors not screened fo r bythis assay. Laboratory test ing supervised and results monitored by Opal Robledo, Ph.D.,D ABG, [facility]. 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 This test was develo ped and its analytical performance characteristics havebeen determ ined by [employer] [facility] .It has not been cleare d or approved by FDA . This assay has been validatedpursua nt to the CLIA regula tions and is used for clinical purpos es. ALAINA (test code = Performing Lab ALAINA) EZ [employer] [facility] [address] [place] [address] Bryson Lopez MD, PhD, GLENN [facility] MantecaFactor 5 Leiden PCR (thrombotic risk)2020-07-17 15:45:00 Test Item Value Reference Interpretation Comments Range Factor V Leiden SEE BELOW RESULT: FACT OR V Mutation (test code LEIDEN ( R506Q) VARIANT = [id number]) NOT DETECTED Interpretation SEE BELOW INTERPRETATIO N: This (test code = individual is n egative 6625199) (normal) for th e Factor V Leiden (R506Q) variant in the Factor V gene. Increas ed risk of thrombophili a can becaused by a v ariety of genetic and non-genetic fac tors not screened fo r bythis assay. Laboratory test ing supervised and results monitored by Betsy Boss MD, PhD, FACMG, [facility]. MUTATI ON ANALYSIS:The Fa ctor V Leiden [...] perf ormance characteristics havebeen determ ined by [employer] [facility] .It has not been cleare d or approved by FDA . This assay has been validatedpursua nt to the CLIA regula tions and is used for clinical purpos es. Health care pro viders, please contact your local [employer] geneticcounselo r or call [phone] INFO ([phone]) for assistance withinterpretat ion of these results. ALAINA (test code = Performing Lab ALAINA) EZ [employer] [facility] [address] [place] [address] Bryson Lopez MD, PhD, GLENN [facility] MantecaProtein S [id number] 00:12:00 Test Item Value Reference Range Interpretation Comments Protein S 75 See_Comment Decreased leve ls of Functional (test Protein S a ctivity code = 1295269) may be found in patients withhereditary deficiency, war farin therapy, vitami n k deficiency, vik er disease,DIC, or recent thrombos is as well as after surgery. In addition, it ma y bephysiologic i n . An elevated Protei n S activity is not clinicallysigni fican t. Only deficie ncies are associated with an increased thromboticrisk. [Automated mess age] The system Intale generated this result transmit anthony reference range : 70 - 150 % normal. The reference range was not used to interpret this result as normal/abnormal . ALAINA (test code = Performing Lab ALAINA) Flite [facility] [address] [place] [address] Bryson Lopez MD, PhD, GLENN [facility] (Asymptomatic ONLY)2020-07-16 16:25:00 Test Item Value Reference Range Interpretation Comments SARS-COV2/RT-PCR Negative Not Detected, (test code = Negative, See 05251-7) external report for linked test SARS-COV-2 [facility] PERFORMING LAB (test code = 69574-3) ALAINA (test code = Negative result for [...] of the Act. Fact Sheet for Healthcare Providers:https://www.[employer]/sites/default/f donta/product/documents/F act_Sheet_HC_Providers_L iep_DTFR-QcO-2.pdf Fact Sheet for Healthcare Patients:https://www.[employer]ce[employer]/sites/default/fi les/product/documents/Fa ct_Sheet_Patients_Lyra_S ARS-CoV-2.pdf Performing Laboratory:[facility], [place] [address] [place], [place] [address]ARS-COV2/RT-PCR ([facility])2020-07-16 16:25:00 Test Item Value Reference Range Interpretation Comments SARS-COV2/RT-PCR (test Negative Not Detected, Negative, code = 7875126) See external report for linked test SARS-COV-[address] [facility] CONSUELO (test code = 1891327) Negative result for this test determines that [...] 564(g) of the Act.Fact Sheet for Healthcare Providers:https://www.[employer]/sites/default/files/product/documents/Fact_Shee e_QO_Mwrmzrpue_Bebx_RKGL-LtU-2.pdfFact Sheet for Healthcare Patients:https://www.[employer]/sites/default/files/product/ documents/Tqzs_Fhqey_Fvvhtcvm_Ocye_XNYH-YrS-1.pdfPerforming Laboratory:[facility], [place] [address]YW, CHEST, WITHOUT [id number] 15:54:00THIN CUT, 0.625 mm, HIGH RES, VERAN CUTSFOR OR PROCEDUREUnlisted Reason for Exam - Click Yes and Enter Reason Below->No [facility] : 1950 Sex: MFINAL REPORT [...] MDReport Verified Date/Time: 07/15/2020 15:54:45 Reading Location: [facility] B1 C013Y CT Body Reading Room CT chest without IV [id number] 15:54:00Interface, External Ris In - 07/15/2020 3:57 [...] Joya MDReport Verified Date/Time: 07/15/2020 15:54:45 ReadingLocation: [facility] B1 C013Y CT Body Reading Room Electronically signed by: GIO JOYA MD on07/15/2020 03:54 [facility]iumCT, CTA, [id number] 10:19:00Unlisted Reason for Exam - Click Yes and Enter Reason Below->YesUnlisted Reason for Exam->Splenic embolism/infarct. Rule out proximal aortic source (ulcer, aneurysm) [facility] 1950 Sex: MAddendum BeginsREPORT STATUS:A I agree with the nonvascular find ings with the following additional comment: There is diffusely decreased enhancement of the spleen with mild adjacent fat stranding consistent with history of splenic infarct. Signed: Gio Joya MDReport Verified Date/Time: 07/15/2020 10:19:44 Reading Location: [address] Body Reading RoomAddendum EndsFINAL REPORT [...] dictated regarding the non-vascular findings by the [employer] Radiologist. Signed: Deandre Lujan MDReport Verified Date/Time: 07/14/2020 10:42:49 Reading Location: [place] [address] [address] Reading Room COMPREHENSIVE METABOLIC [id number] 05:29:00 Test Item Value Reference Range Interpretation [...] 1092) DATA TO CALCULA TE ESTIMATED GFR. [facility] ID - PENNY MPROTHROMBIN TIME/[id number] 04:56:00 Test Item Value Reference Range Interpretation [...] See_Comment H [A utomated message] The system Intale generated this result transmitted ref erence range: 3.5 - 10 .5 K/L. The refe rence range was not u sed to interpret this result as normal/abnor mal. RBC (test code = 789-8) 4.78 See_Comment [Au tomated message] The system Intale generated this result transmitted ref erence range: 4.63 - 6 .08 M/L. The refe rence range was not u sed to interpret this result as normal/abnor mal. MCHC (test code = 786-4) 33.1 See_Comment [A utomated message] The system Intale generated this result transmitted ref erence range: [...] See_Comment [Aut omated message] 777-3) The system Intale generated this result transmitted ref erence range: 150 - 45 0 K/CU MM. The referen ce range was not u sed to interpret this result as normal/abnor mal. MPV (test code = 8.4 fL 9.4-12.4 L 89320-1) nRBC (test code = 413) 0 See_Comment [Aut omated message] The system Intale generated this result transmitted ref erence range: 0 - 0 /1 00 WBC. The refere nce range was not u sed to interpret this result as normal/abnor mal. Lab Interpretation (test Abnormal code = 18177-8) [facility]ecaCB (HEMOGRAM ONLY)2020-07-15 04:25:00 Test Item Value Reference [...] code = 413) ECHO W CONTRAST & [id number] 14:46:21Ejection FractionSLEH ECHO HEARTLAB MKCKESSON CPACSInterface, External Ris In - 07/14/2020 2:46 PM C STTransthoracic Echocardiography Report (TTE) Demographics Patient Name LISA HERRON Date of Study 07/14/2020 OMARI Gender Male Visit Number [id number] Race Unknown Room Number 2442 Number Date of 1950 Referring DELGADO MCDANIEL Physician Age 69 year(s) Imagery Intelligence Odilia Marino Er Medical Technician Sheryl James CS Interpreting Maya Durand Physician Procedure Type of [...] LVOT CO: 6.6 l/min LVOT CI: 2.59 l/min/m^2CMission Bernal campusARS-COV2/RT-PCR ([facility])2020-07-14 12:56:00 Test Item Value Reference Range Interpretation Comments SARS-COV2/RT-PCR (test Negative Not Detected, Negative, code = 7210476) See external report for linked test SARS-COV-[address] [facility] CONSUELO (test code = 7379122) Negative result for this test determines that [...] 564(g) of the Act.Fact Sheet for Healthcare Providers:https://www.KOTURAidel.com/sites/default/files/product/documents/Fact_Shee k_KZ_Dbaedmetr_Ukih_CVXY-DwK-5.pdfFact Sheet for Healthcare Patients:https://www.[employer].com/sites/default/files/product/ documents/Nvqg_Pqrom_Ugavyvmh_Xskt_BAVZ-RzG-5.pdfPerforming Laboratory:[facility], [place] [address]Ccwhkjt C activity 2020-07-14 11:44:00 Test Item Value Reference Range Interpretation Comments Protein C Activity (test code = 89.0 % 70-130 98014-8) Lab Interpretation (test code = Normal 57305-3) [facility] MantecaPROTEIN C [id number] 11:44:00 Test Item Value Reference Range Interpretation Comments PROTEIN C ACTIVITY (BEAKER) (test code 89.0 % 70.0-130.0 = 582) CTA [id number] 10:42:00Interface, External Ris In - 07/15/2020 10:21 AM CSTAddendum BeginsREPORT STATUS:A I agree with the nonvascular findings with the following additional comment: There is diffusely decreased enhancement of the spleen with mild adjacent fat stranding consistent with history of splenic infarct. Signed: Gio Joya MDReport Verified Date/Time: 07/15/2020 10:19:44 ReadingLocation: [facility] B[facility] C013[facility] CT Body Reading RoomAddendum EndsFINAL [...] dictated regarding the non-vascular findings by the [employer] Radiologist.Signed: Deandre Lujan MDReport Verified Date/Time: 07/14/2020 10:42:49 Reading Location: [place] [address] [address] Reading Room [facility] [id number] 07:48:00 Test Item Value Reference Range Interpretation [...] = 3438) ALAINA (test code = ALAINA) Health Associate ID - Melinda Abel comments: Slide comments: Lab Interpretation Abnormal (test code = 72096-2) [facility] W/PLT COUNT & AUTO [id number] 07:48:00 Test Item Value Reference Range Interpretation [...] CONCENTRATION Adequate (CELLAVISION)(BEAKER) (test code = 3438) Health Associate ID - Melinda Roman comments: Slide comments:Basic Metabolic [id number] 04:42:00 Test Item Value Reference Range Interpretation [...] Calcium (test code = 8.7 mg/dL 8.4-10.2 67362-0) EGFR (test code = [place] [address]-7) CLINICAL DATA T O CALCULATE ESTIMATED GFR. ALAINA (test code = ALAINA) Health Associate ID - EDASI Lab Interpretation Abnormal (test code = 94703-1) [facility] MantecaBASI METABOLIC [id number] 04:42:00 Test Item Value Reference Range Interpretation [...] 1092) DATA TO CALCULA TE ESTIMATED GFR. Health Associate ID - [id number] 04:40:00 Test Item Value Reference Range Interpretation Comments Magnesium (test code = 1.9 mg/dL 1.6-2.6 29933-3) ALAINA (test code = ALAINA) Health Associate ID - EDASI Lab Interpretation (test Normal code = 10431-6) [facility] MantecaPhosphorus2020-11-11 04:40:00 Test Item Value Reference Range Interpretation Comments Phosphorus (test code = 3.5 mg/dL 2.3-4.7 2777-1) ALAINA (test code = ALAINA) Health Associate ID - EDASI Lab Interpretation (test Normal code = 21702-4) [facility] MantecaMAGNESIUM2020-11-11 04:40:00 Test Item Value Reference Range Interpretation Comments MAGNESIUM (BEAKER) (test code = 1.9 mg/dL 1.6-2.6 627) Health Associate ID - [id number] 04:40:00 Test Item Value Reference Range Interpretation Comments PHOSPHORUS (BEAKER) (test code = 3.5 mg/dL 2.3-4.7 604) Health Associate ID - [id number]-[id number] 00:00:00Ordered by an unspecified provider.[facility]
--- NOTE | 2021-03-11 15:39 | RAD REPORT ---
EXAM DESCRIPTION: CT - Head C Spine Mpr Wo Con - 03/11/2021 3:12 pm CLINICAL HISTORY: Head and neck injury status post fall. Head and neck pain COMPARISON: 2019 TECHNIQUE: Computed axial tomography of the head and cervical spine was obtained. Sagittal and coronal reconstruction was performed. All CT scans are performed using dose optimization technique as appropriate and may include automated exposure control or mA/KV adjustment according to patient size. FINDINGS: 5.6 centimeter low-density area within the white matter right frontal lobe. Additional sma ller low-density areas within the right occipital lobe, right parietal lobe, left frontal lobe and po sterior left frontal lobe. Low-density right basal ganglia. Low-density left temporal lobe No intracranial bleed seen. No shift of the midline structures A cervical fracture is not visualized. No dislocation is noted. Spondylosis involves the cervical spi ne resulting in significant foraminal and central spinal stenosis IMPRESSION: Development of multiple, bilateral low-density areas within the brain most likely metast ases with surrounding vasogenic edema. A cervical fracture is not seen
--- NOTE | 2021-03-11 15:42 | RAD REPORT ---
EXAM DESCRIPTION: Lizbet Single View03/11/2021 3:25 pm CLINICAL HISTORY: Syncope COMPARISON: February 2012 FINDINGS: Overall a minimal improvement in the bilateral pulmonary opacities. Heart is normal size
[2021-03-11 15:45] LABS: Absolute Lymphocytes (CBC) 2.2 K/uL (0.7-4.9); Basophils % 1.3 % (0-1.3); Hematocrit 35.3 % (39.6-49.0); Lymphocytes % 20.6 % (15.3-44.8); RBC Red Blood Cell Count 3.59 M/uL (4.33-5.43)
[2021-03-11 15:52] LABS: Protime INR 1.32
[2021-03-11 16:05] LABS: ALT/SGPT 18 U/L (12-78); AST/SGOT 22 U/L (15-37); Albumin 2.7 g/dL (3.4-5.0); Alkaline Phosphatase 125 U/L (45-117); BUN Blood Urea Nitrogen 10 mg/dL (7-18); Bicarbonate 26 mmol/L (21-32); Bilirubin Direct 0.3 mg/dL (0-0.2); Bilirubin Total 0.8 mg/dL (0.2-1.0); Glucose Level 124 mg/dL (74-106); Magnesium 1.8 mg/dL (1.8-2.4); NT PRO-BNP 287 pg/mL (<125); Potassium 3.6 mmol/L (3.5-5.1); Protein, Total 7.1 g/dL (6.4-8.2); Sodium Level 138 mmol/L (136-145); Troponin (Emerg Dept Use Only) < 0.02 ng/mL (0.0-0.045)
--- NOTE | 2021-03-11 17:11 | RAD REPORT ---
EXAM DESCRIPTION: CT - Chest For Pe Angio - 03/11/2021 4:56 pm CLINICAL HISTORY: Lung cancer. Syncope COMPARISON: February 15, 2021 TECHNIQUE: Dynamically enhanced axial 3 mm thick images of the chest were obtained during administra tion of <100> mL Isovue 370 IV contrast. Coronal and oblique reconstruction images were generated and reviewed. Exam utilizes a protocol for optimal evaluation of pulmonary arterial tree. Maximum intensity projections 3D imaging was utilized All CT scans are performed using dose optimization technique as appropriate and may include automated exposure control or mA/KV adjustment according to patient size. FINDINGS: A pulmonary embolus is not seen. A thoracic aortic aneurysm is not noted. A pleural effusion is not seen. A pericardial effusion is not seen. 2 centimeter left upper lobe mass without significant change. Large bulla and blebs scattered throughout the lungs. IMPRESSION: Negative for a pulmonary embolism.
--- NOTE | 2021-03-11 18:38 | ER ---
Nurse's Notes [facility] Name: Rohan Bauman Age: 70 yrs Sex: Male : 1950 Arrival Date: 03/11/2021 Time: 14:52 Bed 4 Private MD: Diagnosis: Syncope Presentation: 03/11 14:41 Method Of Arrival: EMS: [facility] tw2 14:41 Coronavirus screen: At this time, the client does not indicate any symptoms associated tw2 with coronavirus-19. Ebola Screen: Patient denies travel to an Ebola-affected area in the 21 days before illness onset. Initial Sepsis Screen: Does the patient meet any 2 criteria? No. Patient's initial sepsis screen is negative. Does the patient have a suspected source of infection? No. Patient's initial sepsis screen is negative. Risk Assessment: Do you want to hurt yourself or someone else? Patient reports no desire to harm self or others. Onset of symptoms was March 11, 2021. 14:41 Acuity: SOFIA 3 tw2 14:41 Care prior to arrival: Medication(s) given: Normal saline infusion, 1000 mL, tw2 approximately 800 ML infused PRIOR to arrival IV initiated. 20 GA, in the left antecubital area. Mechanism of Injury: Fall from standing position. Trauma event details: Injury occurred in the [facility]. 14:52 Chief complaint: EMS states: pt from home, states had a syncopal episode, hit is tw2 forehead and left elbow, pt is on blood thinners Eliquis , has abrasion to LEFT elbow and forehead, pt is doing radiation and treatment for Lung CA. Triage Assessment: 14:55 General: Appears in no apparent distress. Behavior is calm, cooperative, appropriate tw2 for age. Pain: Complains of pain in back "always in pain there". EENT: No signs and/or symptoms were reported regarding the EENT system. Neuro: Level of Consciousness is awake, alert, obeys commands, Oriented to person, place, time, situation. Cardiovascular: Patient's skin is warm and dry. Respiratory: Airway is patent Respiratory effort is even, unlabored, Respiratory pattern is regular, symmetrical. GI: No signs and/or symptoms were reported involving the gastrointestinal system. : No signs and/or symptoms were reported regarding the genitourinary system. Derm: Skin is healthy with good turgor, Skin is dry, Skin is normal. Musculoskeletal: Range of motion: intact in all extremities. Injury Description: Abrasion sustained to forhead and left elbow. Trauma Activation: Alert Physician: ED Physician; Name: ; Notified At: ; Arrived At: Physician: General Surgeon; Name: ; Notified At: ; Arrived At: Physician: Radiology; Name: ; Notified At: ; Arrived At: Physician: Respiratory; Name: ; Notified At: ; Arrived At: Physician: Lab; Name: ; Notified At: ; Arrived At: Historical: - Allergies: 14:55 No Known Allergies; tw2 - Home Meds: 14:55 Spironolactone Oral [Active]; levothyroxine oral [Active]; Furosemide Oral [Active]; tw2 Eliquis 5 mg Oral tab 1 tab 2 times per day [Active]; Allopurinol Oral [Active]; - PMHx: 14:55 blood clot in spleen; Cancer, Lung; CHF; Arthritis; Thyroid problem; Gout; tw2 - Immunization history:: Adult Immunizations. - Social history:: Smoking status: . - Immunization history: Last tetanus immunization: unknown. Screenin:41 Abuse screen: Denies threats or abuse. Nutritional screening: No deficits noted. tw2 Tuberculosis screening: No symptoms or risk factors identified. Fall Risk Secondary diagnosis (15 points) impaired mobility. Primary Survey: 14:51 NO uncontrolled hemorrhage observed. A: The patient is alert. Breathing/Chest: tw2 Respiratory pattern: regular, Respiratory effort: spontaneous, unlabored, Breath sounds: clear, bilaterally. Chest inspection: symmetrical rise and fall of the chest. Circulation: Heart tones present. Skin temperature: warm, dry. Disability Alert. Exposure/Environment: All clothing and personal items were removed. Forensic evidence collection is not deemed to be indicated at this time. Items placed in patient belonging bag. There is no evidence of uncontrolled external bleeding. Obvious injury(ies) are noted at this time: see triage assessment A warming method has been applied: A warm blanket has been provided to the patient. 16:25 Reassessment Airway Airway Patent Breathing/Chest Respiratory pattern Regular tw2 Respiratory effort Spontaneous Unlabored Breath sounds Clear Chest inspection Symmetrical Circulation Heart tones Present Temperature Warm Disability Alert. Assessment: 14:59 Reassessment: see triage assessment. tw2 15:21 Reassessment: pt in imaging at this time. tw2 16:25 Reassessment: Patient appears in no apparent distress at this time. No changes from tw2 previously documented assessment. Patient and/or family updated on plan of care and expected duration. Pain level reassessed. 17:22 Reassessment: Patient appears in no apparent distress at this time. No changes from tw2 previously documented assessment. Patient and/or family updated on plan of care and expected duration. Pain level reassessed. 17:25 Reassessment: Patient appears in no apparent distress at this time. No changes from tw2 previously documented assessment. Patient and/or family updated on plan of care and expected duration. Pain level reassessed. Vital Signs: 14:41 BP 154 / 74; Pulse 94; Resp 17; Temp 98.2(O); Pulse Ox 97% on R/A; Weight 122.47 kg; tw2 Height 6 ft. 3 in. (190.50 cm); Pain 1/10; 16:25 BP 124 / 69; Pulse 74; Resp 18; Pulse Ox 95% on R/A; tw2 17:25 BP 128 / 58; Pulse 74; Resp 17; Pulse Ox 96% on R/A; tw2 18:00 BP 112 / 69; Pulse 75; Resp 17; Pulse Ox 95% ; sv 14:41 Body Mass Index 33.75 (122.47 kg, 190.50 cm) tw2 Astor Coma Score: 14:51 Eye Response: spontaneous(4). Verbal Response: oriented(5). Motor Response: obeys tw2 commands(6). Total: 15. Trauma Score (Adult): 14:51 Eye Response: spontaneous(1); Verbal Response: oriented(1); Motor Response: obeys tw2 commands(2); Systolic BP: > 89 mm Hg(4); Respiratory Rate: 10 to 29 per min(4); Ephraim Score: 15; Trauma Score: 12 ED Course: 14:52 Patient arrived in ED. tw2 14:52 Ramses Francisco PA is PHCP. [facility] 14:52 Eddie Pearce MD is Attending Physician. [facility] 14:52 Patient maintains SpO2 saturation greater than 95% on room air. Thermoregulation: warm tw2 blanket given to patient. 14:55 Triage completed. tw2 14:55 Arm band placed on. tw2 14:55 Placed in gown. Bed in low position. Side rails up X2. assembler billiard table on. Pulse ox on. tw2 NIBP on. Warm blanket given. 14:57 Maintain EMS IV. Dressing intact. Good blood return noted. Site clean \\T\\ dry. Gauge \\T\\ tw 2 site: 20 g LEFT ac. 15:11 CT Head C Spine In Process Unspecified. EDMS 15:17 Bekah Crowell, RN is Primary Nurse. tw2 15:25 XRAY Chest (1 view) In Process Unspecified. EDMS 16:56 CT Chest For PE Angio In Process Unspecified. EDMS 16:59 EKG done, by ED staff, reviewed by Eddie Pearce MD. [facility] 18:59 No provider procedures requiring assistance completed. IV discontinued, intact, tw2 bleeding controlled, No redness/swelling at site. Pressure dressing applied. Administered Medications: 18:50 Drug: Tetanus-Diphtheria Toxoid Adult 0.5 ml {Industrial Relations Director: [facility]. Exp: tw11/05/2022. Lot #: [id number]. } Route: IM; Site: right deltoid; 18:59 Follow up: Response: No adverse reaction tw2 Intake: 19:00 PO: 30ml (Water); Total: 30ml. tw2 Outcome: 18:37 Discharge ordered by . douglas 19:00 Discharged to home via wheelchair. tw2 19:00 Condition: stable 19:00 Patient's length of stay in the Emergency Department was greater than 2 hours. ER pt flowPatient's length of stay extended due to 19:00 Discharge instructions given to patient, Instructed on discharge instructions, follow tw2 up and referral plans. Demonstrated understanding of instructions, follow-up care. 19:01 Patient left the ED. tw2 Signatures: Dispatcher [employer] Maya Roque, Ramses Trujillo RN, PA PA jmm Wise, Tara, RN RN [facility] Lisa Cobos [facility]
--- NOTE | 2021-03-11 18:38 | EDPHYS ---
Physician Documentation [facility] Name: Rohan Bauman Age: 70 yrs Sex: Male : 1950 Arrival Date: 03/11/2021 Time: 14:52 Bed 4 Private MD: ED Physician Eddie Pearce HPI: 03/11 14:53 This 70 yrs old Male presents to ER via Unassigned with complaints of Fall jmm Injury, Abrasion(s). 14:53 Details of fall: The patient fell from an upright position. Onset: The symptoms/episode jmm began/occurred acutely. Associated injuries: The patient sustained injury to the head. . This is a 70 year old male with a history of lung cancer that presents to the ED after a syncopal episode which occurred just prior to arrival. Patient is currently taking anticoagulants. Denies sob. Denies chest pain. . Historical: - Allergies: 14:55 No Known Allergies; tw2 - Home Meds: 14:55 Spironolactone Oral [Active]; levothyroxine oral [Active]; Furosemide Oral [Active]; tw2 Eliquis 5 mg Oral tab 1 tab 2 times per day [Active]; Allopurinol Oral [Active]; - PMHx: 14:55 blood clot in spleen; Cancer, Lung; CHF; Arthritis; Thyroid problem; Gout; tw2 - Immunization history:: Adult Immunizations. - Social history:: Smoking status: . - Immunization history: Last tetanus immunization: unknown. ROS: 14:53 Constitutional: Negative for fever, chills, and weight loss, Cardiovascular: Negative jmm for chest pain, palpitations, and edema, Respiratory: Negative for shortness of breath, cough, wheezing, and pleuritic chest pain. 14:53 Neuro: Positive for syncope. 14:53 All other systems are negative. Exam: 14:53 Constitutional: This is a well developed, well nourished patient who is awake, alert, jmm and in no acute distress. 14:53 Eyes: EOMI, no conjunctival erythema appreciated ENT: Moist Mucus Membranes Neck: Trachea midline, Supple Chest/axilla: Normal chest wall appearance and motion. Cardiovascular: Regular rate and rhythm. No edema appreciated Respiratory: Normal respirations, no respiratory distress appreciated Abdomen/GI: Non distended, soft Back: Normal ROM Skin: General appearance color normal 14:53 Neuro: Awake and alert, normal gait Psych: Behavior is normal, Mood is normal, Patient is cooperative and pleasant 14:53 Head/face: abrasion noted to the forehead. 14:53 Musculoskeletal/extremity: abrasion noted to the left forearm. Vital Signs: 14:41 BP 154 / 74; Pulse 94; Resp 17; Temp 98.2(O); Pulse Ox 97% on R/A; Weight 122.47 kg; tw2 Height 6 ft. 3 in. (190.50 cm); Pain 1/10; 16:25 BP 124 / 69; Pulse 74; Resp 18; Pulse Ox 95% on R/A; tw2 17:25 BP 128 / 58; Pulse 74; Resp 17; Pulse Ox 96% on R/A; tw2 18:00 BP 112 / 69; Pulse 75; Resp 17; Pulse Ox 95% ; sv 14:41 Body Mass Index 33.75 (122.47 kg, 190.50 cm) tw2 Ephraim Coma Score: 14:51 Eye Response: spontaneous(4). Verbal Response: oriented(5). Motor Response: obeys tw2 commands(6). Total: 15. Trauma Score (Adult): 14:51 Eye Response: spontaneous(1); Verbal Response: oriented(1); Motor Response: obeys tw2 commands(2); Systolic BP: > 89 mm Hg(4); Respiratory Rate: 10 to 29 per min(4); Ephraim Score: 15; Trauma Score: 12 MDM: 14:53 Patient medically screened. [facility] 18:34 Data reviewed: vital signs, nurses notes. Counseling: I had a detailed discussion with douglas the patient and/or guardian regarding: the historical points, exam findings, and any diagnostic results supporting the discharge/admit diagnosis, lab results, radiology results, the need for outpatient follow up, to return to the emergency department if symptoms worsen or persist or if there are any questions or concerns that arise at home. ED course: Patient is alert and non toxic in appearance in the ED. No signs signs of sepsis. Patient is advised to follow up with pcp and otherwise given strict return precautions. Patient understood and agrees with the plan of care. . 18:35 ED course: I discussed CT findings with the patient along with the need to follow up douglas with oncology for further evaluation. patient understood and agrees with the plan of care. . 03/11 14:52 Order name: Basic Metabolic Panel; Complete Time: 16:35 [facility] 03/11 14:52 Order name: CBC with Diff; Complete Time: 15:58 [facility] 03/11 14:52 Order name: LFT's; Complete Time: 16:35 [facility] 03/11 14:52 Order name: Magnesium; Complete Time: 16:35 [facility] 03/11 14:52 Order name: NT PRO-BNP; Complete Time: 16:35 [facility] 03/11 14:52 Order name: PT-INR; Complete Time: 15:58 [facility] 03/11 14:52 Order name: Troponin (emerg Dept Use Only); Complete Time: 16:35 [facility] 03/11 14:52 Order name: XRAY Chest (1 view); Complete Time: 15:58 [facility] 03/11 14:52 Order name: EKG; Complete Time: 14:53 [facility] 03/11 14:52 Order name: Cardiac monitoring; Complete Time: 16:25 [facility] 03/11 14:52 Order name: EKG - Nurse/Tech; Complete Time: 16:25 [facility] 03/11 14:52 Order name: CT Head C Spine; Complete Time: 15:41 [facility] 03/11 16:35 Order name: CT Chest For PE Angio; Complete Time: 17:16 [facility] 03/11 14:52 Order name: IV Saline Lock; Complete Time: 15:21 [facility] 03/11 14:52 Order name: Labs collected and sent; Complete Time: 16:25 [facility] 03/11 14:52 Order name: O2 Per Protocol; Complete Time: 15:21 [facility] 03/11 14:52 Order name: O2 Sat Monitoring; Complete Time: 15:21 [facility] Administered Medications: 18:50 Drug: Tetanus-Diphtheria Toxoid Adult 0.5 ml {Rock Duster: [place]. Exp: tw2 11/05/2022. Lot #: [id number]. } Route: IM; Site: right deltoid; 18:59 Follow up: Response: No adverse reaction 2 Disposition: 19:07 Co-signature as Attending Physician, Eddie Pearce MD I agree with the assessment and kdr plan of care. Disposition Summary: 03/11/21 18:37 Discharge Ordered Location: Home jmm Condition: Stable jmm Diagnosis - Syncope jmm Followup: jmm - With: Private Physician - When: 2 - 3 days - Reason: Recheck today's complaints, Continuance of care, Re-evaluation by your physician Discharge Instructions: - Discharge Summary Sheet jmm - Syncope jm Forms: - Medication Reconciliation Form jmm - Thank You Letter douglas - Antibiotic Education sariahm - Prescription Opioid Use sariah Signatures: Dispatcher [employer] Eddie Lake MD MD kdr Mickail, Joel, PA PA jmm Wise, Tara, RN RN tw2
[2021-03-11] MEDS ORDERED: TETANUS & DIPHTHERIA TOX,ADULT 0.5 ML VIAL ONE (18:58)
[2021-03-11 19:47] VITALS: BP 112/69; O2SAT 95
--- NOTE | 2021-03-14 16:13 | EKG ---
Test Date: 2021-03-11 Test Time: 16:19:44 Insulation Inspector: SOURAV MEASUREMENT RESULTS: Intervals: Rate: 75 SC: 156 QRSD: 84 QT: 386 QTc: 431 [place]: P: 37 SC: 156 QRS: -18 T: 58 INTERPRETIVE STATEMENTS: Normal sinus rhythm Normal ECG Compared to ECG 12/07/2020 21:57:04 Atrial fibrillation no longer present T-wave abnormality no longer present Electronically Signed On 03-14-21 16:05:41 CDT by Gabe Pizarro
== END 2021-03-11 19:01 | disposition home or self-care (01) ==
LOC: ER 14:45
DX: R55 Syncope and collapse (principal); S00.81XA Abrasion of other part of head, initial encounter; S50.812A Abrasion of left forearm, initial encounter; W19.XXXA Unspecified fall, initial encounter; Z23 Encounter for immunization; Z85.118 Personal history of other malignant neoplasm of bronchus and lung; Z79.01 Long term (current) use of anticoagulants; E07.9 Disorder of thyroid, unspecified
CPT/HCPCS: 93005; 85025; 80048; 36415; 83735; 85610; 80076; 84484; 83880; 70450; 72125; 71275; 71045; 90471; 90714; 99285; Q9967; G0390

== ENCOUNTER 2021-03-16 00:05 | Emergency (ER) | payer OTHER ==
--- OUTSIDE RECORDS SUMMARY | 2021-03-16 00:10 | XMS REPORT | Continuity of Care Document ---
:1950 Author Organization [facility] t Address [address] [place] [address] Care Team Providers Name Role Phone CHRISTO KOCH Attending Clinician Unavailable Christo Koch MD Attending Clinician Unavailable Anthony Crowley MD Attending Clinician KEVIN MCDANIEL Attending Clinician Unavailable Kevin Mcdaniel MD Attending Clinician Shyanne Mcclain MD Attending Clinician CHRISTO KOCH Admitting Clinician Unavailable KEVIN MCDANIEL Admitting Clinician Unavailable Payers Payer Name Policy Type Policy Effective Date Expiration Date Sour ce Number AETNA - MEDICARE [id number] [address] [facility] MGD CAREAETNA 00:00:00 - Medical MEDICARE HMO Center [id number] [phone] [address]Iqwh Contracted Problems Condition Condition Condition Status Onset Resolution Last Treating Co mments Source Name Details Category Date Date Treatment Clinician Date Lung Lung Disease Active 2019-[address] [facility] [address] nodule nodule 09-19kes - 00:00: Medical 00 [place] Splenic Splenic Disease Active 2019-[address] infarct infarct 09-13 - :: Medical 00 [place] Allergies, Adverse Reactions, Alerts This patient has no known allergies or adverse reactions. Social History Social Habit Start Date Stop Date Quantity Comments Source Sex Assigned At [facility] Cigarettes smoked 2020-07-20 2020-07-20 [facility] - current (pack per 00:00:00 00:00:00 Medical Center day) - Reported Cigarette 2020-07-20 2020-07-[address] [facility] - pack-years 00:00:00 00:00:[address] [facility] Tobacco use and 2020-07-20 2020-07-[address] [facility] [address] [facility] kes - exposure 00:00:00 00:00:[address] [facility] Alcohol intake 2020-07-20 2020-07-[address] [facility] - 00:00:00 00:00:00 (finding) [facility] Alcohol Comment 2020-07-19 2020-07-19 usually 3-[address] [facility] [address] [facility] u[facility] - 00:00:00 00:00:00 beers/week but Medical Ce nter non currently History of tobacco 2020-07-13 [facility] sm[facility] use [facility] [facility] Smoking Status Start Date Stop Date Source Former smoker 2020-07-20 00:00:00 2020-07-20 00:00:00 [facility] - [facility] Medications Ordered Filled Start Stop Current Ordering Indication Dosage Frequency Signature Comments Components Source Medication Medication Date Date Medication? Clinician (SIG) Name Name apixaban 2019-09- No Take [address] [facility] (ELIQUIS) 5 1-18 12-25 tablets Luke s - mg Tab 00:00: 23:59 (10 mg Medical tablet 00 :00 total) by [place] mouth 2 (two) times daily for 7 days, THEN 1 tablet (5 mg total) 2 (two) times daily for 30 days. tadalafil 2019-09 Yes QD Take by S t (CIALIS 1-17 [facility] - ORAL) 13:03: daily. Medical 18 [place] acetaminoph 2019-09 Yes 2{tbl} QD Take [address] (TYLENOL 1-17 tablets by Candi montoya - ARTHRITIS 13:03: mouth Medical ORAL) 18 daily. [place] budesonide- 2019-09- No 2{puff} Q.5D Inhale [address] formoteroL -12 11-12 puffs by Dino s - (SYMBICORT) 00:00: 23:59 mouth via Medical 160-4.5 00 :00 inhaler 2 [place] mcg/actuati (two) on inhaler times daily. tiotropium [...] every Medic al 50 MG 00 morning. [place] tablet testosteron 2019-09 Yes INJECT [address] [facility] cypionate 0-12 ML ONCE [facility] - (DEPOTESTOT 00:00: EVERY 4 Med ical ERONE 00 WEEKS [place] CYPIONATE) 200 mg/mL injection torsemide Yes 20mg QD Take [address] (DEMADEX) 9-24 by mouth [facility] - 20 MG 00:00: every Medical tablet 00 morning. [place] levothyroxi Yes 200ug QD Take 200 C [...] Source Systolic blood 2020-07-20 12:15:00 125 mm[Hg] [facility] Diastolic blood 2020-07-20 12:15:00 70 mm[Hg] S [facility] Heart rate 2020-07-20 12:15:00 88 /min [facility] Respiratory rate 2020-07-20 12:15:00 20 /min [facility] Oxygen saturation in 2020-07-20 12:15:00 97 /min [facility] - Arterial blood by Medical Ce nter Pulse oximetry Body temperature 2020-07-20 11:00:00 36.67 Rahda [facility] Body height 2020-07-20 05:45:00 190.5 cm [facility] Body weight 2020-07-20 05:45:00 123.197 kg [facility] BMI 2020-07-20 05:45:00 33.95 kg/m2 [facility] Procedures Procedure Date / Time Performed Performing Clinician Sourc e XR CHEST 1 VIEW 2020-07-20 11:19:00 Zee, Ali [facility] PORTABLE/BEDSIDE Medical Center REPORT OF PROCEDURE - 2020-07-20 10[facility]58[facility] 2020-07-20 10:36:31 Solange Koch [facility] FINE NEEDLE ASPIRATE BY 2020-07-20 10:36:00 Solange Koch [facility] EBUS FNA REQUEST 2020-07-20 10:31:49 Solange Koch [facility] FINE NEEDLE ASPIRATE BY 2020-07-20 10:31:00 Solange Koch [facility] EBUS FNA REQUEST 2020-07-20 10:23:39 Solange Koch [facility] FINE NEEDLE ASPIRATE BY 2020-07-20 10:23:00 Solange Koch [facility] EBUS FNA REQUEST 2020-07-20 10:16:43 Solange Koch [facility] FINE NEEDLE ASPIRATE BY 2020-07-20 10:16:00 Solange Koch [facility] FUNGUS CULTURE + SMEAR 2020-07-20 10:05:03 Solange Koch [facility] BRONCHIAL CULTURE + GRAM 2020-07-20 10:05:03 Solange Koch [facility] [employer] CULTURE + SMEAR 2020-07-20 10:05:03 Solange Koch [facility] - (NON-SPUTUM) [facility] SPIN/CONCENTRATION CHARGE 2020-07-20 10:05:00 Solange Koch [facility] FLUORO NON-SPECIFIC UP 2020-07-20 10:00:00 Solange Koch [facility] - TO [address] [facility] FUNGUS CULTURE + SMEAR 2020-07-20 09:41:34 Solange Koch [facility] SURGICALLY OBTAINED 2020-07-20 09:41:[facility]AM STAIN Medical [facility] [employer] CULTURE + SMEAR 2020-07-20 09:41:34 Solange Kochul [facility] - (NON-SPUTUM) [facility] MISCELLANEOUS LAB ORDER 2020-07-20 09:41:00 [facility] T[facility]UE [facility]AM 2020-07-20 09:40:00 Solange Koch [facility] FINE NEEDLE ASPIRATE 2020-07-20 09:13:09 [facility] FINE NEEDLE ASPIRATION BY 2020-07-20 09:13:[address] [facility] FUNGUS CULTURE + SMEAR 2020-07-20 08:59:37 [facility] 2020-07-20 08:59:[facility] GRAM STAIN Medical [facility] [employer] CULTURE + SMEAR 2020-07-20 08:59:37 [facility] MISCELLANEOUS LAB ORDER 2020-07-20 08:59:00 Solange Koch [facility] FINE NEEDLE ASPIRATE 2020-07-20 08:55:29 [facility] FINE NEEDLE ASPIRATION BY 2020-07-20 08:55:[address] [facility] BRONCHOSCOPY,ENDOBRONCHIA 2020-07-20 07:34:00 Solange Koch [facility] ULTRASOUND (EBUS) Medical Cent er TRANSTRACH/ TRANSBRONCH SAMPLING BRONCHOSCOPY,SUPER D 2020-07-20 07:34:00 Solange Koch [facility] PROCEDURE W/ C-ARM 2020-07-20 07:34:00 [facility]ON[facility]OS[facility],TRANSBRONCHI 2020-07-20 07:34:[address] [facility] NEEDLE ASPIRATION [facility] ter BIOPSY BRONCHOSCOPY,TRANSBRONCHI 2020-07-20 07:34:[address] [facility] LUNG BIOPSY [facility] BRONCHOSCOPY,BRONCHIAL 2020-07-20 07:34:00 [facility] BRONCHOSCOPY,ENDOBRONCHIA 2020-07-20 07:34:00 Solange Koch [facility] ULTRASOUND (EBUS) Medical [facility] er DIAGNOSTIC/ THERAPEUTIC ABORH, MANUAL 2020-07-20 06:42:00 Anika Stover [facility] COMPREHENSIVE METABOLIC 2020-07-20 06:17:[facility] W/[facility]T COUNT & AUTO 2020-07-20 06:17[facility]/INR 2020-07-20 06:17:00 Zee [facility] APTT 2020-07-20 06:17:00 Solange Koch [facility] TYPE AND SCREEN, 2020-07-20 06:17:00 Solange Koch [facility] AUTOMATED [facility] POCT-GLUCOSE METER 2020-07-20 06:00:00 Solange Koch [facility] SARS-COV2/RT-PCR ([facility] & 2020-07-15 16:24:[address] [facility] LABS) [facility] CT CHEST WITHOUT IV 2020-07-15 15:25:00 Solange Koch [facility] ukes - CONTRAST [facility] PROTHROMBIN TIME/INR 2020-07-15 04:02:00 Farhan Mcclain [facility] CBC (HEMOGRAM ONLY) 2020-07-15 04:02:00 Farhan Mcclain [facility] COMPREHENSIVE METABOLIC 2020-07-15 04:02:00 Farhan Mcclain [facility], I [facility] ECHO W CONTRAST & DOPPLER 2020-07-14 10:37:42 Lori Larry sa [facility] CTA CHEST 2020-07-14 09:44:00 Lori Larry [facility] SARS-COV2/RT-PCR ([facility] & 2020-07-14 03:50:[address] [facility] - REF LABS) [facility] CBC W/PLT COUNT & AUTO 2020-07-14 03:43:00 Lori Larry [facility] DIFFERENTIAL [facility] HC LAB PROTHROMBIN FACTOR 2020-07-14 03:43:00 Lori Larry sa [facility] II [facility] (CELLAVISION MANUAL DIFF) 2020-07-14 03:43:00 Lori Larry sa [facility] BASIC METABOLIC PANEL (7) 2020-07-14 03:42:00 Lori Larry sa [facility] MAGNESIUM 2020-07-14 03:42:00 Lori Larry [facility] PHOSPHORUS 2020-07-14 03:42:00 Lori Larry [facility] FACTOR 5 LEIDEN PCR 2020-07-14 03:42:00 Lori Larry [facility] (THROMBOTIC RISK) [facility] PROTEIN S ACTIVITY 2020-07-14 [facility]:42[facility] 2020-07-14 03:42:00 Lori Larry [facility] REPORT OF PROCEDURE - 2020-07-14 00:00:00 Provider, [facility] ENDOSCOPY SCAN Scanning [facility] Plan of Care Planned Activity Planned Date Details Comments Source Future Scheduled 2021-05-[address] [facility] - Test 00:00:00 (Season Ended) [code = [facility] INFLUENZA VACCINE (Season Ended)] Future [...] 00:00:00 (1 of 1 - Medical Center [id number] PCV13) [code = PNEUMOCOCCAL 65+ YRS (1 of 1 - [id number]_Svoflid PCV13)] Future Scheduled 2001 SHINGLES VACCINES (1 [...] es - Test 00:00:00 [facility] colon (procedure) [code = 702492004] Results Test Description Test Time Test Comments Results Result Comments Source AFB culture + smear (non-sputum) 2020-09-07 09:16:00 Test Item Value Reference Range Interpretation Comme nts Result (test code = 6463-4) No acid-fast bacilli isolated in 42 day s AF[employer] Smear (test code = 38615-9) No acid fast bacilli seen [facility] (NON-SPUTUM)2020-09-07 09:16:00 Test [...] (test code = 994) seen MISCELLANEOUS LAB [id number] 07:55:00 Test Item Value Reference Range Interpretation Comments SCAN RESULT (test code = 9655298) MISCELLANEOUS LAB [id number] 07:54:00 Test Item Value Reference Range Interpretation Comments SCAN RESULT (test code = 8344941) [place] [id number] 07:54:00Scan [facility]Child[facility] CenterFungus culture + [id number] 02:35:00 Test Item Value Reference Range Interpretation Comments Result (test code = No fungus isolated in 6463-4) 28 days Fungus Smear (test No fungi seen code = 1406) [facility] + [id number] 02:35:00 Test Item Value Reference Range Interpretation Comments CULTURE (BEAKER) (test No fungus isolated in code = 1095) 28 days FUNGUS SMEAR (BEAKER) No fungi seen (test code = 1406) FUNGUS CULTURE + [id number] 02:35:00 Test Item Value Reference Range Interpretation Comments CULTURE (BEAKER) (test No fungus isolated in code = 1095) 28 days FUNGUS SMEAR (BEAKER) No fungi seen (test code = 1406) FUNGUS CULTURE + [id number] 02:35:00 Test Item Value Reference Range Interpretation Comments CULTURE (BEAKER) (test No fungus isolated in code = 1095) 28 days FUNGUS SMEAR (BEAKER) <1+ yeast (test code = 1406) Surgically obtained culture + gram [id number] 14:21:00 Test Item Value Reference Range Interpretation Comments Result (test code = 6463-4) No growth Gram Stain Result (test No organisms seen code = 1123) [facility] + GRAM [id number] 14:21:00 Test Item Value Reference Range Interpretation Comments CULTURE (BEAKER) (test code No growth = 1095) GRAM STAIN RESULT (BEAKER) <1+ WBCs (test code = 1123) GRAM STAIN RESULT (BEAKER) No organisms seen (test code = 45825) SURGICALLY OBTAINED CULTURE + GRAM [id number] 14:20:00 Test Item Value Reference Range Interpretation Comments CULTURE (BEAKER) (test code No growth = 1095) GRAM STAIN RESULT (BEAKER) <1+ WBCs (test code = 1123) GRAM STAIN RESULT (BEAKER) No organisms seen (test code = 52654) Bronchial culture + gram [id number] 11:52:00 Test Item Value Reference Range Interpretation Comments Result (test code = <1+ Normal respiratory 6463-4) reyes present Gram Stain Result No organisms seen (test code = 1123) [facility]AM [id number] 11:52:00 Test Item Value Reference Range Interpretation Comments CULTURE (BEAKER) <1+ Normal respiratory (test code = 1095) reyes present GRAM STAIN RESULT <1+ WBCs (BEAKER) (test code = 1123) GRAM STAIN RESULT No organisms seen (BEAKER) (test code = 02930) Tissue [id number] 11:37:00 Test Item Value Reference Range Interpretation Comments Case Report (test code Surgical Pathology = 104) Report Case: [id number] Authorizing Provider: Solange Koch MD Collected: 07/20/2020 09:40 AM Ordering Location: [facility] Received: 07/20/2020 11:53 AM SERVICES Pathologist: Maria A Ayala MD Specimen: Lung, Left Upper Lobe, TBBX. Process in Cytology for collodion bag. Reflex Genetic Markers. DIAGNOSIS (test code = s9uplNVeZTPnq0fuOTFmtWP 3220) uZzEwMzNcZnRuYmpcdWMxIH tccnRmMVxlcGljOTIwMFxhb gItYUGxoGXsE4BqktllFEui LL9xJG4zvBfqiDAmyXQbQAD sPiPfj2alx483tFYjp3seFW UUbmfxxZo5yCspD59mk2R3G iclG89hsMFbNDwhwFAwzzhb wwHeSSIvwtSGSbKGMW2PVQB MRUZUIFVQUEVSIExPQkUsIF CGQE1PZbXEWkGVBYXXQPXVB 1BTWTpccGFyICAgICAtIFNR RVOEK1PGATVXRMnqF3LJQ8h OB30YXokeZAZtXTFrBP1pV2 PYUTWBSC8SIsAmGUCjpm38H LU3JvAfm2A1KJW5JLBqVOTt e1oaBDPqlUDaFjUeYdGvPtQ vSylkhOWqSETnDkAhz4cyf6 77mYNof1dvKOMoUbC4qROxP OPtaEBzG726PEYaVJuyy8qv p8UxLZVylLCik8O5FCHMikz wvAq3pXyaV37jj3R3WygbV6 wcLLPlFGDvC8PwDV7dXZOoQ bl9CIP1NCM6ZPCqXCUdL1Np WQ8xWIYuoVMpJFm2c8isxFj gPSSnGCB7i8opHZepduRgSO 1bby4vjMo1p8twtpWeKVXsC AAmtNBKCVBtQ2WrqIhhRl8l dVc9gYzcNmpzSQC1Sed3RV8 bxb92lrn0eUxxERWafejoFh S4UJsuRVRjrehiPOw2KQcfI EEypWH5TYHboYGeT2LaSYNr TV9wylk8ZDE9OSvdCZNmImH 7DQCnkBHoJUVegIezXDgki5 75ALJ3DbJhQH5vF7Uba4Q4o C1rfKIrNFEorGMfKcZrYJMc lm7jwWVkXVrqm9GpVEK2leH 5iVQwyOXrPLRbBjV6VXsgKP 1hpq16QJBuQFS3ss5vwCJzo JbbetGkyNSuQGvrI1FmISVx g332JXIrJ7AuGLBqf1Y7zxR kTuWqEAAxiIR8zwM1AIEdOX 8gagigd1knOZyfCHeyQXFed uW4leH7FLLlqUVzD9OmzG2s ESFvLU4nznpsj5tfAXI2DBx oXWIaFCB2EpAjPDSzh9Yjti d5NkLyb4SwtHKhZQfqU01vw 520FEAvunBdO2fpmYDwywtu oFHfzogzGHqpptE8ENZuZMs gghfvEIBhWQzrY1vgXgVzHA AspFnvJVbms9UiGGGvTPSwQ dJnoWUfXQTzNnr9GWCjbVOu AKEfZuIwC6hfmbwqNhLSSYW lj1bqE9fgeKQWfRMeT2AcZW mwsjNyCSioMTkjFSNsYYA6B M4cMwQ5ESZvxj88 COMMENT (test code = d4iubVXpZWNnkNM5TpJoOVY 3359) qv5cmw2HwmYPxqTBnRTfcoA FeztSjds61rWA6dB76OX4qR WTpBbO6KYHqlyK7Qdq0MFOi EIRgoBRdG718z3xif5yvuiT opFB0hBigRTNzNEJeJFarQT FeBaCeXWehKXV4pB2mVXorL JYhk3l8zWWhBQHwjcLDKUGr VG1xTK5sB2P2eWQsHICzlbB DTc26NCNiQJXYTZLnIS3iIE Bhcn0= CPT Code(s) (test code a5husJXsXOYrtDB9QhUmKJD = 3357) tg6cfq0WlpFYdzVGdBGltfW PmkxKlki31nGN2nG61MX7zO HJmRuF2TWUzbbY5Vgc0SZFy OVGeeHJvR298z9aty6ekcyS qpTH2iFrtWJNgKWJjNPkqVP UoUtUdOLtfOGSfDTc6IzNyK UE6EAE7NJA6ISIpmGYqbO== GROSS DESCRIPTION y8znpJVbKDNbzNA4DdHkBCF (test code = 3366) hp4hhr2ZreYYjxKAbYGjcqA PrxrRmhz12kOI7kP10QQ4gD MUrRaU8RLQlunT4Tsl6FZHv LVThpFCtB637v9cgz6iycqX zpOX3zZwhXZCiNHZbINokEC AeKvGxF9EkS2ffJL8aEYmuP GhlIHNwZWNpbWVuIGlzIHJl G7LtkzShLHznUPRvAm8sdQF rkT8yXyfztTVoWQWpczMaiP 9kjfKfmfGenDCqPGeqJWY5c WPsRJXxHZQjHGQiML86X1Qm bC7az6BzCOErs32dZD1qLGq hYmVsZWQgIkxlZnQgdXBwZX VajA1sHSSqdG1yWZPRPvypJ GYmJNTle36ddEN3lzCfVmIl eXc7jYRjICAxfnQqgHSsaOV lj4AemKWpLR6zIiT9iMx3OY Nwi7T4DNLcg0C9SHVigfYai FWws4DngDDdiTImo79vrNP7 tCCxnBBixK4qBYwqgjHhRUE eDU7dTLS2iamfRbNaAqCjjF DoQoTlH68nMBN7Ks8yyZCqY CBlbnRpcmVseSBBMSBpbiBh HO0yu2kbQpYvUoGnwtuaYVT ccGFyfQ== MICROSCOPIC v4uudODdANZdkQI6JiMrSGH DESCRIPTION (test code aw4vkn1GzfXJitEXrVBjgwK = 3371) PpbxWhak16gKC2pI03KG2dY VGyFfF7NKWnceJ6Lth7JCXx NXXuiGZpA790b1sgs6uywoL owVD9xRzlMIRzLIShOGrlNF DdGfYzRUFxGg8nuQRpExbxZ XJ9 SPECIAL STUDIES (test j6gpaXPhQCDgm4djWMNxsHC code = 3376) uZzEwMzNcZnRuYmpcdWMxIH mnytHrGWvac1ZdQ9WbSbCiC FxhbnNpXGRlZmxhbmcxMDMz KRB8xoWcJVIwSEoiVLGiHHq kNi6grBApcPjsEzToEPSim7 whttREpmgsjAs9r7ynUTByM uV4sGZxZIqjR8ocfmLrbACa D4WxaHXgcRj6p1ueUlXoDoO 2iCNhEBweV9lcwuHpkEMkVR WhJWf8hW20UCPwvO1cbVPpA BcuxgDvSyQ3ZDupJWBbSjB3 DADnnBAiCYGvE8pzHJHeUWv eFQRgQUungFNaXMA4lAgzf5 S9wGJwaPPdgZoqOxWbQmZcI hCAu4QrGLd2fTpkC8DhWSMi LrF0sYMsTARwJWsjYPEmCIZ gztX9sHwzkvSvo03nrZSePQ YwXGZzMjBcbGkwXHJpMCBDb 2IgrYzgSTO9tOa8jCqlLwop QAG6Yqu2SY0hmq65qoo9uRx aKNEezkosZmE2TNrjFZDjil nlPCo0NKcuXUEnePI8COXei UYsD8YvNELzQN5jlsl1INT7 TEzwHLEwJhP5ONSedYFvVAQ anJvoGAjso184YEF1EsOmTO 5sG8Non1E3vM1gtZUrOQPkf IEqQnZmJBWgxr9isXFzXEkl u9YnYOS9mqH5bQRucDQzGQH lJG45Tohbb2ChMwtja4TcR4 7shNH5DEgrl5eeQC3kZvD8w rJhZMjfa7zhiL0cEzT8KPyo EM2gLS4jRGNllP8prjlvZIV nYnJkcmhlYWRccGdicmRyZm 8txBorBAN8HJsoQ2aobA0yP cQ9HPeiZ4ofhD3aQGj4PHpl iMS3CZJjbT8mBQ6atpwiz3p oVBypHQslQUYoytQ0llQ6UN BnmADfM3IwkG6mNQIsZB9xf gqgb2auYCH5ELuwOBHuSCO2 IqKjRFUfd1Ugghg4OqOlx4N atAWwITvqS44yn015CCSwtr DyG5bxrQLgadjkgGHsyrerQ AlcveL8KBBfFPEdKAsxDAPf XGZzMjJcbGFuZzEwMzNcaGl jaFxmMVxkYmNoXGYxXGxvY2 xwThKzB4DcTKQtOhJyGTviA XnxnXOlvSXsrUF9kJ9uNH8u IFArhROeJ1GsQSUbviJgtIO lEAR2yYGtfVXkXD9fHJokwG Bjm9vbv2MrY3dmiYnuvSO0L U0jJYCxAJFuHPxrh1QraB1u LlxwbGFpblxmMVxmczIyXGx vlbojWXLvRUwzY7jwIyLmOL FiwKscLXzzb9HqPFOqGTBuE xnwvsVgQTc7vvMfCYTafshx JEGgvXhizB1aZiDjItIpQsl kGC6sWUWbZ7ubnBNzYBBcVC QaV4wxEuYcrV5dpJhnMPcjF iBfHyNzUfWFg752ri5tPEEc zCAugsYTlJTzkK3gUTgtPFq iDUouxLXkBGkmz2hzNSEfq3 m6oXQtHETdkbAjw8rtWUngg gGuJZTtqEDkeJPtAZCoj20y PXhucMhiaRssAAXks9CiyBb qf6CmPxApONuog3EyR47ikM JvbCBzbGlkZXMgcnVuIGFsb 24dd0skLDZuLiU4xIKjgND0 nFTyhHDpr5UesCgqUEWuv5r zZMTuio5xtjhydIMhp1XjbE 5pbmcuIEludGVybmFsIHBvc 8l0vIPxRDKhUVBbOWqzyLw9 ULPwl391xx7risE3lROtZTW 2YWlsYWJsZSBhcmUgZXZhbH VhdGVkXHBsYWluXGYxXGZzM jJcbGFuZzEwMzNcaGljaFxm LCkjCpZqDMQjGZjeN6cfTgB gV0NtGLIcOiPkvBDgD2olsD FyXHBsYWluXGYxXGZzMjJcb GFuZzEwMzNcaGljaFxmMVxk RtAmLWGcXYzpG9rzTmTtX6L yXGZzMjIgIFxwbGFpblxmMV xmczIyXGxhbmcxMDMzXGhpY 9edMyLbBJLgkPdkSTuil7Sx CXVjTBHvEaiidlGjPGn0weU oXHBhclxwbGFpblxmMVxmcz AeABywgaruJJZcOCecI6ndR gQdSXNfpKcyZHxws5YyIXHt XTFqXxzldvXpREwlhWGfy2w js1ZzP4fxoFzqgVY6YOVkJ0 bcbPCmcJL6FVZ9oZ2aOGuzx fGdTELwv1PkWEFeDTUrVxZ9 jH2mFEX0CqLRoXqjUTMzQVc uXGYxXGZzMjJcbGFuZzEwMz NcaGljaFxmMVxkYmNoXGYxX DudG1ebTbNaW7DeGPSxEbFe sDqrXQyqQCc7UiukvHWeapi mMVxmczIyXGxhbmcxMDMzXG eyB2xvPuGkSXGtrByyZMvzv 2NoXGYxXGNmMlxmczIyIHMg DNSvmDLgdHCAPJ99VOAyNWM ddOodkE7teRQAZHYxngE4e0 B7RUioHCRbGUq0WWegboQfD UFseZ6sRZQoII4zHPq2dyHv FPGsa3SkDG5zSYHofCFyEKP 2CAGsj8CaR6Ips0CdKPDyCF Tuug9fyuHtDmSOmCEnYVSej b83QZNyTG5cQ0eoXHGhNYNt nuCaaWPld6WzEGJurJL6iCV zBS3YBcNPm96gRFUiBEIVga YsEIOaqIkmyQW1csE9yO4kO iBUaGUgRkRBIGhhcyBkZXRl yr6xpcAcWXHpHBNdp6JyfEY lmUHdenBnJ1Org7XgTOEqgx 19XDthbACqjb23OS6aD1Rrg 9OibS0fEVgcKGEqw7OxeJBp eSAsHZCpj4ThF8tqoeyrTIq kvOFwmI1qHVZrZLu2ARGjk2 HiHUAvs0ZnKzIfepSpDWSpN MYnXPTvuH99MSJ0qIgkpMvf ueXrPY6uYWMtxvZlMUPlPDC crT3wFGwpamMyXKDqqsT5l3 J1KBtiWCQoyrLdLpjlIOK1c yZitkR9yESoP0wdsijoCSzr IXUad0ItcY9owVKBgEXjp2V ewEHenWJEcPUkWH5ulvBbFZ 7tSGD0PLqvNBZDLXLgEKeuE DYvGEH4OGvsTchkOBH2ibTj IXZew7FrJYxwJ4csV71hwSc efZt1eNVhvFtbzFUnbALzYR MpbfK0b9A2OBXip6WhvlegS HBsYWluXGYyXGZzMjJcbGFu ZzEwMzNcaGljaFxmMlxkYmN dYKLtZJgyE4xuZpZjUmZdUc okEQG7kY== Gross assessment was [facility] performed at ([facility], code = 2777) Department of Pathology, [address] [place] [address], Technical component [facility] was performed at ([facility], code = 2778) Department of Pathology, [address] [place] [address], Professional component [facility] was performed at ([facility], code = 2779) Department of Pathology, [address] [place] [address], [place] [address], [facility] [id number] 11:37:00Surgical Pathology Report Case: [id number] Authorizing Provider: Solange Koch MD Collected: 07/20/2020 09:40 AM Ordering Location: [facility] PERIOPERATIVE Received: 07/20/2020 11:53 AM SERVICES Pathologist: Maria A Ayala MD Specimen: Lung, Left Upper Lobe, TBBX. Process in Cytology for collodion bag. Reflex Genetic Markers. A. LUNG, LEFT UPPER LOBE, TRANSBRONCHIAL BIOPSY: - SQUAMOUS CELL CARCINOMA. - SEE COMMENT. Signing PathologistDirect Phone Line: [phone] signed by Maria A Ayala MD on 07/22/2020 at 11:37 AMThe tumor is positive for P40 and negative for CK-7 and TTF-1. [id number], 80158, 86732 x 2Specimen A: The specimen is received [...] evaluated Immunohistochemistry technical testing was performed at [facility], Pathology Laboratory where it was developed [...] as qualified toperform high complexity clinical laboratory testing.[facility], Department of Pathology, [address] [place] [address], [facility], [address] [place] [address], [facility], [address] [place] [address], KLDY NEEDLE ASPIRATION BY [id number] 08:49:00Medical Cytology Report Case: [id number] Authorizing Provider: Solange Koch MD Collected: 07/20/2020 08:55 AM Ordering Location: [facility] PERIOPERATIVE Received: 07/20/2020 09:03 AM SERVICES Pathologist: Adri Rangel MD Specimen: Lung, Left Upper Lobe POSITIVE FOR MALIGNANCY LUNG, LEFT UPPER LOBE, MASS, FNA #1 BY CLINICIAN (DIRECT SMEARS AND CELL BLOCK OF ASPIRATE): - SQUAMOUS CELL CARCINOMA (SEE COMMENT) Signing Pathologist Direct Phone Line: [phone] signed by Adri Rangel MD on 07/22/2020 at 8:49 AMPlease also see surgical pathology report [id number] cytopathology reports [id number] through [id number]. 14019, 10279, 34780Aegd upper lobe lung nodule,history of smokingLUNG, LEFT UPPER LOBE, MASS FNA #1Prepared 6 direct smear slides from FNA samples collected in 40 ml cytorich red fixative; prepared cell block(A2)PASS 1-3 : BORDERLINE ADEQUATE, DR KOCH DOING BIOPSIES (9:16 AM, )Performed. [facility], Department of Pathology, [address] [place] [address], [facility], [address] [place] [address], [facility], [facility], [address] [place] [address], Yxwb Needle Aspirate by [id number] 08:36:00 Test Item Value Reference Range Interpretation Comments Case Report (test code = Medical Cytology 104) Report Case: [id number] Authorizing Provider: Solange Koch MD Collected: 07/20/2020 09:13 AM Ordering Location: [facility] Received: 07/20/2020 11:18 AM PERIOPERATIVE SERVICES Pathologist: Adri Rangel MD Specimen: Lung, Left Upper Lobe DIAGNOSIS (test code = [id number]) GFuZzEwMzNcZnRuYmpcdW MxIHtccnRmMVxlcGljOTI xOOtdheFiUALjxVJuK1Bt tqvkEPmkZG9bFY3weFubg DPuqYIqPTAsAyBqv4qpy9 02oIBwu3biVRJXczyfzDk 1iSbvJ49ox5Z5JhtwH03j cGFyZFxwbGFpblxmczIwI ExVTkcsIExFRlQgVVBQRV YqNE3KHOdzNKSFPaTrDlT FQlVTIEZOQSBCWSBDTElO FLVKTQ7uWUCDExQSMAHMO JIGXoQwJZ3BOLBPIJmnIx sXM9zlJ7SvLBFQHEAXKJS kFvMgxDDiVEVbNG8eL4ID WB3RLNOaZ6KBSXQAKBLOZ K3MIEVaqHQlnLirecYsSV jnj2OeKCjqPMGzPD5xdZn zZHOiBC7hSQBcB8rcrE5o sse8MpXwCYMeXyC5LMNdt iI9Vvr9BBMvRSrjl1yll4 WkZTTcWMq8jAokPfVkTKE ws9pyaxNcTwRuOOWpEWTg JTWqkMNsS947p2wau3bib kIwySJ3FKFaNCE9QNjrgt YlxiU0OYaxvAExQeG9AMt ccmVkMFxncmVlbjBcYmx1 WUNiR255HES0hVjky7eiX GZ9GPYtSEKpAwYeNv0leT EiW297RTGiJEYKPBCtrDz 5XFPlwsBhzyXssIKAy804 J871u3lgJVNurlUosTmUs lczq9hmZ725WUDwiZCidw CiHrVeVXAgfBIccFE9PDF pNJ4setbtJUkqQWybABAz plL1MCCfuHRgL6ClWLZpJ N0cllhoSLJ7IKkuMNJzES S6SsMbUQFeu1Cntjl2QgO ius1liy26SMB5x9UvcQfl ANE9JOT3UwNhDm4ygYMhE GLlUB7rUaFiuBIcZOHpyg 37kGyfDSneUVO7FHZtjfU lj2Trs4mnWuYywvCdR2tc H9TwYSRtGYPfWAGgPlGzw yJoz8Nlg7FeoAIupYd5n9 elQSAyUJUjbNaqc1pfSCQ 3BFQdtSRxF9kplQ4zHPHd SH7yyelqm1ccYKuyJQspR FOndTS4zkS6YQMlhFDjN0 MywA2qBLIyGXqiDJZabeu 2YcZpZz2dmTGswGipQWuf YmtwYWdlXHBnbmNvbnRcc GduZGVjXHBsYWluXHBsYW luXGYwXGZzMjRccWxcbGF uZzEwMzNcaGljaFxmMVxk WzBlLWKcXOicA2nrKnOuY hDtCtl1TKUpvCIhBPEdAb i7BWUbjPTcFKHUhBiywF8 zSNEtmYeifF0ijLR6JFWg zmItjEXNuG5yRAIFpU2aC bZ1EqKvAjW0FMV0JkzXNI Bhcn19 COMMENT (test code = u3aisUHdDRVfwLE8NtUoF 3350) RUyo1xna0QqkRMgjUEsYL fbjHZqmxOjab74wPH0kD0 5IQ9gXWGfKnW7TRLqvuG7 Kxd1PZJxWUCimDXoH544u 2tgd7fzfyZznRL1cLhqBR JkXHBsYWluXGZzMjAgVGh iCCO8iA5bUNHdeAlaTEVl STCjo0VsaLj7GPAkz7Gvi VSiACXbqQnwd1F2TUVhNS RhWsAyVRDTJo2xEEFpCRN DpS9pkZGilJq1z7cgTKJo XKGwGPokbCq5TV8cKYonT N7eiaKpo1bmV2fzNF7sAO dhdVOwg6Yod5SzsVAhKTB iYKCqodXdy0CkujQms3w7 hZKlgADwgH71eqQwRZvhI LPvfrXovk4uWIHjsmSodl XlkWOno1CjfCE3LWMfdLt ocPWhdUSdIWZ4mT9jZydj YXJccGFyXGYwIFBsZWFzZ SBhbHNvIHNlZSBzdXJnaW JyoJXyFPCwr7xcT3eawqP ju8N8MENbUH4hPusbCtJb kyUtQ2k3n7RayHxapW2xg IYpVXQyyiZuCWNhJO9bYP QuIWAjGEDNSpIkVxd9KRI 4wXIseAddOLSeGH7jOIC5 LiBccGFyfQ== CPT Code(s) (test code = v6umvIZdSJDifQI4YdRiD 3357) QTpa6qul6SshMLfwJIsCA sbnGLgvqMytv11uFO6qM1 2AB5vPWWgOgH9RRRvkhC1 Rgq0KQGoYJKkdGZwG973q 1eqk8kxilJmtVQ0yEppRP JkXHBsYWluXGZzMjAgODg yVvUjTKh9SIbhHOA0BKWp XJgjLBiaNID3CCi4ErSzS VimP3bmWOM2 CLINICAL DATA (test code i6lvrFTbIGJstVP5ZpWwZ = 3355) NPgc2tzp5HprOEsmNBbSZ ozsOLmspGmog34kUR8mX8 3YE2uMMMvGpX8TANvfxN1 Grr9XZNnXFIrsNKpP901u 4qdq7gjwtDhtQS6mWmcLN JkXHBsYWluXGZzMjAgTGV myNA0qDVgwoCca5OpSUz7 mnfsdn6kiWqlYQYgoNC6o 0D9JX9gSBIhl0dsizvlrO FyfQ== SPECIMEN SOURCE (test w9phaPZjLYBaxPN9UdSqH code = 3377) WXpd3qpp5KrfTTpxXQeBJ gxnJYbloXeyp00iGG4aF4 7TQ8oTFCtOmO2FDQpcwP2 Hlh2EIEwIXDabLErZ369t 1wpz6goitGjbYI6cKteOY JkXHBsYWluXGZzMjAgTFV ORywgTEVGVCBVUFBFUiBM E6WLBPIRBBREBKNSEKEfA lxwYXJ9 GROSS DESCRIPTION (test x2qjkFSsABJljDS0LjVwM code = 3366) YXso0beg7MjaQMkvOUtEG roeVBvwjTday26xXT8hT4 0KY8gPRVkScI5SREpbdT0 Lqw9UCXnTXDgcRAyU021j 6bha6oustGhjYL0rBuyST JkXHBsYWluXGZzMjAgMiB 5NUK6FP9rxmZwuoXmpOJq vgrcwFLmZQH0JNXaWXtiX MQ8VSXyMRKqNWBqjRWjcn uvW3JftIWhqV0vprNcKTQ pXHBhcn0= INTRAPROCEDURAL ADEQUACY m0gcjOBqSOQbvTC0CtXjX (test code = 3370) QUqr7vue4IltYBgdRRlBB bxjCHbokEhqs38rWW3xS4 5UE4gSNEqDzZ1ZJMxntY3 Dir2BIOxSWEybYEjA865h 6nrl1dzgsAvhZX3wEjtQP JkXHBsYWluXGZzMjAgUFJ CGZ5YNR9NCfASWHEPAE5K RCBBTkQgQSBSQVJFIEFUW BTRH1WJVAuLL1LVEBKext 0= MICROSCOPIC DESCRIPTION l9mvkUJuMIQbiQB9WvYgA (test code = 3371) RTlx5wtk7MtiGSvgITkLR xeiXDrtmRxmq58nEH1rW5 6JJ6vYIJlJwP9GSOhwyR4 Ren2QOBzYSYkiWXwX698t 3nqf7yshkIktOP8aSreBB JkXHBsYWluXGZzMjAgUGV hNm5snZRxXbRmnQKbbG== SPECIAL STUDIES (test h0ykaSXtVYGhbUD5PvCnT code = 3376) BUzp3pcn5EsrBLgkTVgCH xodEVeinZtxu78pZL6kW3 6PT3pOOHcQzB2YQBnfeN1 Xht7LBFlMZJjsEFjY103G RLuQKWdgGuocym7iY38AX EisF2pwIWnVWs2QTWhxtJ xvPeqzG6oEjMxYuZjPkOS gUWklY57WSQptfH2PYVfc 27tr4NiiGgjjrDgKMMbJH ztH5y0MUVzKLXeHZI4s4G xo2BgiQ5nzV9euMhyiZ2g yYSrmMZ3mqwog4Vwo4IqG 2lhbCBzdGFpbnMuXHBhci BOEGWrBChaG6oYDVICH5V IWVNJTjsgUDQwOyBQNjNc jMCmTVCyduDcv6ebM0swA PFmSSW9WI6lzsOgEuHkJO 7baY59e4Jkz84bw54cjC9 gaJUdinNcU03uvIJxgDEn x8YnGHLpsjZksTX3QEDdR Fheqlfgh5m1eLR6oGKiaL KxzJA0bZXbjUGbPWOTdKS kMRYes543oj6mBMFfdZRk zhRvsN5xHNsrkkdqvICyX D1bYCJbKNYyHSXfLS84fg HuMX4cxYVgg6xyazCrlQL pf0UlvWW4PZBgwSFpykyd Bi2zUX28KRItIXpkvX7sw UDhidLpEW4oDD2vJ0K9wZ IjIVMwxmVmd5dnXBwoXX3 gYXZhaWxhYmxlIGFyZSBl pnPdrZS6NIUjvAIkCUZna DNgLGnwjNChc7anu0KiF0 iehZjdlSF9SFShT5hmfMV owCX7UMI0nB6aHGqiroDl ZOUku0TfNVUmGJSgOaX0m G4bRTH3XuEIoDwfEUN3Wg V3FItiLIGyNO0lYWusJFq fL3DxqGNqMLCBXALee0om H1egBFPeg4XiaW3wzQR3w QEaLQCvnFP9QQEvUJE3WL xvcGVkIGFuZCBpdHMgcGV aTy1uhJUzE7EjD2cnmzTx oQPliPD6hFVxIGhtavKkI PH8LHRflL2yLE1cPXHwxY YjUF3emVQyQMHwCMXkJHC uFEXxh2CdIEJajb58DAVk VtlqeXkmKHPrAn1qEc8fP OQdomWkGNQ3YvBRQF3sut ajqDUisMjkly1cKEtuBBS YAMUaNORoCMY8TYJyeR7t EMW8oPI6EXF0R2viZ6fvP IUebmRuQC7hFYSdjJMwke YxGKwfAP0ucXIdKDVwb2L jabumMGCzWLI0BLO0DJpw ZFGqZCKgHz6qGQWbbI7iU 2UuEBV4ilMbj1CtVuDYvV YyhU56uHGxzg96MQAmHSG oR6UgXSKgANSgCKhvlsUf gThmZYEmr86swIRdibZii 7JmcvVpBAHgJ3hjTRKotF CgvCEjc6BriZ5ctJOgyjI kSZS4zSGpSJYulR6gZGRc bIjbEGNrgQ8gT5UqKRtcY l7rDUDjrobuJO7obu50BS 6mgpEzBL6mqdYnWF96txA oYhErVXl7PLlVMXcFZTd7 KSBhcyBxdWFsaWZpZWQgd I4gpPIpOj0mmZMlzNtuBA GelTZrOWzpmIqhE5kbtwz eJVqoeFXqi7YsiW0vaGB8 TPD1nE8bPnibUCU5 Gross assessment was [facility] performed at ([facility], = 2777) Department of Pathology, [address] [place] [address], Technical component was [facility] performed at ([facility], = 2778) Department of Pathology, [address] [place] [address], Professional component 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 31320, 87929Lqnj upper lobe lung nodule, history of smokingLYMPH [...] evaluated Immunohistochemistry technical testing was performed at [facility], Pathology Laboratory where it was developed [...] qualified to perform high complexity clinical laboratory testing.[facility], Department of Pathology, [address] [place] [address], [facility], [address] [place] [address], [facility], [facility] of [facility], [address] [place] [address], RSXA NEEDLE ASPIRATION BY [id number] 08:36:00Medical Cytology Report Case: [id number] Authorizing Provider: Solange Koch MD Collected: 07/20/2020 09:13 AM Ordering Location: [facility] Received: 07/20/2020 11:18 AM PERIOPERATIVE SERVICES Pathologist: Adri Rangel MD Specimen: Lung, Left Upper Lobe LUNG, LEFT UPPER LOBE, MASS #2 EBUS FNA BY CLINICIAN (DIRECT SMEARS AND CELL BLOCK OF ASPIRATE): - SQUAMOUS CELL CARCINOMA Signing Pathologist Direct Phone Line: [phone] signed by Adri Rangel MD on 07/22/2020 at 8:36 AMThe tumor cells are positive for x66-gnwsarau and p63. TTF-1 and Synaptophysin are negative. The morphology and immunoprofile are consistent with squamous cell carcinoma in an appropriate clinical setting.Please also see surgical pathology report [id number] and cytopathology reports [id number] and [id number] through [id number]. 49453, 89588, 95103; 37274; 20347 x 3Left upper lobe lung nodule, history of smokingLUNG, LEFT UPPER LOBE, MASS FNA #22 x 45 mls in cytorich red; 5 direct smear slides, cell block (A2)PREDOMINANTLY BLOOD AND A RARE ATYPICAL GROUPPerformed. The interpretation of this case included the use of immunohistochemistry or special stains.TTF-1; SYNAPTOPHYSIN; P40; Z42Plqulwo Slides Examined: In-house known positive controls were evaluated along with the test tissue. These control slides run alongside of the patients sample show appropriate staining. Internal positive and negative controls when available are evaluated Immunohistochemistry technicaltesting was performed at [facility], Pathology Laboratory where it was developed [...] qualified to perform high complexity clinical laboratory testing.[facility], Department of Pathology, [address] [place] [address], [facility], [facility] of [facility], [address] [place] [address], [facility], Department of Pathology, [address] [place] [address], VANL NEEDLE ASPIRATE BY [id number] 12:02:00Medical Cytology Report Case: [id number] Authorizing Provider: Solange Koch MD Collected: 07/20/2020 10:31 AM Ordering Location: [facility] Received: 07/20/2020 11:18 AM PERIOPERATIVE SERVICES Pathologist: Adri Rangel MD Specimen: Lymph Node, Subcarinal, Station 7 LYMPH NODE, SUBCARINAL, STATION 7 EBUS FNA BY CLINICIAN (CYTOSPINS AND CELL BLOCK OF ASPIRATE): - NEGATIVE FOR EPITHELIAL MALIGNANCY LYMPHOCYTES AND HISTIOCYTES PRESENT Signing Pathologist Direct Phone Line: [phone] signed by Adri Rangel MD on 07/21/2020 at 12:02 PMPlease also see surgical pathology report [id number] and cytopathology reports [id number] and [id number] through [id number]. 86662, 53652Tmmw upper lobe lung nodule, history of smokingLYMPH NODE, SUBCARINAL, STATION 7 [id number] mls in cytorich red; 2 cytospins, cell block (A2)Performed. The interpretation of this case included the use of immunohistochemistry or special stains.Control Slides Examined: In-house known positive controls were evaluated along with the test tissue. These control slides run alongside of the patients sample show appropriate staining. Internal positive and negative controls when available areevaluated Immunohistochemistry technical testing was performed at [facility], Pathology Laboratory where it was developed [...] qualified to perform high complexity clinical laboratory testing.[facility], Department of Pathology, [address] [place] [address], [facility], [facility] of [facility]ology, [address] [place] [address], [facility], Department of Pathology, [address] [place] [address], Vfea Needle Aspiration by [id number] 11:53:00 Test Item Value Reference Range Interpretation Comments Case Report (test code Medical Cytology Report = 104) Case: [id number] Authorizing Provider: Solange Koch MD Collected: 07/20/2020 10:36 AM Ordering Location: [facility] Received: 07/20/2020 11:18 AM PERIOPERATIVE SERVICES Pathologist: Adri Rangel MD Specimen: Lymph Node, Interlobar, Left, Station 11L DIAGNOSIS (test code = [id number] 3220) uZzEwMzNcZnRuYmpcdWMxIH tccnRmMVxlcGljOTIwMFxhb sXkAERhwSGjM8VdybhxJGzv WH2hKS2ifLxjpMIsrXBbRZO qVfSjv8oss887xRTou7qnZQ EJnduvvIl3vWeuD98gq9D0T nekL28ajZVrNHejnERokqxo kcKcPJnUDRAFGN3CETWuGPo TYGIWMU8YCNCqDMfRJwFdDG AKRSXXG23jIBHEWWHXYIIbJ z0RYQQCCUJVQF7OJ5nDOcOm I9qMR3BNTJ9TTQVZXJVLGPe MSPRPH6AMCN3ZYMLTXAuMJS AMKYyncYRrGCOiCO2yUmNII DFWEkLhBl5NZEOUOQGMDWaE RRooSVJPXGjUSS3TAWugTOU mAZKcCZGHPJ3SHD1IVULOLb XCAtCGLJ3UZTTbsx71WBH8Z sXtu2X3FQA2SXFaAZDqx2wh ZGVmbGFuZzEwMzNcZnRuYmp rrVTkYJNxOhGhh5uly756oC Upo0brZAVzErJ0zPBcGTYoj WNxS676VGHaWPwia2cnu1Lf BPFerOKdo3S5TTUDbxtmhNk 6zDsoJ59mn6C4LeztW0zwRA NpBUAzU8FuEN2nCEMgYta7H UG6LAV6SLJxYKOaM1RiNS5t BQDxpSEhMXe5h2ftlHdxRWW gUAO3r7smAZbzbbDuGJ7smh 5tmNb2c5nzsqXcMISjQGEac MFQHJRqT0RxnRmkYm9gaVi9 yFubObqfAXA4Crc4BJ1xwg0 8wur0oRxwOTRakfslGtL8KV mnVWYpvgdwZSu6RKkxLCLgj LQ7WDMdnAExR8KwHHDkTI3b una4RGZ6ESwlNDZwXmV3IRY gkFVdSJIyvFfwUXeke911PM U4QaVyCK3eM2Upz1M7aB8cz NTuAKOjoATrVbVhLTClay4t dSPcMSuib6VyQES1xbB6hOK fhSQrHQIfWzW5KGkvHJ9ajr 01GZNjQVZ2vs3caQQrcMxoc bWroKCmHEbwY6MnSLTzd988 KDGiE6MlQUPjr5T0faJiOwS mQIJwfKZ3xuD9QJGnMP7aop mqx9liJUfyBHwrKXIfhxP7y nK0EBPkoHBrE5NycE2zPQDg CG7ymivjz7ntYFJ6AGnkWYU oDFR1LyLcAVTzz2Nycos6Mx Led5AgzARrQGmoS92uw284F XLvkgKkM9jqgXSuxhxfoCKj jaemQWzhmuV0SGOsXCshrrp iSAIvSEamO1jqYdWbLKQojU icWAefn2ZbSXEqHGUyEfCwy IZgUPVtUql5WITtcDEzOMRr ZfJuV1fzgwzmJtQGCEXqo8b fV2fsuGNGfZWqH2BgQYyiya DzTDcrYDxnSPNhEQK4VJ17L AQ2IaccPXP8wX== COMMENT (test code = p4jbvHUhRRPevKF0RyVeCFL 3359) lk9axi9GgwHVsjSEuGZgzqK UqgeKlbe75iJM8mG25NH9uR TCdUcY9OZRqhfR1Wnv9CKJd YKQidNRuT844i5ccl1yxodJ zbRI3xAnwPJAlYBNyWSicNA ZzMjBccGFyIFBsZWFzZSBhb HNvIHNlZSBzdXJnaWNhbCBw ISFpy7vjP3lkjdOgi4H4ONX aKL7xDbkrUcAkkySqP7o2a6 OavNvwyT8pmIGeUHBfwjMzV RAwZN4yFULkTFRvUULCWnTv Jjc0YYS3iFDgqRhoNDWqTS5 hGJG3PmJykZMooN== CPT Code(s) (test code g3mgjDPzBNCrxLU3MlWeOKK = 3357) rc0yur6FhxFHbkOWxJRhcvP ZcsnSord61qXB4xE78ZY3rU LZdFrV5WYUlzjQ9Hro6AZTn KADhoCNoP701f7abm0knrpJ aeWY5hNgnIAImMOJkHOndBB OvPvPmWDunHyLxRIb9TfX1M HBhcn0= CLINICAL DATA (test y1rsdOBaWPDrlAB8GgPlIVC code = 3355) jf6kgm4GgfRMukFQcSXlvrV PgeuGlfj57jXY4qZ38WB7vR BLtIbX7VHEujyB3Edp9TBBi ZQLnlUGuD034g6vko7xtcfU lsJG3hJpsALLtPFAxXRhwZB EbZrCzWGZunSP3eRTqvwHnp 4FqJDc4erzevz2nePdlJONf wHS2p0P5UE5rMVYfl3dlaqx ccGFyfQ== SPECIMEN SOURCE (test p3yzjEFuQNKgzDZ4KtMiJGP code = 3377) re1rjk6UaoPLwhTCoELtjbA PrjtCdqo16nZW1zY11AX9lB YKbHxL1CDVpbfT7Xtn6CFGx YLTdaLMpC482z6nio2ttleA tkIA3tVhoQFSoGIHyEFdgYQ NvCaIiLJsEEDifGn9VPLwzJ P7SMXNXX5GBKkqwGHYLBYnj Y0EJNIwPRtZbBDtyJKFTKpX GTkFccGFyfQ== GROSS DESCRIPTION m0syuZZcHXZtzGP8WwLuGLS (test code = 3366) yu7jmm8DyrQPmwZVjJCgygS DatdZbdy08yLT8cB59ZZ6gO DVcLtZ1EHQnfvA8Dra6XKAw NHRmtRVwR915q1eir8nxhgG ruNW1sUmgIKXkYUSyAVdeGP HyBiJuPOLtiJvdJLemBHL3y W4znIQdVUAlVRnkTmZczXVn o8TmbfAmAGXcxAcgHybxG5r gKEEyKVxwYXJ9 MICROSCOPIC j0flhOQjFGZrvAA0AfTkBDJ DESCRIPTION (test code rz2nlb2CwzZXafKRiZQouoA = 3371) JqryAfni31lMR1zJ12AK4cJ KVeImH5CLJammJ7Okz4SZJw LETkdEBjS245e4lbj3fwefU epHX6wDzmVGQrKTTfNFknRZ KrJxByXWGgPk1hhQOwNsBmq GFyfQ== SPECIAL STUDIES (test m4gxmBQvWOTnp0lpRPGcgBZ code = 3376) uZzEwMzNcZnRuYmpcdWMxIH psdfHoYYbxa6OdJ1KjHbZiP FxhbnNpXGRlZmxhbmcxMDMz QUN9puAzVWWjIXzeMFLxTRl uIp8rdVLfhDezSrNcTZEwx5 vsdrFEvzmqvVx1g1wqHSDlJ gK8xLIzJHuuQ5jpugMxkPMw Q3UgsNKbmVf1m5efAfCiBiJ 0cDXkQAytS7ehomVqsHXjDG HqNPk6zK06WIPiuP4riHLnF LsegiTvUuK2SEbyDUYjHbL7 AKAreAPeCSXgO7sgOGFbNOp gEMQuDHcoaRBtGYH8rNwup9 H1nHTjhHSnvUecCfZmEhXeJ sJCr3ZrFLr0nPimY4UzCEDl YaY7mVJpUUZtZZrzOKSrZMR pofG4zJsnqvZic82tdJCsIW YwXGZzMjBcbGkwXHJpMCBDb 9UllGamRPP5jFd7kFhkQnnn IZC1Ndo8WS4zic24ubs3dPa pEFTutqstOjP6XLneLZFyrl rvXIa0GOqnOQXnsDR1FWGrd FAoV4UqPSIhUF9jqyv6SRZ3 XOjnASQkFcR3IVVukVTxHQV jeBggSQhmg668MCE2DmMuLR 9aD8Rki9V7vB5nhEIfZVEhf VIsXdNwSDVciq4vzNPuSGfj j3TfXUB6jfX2kQDtqTAeZEO iTF62Nkdvs1ZpCasmb1PvY1 6esVF5YXvyc4hcEY9zAqT6w lWiCGeed2lfzU3lOqP5LFqs TK1iCW7oLNYcfJ1ydrgcPZV nYnJkcmhlYWRccGdicmRyZm 1dlNafWPQ2ERduG9hokS4mJ hN4ZBnuP5cmeF6lZSd6ESte tDP8YQQnmZ1wNT8jvwsig3p mBUrbSPyjLYVljqD2jeU5WN QiqAIfC0IzmG2tVEVfMX1fe lsqf8wzTFU4CDwmGBOeQOE1 NoPyMEFps3Fiqbr5QsOkv2C vsJKbPTbyP93ew974QFMxzt JxB8epyRNofuqusEBqeqvkE UrsscS4IFMkNKPrOYgzXYLq XGZzMjJcbGFuZzEwMzNcaGl jaFxmMVxkYmNoXGYxXGxvY2 caTrIkQ9KyUEUoPqDbHAquR RfroMZsaVYpxFW8jF0oUM9e OQPofLXiF3BaTYAbgrPbgHZ fBBR6eHZqlWGnPX5tKAshmT Tvw5hiy8YaB7sujCrtxBC5L V7kRLHpBPGqWOgsq4NirH9f LlxwbGFpblxmMVxmczIyXGx dfohePHYvAEhwN0iyVpDcGC KysRftJTtpu8WmXKEtQIAdQ asrfnYaBCx3wmKbIUTufrta NCGzdZwidK2yHkEnFrNoAyf vNC7cELGhN6tesLGaETTvOI MnE5ysOpXlyZ9hzTefPMnyH xCrBbPvSdACt531ru5gAWDa nSDyvnPMlQRypJ6aWTsdSIk kJKkvlFRoUUyue8boSMDqx3 f8qOSyFFVpnfHft0ibDXmgi uHcMRTtmCHptKXoMWPwh43z YArpgVpdmDkiRRXva9ArtLi rp8MbGsQsIDzmz2XuY41peU JvbCBzbGlkZXMgcnVuIGFsb 07av8hwCOGpBcD3mLAcvZU1 oNHwgUZvj0ZukNvwBHUbx0o nFITfax4jyhdivOGbm5EpiP 5pbmcuIEludGVybmFsIHBvc 7n4dJBhQMPkDQLdRNbgfNa2 VZXlo277hu3evwA9mOJpPCI 2YWlsYWJsZSBhcmUgZXZhbH VhdGVkXHBsYWluXGYxXGZzM jJcbGFuZzEwMzNcaGljaFxm IInnHwAkWHUyAQmjJ6fjCkQ qT2NaVCYnAoSrqFKsL3kmlN FyXHBsYWluXGYxXGZzMjJcb GFuZzEwMzNcaGljaFxmMVxk IvDlPCMkHVhoO7gwQwFnQ0U yXGZzMjIgIFxwbGFpblxmMV xmczIyXGxhbmcxMDMzXGhpY 4mtFaFnLIImzMviEAnte6Ha IDDvYYGdMfhtonTcFAx4xwK oXHBhclxwbGFpblxmMVxmcz GxNUnsbkndSNXmFHwlC8zmR xRfTTTjeCccMUdfk9NuTPCo SWXeBopftfGkYNkwbYGfr4x ah2IkG2glpRguwDG4COYtH5 cyjHAbvJW0YBI3tP3mTZuus zOjIDIdx8AoCCDaASHgIwI8 xT1lJFI0YyUAjIhjDERpGKs uXGYxXGZzMjJcbGFuZzEwMz NcaGljaFxmMVxkYmNoXGYxX UjyT9kdCxXfO2KrCGSqBaXk qRhmPRxgIXq3YebnoVXavjl mMVxmczIyXGxhbmcxMDMzXG xpZ9enUwKuVWHlbHhzTQmjq 2NoXGYxXGNmMlxmczIyIHMg MOYbcWPfkTILFW34ZFCgVMP bbLbmeQ8lpQDAAXJbtpQ4f6 O0JDpvOFLnEXu2FXerljSeS TYnpC0yVZYxUS9tOUl9ugQe GQKgw4RoXZ9uFEYfwCBgFGC 7HIKjc5KiY1Lla3RjJMOjLR Uuzx8crhLrHtCDbYRjFUUws d08DJDpON8bZ0nzVJTxJJGt wpFxnTDjv9UwTIKnrXA8hOB jCV4AZiGXo27sPSNrRXAJvl CbOGXzwNvieAI3doV6aV4sR iBUaGUgRkRBIGhhcyBkZXRl cd5mriBxEVCrRXQpx0VyfAK wnKUeuaWwQ5Sei0MzKZWmcq 03YRnkjFFusr04PA3kX9Fxl 5CaqV5yVTkbAYUui0OqjRAt zKLxYTOby6EpW8humfamZCx krODikX0dKVAvUFt5BQFtg5 IlWKCrb0DwRaTdkwXnGNWzD BRqMLGlyB98PGN4sCbriRoy izUhWC7sHVYugnPvYMRwSSP dkN5eSWufaaDoECBupjY6z0 B1GRpbYOAdndZqCmrvKHF8x aSakpD4aZVqG6yddqcmJCre VNVob8TlbG6wtQDPgQYpv2J taAIiqBLTjXFmXQ9ubcKuIF 3eDBG9LFtxRKXRKHQcRTekK QKlMBV9QOwbNhjtOHD4qvVd YROzy1RkYSzfO3yoK03phRi spIx5qICtqQhtfTEvaUMtZD LyfmV9s5W8XVUck1FdeqdqU HBsYWluXGYyXGZzMjJcbGFu ZzEwMzNcaGljaFxmMlxkYmN sJXRiOAlmT9baYwGzDjQkRe dcUCW6rR== Gross assessment was [facility] performed at ([facility], code = 2777) Department of Pathology, [address] [place] [address], Technical component [facility] was performed at ([facility], code = 2778) Department of Pathology, [address] [place] [address], Professional component [facility] was performed at ([facility], code = 2779) Department of Pathology, [address] [place] [address], [facility] BY [id number] 11:53:00 Medical Cytology Report Case: [id number] Authorizing Provider: Solange Koch MD Collected: 07/20/2020 10:36 AM Ordering Location: [facility] Received: 07/20/2020 11:18 AM PERIOPERATIVE SERVICES Pathologist: Adri Rangel MD Specimen: Lymph Node, Interlobar, Left, Station 11L LYMPH NODE, INTERLOBAR, LEFT, STATION 11L EBUS FNA BY CLINICIAN (CYTOSPINS AND CELL BLOCK OF ASPIRATE): - NEGATIVE FOR EPITHELIAL MALIGNANCY LYMPHOCYTES PRESENT Signing Pathologist Direct Phone Line: [phone] signed by Adri Rangel MD on 07/21/2020 at 11:53 AMPlease also see surgical pathology report [id number] and cytopathology reports [id number] and [id number] through [id number] 2957. 79868, 81239Qilf upper lobe lung nodule, history of smokingLYMPH NODE, INTERLOBAR, LEFT, STATION 11L [id number] mls in cytorich red; 2 cytospins, cell block (A2)Performed. The interpretation of this case included the use of immunohistochemistry or special stains.Control Slides Examined: In-house known positive controls were evaluated along with the test tissue. These control slides run alongside of the patients sample show appropriate staining. Internal positive and negative controls when available areevaluated Immunohistochemistry technical testing was performed at [facility], Pathology Laboratory where it was developed [...] qualified to perform high complexity clinical laboratory testing.[facility], Department of Pathology, [address] [place] [address], [facility], Department of Pathology, [address] [place] [address], [facility], [address] [place] [address], YYIY NEEDLE ASPIRATE BY [id number] 11:33:00Medical Cytology Report Case: [id number] Authorizing Provider: Solange Koch MD Collected: 07/20/2020 10:23 AM Ordering Location: [facility] Received: 07/20/2020 11:18 AM PERIOPERATIVE SERVICES Pathologist: Adri Rangel MD Specimen: Lymph Node, Lower Paratracheal, Right, Station 4R LYMPH NODE, LOWER PARATRACHEAL, RIGHT, STATION 4R EBUS FNA BY CLINICIAN (CYTOSPINS AND CELL BLOCK OF ASPIRATE): - NEGATIVE FOR EPITHELIAL MALIGNANCY LYMPHOCYTES AND HISTIOCYTES PRESENT Signing Pathologist DirectPhone Line: [phone] signed by Adri Rangel MD on 07/21/2020 at 11:33AMPlease also see surgical pathology report [id number] and cytopathology reports [id number] and [id number] through [id number]. 75902, 75024Sovi upper lobe lung nodule, history of smokingLYMPH [...] evaluated Immunohistochemistry technical testing was performed at [facility], Pathology Laboratory where it was developed [...] as qualified to performhigh complexity clinical laboratory testing.[facility], Department of Pathology, [address] [place] [address], [facility], Department of Pathology, [address] [place] [address], [facility], Department of Pathology, [address] [place] [address], QJZX/CONCENTRATION [id number] 02:37:00 Test Item Value Reference Range Interpretation Comments Concentration charged (test code = Done 2657) [facility] [id number] 02:37:00 Test Item Value Reference Range Interpretation Comments CONCENTRATION CHARGED (BEAKER) (test Done code = 2657) FINE NEEDLE ASPIRATE (FNA) [id number] 13:00:00 Test Item Value Reference Range Interpretation Comments Cytology (test code = See Separate Report 2629) [facility] [id number] 13:00:00 Test Item Value Reference Range Interpretation Comments Cytology (test code = See Separate Report 2629) [facility] [id number] 13:00:00 Test Item Value Reference Range Interpretation Comments CYTOLOGY RESULT POINTER See Separate Report (BEAKER) (test code = 2629) EBUS FNA [id number] 13:00:00 Test Item Value Reference Range Interpretation Comments CYTOLOGY RESULT POINTER See Separate Report (BEAKER) (test code = 2629) EBUS FNA [id number] 13:00:00 Test Item Value Reference Range Interpretation Comments CYTOLOGY RESULT POINTER See Separate Report (BEAKER) (test code = 2629) EBUS FNA [id number] 13:00:00 Test Item Value Reference Range Interpretation Comments CYTOLOGY RESULT POINTER See Separate Report (BEAKER) (test code = 2629) FINE NEEDLE ASPIRATE (FNA) [id number] 13:00:00 Test Item Value Reference Range Interpretation Comments CYTOLOGY RESULT POINTER See Separate Report (BEAKER) (test code = 2629) RAD, CHEST, 1 VIEW, NON [id number] 12:01:00Reason for exam:->s/p [facility] 1950 Sex: MFINAL [...] Franklin Verified Date/Time: 07/20/2020 12:01:07 Reading Location: [facility] Radiology Reading Room XR chest 1 view portable / [id number] 12:01:00 Interface, External Ris In - 07/20/2020 [...] Franklin Verified Date/Time: 07/20/2020 12:01:07 Reading Location: [facility] Radiology Reading Room [facility]) [id number] 11:00:00 Test Item Value Reference Range Interpretation Comments CYTOLOGY RESULT POINTER See Separate Report (NYDIA) (test code = 2629) FL, FLUORO, NON-SPECIFIC, UP TO 1 [id number] 10:36:00Reason for exam:- >[facility] : 1950 Sex: MFluoroscopic unit utilized for a procedure performed in the OR. No interpretation wasrequested. Refer to the operative report for findings. Refer to PACS for patient radiation dose information.FL fluoro non-specific up to 1 [id number] 10:00:00 Interface, External Ris In - 07/20/2020 1:29 PM CSTFluoroscopic unit utilized for a procedure performed in the OR. No interpretation was requested. Refer to the operative report for findings. Referto PACS for patient radiation dose information.[facility] HospitalABORH, [id number] 07:40:00 Test Item Value Reference Range Interpretation Comments ABO Grouping (test code = 2588) A Rh Factor (test code = 2589) POS [facility] HospitalType and screen, [id number] 07:20:00 Test Item Value Reference Range Interpretation Comments ABO/RH AUTOMATED (BEAKER) (test A POSITIVE code = 2260) Ab Scrn (test code = 890-4) NEGATIVE [facility] [id number] 07:07:00 Test Item Value Reference Range Interpretation Comments Protein, Total (test 8.1 See_Comment [Autom ated code = 2885-2) message] The system which generated this result transmit anthony reference range : 6.0 - 8.3 gm/dL . The reference range was not u sed to interpret th is result as normal/abnormal . Albumin (test code = 3.7 g/dL 3.5-5 33137-8) Alkaline Phosphatase 165 U/L 40-150 H (test [...] Calcium (test code = 9.3 mg/dL 8.4-10.2 69407-2) AST (test code = 39 U/L 5-34 H 1920-8) ALT (test code = 47 U/L 6-55 1742-6) EGFR (test code = [place] [address]-0) CLINICAL DATA T O CALCULATE ESTIMATED GFR. ALAINA (test code = ALAINA) License Examiner ID - PENNY [place] Lab Interpretation Abnormal (test code = 09011-0) [facility]COMPREHENSIVE METABOLIC [id number] 07:07:00 Test Item Value Reference Range Interpretation [...] 1092) DATA TO CALCULA TE ESTIMATED GFR. License Examiner ID - PENNY [id number] 06:44:00 Test Item Value Reference Range Interpretation Comments PTT (test code = 75277-0) 29.6 See_Comment [ Automated message] The system whic h generated this result transmitted ref erence range: 22.5 - 3 6.0 seconds. The re ference range was not u sed to interpret this result as normal/abnor mal. Lab Interpretation (test Normal code = 25753-1) [facility]APTT2020-[facility] 06:44:00 Test Item Value Reference Range Interpretation Comments PARTIAL THROMBOPLASTIN TIME 29.6 seconds 22.5-36.0 (BEAKER) (test code = 760) Prothrombin time/[id number] 06:43:00 Test Item Value Reference Interpretation Comments Range Protime (test code = 13.3 See_Comment [Autom ated 2692-2) message] The system which generated this result transmitted reference range : 11.9 - 14.2 seconds. The reference range was not used to interpret this result as normal/abnormal . INR (test code = 1.04 See_Comment [Automated 8621-6) message] The system which generated this result [...] valves. Lab Interpretation Normal (test code = 25944-9) [facility] HospitalPROTHROMBIN TIME/[id number] 06:43:00 Test Item Value Reference Range Interpretation [...] heart valves.CBC with platelet count + automated [id number] 06:35:00 Test Item Value Reference Range Interpretation Comments WBC (test code = 6690-2) 12.4 See_Comment H [A utomated message] The system [employer] generated this result transmitted ref erence range: 3.5 - 10 .5 K/L. The refe rence range was not u sed to interpret this result as normal/abnor mal. RBC (test code = 789-8) 4.89 See_Comment [Au tomated message] The system [employer] generated this result transmitted ref erence range: 4.63 - 6 .08 M/L. The refe rence range was not u sed to interpret this result as normal/abnor mal. MCHC (test code = 786-4) 33.2 See_Comment [A utomated message] The system [employer] generated this result transmitted ref erence range: [...] See_Comment [Aut omated message] 777-3) The system [employer] generated this result transmitted ref erence range: 150 - 45 0 K/CU MM. The referen ce range was not u sed to interpret this result as normal/abnor mal. MPV (test code = 8.5 fL 9.4-12.4 L 74072-2) nRBC (test code = 413) 0 See_Comment [Aut omated message] The system [employer] generated this result transmitted ref erence range: [...] H [Aut omated message] 670) The system [employer] generated this result transmitted ref erence range: 1.78 - 5 .38 K/L. The refe rence range was not u sed to interpret this result as normal/abnor mal. # Lymphs (test code = 4.48 See_Comment H [Auto mated message] 414) The system [employer] generated this result transmitted ref erence range: 1.32 - 3 .57 K/L. The refe rence range was not u sed to interpret this result as normal/abnor mal. # Monos (test code = 1.27 See_Comment H [Autom ated message] 415) The system [employer] generated this result transmitted ref erence range: 0.30 - 0 .82 K/L. The refe rence range was not u sed to interpret this result as normal/abnor mal. # Eos (test code = 416) 0.56 See_Comment H [Au tomated message] The system [employer] generated this result transmitted ref erence range: 0.04 - 0 .54 K/L. The refe rence range was not u sed to interpret this result as normal/abnor mal. # Baso (test code = 417) 0.10 See_Comment H [A utomated message] The system [employer] generated this result transmitted ref erence range: 0.01 - 0 .08 K/L. The refe rence range was not u sed to interpret this result as normal/abnor mal. Immature 1 % 0-1 Granulocytes-Relative (test code = 2801) Lab Interpretation (test Abnormal code = 98530-5) [facility] W/PLT COUNT & AUTO [id number] 06:35:00 Test Item Value Reference Range Interpretation [...] PERCENT (BEAKER) (test code = 2801) POC-Glucose [id number] 06:11:00 Test Item Value Reference Range Interpretation Comments POC-Glucose Meter (test 114 mg/dL 70-110 H : TE STED AT [facility] code = 1538) [address] [facility], 770 30: License Examiner/Techni rosalva ID = [id number] for Susan Crews Lab Interpretation (test Abnormal code = 68510-3) [facility] HospitalPOCT-GLUCOSE [id number] 06:11:00 Test Item Value Reference Range Interpretation Comments POC-GLUCOSE METER 114 mg/dL 70-110 H : TESTED A T [facility] 6720 (BEAKER) (test code = [facility], 1538) [address]: License Examiner/Techni rosalva ID = [id number] for Susan Celestin Prothrombin Gene [id number] 13:07:00 Test Item Value Reference Interpretation Comments Range PROTHROMBIN GENE SEE BELOW RESULT: G20 210A ANALYSIS (test code variant not detected = 6014730) Interpretation SEE BELOW INTERPRETATIO N: This (test code = individual is n egative 8383996) (normal) for th e Y86606X variant in the Prothrombin/Fac tor II gene. Increased risk of thrombophili a can becaused by a v ariety of genetic and non-genetic fac tors not screened fo r bythis assay. Laboratory test ing supervised and results monitored by Opal Robledo, Ph.D.,D ABG, [facility]. 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 This test was develo ped and its analytical performance characteristics havebeen determ ined by [employer] [facility] .It has not been cleare d or approved by FDA . This assay has been validatedpursua nt to the CLIA regula tions and is used for clinical purpos es. ALAINA (test code = Performing Lab ALAINA) EZ [employer] [facility] [address] [place] [address] Bryson Lopez MD, PhD, GLENN [facility] HospitalFactor 5 Leiden PCR (thrombotic risk)2020-07-17 15:45:00 Test Item Value Reference Interpretation Comments Range Factor V Leiden SEE BELOW RESULT: FACT OR V Mutation (test code LEIDEN ( R506Q) VARIANT = 5201235) NOT DETECTED Interpretation SEE BELOW INTERPRETATIO N: This (test code = individual is n egative 5931376) (normal) for th e Factor V Leiden (R506Q) variant in the Factor V gene. Increas ed risk of thrombophili a can becaused by a v ariety of genetic and non-genetic fac tors not screened fo r bythis assay. Laboratory test ing supervised and results monitored by Betsy Boss MD, PhD, FACMG, [facility]. MUTATI ON ANALYSIS:The Fa ctor V [...] perf ormance characteristics havebeen determ ined by [employer] [facility] .It has not been cleare d or approved by FDA . This assay has been validatedpursua nt to the CLIA regula tions and is used for clinical purpos es. Health care pro viders, please contact your local [employer] geneticcounselo r or call [phone] ([phone]) for assistance withinterpretat ion of these results. ALAINA (test code = Performing Lab ALAINA) EZ [facility] [address] [facility] [address] Bryson Lopez MD, PhD, GLENN [facility] HospitalProtein S [id number] 00:12:00 Test Item Value Reference Range Interpretation Comments Protein S 75 See_Comment Decreased leve ls of Functional (test Protein S a ctivity code = 8068437) may be found in patients withhereditary deficiency, war farin therapy, vitami n k deficiency, vik er disease,DIC, or recent thrombos is as well as after surgery. In addition, it ma y bephysiologic i n . An elevated Protei n S activity is not clinicallysigni fican t. Only deficie ncies are associated with an increased thromboticrisk. [Automated mess age] The system [employer] generated this result transmit anthony reference range : 70 - 150 % normal. The reference range was not used to interpret this result as normal/abnormal . ALAINA (test code = Performing Lab ALAINA) [employer] [facility] [address] [place] [address] Bryson Lopez MD, PhD, GLENN [facility]/RT-PCR (Asymptomatic ONLY)2020-07-16 16:25:00 Test Item Value Reference Range Interpretation Comments SARS-COV2/RT-PCR Negative Not Detected, (test code = Negative, See 60019-1) external report for linked test SARS-COV-2 [facility] PERFORMING LAB (test code = 05246-3) ALAINA (test code = Negative result for [...] of the Act. Fact Sheet for Healthcare Providers:https://www.[employer]/sites/default/f donta/product/documents/F act_Sheet_HC_Providers_L zur_CKMA-WzD-9.pdf Fact Sheet for Healthcare Patients:https://www.[employer]/sites/default/fi les/product/documents/Fa ct_Sheet_Patients_Lyra_S ARS-CoV-2.pdf Performing Laboratory:[facility], [place] [address] [place], [place] [address]ARS-COV2/RT-PCR ([facility])2020-07-16 16:25:00 Test Item Value Reference Range Interpretation Comments SARS-COV2/RT-PCR (test Negative Not Detected, Negative, code = 3110830) See external report for linked test SARS-COV-2 PERFORMING LAB [facility]ELO (test code = 1949691) Negative result for this test determines that [...] 564(g) of the Act.Fact Sheet for Healthcare Providers:https://www.[employer]/sites/default/files/product/documents/Fact_Shee b_VV_Ystttgvfg_Qpzf_GDVP-HgI-3.pdfFact Sheet for Healthcare Patients:https://www.[employer]/sites/default/files/product/ documents/Mlfr_Qlrvk_Cjfzndyz_Ckyi_UAPO-CpW-1.pdfPerforming Laboratory:[facility], [place] [address]VE, CHEST, WITHOUT [id number] 15:54:00THIN CUT, 0.625 mm, HIGH RES, VERAN CUTSFOR OR PROCEDUREUnlisted Reason for Exam - Click Yes and Enter Reason Below->No [facility] : 1950 Sex: [...] MDReport Verified Date/Time: 07/15/2020 15:54:45 Reading Location: [facility] B1 C013Y CT Body Reading Room CT chest without IV [id number] 15:54:00Interface, External Ris In - 07/15/2020 3:57 [...] Joya MDReport Verified Date/Time: 07/15/2020 15:54:45 ReadingLocation: [facility] B1 C013Y CT Body Reading Room Electronically signed by: GIO JOYA MD on07/15/2020 03:54 [facility], CTA, [id number] 10:19:00Unlisted Reason for Exam - Click Yes and Enter Reason Below->YesUnlisted Reason for Exam->Splenic embolism/infarct. Rule out proximal aortic source (ulcer, aneurysm) [facility] 1950 Sex: MAddendum BeginsREPORT STATUS:A I agree with the nonvascular find ings with the following additional comment: There is diffusely decreased enhancement of the spleen with mild adjacent fat stranding consistent with history of splenic infarct. Signed: Gio Joya MDReport Verified Date/Time: 07/15/2020 10:19:44 Reading Location: [address] Body Reading RoomAddendum EndsFINAL REPORT [...] dictated regarding the non-vascular findings by the Supervisor Loading Radiologist. Signed: Deandre Lujan MDReport Verified Date/Time: 07/14/2020 10:42:49 Reading Location: [place] [address] [address] Reading Room COMPREHENSIVE METABOLIC [id number] 05:29:00 Test Item Value Reference Range Interpretation [...] 1092) DATA TO CALCULA TE ESTIMATED GFR. License Examiner ID - PENNY MPROTHROMBIN TIME/[id number] 04:56:00 Test Item Value Reference Range Interpretation [...] See_Comment H [A utomated message] The system [employer] generated this result transmitted ref erence range: 3.5 - 10 .5 K/L. The refe rence range was not u sed to interpret this result as normal/abnor mal. RBC (test code = 789-8) 4.78 See_Comment [Au tomated message] The system [employer] generated this result transmitted ref erence range: 4.63 - 6 .08 M/L. The refe rence range was not u sed to interpret this result as normal/abnor mal. MCHC (test code = 786-4) 33.1 See_Comment [A utomated message] The system [employer] generated this result transmitted ref erence range: [...] See_Comment [Aut omated message] 777-3) The system [employer] generated this result transmitted ref erence range: 150 - 45 0 K/CU MM. The referen ce range was not u sed to interpret this result as normal/abnor mal. MPV (test code = 8.4 fL 9.4-12.4 L 87733-0) nRBC (test code = 413) 0 See_Comment [Aut omated message] The system [employer] generated this result transmitted ref erence range: 0 - 0 /1 00 WBC. The refere nce range was not u sed to interpret this result as normal/abnor mal. Lab Interpretation (test Abnormal code = 62767-5) [facility] HospitalCB (HEMOGRAM ONLY)2020-07-15 04:25:00 Test Item Value Reference [...] code = 413) ECHO W CONTRAST & [id number] 14:46:21Ejection FractionSLEH ECHO HEARTLAB MKCKESSON CPACSInterface, External Ris In - 07/14/2020 2:46 PM C STTransthoracic Echocardiography Report (TTE) Demographics Patient Name LISA HERRON Date of Study 07/14/2020 OMARI Gender Male Visit Number [id number] Race Unknown Room Number 2442 Number Date of 1950 Referring DELGADO MCDANIEL Physician Age 69 year(s) Lumber Salvager Odilia Marino Net C Developer Sheryl James CS Interpreting Maya Durand Physician [...] LVOT CO: 6.6 l/min LVOT CI: 2.59 l/min/m^2CCity [facility] CenterARS-COV2/[facility]-PCR ([facility])2020-07-14 12:56:00 Test Item Value Reference Range Interpretation Comments SARS-COV2/RT-PCR (test Negative Not Detected, Negative, code = 6721490) See external report for linked test SARS-COV-2 PERFORMING LAB [facility] (test code = 8286675) Negative result for this test determines that [...] 564(g) of the Act.Fact Sheet for Healthcare Providers:https://www.[employer].com/sites/default/files/product/documents/Fact_Shee h_JW_Jmthagkyv_Mcxr_VNFD-KuV-3.pdfFact Sheet for Healthcare Patients:https://www.[employer].com/sites/default/files/product/ documents/Ehug_Hhhjn_Snfvkrqd_Sfqk_LZYY-RpS-3.pdfPerforming Laboratory:[facility], [place] [address]Tzmisuw C activity 2020-07-14 11:44:00 Test Item Value Reference Range Interpretation Comments Protein C Activity (test code = 89.0 % 70-130 16224-2) Lab Interpretation (test code = Normal 59951-2) [facility] HospitalPROTEIN C [id number] 11:44:00 Test Item Value Reference Range Interpretation Comments PROTEIN C ACTIVITY (BEAKER) (test code 89.0 % 70.0-130.0 = 582) CTA [id number] 10:42:00Interface, External Ris In - 07/15/2020 10:21 AM CSTAddendum BeginsREPORT STATUS:A I agree with the nonvascular findings with the following additional comment: There is diffusely decreased enhancement of the spleen with mild adjacent fat stranding consistent with history of splenic infarct. Signed: Gio Joya MDReport Verified Date/Time: 07/15/2020 10:19:44 ReadingLocation: [facility] B1 C013Y CT Body Reading RoomAddendum EndsFINAL [...] dictated regarding the non-vascular findings by the Supervisor Loading Radiologist.Signed: Deandre Lujan MDReport Verified Date/Time: 07/14/2020 10:42:49 Reading Location: [place] [address] [address] Reading Room [facility]Man[facility] [id number] 07:48:00 Test Item Value Reference Range Interpretation [...] = 3438) ALAINA (test code = ALAINA) License Examiner ID - Melinda Abel comments: Slide comments: Lab Interpretation Abnormal (test code = 32559-3) [facility] W/PLT COUNT & AUTO [id number] 07:48:00 Test Item Value Reference Range Interpretation [...] CONCENTRATION Adequate (CELLAVISION)(BEAKER) (test code = 3438) License Examiner ID - Melinda Roman comments: Slide comments:Basic Metabolic [id number] 04:42:00 Test Item Value Reference Range Interpretation [...] Calcium (test code = 8.7 mg/dL 8.4-10.2 25386-8) EGFR (test code = [place] [address]-0) CLINICAL DATA T O CALCULATE ESTIMATED GFR. ALAINA (test code = ALAINA) License Examiner ID - EDASI Lab Interpretation Abnormal (test code = 64901-3) [facility] HospitalBASI METABOLIC [id number] 04:42:00 Test Item Value Reference Range Interpretation [...] 1092) DATA TO CALCULA TE ESTIMATED GFR. License Examiner ID - [id number] 04:40:00 Test Item Value Reference Range Interpretation Comments Magnesium (test code = 1.9 mg/dL 1.6-2.6 82875-6) ALAINA (test code = ALAINA) License Examiner ID - EDASI Lab Interpretation (test Normal code = 66709-8) [facility] HospitalPhosphorus2020-11-11 04:40:00 Test Item Value Reference Range Interpretation Comments Phosphorus (test code = 3.5 mg/dL 2.3-4.7 2777-1) ALAINA (test code = ALAINA) License Examiner ID - EDASI Lab Interpretation (test Normal code = 37751-7) [facility] HospitalMAGNESIUM2020-11-11 04:40:00 Test Item Value Reference Range Interpretation Comments MAGNESIUM (BEAKER) (test code = 1.9 mg/dL 1.6-2.6 627) License Examiner ID - [id number] 04:40:00 Test Item Value Reference Range Interpretation Comments PHOSPHORUS (BEAKER) (test code = 3.5 mg/dL 2.3-4.7 604) License Examiner ID - [id number]-[id number] 00:00:00Ordered by an unspecified provider.[facility]
[2021-03-16 02:31] LABS: Hematocrit 36.9 % (39.6-49.0); Lymphocytes % 31.5 % (15.3-44.8); MPV 7.3 fL (7.6-11.3); RBC Red Blood Cell Count 3.68 M/uL (4.33-5.43)
[2021-03-16 02:32] LABS: Protime INR 1.45
[2021-03-16 02:47] LABS: ALT/SGPT 20 U/L (12-78); AST/SGOT 22 U/L (15-37); Albumin 2.6 g/dL (3.4-5.0); Alkaline Phosphatase 118 U/L (45-117); BUN Blood Urea Nitrogen 12 mg/dL (7-18); Bicarbonate 26 mmol/L (21-32); Bilirubin Direct 0.2 mg/dL (0-0.2); Bilirubin Total 0.7 mg/dL (0.2-1.0); Glucose Level 116 mg/dL (74-106); Lipase 71 U/L (73-393); Magnesium 2.1 mg/dL (1.8-2.4); NT PRO-BNP 216 pg/mL (<125); Protein, Total 7.2 g/dL (6.4-8.2); Sodium Level 139 mmol/L (136-145); Troponin (Emerg Dept Use Only) < 0.02 ng/mL (0.0-0.045)
[2021-03-16] MEDS ORDERED: NA CHLORIDE 0.9% 500 ML ONE (02:59)
[2021-03-16] MEDS ORDERED: CEFTRIAXONE/SWI 1gm 1 GM/10 ML SYR ONE (02:59)
--- NOTE | 2021-03-16 02:59 | ER ---
Nurse's Notes [facility] Name: Rohna Bauman Age: 70 yrs Sex: Male : 1950 Arrival Date: 03/16/2021 Time: 00:09 Bed 19 Private MD: Diagnosis: Cerebral edema-VASOGENIC EDEMA, METASTASES;Weakness;Repeated falls Presentation: 03/16 00:36 Chief complaint: EMS states: son called EMS states pt slid out of chair earlier and is bs2 having weakness on LT leg, pt only complaint is low back pain, pt is normally able to walk, pt is to weak to even help transfer this evening. Coronavirus screen: Client denies travel out of the [place] in the last 14 days. At this time, the client does not indicate any symptoms associated with coronavirus-19. Ebola Screen: Patient negative for fever greater than or equal to 101.5 degrees Fahrenheit, and additional compatible Ebola Virus Disease symptoms Patient denies exposure to infectious person. Patient denies travel to an Ebola-affected area in the 21 days before illness onset. No symptoms or risks identified at this time. Initial Sepsis Screen: Does the patient meet any 2 criteria? No. Patient's initial sepsis screen is negative. Does the patient have a suspected source of infection? No. Patient's initial sepsis screen is negative. Risk Assessment: Do you want to hurt yourself or someone else? Patient reports no desire to harm self or others. Onset of symptoms was March 15, 2021. 00:36 Method Of Arrival: EMS: [facility] bs2 00:36 Acuity: SOFIA 3 bs2 Triage Assessment: 00:38 General: Appears in no apparent distress. comfortable, obese, well groomed, well bs2 developed, well nourished, Behavior is calm, cooperative, appropriate for age. Pain: Complains of pain in lumbar area Pain currently is 10 out of 10 on a pain scale. 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 - Social history:: Smoking status: Patient denies any tobacco usage or history of. Patient uses alcohol, often. Screenin:44 Abuse screen: Denies threats or abuse. Denies injuries from another. Nutritional bs2 screening: No deficits noted. Tuberculosis screening: No symptoms or risk factors identified. Fall Risk Fall in past 12 months (25 points). Assessment: 06:48 General: Appears in no apparent distress. uncomfortable, well groomed, well developed, bs2 well nourished, Behavior is calm, cooperative, appropriate for age. Neuro: No deficits noted. Cardiovascular: No deficits noted. Respiratory: No deficits noted. GI: No deficits noted. No signs and/or symptoms were reported involving the gastrointestinal system. : No deficits noted. No signs and/or symptoms were reported regarding the genitourinary system. Vital Signs: 00:36 BP 123 / 76; Pulse 71; Resp 13; Temp 97.6; Pulse Ox 96% ; Pain 10/10; bs2 01:00 BP 120 / 63; Pulse 66; Resp 15; Pulse Ox 96% ; Pain 0/10; bs2 03:54 Weight 104.33 kg (R); bb 06:47 BP 124 / 59; Pulse 68; Resp 15; Temp 98.6(O); Pulse Ox 95% on R/A; Pain 5/10; bs2 ED Course: 00:09 Patient arrived in ED. mw2 00:36 Angie Ayala, RN is Primary Nurse. bs2 00:38 Triage completed. bs2 00:38 Arm band placed on right wrist. bs2 00:42 Romeo Morgan MD is Attending Physician. evelin 00:44 Patient has correct armband on for positive identification. Call light in reach. Side bs2 rails up X2. in shop service technician on. Pulse ox on. NIBP on. Warm blanket given. 01:03 XRAY Chest (1 view) In Process Unspecified. EDMS 01:47 CT Head Brain wo Cont In Process Unspecified. EDMS 02:30 Inserted saline lock: 20 gauge in right forearm, using aseptic technique. Blood bs2 collected. 02:36 Troponin (emerg Dept Use Only) Sent. bs2 02:36 PT-INR Sent. bs2 02:36 NT PRO-BNP Sent. bs2 02:36 Magnesium Sent. bs2 02:36 LFT's Sent. bs2 02:36 CBC with Diff Sent. bs2 02:36 Basic Metabolic Panel Sent. bs2 02:36 Lipase Sent. bs2 02:36 Blood Culture Adult (2) Sent. bs2 02:36 Lactate Sent. bs2 02:37 Basic Metabolic Panel Sent. bs2 02:37 Liver (Hepatic) Function Sent. bs2 02:37 CBC with Automated Diff Sent. bs2 02:37 Magnesium Sent. bs2 02:57 Kelsi Benavidez MD is Hospitalizing Provider. evelin 03:29 initiated a transfer with Anabelle Wakefield from [facility]. mw2 03:33 [facility] denied due to capacity. mw2 03:37 initiated a transfer with Janina from [facility]. mw2 03:52 initiated a transfer with Irene from [facility]. mw2 03:57 [facility] denied due to capacity. mw2 04:[address] Morgan [address] Dr. Mishra from [facility]. mw2 04:13 CT Chest, Abdomen, Pelvis - W/Contrast Sent. bs2 04:17 administrative approval given by Janina Oconnor/ patient has been accepted to [address] to the Neuro IMU bed/ Dr. Mishra accepted the patient in transfer/ report called to [phone]. 04:44 No provider procedures requiring assistance completed. bs2 06:44 Patient transferred, IV remains in place. bs2 06:49 CT Chest, Abdomen, Pelvis - W/Contrast In Process Unspecified. EDMS Administered Medications: 01:12 CANCELLED (Duplicate Order): NS 0.9% 1000 ml IV at 1 bolus Per protocol; 1000 mL bolus [facility] 02:44 Drug: Rocephin (cefTRIAXone) 1 grams Route: IV; Rate: per protocol; Site: right forearm;bs2 04:03 Follow up: IV Status: Completed infusion; IV Intake: 10ml bs2 02:44 Drug: NS 0.9% 500 ml Route: IV; Rate: bolus; Site: right forearm; bs2 04:03 Follow up: IV Status: Completed infusion; IV Intake: 500ml bs2 04:13 Follow up: IV Status: Completed infusion; IV Intake: 500ml bs2 04:13 Drug: Decadron - Dexamethasone 10 mg Route: IVP; Site: right forearm; bs2 04:44 Follow up: Response: No adverse reaction bs2 04:44 Drug: Keppra (levETIRAcetam) 1000 mg Route: IV; Rate: per protocol; Site: right forearm;bs2 05:17 Follow up: IV Status: Completed infusion bs2 Intake: 04:03 IV: 10ml; Total: 10ml. bs2 04:03 IV: 500ml; Total: 510ml. bs2 04:13 IV: 500ml; Total: 1010ml. bs2 Outcome: 02:58 Decision to Hospitalize by Provider. evelin 03:24 ER care complete, transfer ordered by MD. evelin 05:15 Transferred by ground EMS to [facility], Transfer form completed. bs2 05:15 Transferred Note: Report called to Madisyn CAVAZOS, [facility] Neuro IMU bed 8 06:44 Condition: stable bs2 06:44 Discharge instructions given to patient, family. 06:52 Patient left the ED. bs2 Signatures: Dispatcher [employer] EDMS Romeo Morgan MD MD cha Ballard, Brenda, RN RN Cinthia Alicea [facility] Angie Ayala RN RN bs2 Corrections: (The following items were deleted from the chart) 04:40 00:38 Home Meds: Allopurinol Oral; bs2 bs2 04:40 00:38 Home Meds: Furosemide Oral; bs2 bs2 04:40 00:38 Home Meds: levothyroxine oral; bs2 bs2 04:40 00:38 Home Meds: Spironolactone Oral; bs2 bs2
--- NOTE | 2021-03-16 02:59 | EDPHYS ---
Physician Documentation [facility] Name: Rohan Bauman Age: 70 yrs Sex: Male : 1950 Arrival Date: 03/16/2021 Time: 00:09 Bed 19 Private MD: ED Physician Romeo Morgan HPI: 03/16 02:51 This 70 yrs old Male presents to ER via EMS with complaints of General evelin Weakness. 02:51 weakness, progressive. Onset: The symptoms/episode began/occurred 3 day(s) ago. evelin Severity of symptoms: At their worst the symptoms were mild in the emergency department the symptoms are unchanged. The patient has experienced similar episodes in the past, several times. 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 - Social history:: Smoking status: Patient denies any tobacco usage or history of. Patient uses alcohol, often. ROS: 02:53 Constitutional: Negative for fever, chills, and weight loss, Eyes: Negative for injury, evelin pain, redness, and discharge, ENT: Negative for injury, pain, and discharge, Neck: Negative for injury, pain, and swelling, Cardiovascular: Negative for chest pain, palpitations, and edema, Respiratory: Negative for shortness of breath, cough, wheezing, and pleuritic chest pain, Abdomen/GI: Negative for abdominal pain, nausea, vomiting, diarrhea, and constipation, Back: Negative for injury and pain, : Negative for injury, bleeding, discharge, and swelling, MS/Extremity: Negative for injury and deformity, Skin: Negative for injury, rash, and discoloration, Psych: Negative for depression, anxiety, suicide ideation, homicidal ideation, and hallucinations, Allergy/Immunology: Negative for hives, rash, and allergies, Endocrine: Negative for neck swelling, polydipsia, polyuria, polyphagia, and marked weight changes. 02:53 Neuro: Positive for weakness. Exam: 02:53 Constitutional: This is a well developed, well nourished patient who is awake, alert, evelin and in no acute distress. Head/Face: Normocephalic, atraumatic. Eyes: Pupils equal round and reactive to light, extra-ocular motions intact. Lids and lashes normal. Conjunctiva and sclera are non-icteric and not injected. Cornea within normal limits. Periorbital areas with no swelling, redness, or edema. ENT: Nares patent. No nasal discharge, no septal abnormalities noted. Tympanic membranes are normal and external auditory canals are clear. Oropharynx with no redness, swelling, or masses, exudates, or evidence of obstruction, uvula midline. Mucous membranes moist. Neck: Trachea midline, no thyromegaly or masses palpated, and no cervical lymphadenopathy. Supple, full range of motion without nuchal rigidity, or vertebral point tenderness. No Meningismus. Chest/axilla: Normal chest wall appearance and motion. Nontender with no deformity. No lesions are appreciated. Cardiovascular: Regular rate and rhythm with a normal S1 and S2. No gallops, murmurs, or rubs. Normal PMI, no JVD. No pulse deficits. Respiratory: Lungs have equal breath sounds bilaterally, clear to auscultation and percussion. No rales, rhonchi or wheezes noted. No increased work of breathing, no retractions or nasal flaring. Abdomen/GI: Soft, non-tender, with normal bowel sounds. No distension or tympany. No guarding or rebound. No evidence of tenderness throughout. Back: No spinal tenderness. No costovertebral tenderness. Full range of motion. Male : Normal genitalia with no discharge or lesions. Skin: Warm, dry with normal turgor. Normal color with no rashes, no lesions, and no evidence of cellulitis. MS/ Extremity: Pulses equal, no cyanosis. Neurovascular intact. Full, normal range of motion. Neuro: Awake and alert, GCS 15, oriented to person, place, time, and situation. Cranial nerves II-XII grossly intact. Motor strength 5/5 in all extremities. Sensory grossly intact. Cerebellar exam normal. Normal gait. Psych: Awake, alert, with orientation to person, place and time. Behavior, mood, and affect are within normal limits. 03:24 ECG was reviewed by the Attending Physician. [facility] 03:25 ECG was reviewed by the Attending Physician. [facility] Vital Signs: 00:36 BP 123 / 76; Pulse 71; Resp 13; Temp 97.6; Pulse Ox 96% ; Pain 10/10; bs2 01:00 BP 120 / 63; Pulse 66; Resp 15; Pulse Ox 96% ; Pain 0/10; bs2 03:54 Weight 104.33 kg (R); bb 06:47 BP 124 / 59; Pulse 68; Resp 15; Temp 98.6(O); Pulse Ox 95% on R/A; Pain 5/10; bs2 MDM: 00:42 Patient medically screened. [facility] 02:53 Data reviewed: vital signs, nurses notes, lab test result(s), EKG, radiologic studies, [facility] CT scan, plain films. Data interpreted: secured entrance monitor: rate is 71 beats/min, rhythm is regular, Pulse oximetry: is not applicable for this patient encounter. on room air is 96 %. Test interpretation: by ED physician or midlevel provider: ECG, plain radiologic studies. Counseling: I had a detailed discussion with the patient and/or guardian regarding: the historical points, exam findings, and any diagnostic results supporting the discharge/admit diagnosis, lab results, radiology results, the need for further work-up and treatment in the hospital. 03/16 00:45 Order name: Basic Metabolic Panel [facility] 03/16 00:45 Order name: CBC with Diff [facility] 03/16 00:45 Order name: LFT's [facility] 03/16 00:45 Order name: Magnesium [facility] 03/16 00:45 Order name: NT PRO-BNP; Complete Time: 02:51 [facility] 03/16 00:45 Order name: PT-INR; Complete Time: 02:56 [facility] 03/16 00:45 Order name: Troponin (emerg Dept Use Only); Complete Time: 02:51 [facility] 03/16 00:45 Order name: Lipase; Complete Time: 02:51 [facility] 03/16 00:45 Order name: Blood Culture Adult (2) 03/16 00:45 Order name: Lactate [facility] 03/16 00:45 Order name: Basic Metabolic Panel; Complete Time: 02:51 EDNM 03/16 00:45 Order name: CBC with Automated Diff; Complete Time: 02:56 EDNM 03/16 00:45 Order name: XRAY Chest (1 view) [facility] 03/16 00:45 Order name: EKG; Complete Time: 00:46 [facility] 03/16 00:45 Order name: Cardiac monitoring; Complete Time: 00:49 [facility] 03/16 00:45 Order name: EKG - Nurse/Tech; Complete Time: 02:36 [facility] 03/16 00:45 Order name: IV Saline Lock; Complete Time: 02:36 [facility] 03/16 00:45 Order name: Labs collected and sent; Complete Time: 02:36 [facility] 03/16 00:45 Order name: Liver (Hepatic) Function; Complete Time: 02:51 EDNM 03/16 00:45 Order name: Magnesium; Complete Time: 02:51 [facility] 03/16 01:13 Order name: CT Head Brain wo Cont [facility] 03/16 02:56 Order name: CT Chest, Abdomen, Pelvis - W/Contrast [facility] 03/16 03:00 Order name: SARS-COV-2 RT PCR; Complete Time: 03:10 EDNM 03/16 00:45 Order name: O2 Per Protocol; Complete Time: 00:49 [facility] 03/16 00:45 Order name: O2 Sat Monitoring; Complete Time: 00:49 [facility] EC:25 Rate is 70 beats/min. Rhythm is regular. QRS [place] is Normal. [place] interval is normal. QRS evelin interval is normal. QT interval is normal. No Q waves. T waves are Normal. No ST changes noted. Clinical impression: Abnormal EKG without significant change and No evidence of ischemia. Interpreted by me. Reviewed by me. Administered Medications: 01:12 CANCELLED (Duplicate Order): NS 0.9% 1000 ml IV at 1 bolus Per protocol; 1000 mL bolus [facility] 02:44 Drug: Rocephin (cefTRIAXone) 1 grams Route: IV; Rate: per protocol; Site: right forearm;bs2 04:03 Follow up: IV Status: Completed infusion; IV Intake: 10ml bs2 02:44 Drug: NS 0.9% 500 ml Route: IV; Rate: bolus; Site: right forearm; bs2 04:03 Follow up: IV Status: Completed infusion; IV Intake: 500ml bs2 04:13 Follow up: IV Status: Completed infusion; IV Intake: 500ml bs2 04:13 Drug: Decadron - Dexamethasone 10 mg Route: IVP; Site: right forearm; bs2 04:44 Follow up: Response: No adverse reaction bs2 04:44 Drug: Keppra (levETIRAcetam) 1000 mg Route: IV; Rate: per protocol; Site: right forearm;bs2 05:17 Follow up: IV Status: Completed infusion bs2 Disposition Summary: 03/16/21 03:24 Transfer Ordered Transfer Location: [facility] evelin Reason: Higher level of care evelin Condition: Fair(03/16/21 03:24) evelin Problem: new(03/16/21 03:24) evelin Symptoms: have improved(03/16/21 03:24) evelin Accepting Physician: to [facility](03/16/21 06:52) bs2 Diagnosis - Cerebral edema - VASOGENIC EDEMA, METASTASES evelin - Weakness(03/16/21 03:24) evelin - Repeated falls(03/16/21 03:24) evelin Forms: - Medication Reconciliation Form evelin - SBAR form evelin Signatures: Dispatcher [employer] EDMS Romeo Morgan MD MD cha Smith, Bridget, RN RN bs2 Corrections: (The following items were deleted from the chart) 01:12 00:45 NS 0.9% 1000 ml IV at 1 bolus Per protocol; 1000 mL bolus ordered. evelin evelin 01:49 00:46 CORONAVIRUS+ ordered. EDNM EDMS 03:22 02:58 Observation evelin evelin 03:22 02:58 Kelsi Benavidez evelin evelin 03:22 02:58 Telemetry/MedSurg (Inpatient) evelin evelin 03:22 02:58 Fair evelin evelin 03:22 02:58 new evelin evelin 03:22 02:58 have improved evelin evelin 03:22 02:58 Standard evelin evelin 03:22 02:58 evelin evelin 03:22 02:58 Muscle weakness (generalized) evelin evelin 03:22 02:58 Weakness evelin evelin 03:22 02:58 Repeated falls evelin evelin 03:26 03:24 Rate is 81 beats/min. Rhythm is regular. QRS [place] is Normal. [place] interval is evelin normal. QRS interval is normal. QT interval is normal. No Q waves. T waves are Normal. No ST changes noted. Clinical impression: No evidence of ischemia. Interpreted by me. Reviewed by me. evelin 04:40 00:38 Home Meds: Allopurinol Oral; bs2 bs2 04:40 00:38 Home Meds: Furosemide Oral; bs2 bs2 04:40 00:38 Home Meds: levothyroxine oral; bs2 bs2 04:40 00:38 Home Meds: Spironolactone Oral; bs2 bs2 06:52 03:24 to [facility] evelin bs2
[2021-03-16] MEDS ORDERED: LEVETIRACETAM 500 MG/5 ML VIAL IV ONE (04:26)
[2021-03-16] MEDS ORDERED: NA CHLORIDE 0.9% 100 ML ONE (04:27)
[2021-03-16] MEDS ORDERED: dexAMETHasone 10 MG/ML VIAL ONE (04:29)
[2021-03-16 07:40] VITALS: BP 124/59; TEMP 98.6; O2SAT 95
--- NOTE | 2021-03-16 09:02 | RAD REPORT ---
EXAM DESCRIPTION: RAD - Chest Single View - 03/16/2021 1:03 am CLINICAL HISTORY: ABDOMINAL DISTENTION COMPARISON: Portable chest March 11, CT chest February 15 TECHNIQUE: AP portable chest image was obtained 03/16/2021 1:03 am . FINDINGS: The patient has known severe fibro emphysematous lung changes well is a known spiculated m ass in the left apex. These baseline findings are still evident, accentuated due to shallow inspirati on. Right upper lobe markings are slightly increased. This may be the affects of the low lung volumes . Early or developing right upper lobe infiltrate cannot be excluded and patient can be monitored. Me dial right base opacification has not changed. No new left lung field finding. The spiculated mass of the left upper lobe is not clearly different over this very short interval. Heart and vasculature are normal. No measurable pleural effusion and no pneumothorax. No acute bony abnormality seen. No acute aortic findings suspected. IMPRESSION: Severe fibro emphysematous lung changes are again noted accentuated by low lung volumes. Slightly increased interstitial opacification of the right upper lobe is probably the affects of shal low inspiration. A developing right upper lobe pneumonia is possible and patient can be monitored.
--- NOTE | 2021-03-16 12:39 | EKG ---
Test Date: 2021-03-16 Test Time: 02:18:57 Assistant Kitchen Manager: SHAYY MEASUREMENT RESULTS: Intervals: Rate: 72 NC: 146 QRSD: 88 QT: 420 QTc: 459 [place]: P: 31 NC: 146 QRS: 1 T: 46 INTERPRETIVE STATEMENTS: Normal sinus rhythm Minimal voltage criteria for LVH, may be normal variant Borderline ECG Compared to ECG 03/11/2021 16:19:44 Left ventricular hypertrophy now present Electronically Signed On 03-16-21 12:37:23 CDT by Gabe Pizarro
--- NOTE | 2021-03-16 20:02 | RAD REPORT ---
EXAM DESCRIPTION: CT - Head Brain Wo Cont - 03/16/2021 6:53 am CLINICAL HISTORY: The patient is 70 years old and is Male; Headache;Weakness TECHNIQUE: Axial computed tomography images of the head/brain without intravenous contrast. Sagitt al and coronal reformatted images were created and reviewed. This CT exam was performed using one o r more of the following dose reduction techniques: automated exposure control, adjustment of the mA and/or kV according to patient size, and/or use of iterative reconstruction technique. COMPARISON: CT head March 11, 2021. FINDINGS: Brain: Redemonstration of multiple areas of hypoattenuation within the bilateral frontal lobes, right basal ganglia, left temporal lobe, right occipital lobe, and right posterior parietal l obe. No hemorrhage. No significant white matter disease. Ventricles: Unremarkable. No ventriculomegaly. Bones/joints: Unremarkable. No acute fracture. Soft tissues: Unremarkable. Sinuses: Unremarkable as visualized. Mastoid air cells: Unremarkable as visualized. No mastoid effusion. IMPRESSION: Redemonstration of multiple areas of hypoattenuation within the bilateral frontal lobes, right basal ganglia, left temporal lobe, right occipital lobe, and right posterior parietal lobe. Findings appear similar to prior exam and are compatible with multiple foci of metastatic disease wit h vasogenic edema. Electronically signed by: Pradeep Edouard MD 03/16/2021 2:13 AM CDT Due to temporary technical issues with the PACS/Fluency reporting system, reports are being signed by the in house radiologists without review as a courtesy to insure prompt reporting. The interpreting radiologist is fully responsible for the content of the report.
--- NOTE | 2021-03-16 20:14 | RAD REPORT ---
EXAM DESCRIPTION: CT - Chest Abdomen Pelvis W Cont - 03/16/2021 6:59 am CLINICAL HISTORY: The patient is 70 years old and is Male; Cough;Abdominal distention TECHNIQUE: Axial computed tomography images of the chest, abdomen and pelvis with intravenous contra st. Sagittal and coronal reformatted images were created and reviewed. This CT exam was performed using one or more of the following dose reduction techniques: automated exposure control, adjustme nt of the mA and/or kV according to patient size, and/or use of iterative reconstruction technique. COMPARISON: CT chest angiography March 11, 2021. FINDINGS: CHEST: Lungs: Emphysematous changes in the lungs with an upper lung predominance. 2.1 cm spiculated nodule in the left upper lobe. 1.2 cm mixed density nodule in the left lowe r lobe. 1.1 cm mixed density lesion in the right apex. Scattered groundglass changes and areas of interstitial thickening in the lungs bilaterally. Pleural space: Unremarkable. No significant effusion. No pneumothorax. Heart: Unremarkable. No cardiomegaly. No significant pericardial effusion. ABDOMEN: Liver: Unremarkable. No mass. Gallbladder and bile ducts: Unremarkable. No calcified stones. No ductal dilation. Pancreas: Unremarkable. No ductal dilation. No mass. Spleen: Slightly heterogeneous appearance to the upper spleen. Adrenals: Unremarkable. No mass. Kidneys and ureters: Unremarkable. No hydronephrosis. No solid mass. Stomach and bowel: Unremarkable. No obstruction. No mucosal thickening. PELVIS: Appendix: No findings to suggest acute appendicitis. Bladder: Unremarkable. No mass. Reproductive: Unremarkable as visualized. CHEST, ABDOMEN and PELVIS: Intraperitoneal space: Unremarkable. No significant fluid collection. No free air. Bones/joints: Similar-appearing 1.8 cm lucent lesion in the anterior superior T10 vertebral body which is nonspecific. No acute fracture. No dislocation. Soft tissues: Unremarkable. Vasculature: Scattered atherosclerotic vascular calcifications. No aortic aneurysm. Lymph nodes: Unremarkable. No enlarged lymph nodes. IMPRESSION: 1. Emphysematous changes in the lungs with an upper lung predominance. 2. 2.1 cm spiculated nodule in the left upper lobe. 1.2 cm mixed density nodule in the left lower l obe. 1.1 cm mixed density nodule in the right apex. Findings are consistent with the documented his tory of lung cancer. 3. Scattered groundglass changes and areas of interstitial thickening in the lungs bilaterally. 4. No acute findings in the abdomen/pelvis. Electronically signed by: Pradeep Edouard MD 03/16/2021 5:17 AM CDT Due to temporary technical issues with the PACS/Fluency reporting system, reports are being signed by the in house radiologists without review as a courtesy to insure prompt reporting. The interpreting radiologist is fully responsible for the content of the report.
== END 2021-03-16 06:52 | disposition short-term general hospital (02) ==
LOC: ER 00:05
DX: C79.31 Secondary malignant neoplasm of brain (principal); G93.6 Cerebral edema; R29.6 Repeated falls; I50.9 Heart failure, unspecified; Z85.118 Personal history of other malignant neoplasm of bronchus and lung; Z20.822 Contact with and (suspected) exposure to COVID-19; Z79.01 Long term (current) use of anticoagulants
CPT/HCPCS: 96365; 96367; 93005; 87040 ×2; 85025; 80048; 36415; 83735; 85610; 80076; 83605; 84484; 83690; 83880; 70450; 71260; 74177; 71045; 96375; 99285; U0003; Q9967; J1100; J1953; J0696; J7040

== ENCOUNTER 2021-04-02 19:43 | Inpatient (IN) | payer OTHER ==
--- OUTSIDE RECORDS SUMMARY | 2021-04-02 19:48 | XMS REPORT | Continuity of Care Document ---
:1950 Author Organization [facility] t Address [address] [place] [address] Care Team Providers Name Role Phone CHRISTO KOCH Attending Clinician Unavailable Christo Koch MD Attending Clinician Unavailable Anthony Crowley MD Attending Clinician KEVIN MCDANIEL Attending Clinician Unavailable Kevin Mcdaniel MD Attending Clinician Shyanne Mcclain MD Attending Clinician CHRISTO KOCH Admitting Clinician Unavailable KEVIN MCDANIEL Admitting Clinician Unavailable Payers Payer Name Policy Type Policy Effective Date Expiration Date Sour ce Number AETNA - MEDICARE [id number] 2019 SAM Mann ukes MGD CAREAETNA 00:00:00 - Medical MEDICARE HMO Center [id number] [id number], [place] [address]Vyke Contracted Problems Condition Condition Condition Status Onset Resolution Last Treating Co mments Source Name Details Category Date Date Treatment Clinician Date Lung Lung Disease Active 2019-[address] [facility] nodule nodule 09-19 - 00:00: Medical 00 [place] Splenic Splenic Disease Active 2019-[address] [facility] infarct infarct 09-13 - :: Medical 00 [place] Allergies, Adverse Reactions, Alerts This patient has no known allergies or adverse reactions. Social History Social Habit Start Date Stop Date Quantity Comments Source Sex Assigned At [facility] Cigarettes smoked 2020-07-20 2020-07-20 [facility] - current (pack per 00:00:00 00:00:00 Medical Center day) - Reported Cigarette 2020-07-20 2020-07-[address] [facility] - pack-years 00:00:00 00:00:00 [facility] Tobacco use and 2020-07-20 2020-07-[address] [facility] Candi kes - exposure 00:00:00 00:00:00 [facility] Alcohol intake 2020-07-20 2020-07-20 Ex-drinker [facility] Sharon es - 00:00:00 00:00:00 (finding) [facility] Alcohol Comment 2020-07-19 2020-07-19 usually 3-[address] [facility] [address] [facility] ukes - 00:00:00 00:00:00 beers/week but Medical Ce nter non currently History of tobacco 2020-07-13 [facility] use [facility] Smoking Status Start Date Stop Date Source Former smoker 2020-07-20 00:00:00 2020-07-20 00:00:00 [facility] Medications Ordered Filled Start Stop Current Ordering Indication Dosage Frequency Signature Comments Components Source Medication Medication Date Date Medication? Clinician (SIG) Name Name apixaban 2019-09- No Take [address] [facility] (ELIQUIS) 5 -18 12-25 tablets Luke s - mg Tab 00:00: 23:59 (10 mg Medical tablet 00 :00 total) by [place] mouth 2 (two) times daily for 7 days, THEN 1 tablet (5 mg total) 2 (two) times daily for 30 days. tadalafil 2019-09 Yes QD Take by [facility] S t (CIALIS 1-17 [facility] - ORAL) 13:03: daily. Medical [address] [place] [address] acetaminoph 2019-09 Yes 2{tbl} QD Take [address] [facility] (TYLENOL 1-17 tablets by Candi montoya - ARTHRITIS 13:03: mouth Medical ORAL) 18 daily. [place] budesonide- 2019-09- No 2{puff} Q.5D Inhale [address] formoteroL -12 11-12 puffs by Dino s - (SYMBICORT) 00:00: 23:59 mouth via Medical 160-4.5 00 :00 inhaler 2 [place] mcg/actuati (two) on inhaler times daily. tiotropium 2019-09- No 18ug QD Inhale [address] (SPIRIVA) 12 11-12 capsule [facility] - 18 mcg 00:00: [...] QD Inhale [address] (SPIRIVA) 09-14 11-12 capsule [facility] - 18 mcg 00:00: [...] No 1{puff} Inhale [address] [facility] HFA -12 11-12 puff by [facility] - (VENTOLIN 00:00: 00:00 mouth via Me dical HFA) 90 00 :00 inhaler Center mcg/actuati every 6 on inhaler (six) hours as needed for Wheezing or Shortness of Breath. spironolact 2019-09 Yes 50mg QD Take [address] one 0-14 by mouth [facility] - (ALDACTONE) 00:00: every Medic al 50 MG 00 morning. [place] tablet testosteron 2019-09 Yes INJECT [address] [facility] [address] e cypionate 0-12 ML ONCE [facility] - (DEPOTESTOT 00:00: EVERY 4 Med ical ERONE 00 WEEKS [place] CYPIONATE) 200 mg/mL injection torsemide Yes 20mg QD Take [address] (DEMADEX) 9-24 by mouth [facility] - 20 MG 00:00: every Medical tablet 00 morning. [place] levothyroxi Yes 200ug QD Take 200 C [...] Source Systolic blood 2020-07-20 12:15:00 125 mm[Hg] [facility] Diastolic blood 2020-07-20 12:15:00 70 mm[Hg] [facility] S [facility] Heart rate 2020-07-20 12:15:00 88 /min [facility] Respiratory rate 2020-07-20 12:15:00 20 /min [facility] Oxygen saturation in 2020-07-20 12:15:00 97 /min [facility] - Arterial blood by Medical Ce nter Pulse oximetry Body temperature 2020-07-20 11:00:00 36.67 Radha [facility] Body height 2020-07-20 05:45:00 190.5 cm [facility] Body weight 2020-07-20 05:45:00 123.197 kg [facility] BMI 2020-07-20 05:45:00 33.95 kg/m2 [facility] Procedures Procedure Date / Time Performed Performing Clinician Sour e XR CHEST 1 VIEW 2020-07-20 11:19:00 Zee, Ali [facility] - PORTABLE/BEDSIDE Medical Center REPORT OF PROCEDURE - 2020-07-20 10:58[facility] 2020-07-20 10:36:31 Solange Koch [facility] FINE NEEDLE ASPIRATE BY 2020-07-20 10:36:00 Solange Koch [facility] EBUS FNA REQUEST 2020-07-20 10:31:49 Solange Koch [facility] FINE NEEDLE ASPIRATE BY 2020-07-20 10:31:00 Solange Koch [facility] EBUS FNA REQUEST 2020-07-20 10:23:39 Solange Koch [facility] FINE NEEDLE ASPIRATE BY 2020-07-20 10:23:00 Solange Koch [facility] EBUS FNA REQUEST 2020-07-20 10:16:43 Solange Koch [facility] FINE NEEDLE ASPIRATE BY 2020-07-20 10:16:00 Solange Koch [facility] FUNGUS CULTURE + SMEAR 2020-07-20 10:05:03 Solange Koch [facility] BRONCHIAL CULTURE + GRAM 2020-07-20 10:05:03 Solange Koch [facility] [employer] CULTURE + SMEAR 2020-07-20 10:05:03 Solange Koch [facility] - (NON-SPUTUM) [facility] SPIN/CONCENTRATION CHARGE 2020-07-20 10:05:00 Solange Koch [facility] [place] FLUORO NON-SPECIFIC UP 2020-07-20 10:00:[address] [facility] - TO 1 [facility] FUNGUS CULTURE + SMEAR 2020-07-20 09:41:34 Solange Koch [facility] SURGICALLY OBTAINED 2020-07-20 09:41:34 [facility]AM STAIN Medical [facility] ter [facility] CULTURE + SMEAR 2020-07-20 09:41:34 Solange Kochul [facility] Kristine ukes - (NON-SPUTUM) [facility] MISCELLANEOUS LAB ORDER 2020-07-20 09:41:00 [facility] 2020-07-20 09:40:00 Solange Koch [facility] FINE NEEDLE ASPIRATE 2020-07-20 09:13:09 [facility] FINE NEEDLE ASPIRATION BY 2020-07-20 09:13:00 Solange Koch [facility] FUNGUS CULTURE + SMEAR 2020-07-20 08:59:37 Solange Koch [facility] SURGICALLY OBTAINED 2020-07-20 08:59:37 [facility] + GRAM STAIN Medical [facility] ter [employer] CULTURE + SMEAR 2020-07-20 08:59:37 [facility] MISCELLANEOUS LAB ORDER 2020-07-20 08:59:00 Solange Koch [facility] FINE NEEDLE ASPIRATE 2020-07-20 08:55:29 [facility] FINE NEEDLE ASPIRATION BY 2020-07-20 08:55:00 Solange Koch [facility] BRONCHOSCOPY,ENDOBRONCHIA 2020-07-20 07:34:00 Solange Koch [facility] ULTRASOUND (EBUS) Medical Cent er TRANSTRACH/ TRANSBRONCH SAMPLING BRONCHOSCOPY,SUPER D 2020-07-20 07:34:00 Solange Koch [facility] PROCEDURE W/ C-ARM 2020-07-20 07:34[facility]00 [facility]ON[facility],TRANSBRONCHI 2020-07-20 07:34:00 Solange Koch CH, I [facility] NEEDLE ASPIRATION Medical [facility] ter BIOPSY BRONCHOSCOPY,TRANSBRONCHI 2020-07-20 07:34:00 Solange Koch [facility] LUNG BIOPSY [facility] BRONCHOSCOPY,BRONCHIAL 2020-07-20 07:34:00 [facility] ALVEOLAR LAVAGE [facility] BRONCHOSCOPY,ENDOBRONCHIA 2020-07-20 07:34:[address] [facility] ULTRASOUND (EBUS) Medical Cent er DIAGNOSTIC/ THERAPEUTIC ABORH, MANUAL 2020-07-20 06:42:00 Anika Stover [facility] COMPREHENSIVE METABOLIC 2020-07-20 06:17:00 [facility] CBC W/PLT COUNT & AUTO 2020-07-20 06:17:00 [facility]INR 2020-07-20 06:17:00 Zee [facility] APTT 2020-07-20 06:17:00 Solange Koch [facility] TYPE AND SCREEN, 2020-07-20 06:17:00 Solange Koch [facility] AUTOMATED [facility] POCT-GLUCOSE METER 2020-07-20 06:00:00 Solange Koch [facility] SARS-COV2/RT-PCR ([facility] & 2020-07-15 16:24:[address] [facility] LABS) [facility] CT CHEST WITHOUT IV 2020-07-15 15:25:00 Solange Koch [facility] ukes - CONTRAST [facility] PROTHROMBIN TIME/INR 2020-07-15 04:02:00 Farhan Mcclain [facility] CBC (HEMOGRAM ONLY) 2020-07-15 04:02:00 Farhan Mcclain [facility] COMPREHENSIVE METABOLIC 2020-07-15 04:02:00 Farhan Mcclain CH, I [facility] ECHO W CONTRAST & DOPPLER 2020-07-14 10:37:42 Lori Larry sa [facility] CTA CHEST 2020-07-14 09:44:00 Lori Larry [facility] SARS-COV2/RT-PCR ([facility] & 2020-07-14 03:50:00 Lori Larry [facility] - REF LABS) [facility] CBC W/PLT COUNT & AUTO 2020-07-14 03:43:00 Lori Larry [facility] DIFFERENTIAL [facility] HC LAB PROTHROMBIN FACTOR 2020-07-14 03:43:00 Lori Larry sa [facility] II [facility] (CELLAVISION MANUAL DIFF) 2020-07-14 03:43:00 Lori Larry sa [facility] BASIC METABOLIC PANEL (7) 2020-07-14 03:42:00 Lori Larry sa [facility] MAGNESIUM 2020-07-14 03:42:00 Lori Larry [facility] PHOSPHORUS 2020-07-14 03:42:00 Lori Larry [facility] FACTOR 5 LEIDEN PCR 2020-07-14 03:42:00 Lori Larry [facility] (THROMBOTIC RISK) [facility] PROTEIN S ACTIVITY 2020-07-14 03:42[facility]00 [facility] 2020-07-14 03:42:00 Lori Larry [facility] REPORT OF PROCEDURE - 2020-07-14 00:00:00 ProviderNorris [facility] ENDOSCOPY SCAN Scanning [facility] Plan of Care Planned Activity Planned Date Details Comments Source Future Scheduled 2021-05-[address] [facility] - Test 00:00:00 (Season Ended) [code = [facility] INFLUENZA VACCINE (Season Ended)] Future [...] 00:00:00 (1 of 1 - Medical Center [id number] PCV13) [code = PNEUMOCOCCAL 65+ YRS (1 of 1 - [id number] PCV13)] Future Scheduled 2001 SHINGLES VACCINES (1 [...] SCREENING] Future Scheduled 1950 [facility] (procedure) [code = 967571108] Results Test Description Test Time Test Comments Results Result Comments Source AFB culture + smear (non-sputum) 2020-09-07 09:16:00 Test Item Value Reference Range Interpretation Comme nts Result (test code = 6463-4) No acid-fast bacilli isolated in 42 day s AFB Smear (test code = 55470-3) No acid fast bacilli seen [facility] (NON-SPUTUM)2020-09-07 09:16:00 Test [...] (test code = 994) seen MISCELLANEOUS LAB [id number] 07:55:00 Test Item Value Reference Range Interpretation Comments SCAN RESULT (test code = 8023638) MISCELLANEOUS LAB [id number] 07:54:00 Test Item Value Reference Range Interpretation Comments SCAN RESULT (test code = 5011649) Loyal [id number] 07:54:00Scan [facility] CenterFungus culture + [id number] 02:35:00 Test Item Value Reference Range Interpretation Comments Result (test code = No fungus isolated in 6463-4) 28 days Fungus Smear (test No fungi seen code = 1406) [facility] + [id number] 02:35:00 Test Item Value Reference Range Interpretation Comments CULTURE (BEAKER) (test No fungus isolated in code = 1095) 28 days FUNGUS SMEAR (BEAKER) No fungi seen (test code = 1406) FUNGUS CULTURE + [id number] 02:35:00 Test Item Value Reference Range Interpretation Comments CULTURE (BEAKER) (test No fungus isolated in code = 1095) 28 days FUNGUS SMEAR (BEAKER) No fungi seen (test code = 1406) FUNGUS CULTURE + [id number] 02:35:00 Test Item Value Reference Range Interpretation Comments CULTURE (BEAKER) (test No fungus isolated in code = 1095) 28 days FUNGUS SMEAR (BEAKER) <1+ yeast (test code = 1406) Surgically obtained culture + gram [id number] 14:21:00 Test Item Value Reference Range Interpretation Comments Result (test code = 6463-4) No growth Gram Stain Result (test No organisms seen code = 1123) [facility]AM [id number] 14:21:00 Test Item Value Reference Range Interpretation Comments CULTURE (BEAKER) (test code No growth = 1095) GRAM STAIN RESULT (BEAKER) <1+ WBCs (test code = 1123) GRAM STAIN RESULT (BEAKER) No organisms seen (test code = 52294) SURGICALLY OBTAINED CULTURE + GRAM [id number] 14:20:00 Test Item Value Reference Range Interpretation Comments CULTURE (BEAKER) (test code No growth = 1095) GRAM STAIN RESULT (BEAKER) <1+ WBCs (test code = 1123) GRAM STAIN RESULT (BEAKER) No organisms seen (test code = 54630) Bronchial culture + gram [id number] 11:52:00 Test Item Value Reference Range Interpretation Comments Result (test code = <1+ Normal respiratory 6463-4) reeys present Gram Stain Result No organisms seen (test code = 1123) [facility] + GRAM [id number] 11:52:00 Test Item Value Reference Range Interpretation Comments CULTURE (BEAKER) <1+ Normal respiratory (test code = 1095) reyes present GRAM STAIN RESULT <1+ WBCs (BEAKER) (test code = 1123) GRAM STAIN RESULT No organisms seen (BEAKER) (test code = 55648) Tissue [id number] 11:37:00 Test Item Value Reference Range Interpretation Comments Case Report (test code Surgical Pathology = 104) Report Case: [id number] Authorizing Provider: Solange Koch MD Collected: 07/20/2020 09:40 AM Ordering Location: [facility] PERIOPERATIVE Received: 07/20/2020 11:53 AM SERVICES Pathologist: Maria A Ayala MD Specimen: Lung, Left Upper Lobe, TBBX. Process in Cytology for collodion bag. Reflex Genetic Markers. DIAGNOSIS (test code = f0ewfJNsTWEle4vjCZWatED 3220) uZzEwMzNcZnRuYmpcdWMxIH tccnRmMVxlcGljOTIwMFxhb rXfUIWbvKDlL0WhscvrCNhx CH7bQE1ooRqrhTGgtLDoJYU pRgSnk3rpf043aVBsf9kgCQ LJxwwizGb1kMwkV46zp2Y1H cwpS14xsMUoPXunkSEydees fmAuOOYiyxRBTpPVMR6NCRB MRUZUIFVQUEVSIExPQkUsIF OAOT0UBrQWOqPUTTZDCKIEY 1BTWTpccGFyICAgICAtIFNR BSCMS6NUMGHIKWmeG1QIZ0h DZ83NLbbwALVyYRJlWI9oD2 FHLHCHNT0XPxOqAVOlkl61A WJ0HhXdm7F9XEW1BRRbVFXx o3lpFECkkOShFtMwQdCpNlH lHbzbjLUvONYpYxLqn2kbk2 94iYNer0vzHWXfXlV4bRUvB VHtnJDcI304GYFaPZexk5oz b5RnCYZdtLHlv2F0JYRVavq wfVf6jQtaC99uk8O4DahcR9 iuAHTuKFXnU9ZfCP2hRSQtN cm0HPE9XWR6XDAyAUImM4Ag WG0fXWZsiAWdTZu5n0osgCd zLJNqSHJ7w5pxIQgbzrAjAP 0orz0bzNj1u9wzyfRpBFSlS IQnhWSDEQWzX5WrhMpqEc8f yCw4hRugQbukVII7Gye3FI1 oyr06yxp1mSiiNKUiwkybLz V1YDexMUEmqmswPBq1QIkpL WUwlEC7PWIeoDVbU9HvGTTe PG1higp0VWE2NGwhZDRrEuO 6ROTpfMGyBUXfsJlwTOmii1 70RBJ9NmNgYC6jH7Lsg1N1q W4xmYDxQGIoeLNhPqAeCXCg bv2hyKKpOSauk0QcKMN9acH 5bFTiaAHcCUKwCzG9WUisDI 8omh41VMTsNPC1it7vbMTlf BlgbcLcvAXeDXcfR9RrAUYt j899YJSnQ2ZpZWXqk8V4emV aRtYsTIYvfBH1heH9IDMpWA 1uromvd8mrLAdaMBgwQUMwh xQ4lhY2CHWcjVVkT1RniC6z NOVkWQ1qbpbrm9tiBJM4MSu dKBNePWW9KkGyDSUio8Lvkq v9AwBjh0NkrZVaQAoqG19cg 457PVOifvPwO7pkgIXjytkf tUPsmiptJJdaucC3ZFPvNIc oczfhEFIxFMrzC0mgLmFoPE KmuMdpGQgms7NwIEZsPHAvC vJrwVJkXTOyTdb7HQAozAFt VLWoReRtQ7esnwrsIdDJFQA de0bnY5dmzXVVyBOfE7BkHU gtjaDtTFdwUQbmIGAiVOD7C F1oNoX2TQUiyk81 COMMENT (test code = w0quxPSvTEWhjRE3GcAgGNN 3359) tp9che5MklPWfxFDkRYjoeS QkpnNkpo82eRS6oJ86WP1hQ TOfCmA7TNNwaoE0Waj3XJVg BGJklTEfN667z7rro6vmndV xaXZ4nWcmFUHsKHRzNRvlDP TjZiYwUBivMSI6dN2vOFppY SJkz4h8fPDhMVBhkrWTGFEc IO3nSR5zO2S5sOZfQVOmmvB ATh96YRAaKPEJCJZaKC2xHI Bhcn0= CPT Code(s) (test code q6kgiPEqLZYsgVM0IaCfUOQ = 3357) ei7nrr3ClfGOscAFeFMphyW FxefPcre94lQR6iT76GB6mY JThPvV4AACigdZ4Foh0JWJh TYFimCIuV643j3dny1edveZ otGM6tQcjUCGtQUKxVSbpEO BsKeQkATleWLNjTEv9PdLbH LW0ZQO3IOQ9ZBSvmCFrtM== GROSS DESCRIPTION e6pnoNRiKVTfmIE3PbWjGSP (test code = 3366) in9dte5ItkZMmhVHqPJxweY YoprZgrj06nKI6cR22IG9lU ETbDvU8IAGvboN6Lyd5MMOt QXOwbQOeK433e8hnb5hzhuU yyRD7zKtiDPUfPTRuHJmyQY UmEfUyN0MdV7zwNE9lWNovG GhlIHNwZWNpbWVuIGlzIHJl F6PpeuXhZUarRPKnHt7bbAB afJ8cLkygmJWfXTUudfRopF 5bxxXothSyrCDpUSbhSDE6b RNoQSTvQLMiYVOdXQ16U4De cF0fw0KfLOJzt49sGP3pGNd hYmVsZWQgIkxlZnQgdXBwZX EmhM9fNGDrnR4oUHZRFpplG MXkBXTxh81akSF3emHsXlSx uGb5mQQrDILjiqJxeFJgpFF iv8EkdEWeUF9fUdL3sXx5CZ Lwe8U5EWAyp8D2XNCfzzNzl HPjh3AibAWqgTCvo59tfSP9 oGFdbJJitQ4yGXdbigXuQKZ bGN8oFZD9tijcLnMiLhNmcO YwJoTxQ00xKLX4Vt3xjSVeL CBlbnRpcmVseSBBMSBpbiBh XX4pq5hwQnKmXlXtdhnwGTI ccGFyfQ== MICROSCOPIC e6upaLGvLESdbVB3XiQzJDB DESCRIPTION (test code vq1fzj7WimUJybHTvSMznvF = 3371) EsgcRdaf78tUU4oC38RY8jY PCcAmK6VILoxrH6Zsn3OKXt ERWacLEmC043n9jee7ifumO esPL8wSbbKIKgDPFwSWcpNK BzObGlUCTzRm6jwSGdGznzR XJ9 SPECIAL STUDIES (test l6jkaDOqVTQmr4szGZNbcSX code = 3376) uZzEwMzNcZnRuYmpcdWMxIH pbhxRtPJkau6QwB8JgWkMjU FxhbnNpXGRlZmxhbmcxMDMz MYH0tiHwFXTjVRvdOELmBVj lVc4eiAFasSurYyVdEKVyt0 paegLPvfgxbCs7w0lhBGLuX mJ1pPDmXFzxU3xxtzDclUFk Y0RimJObmCf1v1nqWtQzTfY 3dXGdPFceL7kixxNfiGFwUN VvNQz4nS10WQLvxR1pzLDnG YsvlnFqDgD2RYrjCSUoEoD3 RZUdhWHbXNRtK5lyPHWtNNa vZSNcPQgoaVWjEGL6rZvcr5 N8uQFuiWZkdAlcJvYcJbHwL gBUs1FiPTl3yEmuR5KwFPFv SiD8oKHfCRIjNGchBUVwKBF ydoH4xMyvltDwu94mhGIhMM YwXGZzMjBcbGkwXHJpMCBDb 0YwaBtpMNE3zTi4oBecOqqz WLF6Vad8XO4hpp54bgy3hKy kCCJolmohEsZ8HPxmGVDimf mcJNc5GVhfWRUfgIZ9SSGua OWlZ5CtEIIoTT8arpa4BHW5 VQciUETyStO3GTDykGYiNIW ikEvhTMglc159ZLS5SnApYO 5oE0Xky1T0pS9cwZQdTFHgy ECsGhRcZJGuvt7qnFKyMBol k5NoTGW9stJ0tSHxhJNrVVD mUE14Urgfj6ErIuzww5UeU5 2syZQ6IAhxr5wxNB7dVwR6g lNtVZlpn4ixfK5yEiM5CQzr DF0vWW4xBEUxkV4esvyxTLP nYnJkcmhlYWRccGdicmRyZm 3htYyuVKX8ARmoY0ncjR2pG aM5ZWzuH6bhvJ9yXVg9VAzc cDO1KWKthL1oGJ5dbhoqm7y rMJmcWQvoGUAywpA0gwB2XD CzwFWsU4ApyQ3gRQUxJE6ph uofz8umPWR0VSanHILoJKR9 SkCjGMSyg3Ykgoi5OeIqu2S arMAwDZpeH04qd261KUJmfk RtE8pgbXDwnzfkyPJhltemB DtqslL8SRXtRFCxWVnwOTXf XGZzMjJcbGFuZzEwMzNcaGl jaFxmMVxkYmNoXGYxXGxvY2 iwKyMiZ8UuHADrFqJrXVkuG IlmiQTwzBViqYY0vL9oLS2o TSExxAZcX0DhZRBtveMyxFZ jKIH0oUUsnZTqLP3vIEdccZ Tbh0hbk4FxR9ixmTtemAR7Q C7vBNAfYDYfUXqqx3KlwN3f LlxwbGFpblxmMVxmczIyXGx bpciqIOQoNRurP8ikHmFpEQ NmkBcgDZbgg1PmWLMoRBUiA khnlxUiDPb6voGwTQVuyvjf CZCryOiwxT5aRfBlDnDqJlu jGQ5hVFBiC7gsbQLvZTUgZF QjG7hkRgBjnK3ioEfeGDacG bBjDjXxVpXBg326zw2uZTHl tAApomKRsUBcxU0fHEyoUWh rYZamoDHsGNvgi5nsICCyl7 n6kIYtBSBzvzGoo0dgSNlwd zCxPOKenHOvjBHkUNQzv56q BDbecUqxwLrbODYvk4ManUi aq6PaOhQxJLkmn4XvC87avG JvbCBzbGlkZXMgcnVuIGFsb 61zf6ljDDHwSoR0cTGymKM5 sRZuyEUbh4JypSyjCUNyx1v fLVWjxg7wsfhhuOYcy4VbsA 5pbmcuIEludGVybmFsIHBvc 2z7lEQaMNUkCHCjXKcrgCf7 MAZrh532fy7iefK4gKBoDOF 2YWlsYWJsZSBhcmUgZXZhbH VhdGVkXHBsYWluXGYxXGZzM jJcbGFuZzEwMzNcaGljaFxm SZnsHiYxGPZsTPlvY5awYkV gZ8SyLENxVxIhiUOlO4yscH FyXHBsYWluXGYxXGZzMjJcb GFuZzEwMzNcaGljaFxmMVxk IeGsGFTbSRblP1jzJqNuR4U yXGZzMjIgIFxwbGFpblxmMV xmczIyXGxhbmcxMDMzXGhpY 3tfWqCaUVVreNjyUKljn0Yz DQTdZAEqMqahlfEjONi9bwT oXHBhclxwbGFpblxmMVxmcz PdTTklhwgtJFBbPYdlS1wjZ wClARPxoSonXPyqs3EoZXIa TCVdWqlcbrJvMJmxmKGbt2w ng3CtI9vjvMjyiSZ6VFDcR0 juqLXxqCN0GBW5vL3gZPmnc rSeSOZyk3BxOSKgLGReCgO9 bP3wURK6CwBOuLahOYUdGYe uXGYxXGZzMjJcbGFuZzEwMz NcaGljaFxmMVxkYmNoXGYxX FdpZ9qxMmRqY6ReBMAjGtRv sVwxSRvjBAh2FarfvRDuiou mMVxmczIyXGxhbmcxMDMzXG unD5pbKmVbBUZnjZvuQVctp 2NoXGYxXGNmMlxmczIyIHMg AHJacQAedZGRKE90SRCcFNU lsCjhaJ0xyGOKBUYzzyL2h9 W9ZDyjNDUyLJo8UXjbqkJlM JRmbC9eBKZgRJ0bDDp4thXp AQXkf9MjMD3dZTHllZFqCEX 7SCSiz9TxU0Sve9OpNGXkLR Vgsu8njfUvFdNDpCXoEGOpa y69WSMdJI6vQ8syLVUgAIJr ssComZUde4EjJKIglYN1zNX cMW0RDbFSo45eUCDuYVYYfg QyOKOszQacaJX1fgB4vP9lT iBUaGUgRkRBIGhhcyBkZXRl nj2rloAzSUCtCLBwr0OymLM vkTNctnSuQ1Gwh4FhMNRvkf 83DSsytHPaux34TJ5iF3Ehn 1VjoZ5dGBxfBNLcc6PelTGu mYEdKQPkn7WiW1ocyokwLCi qwEXyrX1mGXQeYDe1XSUxx1 VzLTTus6WoRjUjqhDjCROaJ ERlHAJgvY17UOE5fJvxyRle wuPtOX0wMLPkiqJwZNNmFXW qcW3rTEsfvpXnKWMokoA7r8 Y7MUjnEAOljfVqEioxEXJ1u rJsebI5rTAsG2cbfzubEFyu YDWuk9DtnZ5zwBXFrNUoq5Q evMDkeWHFrBQsHI0oolWrYL 1uWKE1HAnjYEWVEBEzMRlsY RUeVZQ3VJxyZlgcARH8clGb OPHbf1HcHXeqQ3jkL80lgUu hcRy2tBUffTnysXBsmYZhXG AesjP1m8I0JVIyw2KmyewsF HBsYWluXGYyXGZzMjJcbGFu ZzEwMzNcaGljaFxmMlxkYmN vAWMvXUgdL4reHuHkLyUjSj zlFJS8zX== Gross assessment was [facility] performed at ([facility], code = 2777) Department of Pathology, [address] [place] [id number], Technical component [facility] was performed at ([facility], code = 2778) Department of Pathology, [address] [place] [phone], Professional component [facility] was performed at ([facility], code = 2779) Department of Pathology, [address] [place] [address], [place] [address], [facility] Hospital[facility] [id number] 11:37:00Surgical Pathology Report Case: [id number] Authorizing Provider: Solange Koch MD Collected: 07/20/2020 09:40 AM Ordering Location: [facility] PERIOPERATIVE Received: 07/20/2020 11:53 AM SERVICES Pathologist: Maria A Ayala MD Specimen: Lung, Left Upper Lobe, TBBX. Process in Cytology for collodion bag. Reflex Genetic Markers. A. LUNG, LEFT UPPER LOBE, TRANSBRONCHIAL BIOPSY: - SQUAMOUS CELL CARCINOMA. - SEE COMMENT. Signing PathologistDirect Phone Line: [phone] signed by Maria A Ayala MD on 07/22/2020 at 11:37 AMThe tumor is positive for P40 and negative for CK-7 and TTF-1. [id number], 76438, 21914 x 2Specimen A: The specimen is received [...] evaluated Immunohistochemistry technical testing was performed at [facility], Pathology Laboratory where it was [...] as qualified toperform high complexity clinical laboratory testing.[facility], Department of Pathology, [address] [place] [address], [facility], [address] [place] [address], [facility], [facility] of [facility]ology, [address] [place] [address], ZUJQ NEEDLE ASPIRATION BY [id number] 08:49:00Medical Cytology Report Case: [id number] Authorizing Provider: Solange Koch MD Collected: 07/20/2020 08:55 AM Ordering Location: [facility] PERI[facility] Received: 07/20/2020 09:03 AM SERVICES Pathologist: Adri Rangel MD Specimen: Lung, Left Upper Lobe POSITIVE FOR MALIGNANCY LUNG, LEFT UPPER LOBE, MASS, FNA #1 BY CLINICIAN (DIRECT SMEARS AND CELL BLOCK OF ASPIRATE): - SQUAMOUS CELL CARCINOMA (SEE COMMENT) Signing Pathologist Direct Phone Line: [phone] signed by Adri Rangel MD on 07/22/2020 at 8:49 AMPlease also see surgical pathology report [id number] cytopathology reports [id number]. [id number], 72040, 50033Vohn upper lobe lung nodule,history of smokingLUNG, LEFT UPPER LOBE, MASS FNA #1Prepared 6 direct smear slides from FNA samples collected in 40 ml cytorich red fixative; prepared cell block(A2)PASS 1-3 : BORDERLINE ADEQUATE, DR KOCH DOING BIOPSIES (9:16 AM, )Performed. [facility], Department of Pathology, [address] [place] [id number], [facility], Department of Path[facility], [address] [place] [address], [facility], [facility], [address] [place] [address], Vlhx Needle Aspirate by [id number] 08:36:00 Test Item Value Reference Range Interpretation Comments Case Report (test code = Medical Cytology 104) Report Case: [id number] Authorizing Provider: Solange Koch MD Collected: 07/20/2020 09:13 AM Ordering Location: [facility] Received: 07/20/2020 11:18 AM PERIOPERATIVE SERVICES Pathologist: Adri Rangel MD Specimen: Lung, Left Upper Lobe DIAGNOSIS (test code = f8rpdGJdOVFre5twHUJcb 3220) GFuZzEwMzNcZnRuYmpcdW MxIHtccnRmMVxlcGljOTI yKDyhxdEqJLYecCTfO3Fh lakkSTzfKQ6nSR8quVxkr FBbdJRzMTYcPbHkb9ykl7 56aRPsi4zqKJAXjljpyRq 6aFhrB89tt0H0VvzzO92k cGFyZFxwbGFpblxmczIwI ExVTkcsIExFRlQgVVBQRV EsYH3VIHmoHCSNXgSrQzH FQlVTIEZOQSBCWSBDTElO BOTMEV0wEGMKNmXVWCKUP LQCWoNiUA3HRUAPUZxxNj xXZ7rtU1TfGZNXZNFHKIQ sPpVokUOuIACyRD3yR4ME CT3OVGYjU3KCNGCUREXNY G6DDKYdjROfhPskcqQpLX cwh8HiUPtlNEHiUK3bpVb dBRRiXJ8pRMLxU2ttxU7y ooy5QiAdLLMgToX7VXHyk rI4Xbg3JXQdMLfjb7ief4 DgLPSmDJq6nQjvRwNyYXS yr0eqplIfRuHzFDIgNWXf NHSutZBgO049r1uni8cip kRrrQJ7IKHfJKA1GUaxwp IomyE5WAfciQSfDpA6RVr ccmVkMFxncmVlbjBcYmx1 VHToO666AUX7rZvpf9yiC IG8XALbUBVkJoSuUn9zjG WaY118MBBuTKOAIWGowYl 8NSIivdPhduOomHZNo231 A742d6tpKWAnocBxqIpLs htwb2inQ426TORdzZIngt JdDsZfNZNeyUHbvDP4BAQ sFU2keqwuZKkuQHmjZAJi beO6AQHgmMHjS6BaMXSuE O2qyzxpEGN9WFzwILVeAN H7PrXkMHLhy1Bvpjp3SpB vjp9kdi26YKW3c9WneFsn ITP0TZP4FtRrGe9qdCCeA JQhMK7iBdAhsZMqCHGwip 89yEtwJDgvOBE4HCNsiqC tg7Syy4nbRkBhowPwQ0jp W6MeCBQpBLWeLTUvLhNca aWka0Mdk3VsvFSqtZf0t1 vnIFUiCQPxvCvjp7srKTX 5RMJylNGuD7fipU7iTIQf BR6nuafub4goMTuwZMtkH MAowOA7flA6UHTpdBHiL9 ZydT6xVFXaZLkrUXXxhrx 8JiPcJe2phAUuvWhlKUmd YmtwYWdlXHBnbmNvbnRcc GduZGVjXHBsYWluXHBsYW luXGYwXGZzMjRccWxcbGF uZzEwMzNcaGljaFxmMVxk HsPeCXCcHGesH5yqUvSkQ hGmAxx7CHFekYNuXRIzQe j3NQPuaAMnNLHWxJmllN9 nVNIudGfvqT8rtDU4RAVr gsKruCGEwD6cRXPLeL3oU bC1MeSeHiQ7RJN3WtvNGK Bhcn19 COMMENT (test code = f5fbuKMvYJRuwQX3XjToG 3352) KHwp4afk0KycFPzaJBbRC bsfURnvxRsyr62uMJ5mS2 7LY7cEUYfXjQ6MMXlclV1 Mrv5UXLhBNVufAHlA337v 0hmn0ekcsHojNN8wNswJH JkXHBsYWluXGZzMjAgVGh lDQT7hE3sJIDkiXszXJUd VEIcs9PrmDg3NXYle7Ptc NVuWKWsxPgdu1M2RNRcPX VoOsXtFODXCm7oQJItKQV JqR3tzTGbmFf9a1xoBAJm XRXaMFfkwJj7KV4iXEjfZ E1hjfSlr6chT7kaNI6mRA wueAGbm2Ubt7UcvRKsDEN jYVDdumXiq2GdgaLwj8c8 xDMokAFujJ12ygAtFEryT JUexmTado9qLBJtpqYhnu CqsPBja1MbvHJ6KRXahTg zjMKyyAOySCM1cW6nYqrk YXJccGFyXGYwIFBsZWFzZ SBhbHNvIHNlZSBzdXJnaW DggFAeMPOsd8poS4aaelC li7J8YJEpKN6qDlafTzIf huRhI6e9n1UopPlwyN2gi WKoEDFlwuKwYOYxTB0eIV AkJDLmCVTBPjZyGaf7CNJ 6nXVgxIpsLMByTV3zGWI4 LiBccGFyfQ== CPT Code(s) (test code = f2umzHRxRBSypVP1PkOvJ 3357) STpg0amd3DhcCLhiWClHJ oioGMjfiHuml84xBQ6yH8 6IG6oLBHqWaS5BBBqmvG9 Fgo4YHVjZGJzbYFbW704g 5bir4xtzrTapKH1eAbbYO JkXHBsYWluXGZzMjAgODg xCyGsQSt8MWtdIJN0YRAt LNsbDIafJIO1ZEt2BaAsX SyiQ6vdEVX6 CLINICAL DATA (test code l2vijTIyRDTavAN0OnPiY = 3355) PNnt2mhs1VppWNzhJFkSS ccmRYifeWugy34tFY0kG7 3OQ2cUQZjUcO8QSWhyzD8 Doa8QODbWAOvaHAmV462y 0oqc2tqiqFkoOT9rEjaGH JkXHBsYWluXGZzMjAgTGV grOW7zOCvkhZbb3KlMHg4 fjxtej9tlYleVHTynMJ8h 5T0YI3sCXUfk3klesxdwJ FyfQ== SPECIMEN SOURCE (test k2gfxFKzJIJbpSD2XwScT code = 3377) HUri6prp1MayOLijXVmQC rdgDEazsNwkt02dZY3eY7 8HE3aBFZlInU4UXSsguK7 Kyn5MCXbNDHnpBVnT834k 0iex2vvizWopWD6lXafLD JkXHBsYWluXGZzMjAgTFV ORywgTEVGVCBVUFBFUiBM H4OQDJNRZZDOADZAILVyN lxwYXJ9 GROSS DESCRIPTION (test g6hodLJdTNBtdRF9JtOrH code = 3366) MBvu5bab1RxzCPstWHzCM dimGOamhDxpw61rSZ1lH3 3CK9aKKHkKeP5JLJnnhN1 Rwe8BJQyEJJpjWYbJ283q 1ahl0nbgpSyhKL5oGrzTR JkXHBsYWluXGZzMjAgMiB 1BGT8IY9hnnPrrwIzuDIp yidzrZGaPVJ0BMMmEDitN YA8UNXpTJKdMTYhlAMxri meR8MoyWSibF6ewjSdRPW pXHBhcn0= INTRAPROCEDURAL ADEQUACY w3trgPAyLJVjcLB4PbBpW (test code = 3370) DWzb0ojz0FgaGAuwGPsLW zuaNApesTwxg49fZQ5lF1 9FP0xZXNkWdI0LTCkbrV6 Zlw3LYFuVBFepPWaI089t 1kat4tpyiZrkUO9qKgyWR JkXHBsYWluXGZzMjAgUFJ WNZ9SJV0SGhYLEYLYVF5M RCBBTkQgQSBSQVJFIEFUW BKVU2NBDKyIA0JUUKSgjt 0= MICROSCOPIC DESCRIPTION q2xtiXHaYNMdqFY1ZuXzS (test code = 3371) ZWqk4aib0HefFIhqOTfRC zixZGokyDver74mDS8fB6 2XD1rGDBjWzQ2CJYqvhY6 Liu8FPViGWOneYKxJ940e 8fiv7yrqlCdyPV7jAacQG JkXHBsYWluXGZzMjAgUGV xEe1exSHqTwCopXUasH== SPECIAL STUDIES (test h2kzoBEwWZJipLX8EqRoR code = 3376) MKkw8rny8BegQXfpKNgNU nmgDJmarMdbo79jZH6nX5 9OE6kDWBhOtJ1FETeoqB2 Lfb2ETEhULKevDHjK161M JOuMZXdcArzocs1rL79NH DpmE5toKBxVCi8RGNxpoO oaJtxgH6vUpWkCfPdRgCE nIOmtX30RLJkucY0FXFuv 52sy5WnxOflwaJyVDIgLY rtI7w7ZOWfGAOzKFA8s5D cg8VdlG0kzD4exFqcgA1k wVMbeOP0ymqel5Efy5DiB 2lhbCBzdGFpbnMuXHBhci DMKBJqGHfrZ7bCNQXYX0X IWVNJTjsgUDQwOyBQNjNc aSDkTWGdnqPau6xxS5ogN FUiQEM0UZ2xvgOtDvNnHC 2chM66v9Rcs58gh67ojL2 qvRMcveBkU79qqZRbxYWf y9ZuZKJrhyRjfUB6HUKnF Tvefjrkk9u1aMN6mZPgsO TauTB3cPHzqGLxSNDZuIN bWWOvy971nx0dNBOagUYh taRrxS8aRGuktaggmTCcN M9cGPIbZUSyUBHjTO17ha IpSH1pmXWjz9hieuQreLJ cs5ZkcYF4GCLlcRTvumtf Sq0vSE05KLFdGXrfdJ0nv AKlkrDeNX2uXK4bP2V4iJ YxRYBpcsMjx7vcEGyjPV8 gYXZhaWxhYmxlIGFyZSBl fxYltUH8MBXluBNwJJAzr WPnOZtavWVqo6xcu4KeG6 ndjNggxYH3GHHeY9ipnUY orWE5JCP9dC7wENwsngUk TUUys6HcQXHgBNLrUiZ9m F5tOTY9XsWKrLbcEOX7Er J1AIupAHIlMJ2iCUgyZDe vJ4QdgWNgJSDLKVXrz2uo F2rlYQLcg3BhbA1bqTD5d HOnAWOoxPA5QSByOQF9IJ xvcGVkIGFuZCBpdHMgcGV lEv2nxVPlU3AtM7akzzRn tQJitOY3gWGbFFxczvQiY XS8GHUnqR0hMC1wUDCsqG MxEZ1ioZCxSMUcFTFlIQA cCCUls4TmGPZatr44GCJx SdcqfKyuUCUyMf6iJu5iM HUnxyMcNIO6WdYEZR7zmm egwQMgaEptox4eHZxyQMK PERNrPUBnWSP5FZLbmZ9y VLJ5kIB9PPV8J5swM5vhX ONseaRvUW7mRVCjjYUkue ElTJbcKJ8uuUJhZEGkg7X eysruWGCaZAE5GOB0FJba ZJUtKRMeDf8fZQRkzV2dW 9KnNDL6wtPsu6FuDlPNbX AjvU11aBRlfl65UDUpINK vQ2JtMOKvTOCkANlmrbEa iUbdEMWdd74ogKMygkCwg 6DvemUmGPGbX8caMLKhsI XucPQex4SzeB3crJJqglY rVKO4eTPyVBCmmJ5oPUOh mCibCURkcE3sV6ExWSmfU w3cHFXbmlmfYE1ush84MH 8racMqKG2jxbWxZB17pqG lWvNiGVy0NNsNJFnEPLn2 KSBhcyBxdWFsaWZpZWQgd X1sjZFoAj4tmIWkrSyvTR RnrOQjMNpixKwsZ9rzmlf rSQkkiJOhg8IvcO8egSX9 CLR1sA9yDvqzGZJ9 Gross assessment was [facility] performed at ([facility], = 2777) Department of Pathology, [address] [place] [address], Technical component was [facility] performed at ([facility], = 2778) Department of Pathology, [address] [place] [address], Professional component [facility] was performed at ([facility], code = 2779) Department of Pathology, [address] [place], [place] [address], [facility] BY [id number] 08:36:00 Medical Cytology Report Case: [id number] Authorizing Provider: Solange Koch MD Collected: 07/20/2020 10:16 AM Ordering Location: [facility] Received: 07/20/2020 11:18 AM PERIOPERATIVE SERVICES Pathologist: Adri Rangel MD Specimen: Lymph Node, Interlobar, Right, Station 11R LYMPH NODE, INTERLOBAR RIGHT, STATION 11R EBUS FNA BY CLINICIAN (CYTOSPINS AND CELL BLOCK OF ASPIRATE): - STRIPS OF DYSPLASTIC SQUAMOUS EPITHELIUM IN THE CELL BLOCK ONLY, SUSPICIOUS FOR METASTASIS FROM SQUAMOUS CELL CARCINOMA (SEE COMMENT) Signing Pathologist Direct Phone Line: [phone] signed by Adri Rangel MD on 07/22/2020 at 8:36 AMCorrelation with radiologic studies recommended.Please also see surgical pathology report [id number] and cytopathology reports [id number] and [id number] through [id number]. 36129, 22871Disz upper lobe lung nodule, history of smokingLYMPH [...] evaluated Immunohistochemistry technical testing was performed at [facility], Pathology Laboratory where it was [...] qualified to perform high complexity clinical laboratory testing.[facility], Department of Pathology, [address] [place] [address], [facility], Department of Pathology, [address] [place] [address], FyogqhK[facility], Department of Pathology, [address] [place] [address], XKEB NEEDLE ASPIRATION BY [id number] 08:36:00Medical Cytology Report Case: [id number] Authorizing Provider: Solange Koch MD Collected: 07/20/2020 09:13 AM Ordering Location: [facility] Received: 07/20/2020 11:18 AM PERIOPERATIVE SERVICES Pathologist: Adri Rangel MD Specimen: Lung, Left Upper Lobe LUNG, LEFT UPPER LOBE, MASS #2 EBUS FNA BY CLINICIAN (DIRECT SMEARS AND CELL BLOCK OF ASPIRATE): - SQUAMOUS CELL CARCINOMA Signing Pathologist Direct Phone Line: [phone] signed by Adri Rangel MD on 07/22/2020 at 8:36 AMThe tumor cells are positive for e31-rakgvyxv and p63. TTF-1 and Synaptophysin are negative. The morphology and immunoprofile are consistent with squamous cell carcinoma in an appropriate clinical setting.Please also see surgical pathology report [id number] and cytopathology reports [id number] and [id number] through [id number]. 59898, 32217, 68521; 67033; 50008 x 3Left upper lobe lung nodule, history of smokingLUNG, LEFT UPPER LOBE, MASS FNA #22 x 45 mls in cytorich red; 5 direct smear slides, cell block (A2)PREDOMINANTLY BLOOD AND A RARE ATYPICAL GROUPPerformed. The interpretation of this case included the use of immunohistochemistry or special stains.TTF-1; SYNAPTOPHYSIN; P40; Z81Jmrskcv Slides Examined: In-house known positive controls were evaluated along with the test tissue. These control slides run alongside of the patients sample show appropriate staining. Internal positive and negative controls when available are evaluated Immunohistochemistry technicaltesting was performed at [facility], Pathology Laboratory where it was [...] qualified to perform high complexity clinical laboratory testing.[facility], Department of Pathology, [address] [place] [address], [facility], Department of Pathology, [address] [place] [address], LoivcbKaiser [facility], Department of Pathology, [address] [place] [address], DVNT NEEDLE ASPIRATE BY [id number] 12:02:00Medical Cytology Report Case: [id number] Authorizing Provider: Solange Koch MD Collected: 07/20/2020 10:31 AM Ordering Location: [facility] Received: 07/20/2020 11:18 AM PERIOPERATIVE SERVICES Pathologist: Adri Rangel MD Specimen: Lymph Node, Subcarinal, Station 7 LYMPH NODE, SUBCARINAL, STATION 7 EBUS FNA BY CLINICIAN (CYTOSPINS AND CELL BLOCK OF ASPIRATE): - NEGATIVE FOR EPITHELIAL MALIGNANCY LYMPHOCYTES AND HISTIOCYTES PRESENT Signing Pathologist Direct Phone Line: [phone] signed by Adri Rangel MD on 07/21/2020 at 12:02 PMPlease also see surgical pathology report [id number] and cytopathology reports [id number] and [id number] through [id number]. 32053, 36340Tjny upper lobe lung nodule, history of smokingLYMPH NODE, SUBCARINAL, STATION 7 [id number] mls in cytorich red; 2 cytospins, cell block (A2)Performed. The interpretation of this case included the use of immunohistochemistry or special stains.Control Slides Examined: In-house known positive controls were evaluated along with the test tissue. These control slides run alongside of the patients sample show appropriate staining. Internal positive and negative controls when available areevaluated Immunohistochemistry technical testing was performed at [facility], Pathology Laboratory where it was [...] qualified to perform high complexity clinical laboratory testing.[facility], Department of Pathology, [address] [place] [address], XkakpdK[facility], Department of Pathology, [address] [place] [address], LuqsmfKaiser [facility], Department of Pathology, [address] [place] [address], Xgyv Needle Aspiration by [id number] 11:53:00 Test Item Value Reference Range Interpretation Comments Case Report (test code Medical Cytology Report = 104) Case: [id number] Authorizing Provider: Solange Koch MD Collected: 07/20/2020 10:36 AM Ordering Location: [facility] Received: 07/20/2020 11:18 AM PERIOPERATIVE SERVICES Pathologist: Adri Rangel MD Specimen: Lymph Node, Interlobar, Left, Station 11L DIAGNOSIS (test code = x8kvrCXsDFDfd6zpYQLkyPB 3220) uZzEwMzNcZnRuYmpcdWMxIH tccnRmMVxlcGljOTIwMFxhb cHnRTNguYSyH9KxoyzbQHdn TY2sNY7yxSpwqCZjvCPvRXO xEyLqy4qmp751jOOnj4ehNB EMddapqJe9dYwaE57ri1X0V hbiP14brOWyVKxqgYIhbtos dvShQZzGZNVLZC3TXUWtJJm DRZIWTZ6ZTHKlLDnJPmYuPC XMARTEY62sNIZWKQJRDIBcY a3KZXCOTTUHQZ7CM6eUMiAq C3aAH8RTQI1FPSFGEPLMCBw QLXKNK7OIWR1RITOOAEnJQZ PTNPvnkLEwHXDjPP8jIySDK XIHNgMwIs6DTCASCACRCNpI YRwpDDGPMNmMJH8WMYenADE fBMOrVKBBHD2CYG4ENWBXNn YZGiEDBZ3NNEJwfy47SLO0E bVgx0U2NUW4FDHcJLMsk7db ZGVmbGFuZzEwMzNcZnRuYmp wfEMfEFAsCxMpc0zal022nP Jmb0pcOALpCoH6cKPmHMExz ORrC791DRZzCGtpf6fsd2Zi CLAfaDGbi5Y5ODOXmzwtvFe 7wGcaC60bf8Y5FipiK8lnDC QnPGNeW7WxIM2jNUNbSoz3A GJ6WSU1PREoDIKgG3RiWM9c UBClaYYiJJn8a3wgfAhaBAO yQOH3n6mjTPpqhpHmRP8gre 4dzAo3z2wqaeQlSQMfOGNfp VQFXBZsN4KrpVbrSk9lfLz6 rZjgGaeuSLS3Pjs9GJ0vjg8 3hqf9sLsrYQCiehjiMyR2XV ozWKGlykmiTGz3RSdcTSYbc QK1ZXMrrOZzT4PoIMIlGG0v zib7DWD8IQkkEPYwHgS2ECX yaCPwXKEfiOciHVciw717ZM B0TqMaJU1hP9Kfd2K3iE6kw LQcWXLjbHQqEuZoBCTxka3i kTKeAJwzf9EsPMD8wqG9qOI syYWiDXGcUpJ9IAedCS2esn 85IUAaNVS1ti5ovMAzqKtjl zEokHBxEWukI5PiUCHcw778 SMFpF2FyJJUmp4B1bhUlSuG sUERldNG2llJ6CGVtIU3yvm zuf1ebHAnvTGhmJLEjwrH9i mQ9QVBskZWiA5GavK0sZNVo HI8rgrbnw7kiDRQ4GZdcRKK vVHE2NyNgROGdo0Btdzt8Aw Wip2QubYNxYXyhQ21yf883F EPwjzJkX4xyrJVpphbnyOVt htojYKizcaB1HRCwSHbnnps kICBzKMmcH9prOkGtNAXumD hiRMtgg5XpKUCoSZCjUvCvw CRmGDJeGwx7BJPihRJwFQVd YqOeJ7izqlokPjAOKMUvz7r xG6yoqXTXoDZwN2OlHPlpic GoBZuxVJiwTRSeUUJ5TC19U QL0KvrhOJD1fS== COMMENT (test code = j7vwqSCaVJHflAY3DpMwMZR 3359) ts4mon5IimWUahVPzDMabpL DsaxKwgn24oYH3kG54LH6rM VHwMtH7JLCnyxG9Vvl3BNLq JCGtmSWhP205x8shs6ghruB ydTD4tAqxGNMbSLFjFCtqLU ZzMjBccGFyIFBsZWFzZSBhb HNvIHNlZSBzdXJnaWNhbCBw MWLjc9fuA7lahwPqm9X7IAC iKS2bMnwdWoEkicKuE6h4o6 QrnEyrbZ3wkVZxOQFgphJyZ AJyMQ6nXCSnLIAiSPLTLxBl Cnz1ZUB6hLQupNkxSWXeKM5 jMHL4LlVysPKbaO== CPT Code(s) (test code k8ilfDPlISQrkLK6ScVwTTY = 3357) qn1eut2LyxETxwPSnEPwyhA QsxyHvjr37mGS8zM96IM5jZ XTbCtK5SOBhrbG0Dkv2CHZd OBLnbMJiJ460x6lmb5ayluP vzMW3fWwlCBOdCNJhSSphLT PrYuHkMCkmAxVyRFq4FiR2K HBhcn0= CLINICAL DATA (test h1pjaMQkLANcwJT2VxEhCIX code = 3355) vf1cfi9FwlUDyaFQrBSnqpZ ZgljIbvo87tKK3qP12WF6jN XJcPjW8XTDlzhC1Lno6MZLz YEDujBVzH524y9rdt7edopJ qkWQ9qBrnXPEgNSOdICyzHU TqBaBmLWFvtAN0bYJdbiNyh 8IoIBn2dkktgy2akSdxDCSx aPK3f2W6GU7pRSTez3wbqmf ccGFyfQ== SPECIMEN SOURCE (test l3hwoFGmHYEejDZ7NiJvLQC code = 3377) mo9szq9IldWKueVFiPHqknZ UbhmQjtv45pMZ1qE51OZ0rP IBhJnN3PRTfvlE1Wmo4RVAv LLItcCCxL726k8djz3cmilN pvWL1cPkpKUQfZMRkMPhrAV XvGrVtMHbQZEaxYd4HYHhfF U7EVUFOT1WNRndfBYALAIhz H3PIOEcWJjCuAFdqONBFJfI GTkFccGFyfQ== GROSS DESCRIPTION s7jfsLCvQHAidTU8LgCfATM (test code = 3366) hr8ago4TrsWZxrAQwEDgmoV XysuTigq19fSC6gD93VD8eA ESoLlI2GAHpvaU8Gre5QJDk UUUatWCnH692g6keu8uiviP hsQD9zVuwUDSwUSJfMLljUJ LsBcAnPDYbeQevRSchKQI5n R5qlFSsPUBcYUwvZgNvzYJp r6TcmxRhPBPtnBlaZbmeU3i gKEEyKVxwYXJ9 MICROSCOPIC i0mzfPVeGHNzdPN0SvHwOKP DESCRIPTION (test code os5yoe6HtuTTdiPEeVUhppD = 3371) XmnbUden28lHD2eR95RF5qJ TIsFoB2ZLLnciL2Rha9TBHs XPPtmLNwL125j9zqg2ksmcV ooWE3rFwmZZUsVMVkRCukCM QrHoKiBHYpIz0ekYTyRsNxk GFyfQ== SPECIAL STUDIES (test v8vbfKVyNEVsb0dlIFQghNR code = 3376) uZzEwMzNcZnRuYmpcdWMxIH qsqvCcZTfny2ErO8CrZlPqV FxhbnNpXGRlZmxhbmcxMDMz UAH8pmZzZZFwSLklZFNsWHw cOp2anUIshOaxObIrGHBrs2 hzykIIvgyalJs6s6jrSFPwJ oS1dBXeMYydV0mjyzPnkECn C6ZufSUarRw0q9cgLkVvQaJ 8rCVcGRsgA7mrdsQmaTEvKG LnDGx1nU13PDJkqI8yzLIpE ByfekRwIuF2NUscLXIkYzQ6 OIKzoQYuMKCnK1taQUToYXt yJIBdMVkiuTHjWSV3bCobc1 F2qXTkoYGhqPjcCqLdRkDoT rPLx8BjJQn3oPmkV0OqNKJv RaF5dRYfXCIrMJnsYOZjIHL cjmO6aPvwuyZra64zoBKwBH YwXGZzMjBcbGkwXHJpMCBDb 4BtvEskVCY0uWb3cTirIxns IDO9Jgs7HC1ahx36mif5iYl mEFOruepnAfD0CGylWVEnsq jbVPx8XLmwGMAsjMD3OURja WCuR8HuTZGxBM9fsqp7TKZ3 JXvbLYLzMcI0EZPmrQFuJBH kxPpqBCxra283VRC0RhTkMU 5pD4Pec6K2dA3shGMoCPSee JPuOvEeBPKzpu3gmBGvFOxm w6ExZSU1hhM6iIWriHZdVUD qMH13Wudtk8JqDussx5NxI9 9luCO7SFgmc1qcID1zBhB4v lWwAVdew7astP9tFgB0LStk IJ7yJW1wRPNtvO1bfbbzPAB nYnJkcmhlYWRccGdicmRyZm 4usKlrMLD8PUhyU2njgD4uR pS0SKviK7enuD2oJBi7EWcr dBD8AVXewD0jCH3riyoej1n fJYwaRDzxNSGbjyR6qbZ7FE FxqWZgW4NvoH5lQRCnEF2xk revj1pkMAJ5KMolAOUsFAU4 ZeEgSTLnb9Smpex4GsYmx1C avWWzCVjlR47ul054KGZglg OmI4wrrGFlymzszXHkwjdqB PhlioG3BYQqZEHpJEpzRYZw XGZzMjJcbGFuZzEwMzNcaGl jaFxmMVxkYmNoXGYxXGxvY2 ibEqDzE2RtJTUeFhTpWUhqA SwpcIJcdVVmdBP8uR6yXY8s HZPgeIVmL7JyFFCifwWctHM lCLA3cKDxzPNgEM7aHQtbaY Ztz8jkz0GdA6lyzOkpiCW7P N0xQAAjAEOyYLqkg0YchO3w LlxwbGFpblxmMVxmczIyXGx hwqdrOWQeRRqoH3lcUsLwKT CxnChyDBewq8NtSZLtEOVnP guvqgVyFBr5srWkSZAsertq QHVubYkvjZ3iOpMtZpPsXis uSZ4vULAgF8xufDFiCDWdZU QsT6sqOsSyqW2igOlpUTesS gEeJpAfXlNJf470wv5nTXHn tVAkngXUaPXujB1hSZidRSw rDAtleFPfRVkfk3aaRLXat3 e9nBSuUWIwptWdj8alACkom xWeLGGubTLfyXOjJLEsb10a ESicwFrulSnkOOTjh5CieVl tc1HjAiKjDGxpp9WyA51svY JvbCBzbGlkZXMgcnVuIGFsb 06jv7zdMQAvLmZ2vFRdiQD2 cOIdjSSke5BsnIfkBLZdn4l wYPEyam6aeejyuIJcl7QqwF 5pbmcuIEludGVybmFsIHBvc 5u3qVTqZREbPKXoAVkanXd0 ZKVkj634zh3hndT0kCRwOIX 2YWlsYWJsZSBhcmUgZXZhbH VhdGVkXHBsYWluXGYxXGZzM jJcbGFuZzEwMzNcaGljaFxm STwcTtAoPSJoELleW2mbTyI lA5YuSLOySzJwbDAkK2ruzM FyXHBsYWluXGYxXGZzMjJcb GFuZzEwMzNcaGljaFxmMVxk DoLaVKOxPMbcD1umSrLsU4O yXGZzMjIgIFxwbGFpblxmMV xmczIyXGxhbmcxMDMzXGhpY 4yaCmFjVBYeuWxqOPggy2Jp EOJjSJQrClyhgsAaLZi5foU oXHBhclxwbGFpblxmMVxmcz FaMBvfgclmEKXrXPnrS7qhD cEjNXLjrVbyEOzay5PiSKHp CKUvDmikndSwOEyfxBUma5i ex9WlO5rrpQtdiTN5SGDiB6 zycYHtxHO6GXI5eX9oMPfwv rBtYIMym3FdFQHlZAKqTvK3 sH3mMNE2ZvHVdJeeNJDxVOt uXGYxXGZzMjJcbGFuZzEwMz NcaGljaFxmMVxkYmNoXGYxX XfuV4tbNxSfM8EpWEGkNyCm tUysFKykJWf5GdezbMPnggn mMVxmczIyXGxhbmcxMDMzXG wfR0cpCcYaWSZsuZnvBBayt 2NoXGYxXGNmMlxmczIyIHMg GSQbxYRcoMOBGH21QPDfIWB yoEghhD6tjBYBKHZeniE1c9 Q6GSbpFDGaEZn2ICesumOjH NUhhD2dXGNoCH2jQEk9paJr JRVgk8WbAI6oVXRgiXUiKUR 5HFIvs9NiZ4Yjz7YlLYGaHR Zqac3hauSnWlPKmRZaQVFzg k56QIHbVS1vI8yvKNGzGEEz sdBgpIYdx2VhTSSaxLB1yIQ pTW7WMkSQc16iVHSbWGQBxi SaWZPecHkiqWC3nbP9fL8jP iBUaGUgRkRBIGhhcyBkZXRl ur5xwaVmUJKtXOBvg8JayBE mwDHlydTkF8Dmg4HxMWPzbu 64IKxsxRYgom50YG5nB8Gyh 2QusK3zDWyoYKAmq4NzlJFx eXSxBOPux7YkB7reljsyXYb aaLRzcN8yNRLfGEr3NXGqk8 FtZBUgj9FjGeGfgqEyBWCkN MVsWCJodQ77GOF2bGndrQvu phObPP6gMWMjnzRyNPOfCAK yeF6pXFsycuQaVMRzilB9b7 S2GQfkJESqwsHpBoefDOF8p jMpslQ2nXRbZ9pifgktNYiy QLRby7EcwE9okJAEbSWjq2Z slVKniYNEbEVjAA1jabWbJY 7fHDN8KPfdLVZHYAIaRKvuI TZsOYH1MLolSxnlAQK1wuQi NDUdl5CvSRfyE1pyB60wfMu psYa1yMIreUvtrEFadYQhZH OoudV6o2J2OLCxv2JfbyctC HBsYWluXGYyXGZzMjJcbGFu ZzEwMzNcaGljaFxmMlxkYmN oERBlJFvrM8cyIcKkHmLqMw ahZYJ8nT== Gross assessment was [facility] performed at ([facility], code = 2777) Department of Pathology, [address] [place] [address], Technical component [facility] was performed at ([facility], code = 2778) Department of Pathology, [address] [place] [address], Professional component [facility] was performed at ([facility], code = 2779) Department of Pathology, [address] [place] [address], [facility] BY [id number] 11:53:00 Medical Cytology Report Case: [id number] Authorizing Provider: Solange Koch MD Collected: 07/20/2020 10:36 AM Ordering Location: [facility] Received: 07/20/2020 11:18 AM PERIOPERATIVE SERVICES Pathologist: Adri Rangel MD Specimen: Lymph Node, Interlobar, Left, Station 11L LYMPH NODE, INTERLOBAR, LEFT, STATION 11L EBUS FNA BY CLINICIAN (CYTOSPINS AND CELL BLOCK OF ASPIRATE): - NEGATIVE FOR EPITHELIAL MALIGNANCY LYMPHOCYTES PRESENT Signing Pathologist Direct Phone Line: [phone] signed by Adri Rangel MD on 07/21/2020 at 11:53 AMPlease also see surgical pathology report [id number] and cytopathology reports [id number] and [id number] through C20 2957. 52066, 76944Pkoo upper lobe lung nodule, history of smokingLYMPH NODE, INTERLOBAR, LEFT, STATION 11L [id number] mls in cytorich red; 2 cytospins, cell block (A2)Performed. The interpretation of this case included the use of immunohistochemistry or special stains.Control Slides Examined: In-house known positive controls were evaluated along with the test tissue. These control slides run alongside of the patients sample show appropriate staining. Internal positive and negative controls when available areevaluated Immunohistochemistry technical testing was performed at [facility], Pathology Laboratory where it was [...] qualified to perform high complexity clinical laboratory testing.[facility], Department of Pathology, [address] [place] [address], [facility], Department of Pathology, [address] [place] [address], [facility], [facility] of [facility], [address] [place] [address], PQAB NEEDLE ASPIRATE BY [id number] 11:33:00Medical Cytology Report Case: [id number] Authorizing Provider: Solange Koch MD Collected: 07/20/2020 10:23 AM Ordering Location: [facility] Received: 07/20/2020 11:18 AM PERIOPERATIVE SERVICES Pathologist: Adri Rangel MD Specimen: Lymph Node, Lower Paratracheal, Right, Station 4R LYMPH NODE, LOWER PARATRACHEAL, RIGHT, STATION 4R EBUS FNA BY CLINICIAN (CYTOSPINS AND CELL BLOCK OF ASPIRATE): - NEGATIVE FOR EPITHELIAL MALIGNANCY LYMPHOCYTES AND HISTIOCYTES PRESENT Signing Pathologist DirectPhone Line: [phone] signed by Adri Rangel MD on 07/21/2020 at 11:33AMPlease also see surgical pathology report [id number] and cytopathology reports [id number] and [id number] through [id number]. [id number], [id number] upper lobe lung nodule, history of smokingLYMPH [...] evaluated Immunohistochemistry technical testing was performed at [facility], Pathology Laboratory where it was [...] as qualified to performhigh complexity clinical laboratory testing.[facility], Department of Pathology, [address] [place] [address], [facility], [facility] of Path[facility], [address] [place] [address], [facility], Department of Pathology, [address] [place] [address], QYCT/CONCENTRATION [id number] 02:37:00 Test Item Value Reference Range Interpretation Comments Concentration charged (test code = Done 2657) [facility] [id number] 02:37:00 Test Item Value Reference Range Interpretation Comments CONCENTRATION CHARGED (BEAKER) (test Done code = 2657) FINE NEEDLE ASPIRATE (FNA) [id number] 13:00:00 Test Item Value Reference Range Interpretation Comments Cytology (test code = See Separate Report 2629) [facility] [id number] 13:00:00 Test Item Value Reference Range Interpretation Comments Cytology (test code = See Separate Report 2629) [facility] [id number] 13:00:00 Test Item Value Reference Range Interpretation Comments CYTOLOGY RESULT POINTER See Separate Report (BEAKER) (test code = 2629) EBUS FNA [id number] 13:00:00 Test Item Value Reference Range Interpretation Comments CYTOLOGY RESULT POINTER See Separate Report (BEAKER) (test code = 2629) EBUS FNA [id number] 13:00:00 Test Item Value Reference Range Interpretation Comments CYTOLOGY RESULT POINTER See Separate Report (BEAKER) (test code = 2629) EBUS FNA [id number] 13:00:00 Test Item Value Reference Range Interpretation Comments CYTOLOGY RESULT POINTER See Separate Report (BEAKER) (test code = 2629) FINE NEEDLE ASPIRATE (FNA) [id number] 13:00:00 Test Item Value Reference Range Interpretation Comments CYTOLOGY RESULT POINTER See Separate Report (BEAKER) (test code = 2629) RAD, CHEST, 1 VIEW, NON [id number] 12:01:00Reason for exam:->s/p KRYSTAL [facility]BBX [facility] : 1950 Sex: MFINAL [...] Franklin Verified Date/Time: 07/20/2020 12:01:07 Reading Location: [facility] Radiology Reading Room XR chest 1 view portable / [id number] 12:01:00 Interface, External Ris In - 07/20/2020 [...] Franklin Verified Date/Time: 07/20/2020 12:01:07 Reading Location: [facility] Radiology Reading Room [facility] ASPIR[facility] (FNA) [id number] 11:00:00 Test Item Value Reference Range Interpretation Comments CYTOLOGY RESULT POINTER See Separate Report (NYDIA) (test code = 2629) FL, FLUORO, NON-SPECIFIC, UP TO 1 [id number] 10:36:00Reason for exam:- >bronch [facility] 1950 Sex: MFluoroscopic unit utilized for a procedure performed in the OR. No interpretation wasrequested. Refer to the operative report for findings. Refer to PACS for patient radiation dose information.FL fluoro non-specific up to 1 [id number] 10:00:00 Interface, External Ris In - 07/20/2020 1:29 PM CSTFluoroscopic unit utilized for a procedure performed in the OR. No interpretation was requested. Refer to the operative report for findings. Referto PACS for patient radiation dose information.[facility] HospitalABORH, [id number] 07:40:00 Test Item Value Reference Range Interpretation Comments ABO Grouping (test code = 2588) A Rh Factor (test code = 2589) POS [facility] HospitalType and screen, [id number] 07:20:00 Test Item Value Reference Range Interpretation Comments ABO/RH AUTOMATED (BEAKER) (test A POSITIVE code = 2260) Ab Scrn (test code = 890-4) NEGATIVE [facility] HospitalComprehensive metabolic [id number] 07:07:00 Test Item Value Reference Range Interpretation Comments Protein, Total (test 8.1 See_Comment [Autom ated code = 2885-2) message] The system which generated this result transmit anthony reference range : 6.0 - 8.3 gm/dL . The reference range was not u sed to interpret th is result as normal/abnormal . Albumin (test code = 3.7 g/dL 3.5-5 94065-7) Alkaline Phosphatase 165 U/L 40-150 H (test [...] Calcium (test code = 9.3 mg/dL 8.4-10.2 06319-0) AST (test code = 39 U/L 5-34 H 1920-8) ALT (test code = 47 U/L 6-55 1742-6) EGFR (test [place] = [place] [address]-5) CLINICAL DATA T O CALCULATE ESTIMATED GFR. ALAINA (test code = ALAINA) [employer] ID - PENNY [place] Lab Interpretation Abnormal (test code = 59483-2) [facility] HospitalCOMPREHENSIVE METABOLIC [id number] 07:07:00 Test Item Value Reference Range Interpretation [...] 1092) DATA TO CALCULA TE ESTIMATED GFR. [employer] ID - PENNY [id number] 06:44:00 Test Item Value Reference Range Interpretation Comments PTT (test code = 96834-4) 29.6 See_Comment [ Automated message] The system whic h generated this result transmitted ref erence range: 22.5 - 3 6.0 seconds. The re ference range was not u sed to interpret this result as normal/abnor mal. Lab Interpretation (test Normal code = 83577-0) [facility] HospitalAPTT2020-11-17 06:44:00 Test Item Value Reference Range Interpretation Comments PARTIAL THROMBOPLASTIN TIME 29.6 seconds 22.5-36.0 (BEAKER) (test code = 760) Prothrombin time/[id number] 06:43:00 Test Item Value Reference Interpretation Comments Range Protime (test code = 13.3 See_Comment [Autom ated 6592-2) message] The system which generated this result transmitted reference range : 11.9 - 14.2 seconds. The reference range was not used to interpret this result as normal/abnormal . INR (test code = 1.04 See_Comment [Automated 9271-6) message] The system which generated this result [...] valves. Lab Interpretation Normal (test code = 93101-3) [facility] HospitalPROTHROMBIN TIME/[id number] 06:43:00 Test Item Value Reference Range Interpretation [...] heart valves.CBC with platelet count + automated [id number] 06:35:00 Test Item Value Reference Range Interpretation Comments WBC (test code = 6690-2) 12.4 See_Comment H [A utomated message] The system [employer] generated this result transmitted ref erence range: 3.5 - 10 .5 K/L. The refe rence range was not u sed to interpret this result as normal/abnor mal. RBC (test code = 789-8) 4.89 See_Comment [Au tomated message] The system [employer] generated this result transmitted ref erence range: 4.63 - 6 .08 M/L. The refe rence range was not u sed to interpret this result as normal/abnor mal. MCHC (test code = 786-4) 33.2 See_Comment [A utomated message] The system [employer] generated this result transmitted ref erence range: [...] See_Comment [Aut omated message] 777-3) The system [employer] generated this result transmitted ref erence range: 150 - 45 0 K/CU MM. The referen ce range was not u sed to interpret this result as normal/abnor mal. MPV (test code = 8.5 fL 9.4-12.4 L 25962-0) nRBC (test code = 413) 0 See_Comment [Aut omated message] The system [employer] generated this result transmitted ref erence range: [...] H [Aut omated message] 670) The system [employer] generated this result transmitted ref erence range: 1.78 - 5 .38 K/L. The refe rence range was not u sed to interpret this result as normal/abnor mal. # Lymphs (test code = 4.48 See_Comment H [Auto mated message] 414) The system [employer] generated this result transmitted ref erence range: 1.32 - 3 .57 K/L. The refe rence range was not u sed to interpret this result as normal/abnor mal. # Monos (test code = 1.27 See_Comment H [Autom ated message] 415) The system [employer] generated this result transmitted ref erence range: 0.30 - 0 .82 K/L. The refe rence range was not u sed to interpret this result as normal/abnor mal. # Eos (test code = 416) 0.56 See_Comment H [Au tomated message] The system [employer] generated this result transmitted ref erence range: 0.04 - 0 .54 K/L. The refe rence range was not u sed to interpret this result as normal/abnor mal. # Baso (test code = 417) 0.10 See_Comment H [A utomated message] The system [employer] generated this result transmitted ref erence range: 0.01 - 0 .08 K/L. The refe rence range was not u sed to interpret this result as normal/abnor mal. Immature 1 % 0-1 Granulocytes-Relative (test code = 2801) Lab Interpretation (test Abnormal code = 41070-2) [facility] W/PLT COUNT & AUTO [id number] 06:35:00 Test Item Value Reference Range Interpretation [...] PERCENT (BEAKER) (test code = 2801) POC-Glucose [id number] 06:11:00 Test Item Value Reference Range Interpretation Comments POC-Glucose Meter (test 114 mg/dL 70-110 H : TE STED AT [facility] code = 1538) [address] [facility], 7[address] 30: T[employer] Groover/Techni rosalva ID = [id number] for Susan Crews Lab Interpretation (test Abnormal code = 53049-3) [facility] HospitalPOCT-GLUCOSE [id number] 06:11:00 Test Item Value Reference Range Interpretation Comments POC-GLUCOSE METER 114 mg/dL 70-110 H : TESTED A T [facility] 6720 (BEAKER) (test code = [facility], 1538) [address]: T[employer] Groover/Techni rosalva ID = [id number] for Susan Celestin Prothrombin Gene [id number] 13:07:00 Test Item Value Reference Interpretation Comments Range PROTHROMBIN GENE SEE BELOW RESULT: G20 210A ANALYSIS (test code variant not detected = 7884744) Interpretation SEE BELOW INTERPRETATIO N: This (test code = individual is n egative 8581397) (normal) for th e W22073Q variant in the Prothrombin/Fac tor II gene. Increased risk of thrombophili a can becaused by a v ariety of genetic and non-genetic fac tors not screened fo r bythis assay. Laboratory test ing supervised and results monitored by Opal Robledo, Ph.D.,D ABG, [facility]. 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 This test was develo ped and its analytical performance characteristics havebeen determ ined by [facility] .It has not been cleare d or approved by FDA . This assay has been validatedpursua nt to the CLIA regula tions and is used for clinical purpos es. ALAINA (test code = Performing Lab ALAINA) EZ [facility] [address] [place] [address] Bryson Lopez MD, PhD, GLENN [facility] HospitalFactor 5 Leiden PCR (thrombotic risk)2020-07-17 15:45:00 Test Item Value Reference Interpretation Comments Range Factor V Leiden SEE BELOW RESULT: FACT OR V Mutation (test code LEIDEN ( R506Q) VARIANT = 9881489) NOT DETECTED Interpretation SEE BELOW INTERPRETATIO N: This (test code = individual is n egative 9700426) (normal) for th e Factor V Leiden (R506Q) variant in the Factor V gene. Increas ed risk of thrombophili a can becaused by a v ariety of genetic and non-genetic fac tors not screened fo r bythis assay. Laboratory test ing supervised and results monitored by Betsy Boss MD, PhD, FACMG, [facility]. MUTATI ON ANALYSIS:The Fa ctor V [...] perf ormance characteristics havebeen determ ined by [facility] .It has not been cleare d or approved by FDA . This assay has been validatedpursua nt to the CLIA regula tions and is used for clinical purpos es. Health care pro viders, please contact your local [employer] geneticcounselo r or call [phone] ([phone]) for assistance withinterpretat ion of these results. ALAINA (test code = Performing Lab ALAINA) [facility] [address] [place] [address] Bryson Lopez MD, PhD, GLENN [facility] HospitalProtein S [id number] 00:12:00 Test Item Value Reference Range Interpretation Comments Protein S 75 See_Comment Decreased leve ls of Functional (test Protein S a ctivity code = 7012354) may be found in patients withhereditary deficiency, war farin therapy, vitami n k deficiency, vik er disease,DIC, or recent thrombos is as well as after surgery. In addition, it ma y bephysiologic i n . An elevated Protei n S activity is not clinicallysigni fican t. Only deficie ncies are associated with an increased thromboticrisk. [Automated mess age] The system [employer] generated this result transmit anthony reference range : 70 - 150 % normal. The reference range was not used to interpret this result as normal/abnormal . ALAINA (test code = Performing Lab ALAINA) [facility] [address] [place] [address] Bryson Lopez MD, PhD, GLENN [facility]ARS[facility]/RT-PCR (Asymptomatic ONLY)2020-07-16 16:25:00 Test Item Value Reference Range Interpretation Comments SARS-COV2/RT-PCR Negative Not Detected, (test code = Negative, See 85538-9) external report for linked test SARS-COV-2 [facility] PERFORMING LAB (test code = 01585-7) ALAINA (test code = Negative result for [...] of the Act. Fact Sheet for Healthcare Providers:https://www.[employer]/sites/default/f donta/product/documents/F act_Sheet_HC_Providers_L rwp_YMSL-CcZ-8.pdf Fact Sheet for Healthcare Patients:https://www.[employer]/sites/default/fi les/product/documents/Fa ct_Sheet_Patients_Lyra_S ARS-CoV-2.pdf Performing Laboratory:[facility], [place] [address] [place], [place] [address]ARS-COV2/RT-PCR ([facility] REF LABS)2020-07-16 16:25:00 Test Item Value Reference Range Interpretation Comments SARS-COV2/RT-PCR (test Negative Not Detected, Negative, code = 5761258) See external report for linked test SARS-COV-2 PERFORMING LAB [facility] CONSUELO (test code = 0509003) Negative result for this test determines that [...] 564(g) of the Act.Fact Sheet for Healthcare Providers:https://www.[employer]/sites/default/files/product/documents/Fact_Shee z_NJ_Lchmmybmw_Mlhf_OKXM-QgY-4.pdfFact Sheet for Healthcare Patients:https://www.[employer]/sites/default/files/product/ documents/Ihzx_Fxdld_Qdwvtaey_Ielg_TWNI-SfC-6.pdfPerforming Laboratory:[facility], [place] [address]MI, CHEST, WITHOUT [id number] 15:54:00THIN CUT, 0.625 mm, HIGH RES, VERAN CUTSFOR OR PROCEDUREUnlisted Reason for Exam - Click Yes and Enter Reason Below->No [facility] 1950 Sex: MFINAL [...] MDReport Verified Date/Time: 07/15/2020 15:54:45 [facility] Body Reading Room CT chest without IV [id number] 15:54:00Interface, External Ris In - 07/15/2020 3:57 [...] Joya MDReport Verified Date/Time: 07/15/2020 15:54:45 ReadingLocation: [facility] B[facility] C013Y CT Body Reading Room Electronically signed by: GIO JOYA MD on07/15/2020 03:54 [facility] HospitalCT, CTA, [id number] 10:19:00Unlisted Reason for Exam - Click Yes and Enter Reason Below->YesUnlisted Reason for Exam->Splenic embolism/infarct. Rule out proximal aortic source (ulcer, aneurysm) [facility] 1950 Sex: MAddendum BeginsREPORT STATUS:A I agree with the nonvascular find ings with the following additional comment: There is diffusely decreased enhancement of the spleen with mild adjacent fat stranding consistent with history of splenic infarct. Signed: Gio Joya MDReport Verified Date/Time: 07/15/2020 10:19:44 Reading Location: [address] Body Reading RoomAddendum EndsFINAL REPORT [...] dictated regarding the non-vascular findings by the Navigation Officer Radiologist. Signed: Deandre Lujan MDReport Verified Date/Time: 07/14/2020 10:42:49 Reading Location: [place] [address] CT Reading Room COMPREHENSIVE METABOLIC [id number] 05:29:00 Test Item Value Reference Range Interpretation [...] 1092) DATA TO CALCULA TE ESTIMATED GFR. [employer] ID - PENNY MPROTHROMBIN TIME/[id number] 04:56:00 Test Item Value Reference Range Interpretation [...] See_Comment H [A utomated message] The system [employer] generated this result transmitted ref erence range: 3.5 - 10 .5 K/L. The refe rence range was not u sed to interpret this result as normal/abnor mal. RBC (test code = 789-8) 4.78 See_Comment [Au tomated message] The system [employer] generated this result transmitted ref erence range: 4.63 - 6 .08 M/L. The refe rence range was not u sed to interpret this result as normal/abnor mal. MCHC (test code = 786-4) 33.1 See_Comment [A utomated message] The system [employer] generated this result transmitted ref erence range: [...] See_Comment [Aut omated message] 777-3) The system [employer] generated this result transmitted ref erence range: 150 - 45 0 K/CU MM. The referen ce range was not u sed to interpret this result as normal/abnor mal. MPV (test code = 8.4 fL 9.4-12.4 L 04770-3) nRBC (test code = 413) 0 See_Comment [Aut omated message] The system [employer] generated this result transmitted ref erence range: 0 - 0 /1 00 WBC. The refere nce range was not u sed to interpret this result as normal/abnor mal. Lab Interpretation (test Abnormal code = 56663-2) [facility] (HEMOGRAM ONLY)2020-07-15 04:25:00 Test Item Value [...] code = 413) ECHO W CONTRAST & [id number] 14:46:21Ejection FractionSLEH ECHO HEARTLAB MKCKESSON CPACSInterface, External Ris In - 07/14/2020 2:46 PM C STTransthoracic Echocardiography Report (TTE) Demographics Patient Name LISA HERRON Date of Study 07/14/2020 OMARI Gender Male Visit Number [id number] Race Unknown Room Number 2442 Number Date of 1950 Referring DELGADO MCDANIEL Physician Age 69 year(s) Pharmacoepidemiologist Odilia Marino Dermatology Nurse Practitioner Sheryl James CS Interpreting Maya Durand Physician [...] LVOT CO: 6.6 l/min LVOT CI: 2.59 l/min/m^2CMattel Children's Hospital UCLAARS-COV2/RT-PCR ([facility] REF [facility]S)2020-07-14 12:56:00 Test Item Value Reference Range Interpretation Comments SARS-COV2/RT-PCR (test Negative Not Detected, Negative, code = 4728963) See external report for linked test SARS-COV-2 PERFORMING LAB [facility] [place] (test code = 8565731) Negative result for this test determines that [...] 564(g) of the Act.Fact Sheet for Healthcare Providers:https://www.[employer]com/sites/default/files/product/documents/Fact_Shee n_KU_Ezcdfktbw_Cclu_TSVS-UeA-4.pdfFact Sheet for Healthcare Patients:https://www.[employer]idel.com/sites/default/files/product/ documents/Vjyw_Ptuvq_Gjukifdc_Awdu_PVOW-EaU-6.pdfPerforming Laboratory:[facility], [place] [address]Ohlvyzn activity 2020-07-14 11:44:00 Test Item Value Reference Range Interpretation Comments Protein C Activity (test code = 89.0 % 70-130 36148-9) Lab Interpretation (test code = Normal 23159-3) [facility] HospitalPROTEIN C [id number] 11:44:00 Test Item Value Reference Range Interpretation Comments PROTEIN C ACTIVITY (BEAKER) (test code 89.0 % 70.0-130.0 = 582) CTA [id number] 10:42:00Interface, External Ris In - 07/15/2020 10:21 AM CSTAddendum BeginsREPORT STATUS:A I agree with the nonvascular findings with the following additional comment: There is diffusely decreased enhancement of the spleen with mild adjacent fat stranding consistent with history of splenic infarct. Signed: Gio Joya MDReport Verified Date/Time: 07/15/2020 10:19:44 ReadingLocation: [facility] B[facility] C[facility] CT Body Reading RoomAddendum [...] dictated regarding the non-vascular findings by the Navigation Officer Radiologist.Signed: Deandre Lujan MDReport Verified Date/Time: 07/14/2020 10:42:49 Reading Location: [place] [address] CT Reading Room [facility] CenterManual Vndkzfukdjgc4708-06-08 07:48:00 Test Item Value Reference Range Interpretation [...] = 3438) ALAINA (test code = ALAINA) [employer] ID - Melinda Abel comments: Slide comments: Lab Interpretation Abnormal (test code = 59213-7) [facility] W/PLT COUNT & AUTO [id number] 07:48:00 Test Item Value Reference Range Interpretation [...] CONCENTRATION Adequate (CELLAVISION)(BEAKER) (test code = 3438) [employer] ID - Melinda Roman comments: Slide comments:Basic Metabolic [id number] 04:42:00 Test Item Value Reference Range Interpretation [...] Calcium (test code = 8.7 mg/dL 8.4-10.2 13285-5) EGFR (test code = [place] [address]-8) CLINICAL DATA T O CALCULATE ESTIMATED GFR. ALAINA (test code = ALAINA) [employer] ID - EDASI Lab Interpretation Abnormal (test code = 06863-1) [facility] HospitalBA[facility]AR[facility] METABOLIC [id number] 04:42:00 Test Item Value Reference Range Interpretation [...] 1092) DATA TO CALCULA TE ESTIMATED GFR. [employer] ID - [id number] 04:40:00 Test Item Value Reference Range Interpretation Comments Magnesium (test code = 1.9 mg/dL 1.6-2.6 98671-0) ALAINA (test code = ALAINA) [employer] ID - EDASI Lab Interpretation (test Normal code = 82737-4) [facility] HospitalPhosphorus2020-11-11 04:40:00 Test Item Value Reference Range Interpretation Comments Phosphorus (test code = 3.5 mg/dL 2.3-4.7 2777-1) ALAINA (test code = ALAINA) [employer] ID - EDASI Lab Interpretation (test Normal code = 49218-6) [facility] HospitalMAGNESIUM2020-11-11 04:40:00 Test Item Value Reference Range Interpretation Comments MAGNESIUM (BEAKER) (test code = 1.9 mg/dL 1.6-2.6 627) [employer] ID - [id number] 04:40:00 Test Item Value Reference Range Interpretation Comments PHOSPHORUS (BEAKER) (test code = 3.5 mg/dL 2.3-4.7 604) [employer] ID - FSMRRCYF-AZXNNBI2282-01-11 00:00:00Ordered by an unspecified provider.[facility]
--- NOTE | 2021-04-02 21:25 | RAD REPORT ---
EXAM DESCRIPTION: RAD - Chest Single View - 04/02/2021 9:15 pm CLINICAL HISTORY: weakness COMPARISON: Chest Single View dated 03/16/2021; Chest Single View dated 03/11/2021; Chest Single View d ated 12/07/2020; Chest Pa And Lat (2 Views) dated 11/16/2020; Chest For Pe Angio dated 03/11/2021 FINDINGS: Re- demonstrated emphysema without superimposed acute process. The previously identified l eft upper lobe pulmonary nodule is grossly similar to the chest CT from 03/11/2021. The heart size is within normal limits.No acute osseous abnormality. No significant pleural effusions or pneumothorax. Calcified left lower lobe nodules per IMPRESSION: Advanced emphysema without superimposed acute process. Left upper lobe pulmonary nodule better demonstrated on CT from 03/11/2021.
[2021-04-02] MEDS ORDERED: NA CHLORIDE 0.9% 1,000 ML ONE (21:50)
[2021-04-02 21:59] LABS: Absolute Lymphocytes (CBC) 1.6 K/uL (0.7-4.9); Basophils % 0.5 % (0-1.3); Hematocrit 46.2 % (39.6-49.0); Lymphocytes % 5.6 % (15.3-44.8); MPV 7.8 fL (7.6-11.3); Protime INR 1.52; RBC Red Blood Cell Count 4.58 M/uL (4.33-5.43)
[2021-04-02 22:14] LABS: ALT/SGPT 71 U/L (12-78); AST/SGOT 28 U/L (15-37); Albumin 2.6 g/dL (3.4-5.0); Alkaline Phosphatase 146 U/L (45-117); BUN Blood Urea Nitrogen 28 mg/dL (7-18); Bicarbonate 25 mmol/L (21-32); Bilirubin Direct 1.1 mg/dL (0-0.2); Bilirubin Total 2.4 mg/dL (0.2-1.0); Glucose Level 166 mg/dL (74-106); Magnesium 2.1 mg/dL (1.8-2.4); NT PRO-BNP 562 pg/mL (<125); Potassium 4.6 mmol/L (3.5-5.1); Sodium Level 139 mmol/L (136-145); Troponin (Emerg Dept Use Only) < 0.02 ng/mL (0.0-0.045)
[2021-04-02 23:29] LABS: Platelet Estimate ADEQ
[2021-04-02 23:30] LABS: Blood Morphology Comment NOT SEEN (NOT SEEN)
[2021-04-03 00:27] LABS: Urine Blood Trace-intact (Negative); Urine Glucose Negative (Negative); Urine Protein Trace (Negative)
--- NOTE | 2021-04-03 01:14 | ER ---
Nurse's Notes [facility] Name: Rohan Bauman Age: 70 yrs Sex: Male : 1950 Arrival Date: 04/02/2021 Time: 20:50 Bed 7 Private MD: Diagnosis: Other specified sepsis;Hypotension, unspecified;Coronavirus infection, unspecified Presentation: 04/02 21:00 Chief complaint: EMS states: Called for patient reported back pain and weakness x 2 lp1 hours; Current lung cancer with mets to brain. Coronavirus screen: Client denies travel out of the [place] in the last 14 days. At this time, the client does not indicate any symptoms associated with coronavirus-19. Ebola Screen: No symptoms or risks identified at this time. Initial Sepsis Screen: Does the patient meet any 2 criteria? No. Patient's initial sepsis screen is negative. Does the patient have a suspected source of infection? No. Patient's initial sepsis screen is negative. Risk Assessment: Do you want to hurt yourself or someone else? Patient reports no desire to harm self or others. Onset of symptoms was April 02, 2021 at 19:00. 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 - Social history:: Smoking status: unknown. Screenin:30 Abuse screen: Denies threats or abuse. Denies injuries from another. Nutritional lp1 screening: No deficits noted. Tuberculosis screening: No symptoms or risk factors identified. Fall Risk Total Huerta Fall Scale indicates High Risk Score (45 or more points). Fall prevention measures have been instituted. Side Rails Up X 2 Frequent Obs/Assessments Occuring As available patient and family educated on Fall Prevention Program and Strategies. Assessment: 21:30 General: Appears ill, Behavior is flat. Pain: Denies pain. Neuro: Level of lp1 Consciousness is awake, lethargic, Oriented to person, place. Cardiovascular: Capillary refill < 3 seconds in bilateral fingers toes Patient's skin is warm and dry. Respiratory: Airway is patent Respiratory effort is even, Respiratory pattern is regular, Breath sounds are diminished bilaterally. GI: Abdomen is round Abd is soft and non tender X 4 quads. : No signs and/or symptoms were reported regarding the genitourinary system. EENT: Nares with drainage noted. Derm: Skin is fragile, is thin, Skin is dry, Skin is normal. Musculoskeletal: No deficits noted. 23:00 Reassessment: Patient appears lethargic, cough noted; denies any pain when asked. lp1 Neuro: Level of Consciousness is lethargic, Oriented to person, place. Respiratory: Respiratory effort is even, shallow, Respiratory pattern is symmetrical. Derm: Skin is fragile, is thin, Skin is dry, Skin is normal. 04/03 00:00 Reassessment: No changes from previously documented assessment. Patient denies pain at lp1 this time. 01:45 Reassessment: Omi Boothe NP at bedside. lp1 02:30 Reassessment: Dr. Morgan notified of patient's low BP. Neuro: Level of Consciousness lp1 is lethargic, Oriented to person, place, Responsive to verbal stimuli. 04:00 Reassessment: Verbal order from Omi Boothe NP for Levophed drip to be administered to lp1 patient. 22:06 Reassessment: Report called to receiving nurse in ICU. ea Vital Signs: 04/02 21:00 BP 105 / 73; Pulse 92; Resp 20; Temp 96.4(A); Pulse Ox 95% on R/A; Weight 90.72 kg; lp1 21:30 BP 92 / 63; Pulse 93; Resp 24; Pulse Ox 93% on R/A; lp1 21:45 BP 107 / 63; Pulse 90; Resp 22; Pulse Ox 95% on R/A; lp1 22:00 BP 98 / 64; Pulse 86; Resp 22; Pulse Ox 94% on R/A; lp1 22:45 BP 109 / 85; Pulse 98; Resp 22; Pulse Ox 94% on R/A; lp1 23:00 BP 116 / 85; Pulse 93; Resp 22; Pulse Ox 94% on R/A; lp1 23:45 BP 85 / 70; Pulse 97; Resp 21; Pulse Ox 93% on R/A; lp1 04/03 01:00 BP 172 / 92; Pulse 107; Resp 26; Pulse Ox 93% on R/A; lp1 01:45 BP 88 / 61; Pulse 111; Resp 27; Pulse Ox 94% on R/A; lp1 02:00 BP 69 / 53; Pulse 110; Resp 26; Pulse Ox 95% on R/A; lp1 02:30 BP 80 / 55; Pulse 115; Resp 24; Temp 102.9(C); Pulse Ox 100% on 2 lpm NC; lp1 02:45 BP 69 / 53; Pulse 111; Resp 22; Temp 103.1(C); Pulse Ox 96% on 2 lpm NC; lp1 03:00 BP 70 / 47; Pulse 106; Resp 23; Temp 103.2(C); Pulse Ox 97% on 2 lpm NC; lp1 03:20 BP 74 / 42; Pulse 102; Resp 25; Temp 102.5(C); Pulse Ox 95% on 2 lpm NC; lp1 03:40 BP 60 / 48; Pulse 96; Resp 25; Temp 101.9(C); Pulse Ox 95% on 2 lpm NC; lp1 04:10 BP 74 / 51; Pulse 97; Resp 23; Temp 101.2(C); Pulse Ox 97% on 2 lpm NC; lp1 20:39 BP 105 / 68; Pulse 105; Resp 21; Temp 99.3; Pulse Ox 95% ; ea 22:07 BP 108 / 59; Pulse 94; Resp 20; Temp 98.6; Pulse Ox 95% ; ea ED Course: 04/02 20:50 Patient arrived in ED. mw2 21:03 Ramses Francisco PA is PHCP. jmm 21:03 Romeo Morgan MD is Attending Physician. jmm 21:15 Patient has correct armband on for positive identification. Placed in gown. Bed in low lp1 position. Side rails up X2. cafeteria monitor on. Pulse ox on. NIBP on. 21:16 XRAY Chest (1 view) In Process Unspecified. EDMS 21:[address], RN is Primary Nurse. lp1 21:30 Arm band placed on. lp1 21:35 Inserted saline lock: 20 gauge in left antecubital area, using aseptic technique. Blood lp1 collected. 21:35 COVID swab sent to lab. lp1 21:47 Triage completed. lp1 22:28 CT Head Brain wo Cont In Process Unspecified. EDMS 08 00:15 Straight cath inserted, using sterile technique, 16 Fr. Specimen obtained. lp1 00:59 CT Chest, Abdomen, Pelvis - W/Contrast In Process Unspecified. EDMS 01:13 Kelsi Benavidez MD is Hospitalizing Provider. [facility] 02:05 No provider procedures requiring assistance completed. Patient admitted, IV remains in lp1 place. 02:15 Nunez cath inserted, using sterile technique, 16 Fr., by fl, balloon inflated, to lp1 gravity drainage. 04:00 Assisted provider with central line placement. Set up central line tray. Triple lumen lp1 line placed in right femoral. Line placed by Omi JEAN-BAPTISTE-C Placement verified by blood return, Dressed with Tegaderm, Patient \T\ family education about procedure, CLABSI prevention and S/S of infection? Yes. Time-out/Briefing performed prior to start of procedure? Yes. Was handwashing/sanitizing done immediately prior to procedure? Yes. Was patient positioned to in a way to prevent air embolism? Yes. Was procedure site sterilized? Yes, with Was the site allowed to dry? Yes. Was local anesthetic and/or sedation utilized? Yes. During the procedure, did the Practitioner(s) maintain a sterile field? Yes. Were unused ports clamped during insertion? Yes. Was blood aspirated from each lumen? Yes. 13:23 Primary Nurse role handed off by Lori St, MACY eb Administered Medications: 04/02 21:45 Drug: NS 0.9% 1000 ml Route: IV; Rate: 1 bolus; Site: left antecubital; lp1 04/03 02:05 Follow up: IV Status: Completed infusion; IV Intake: 1000ml lp1 02:05 Not Given (Per Clifford Pinto): vancoMYCIN 1 grams IVPB once over 2 hrs lp1 02:05 Drug: Cefepime 1 grams Route: IVPB; Rate: 200 ml/hr; Infused Over: 30 mins; Site: left lp1 antecubital; 03:27 Follow up: IV Status: Completed infusion; IV Intake: 10ml lp1 02:05 Drug: NS 0.9% (30 ml/kg) 30 ml/kg Route: IV; Rate: bolus; Site: left antecubital; lp1 03:27 Follow up: IV Status: Completed infusion; IV Intake: 1722ml lp1 02:35 Drug: Tylenol Suppository 650 mg Route: FL; lp1 04:21 Follow up: Response: Temperature is decreased lp1 02:36 Drug: Solu-CORTEF (hyrdoCORTISONE) 100 mg Route: IVP; Site: left antecubital; lp1 04:21 Follow up: Response: No adverse reaction lp1 02:40 CANCELLED (Med not availablee): Zosyn (piperacillin-tazobactam) 3.375 grams IVPB once lp1 over 60 mins; (mix in NS 100 mL); Verbal order per Omi Boothe NP 03:28 Drug: Zosyn (piperacillin-tazobactam) 4.5 grams {Note: verbal order per francisco Pinto SLEEP MANAGER.} Route: IVPB; Infused Over: 60 mins; Site: left antecubital; 04:21 Follow up: IV Status: Completed infusion; IV Intake: 100ml lp1 04:05 Drug: Levophed (norepinephrine) (4 mg/250 mL D5W 4 mcg/min Route: IV; Rate: calculated lp1 rate; Site: right femoral; 04:22 Follow up: IV Status: Infusion continued upon admission lp1 04:46 Follow up: Rate change 15 mcg/min lp1 Intake: 02:05 IV: 1000ml; Total: 1000ml. lp1 03:27 IV: 1722ml; Total: 2722ml. lp1 03:27 IV: 10ml; Total: 2732ml. lp1 04:21 IV: 100ml; Total: 2832ml. lp1 Outcome: 01:14 Decision to Hospitalize by Provider. jmm 02:06 critical lp1 02:06 Instructed on the need for admit. 04:22 Admitted to ER Hold. Please see [facility] for further documentation. lp1 22:51 Patient left the ED. ea Signatures: Dispatcher [employer] EDRamses Cornell PA PA jmm Pena, Laura, RN RN lp1 Kiara Weaver RN Cinthia De Los Santos ea 2 Nan Wood Corrections: (The following items were deleted from the chart) 04:16 04/02 21:00 Acuity: SOFIA 3 lp1 lp1
--- NOTE | 2021-04-03 01:15 | EDPHYS ---
Physician Documentation [facility] Name: Rohan Bauman Age: 70 yrs Sex: Male : 1950 Arrival Date: 04/02/2021 Time: 20:50 Bed 7 Private MD: ED Physician Romeo Morgan HPI: 04/02 21:47 This 70 yrs old Male presents to ER via Unassigned with complaints of Back jmm Pain, Weakness. 21:47 Is a 70-year-old male with a history of COPD, lung cancer, metastatic brain metastases jmm that presents to the emergency department with complaints of generalized fatigue, denies chest pain or shortness of breath. Denies abdominal pain vomiting diarrhea.. Onset: The symptoms/episode began/occurred gradually. Historical: - Allergies: 23:03 No Known Allergies; lp1 - Home Meds: 23:03 allopurinol 300 mg Oral tab 1 tab once daily [Active]; Eliquis 5 mg Oral tab 1 tab 2 lp1 times per day [Active]; levothyroxine 150 mcg cap 1 cap once daily [Active]; sotalol 80 mg Oral tab 2 tabs every morning [Active]; - PMHx: 23:03 Arthritis; blood clot in spleen; Cancer, Lung; CHF; Gout; Thyroid problem; lp1 - PSHx: 23:03 Unable to Obtain; lp1 - Immunization history:: Adult Immunizations unknown. - Social history:: Smoking status: unknown. ROS: 21:47 Constitutional: Negative for fever, chills, and weight loss, Cardiovascular: Negative jmm for chest pain, palpitations, and edema, Respiratory: Negative for shortness of breath, cough, wheezing, and pleuritic chest pain. 21:47 Neuro: Positive for weakness. 21:47 All other systems are negative. Exam: 21:47 Constitutional: This is a well developed, well nourished patient who is awake, alert, jmm and in no acute distress. Head/Face: atraumatic. ENT: Moist Mucus Membranes Neck: Trachea midline, Supple Chest/axilla: Normal chest wall appearance and motion. Cardiovascular: Regular rate and rhythm. No edema appreciated Respiratory: Normal respirations, no respiratory distress appreciated Abdomen/GI: Non distended, soft Back: Normal ROM Skin: General appearance color normal 21:47 Musculoskeletal/extremity: ROM: intact in all extremities. 21:47 Neuro: Orientation: is normal, Mentation: is normal, Memory: is normal. Vital Signs: 21:00 BP 105 / 73; Pulse 92; Resp 20; Temp 96.4(A); Pulse Ox 95% on R/A; Weight 90.72 kg; lp1 21:30 BP 92 / 63; Pulse 93; Resp 24; Pulse Ox 93% on R/A; lp1 21:45 BP 107 / 63; Pulse 90; Resp 22; Pulse Ox 95% on R/A; lp1 22:00 BP 98 / 64; Pulse 86; Resp 22; Pulse Ox 94% on R/A; lp1 22:45 BP 109 / 85; Pulse 98; Resp 22; Pulse Ox 94% on R/A; lp1 23:00 BP 116 / 85; Pulse 93; Resp 22; Pulse Ox 94% on R/A; lp1 23:45 BP 85 / 70; Pulse 97; Resp 21; Pulse Ox 93% on R/A; lp1 04/03 01:00 BP 172 / 92; Pulse 107; Resp 26; Pulse Ox 93% on R/A; lp1 01:45 BP 88 / 61; Pulse 111; Resp 27; Pulse Ox 94% on R/A; lp1 02:00 BP 69 / 53; Pulse 110; Resp 26; Pulse Ox 95% on R/A; lp1 02:30 BP 80 / 55; Pulse 115; Resp 24; Temp 102.9(C); Pulse Ox 100% on 2 lpm NC; lp1 02:45 BP 69 / 53; Pulse 111; Resp 22; Temp 103.1(C); Pulse Ox 96% on 2 lpm NC; lp1 03:00 BP 70 / 47; Pulse 106; Resp 23; Temp 103.2(C); Pulse Ox 97% on 2 lpm NC; lp1 03:20 BP 74 / 42; Pulse 102; Resp 25; Temp 102.5(C); Pulse Ox 95% on 2 lpm NC; lp1 03:40 BP 60 / 48; Pulse 96; Resp 25; Temp 101.9(C); Pulse Ox 95% on 2 lpm NC; lp1 04:10 BP 74 / 51; Pulse 97; Resp 23; Temp 101.2(C); Pulse Ox 97% on 2 lpm NC; lp1 20:39 BP 105 / 68; Pulse 105; Resp 21; Temp 99.3; Pulse Ox 95% ; ea 22:07 BP 108 / 59; Pulse 94; Resp 20; Temp 98.6; Pulse Ox 95% ; ea MDM: 04/02 21:03 Patient medically screened. [facility] 04/03 00:57 Data reviewed: vital signs, nurses notes. Counseling: I had a detailed discussion with douglas the patient and/or guardian regarding: the historical points, exam findings, and any diagnostic results supporting the discharge/admit diagnosis, lab results, the need for further work-up and treatment in the hospital. ED course: I discussed the patient with Omi Boothe whom accepted the patient for admission. 04/02 21:04 Order name: Basic Metabolic Panel [facility] 04/02 21:04 Order name: CBC with Diff [facility] 04/02 21:04 Order name: LFT's; Complete Time: 22:18 [facility] 04/02 21:04 Order name: Magnesium; Complete Time: 22:18 [facility] 04/02 21:04 Order name: NT PRO-BNP; Complete Time: 22:18 [facility] 04/02 21:04 Order name: PT-INR; Complete Time: 22:26 [facility] 04/02 21:04 Order name: Troponin (emerg Dept Use Only); Complete Time: 22:18 [facility] 04/02 21:05 Order name: Basic Metabolic Panel; Complete Time: 22:18 [facility] 04/02 21:05 Order name: CBC with Automated Diff; Complete Time: 23:35 [facility] 04/02 21:46 Order name: Procalcitonin; Complete Time: 22:36 [facility] 04/02 21:46 Order name: Lactate; Complete Time: 13:24 [facility] 04/02 21:46 Order name: Blood Culture Adult (2) [facility] 04/02 22:22 Order name: Manual Differential; Complete Time: 23:35 [facility] 04/02 21:04 Order name: XRAY Chest (1 view); Complete Time: 21:28 [facility] 04/02 21:46 Order name: CT Head Brain wo Cont [facility] 04/02 22:39 Order name: Urine Culture [facility] 04/02 22:40 Order name: CT Chest, Abdomen, Pelvis - W/Contrast [facility] 04/02 23:34 Order name: SARS-COV-2 RT PCR; Complete Time: 23:35 EDMS 04/03 00:26 Order name: Urine Dipstick-Ancillary; Complete Time: 00:29 EDMS 04/03 02:02 Order name: C-Reactive Protein; Complete Time: 13:24 EDMS 04/03 05:47 Order name: CBC with Automated Diff; Complete Time: 13:24 EDMS 04/03 06:08 Order name: Comprehensive Metabolic Panel; Complete Time: 13:24 EDMS 04/03 06:08 Order name: T4 Free; Complete Time: 13:24 EDMS 04/03 06:08 Order name: Magnesium; Complete Time: 13:24 EDMS 04/03 06:08 Order name: Thyroid Stimulating Hormone; Complete Time: 13:24 EDMS 04/03 08:18 Order name: Lactate Sepsis 2 HR Follow-up; Complete Time: 13:24 EDMS 04/02 21:04 Order name: EKG; Complete Time: 21:05 [facility] 04/02 21:04 Order name: Cardiac monitoring; Complete Time: 21:45 [facility] 04/02 21:04 Order name: EKG - Nurse/Tech; Complete Time: 21:45 [facility] 04/02 21:04 Order name: IV Saline Lock; Complete Time: 21:45 [facility] 04/02 21:04 Order name: Labs collected and sent; Complete Time: 21:45 [facility] 04/02 21:04 Order name: O2 Per Protocol; Complete Time: 21:45 [facility] 04/02 21:04 Order name: O2 Sat Monitoring; Complete Time: 21:45 [facility] 04/02 22:39 Order name: Urine Dipstick-Ancillary (obtain specimen); Complete Time: 00:31 [facility] 04/02 23:13 Order name: Straight Cath - Urine; Complete Time: 00:31 [facility] Administered Medications: 04/02 21:45 Drug: NS 0.9% 1000 ml Route: IV; Rate: 1 bolus; Site: left antecubital; lp1 04/03 02:05 Follow up: IV Status: Completed infusion; IV Intake: 1000ml lp1 02:05 Not Given (Per Clifford Pinto): vancoMYCIN 1 grams IVPB once over 2 hrs lp1 02:05 Drug: Cefepime 1 grams Route: IVPB; Rate: 200 ml/hr; Infused Over: 30 mins; Site: left lp1 antecubital; 03:27 Follow up: IV Status: Completed infusion; IV Intake: 10ml lp1 02:05 Drug: NS 0.9% (30 ml/kg) 30 ml/kg Route: IV; Rate: bolus; Site: left antecubital; lp1 03:27 Follow up: IV Status: Completed infusion; IV Intake: 1722ml lp1 02:35 Drug: Tylenol Suppository 650 mg Route: OK; lp1 04:21 Follow up: Response: Temperature is decreased lp1 02:36 Drug: Solu-CORTEF (hyrdoCORTISONE) 100 mg Route: IVP; Site: left antecubital; lp1 04:21 Follow up: Response: No adverse reaction lp1 02:40 CANCELLED (Med not availablee): Zosyn (piperacillin-tazobactam) 3.375 grams IVPB once lp1 over 60 mins; (mix in NS 100 mL); Verbal order per Omi Boothe NP 03:28 Drug: Zosyn (piperacillin-tazobactam) 4.5 grams {Note: verbal order per francisco Pinto SANITATION DIRECTOR.} Route: IVPB; Infused Over: 60 mins; Site: left antecubital; 04:21 Follow up: IV Status: Completed infusion; IV Intake: 100ml lp1 04:05 Drug: Levophed (norepinephrine) (4 mg/250 mL D5W 4 mcg/min Route: IV; Rate: calculated lp1 rate; Site: right femoral; 04:22 Follow up: IV Status: Infusion continued upon admission lp1 04:46 Follow up: Rate change 15 mcg/min lp1 Disposition: 04/04 06:44 Co-signature as Attending Physician, Romeo Morgan MD I agree with the assessment and evelin plan of care. Disposition Summary: 04/03/21 01:14 Hospitalization Ordered Hospitalization Status: Inpatient Admission jmm Provider: Kelsi Benavidez Condition: Stable jmm Problem: new jmm Symptoms: have improved jmm Bed/Room Type: Standard [facility] Location: Intensive Care Unit(04/03/21 19:48) mw Room Assignment: 2-(04/03/21 19:48) mw Diagnosis - Other specified sepsis jmm - Hypotension, unspecified jmm - Coronavirus infection, unspecified jmm Forms: - Medication Reconciliation Form [facility] - SBAR form [facility] Signatures: Dispatcher [employer] EDMS Jennifer Menjivar, RN RN Romeo Roberts MD MD cha Mickail, Joel, PA PA Lori Thomas, RN RN lp1 Corrections: (The following items were deleted from the chart) 04/02 22:41 21:05 CORONAVIRUS+MR[facility]LAB.[facility]18 01:14 Telemetry/MedSurg (Inpatient) [facility] 01:18 01:14 [facility] 02:40 02:38 Zosyn (piperacillin-tazobactam) 3.375 grams IVPB once over 60 mins; (mix in NS lp1 100 mL); Verbal order per Omi Boothe NP ordered. 1 02:40 02:40 Zosyn (piperacillin-tazobactam) 3.375 grams IVPB once over 60 mins; (mix in NS lp1 100 mL); Verbal order per Omi Boothe, ANTHONY ordered. 1 19:48 01:18 BR ER HOLD mw 19:48 01:18 ERHOLD- mw mw
[2021-04-03] MEDS ORDERED: CEFEPIME/SWI 1gm 10 ML ONE (02:00)
[2021-04-03] MEDS ORDERED: NA CHLORIDE 0.9% 250 ML ONE (02:00)
[2021-04-03] MEDS ORDERED: NA CHLORIDE 0.9% 1,000 ML ONE ×2 (02:00→03:10)
[2021-04-03] MEDS ORDERED: VANCOMYCIN 1 GM/VIAL ONE (02:00)
--- NOTE | 2021-04-03 02:35 | P.HP ---
Certification for Inpatient Patient admitted to: Inpatient With expected LOS: >2 Midnights Patient will require the following post-hospital care: None Practitioner: I am a practitioner with admitting privileges, knowledge of patient current condition, hospital course, and medical plan of care. Services: Services provided to patient in accordance with Admission requirements found in Title 42 Section 412.3 of the Code of Federal Regulations <Omi Boothe - Last Filed: 04/03/21 02:30> Patient History Date of Service: 04/03/21 Reason for admission: Sepsis, pneumonia History of Present Illness: 70-year-old male with history of atrial fibrillation on chronic anticoagulation therapy, chronic diastolic congestive heart failure, lung cancer with metastasis, hypothyroidism presents emergency department for weakness, shortness of breath. Son reports patient has not been feeling himself since he was released from the [facility] approximately 1.5 weeks ago. Patient was evaluated in the emergency department, labs were significant for white blood cell count 29.6 MCV 100.9 creatinine 1.07 glucose 166 procalcitonin 0.97 urinalysis negative for infection Covid test positive CT chest abdomen pelvis demonstrates 2 large areas of consolidation in the left lower lobe suggestive of pneumonia with additional nonacute findings. Patient's blood pressure has maintained low throughout his stay in the emergency department around 80-90 systolic, currently receiving 30 cc/kg fluid bolus in the emergency department now. When I saw the patient in the ER he was very drowsy, when prompted would respond with usually 1 word, does not appear to be coherent or oriented. Discussed with son who is patient's next of kin and soon-to-be power of health care attorney, had reported that patient discussed that he would not want to be on a ventilator for a long time but if we thought he still a chance of recovery would be okay with full code/intubation/ventilation. Will admit as ICU for sepsis, pneumonia, Covid. - Past Medical/Surgical History Diabetic: No -: Stage IV squamous cell lung carcinoma -: Splenic infarct -: Hypothyroidism -: Chronic anti coagulation therapy -: Atrial fibrillation -: Chronic diastolic congestive heart failure -: Hernia repair Psychosocial/ Personal History: Patient is . Lives by himself. - Family History Family History: Reviewed- Non-Contributory - Social History Smoking Status: Unknown if ever smoked Alcohol use: Yes CD- Drugs: No Caffeine use: Yes Place of Residence: Home <Omi Boothe - Last Filed: 04/03/21 02:30> Date of Service: 04/03/21 <Kelsi Benavidez - Last Filed: 04/03/21 20:46> Allergies No Known Allergies Allergy (Unverified 11/15/20 15:57) Home Medications: Allopurinol 300 mg PO DAILY 11/15/20 Apixaban [Eliquis] 5 mg PO BID 11/15/20 Spironolactone [Aldactone] 50 mg PO DAILY 11/15/20 Torsemide [Demadex*] 20 mg PO DAILY 11/15/20 Levothyroxine Sodium [Levothyroxine] 175 mcg PO DAILY #30 capsule 11/16/20 Sotalol HCl [Betapace*] 80 mg PO 1800 #30 tab 12/10/20 Sotalol HCl [Betapace*] 160 mg PO [id number] #60 tab 12/10/20 Review of Systems is unable to be obtained <Omi Boothe - Last Filed: 04/03/21 02:30> Physical Examination - Physical Exam General: Confused, Other (Drowsy) HEENT: Atraumatic, Normocephalic, Other (Mucous membranes dry) Neck: Supple Respiratory: Diminished, Crackles/rales Cardiovascular: No edema, Irregular heart rate/rhythm (Sinus tachycardia rate around 107) Capillary refill: <2 Seconds Gastrointestinal: Normal bowel sounds, No tenderness, No masses, No rebound, No guarding Musculoskeletal: No contractures, No erythema Integumentary: No tenderness/swelling, No erythema, No warmth Neurological: Other (Patient very drowsy, able to answer in one-word responses, not following commands.) - Studies Laboratory Data (last 24 hrs) 04/02/21 21:35: PT 17.5 H, INR 1.52 04/02/21 21:35: WBC 29.60 H*, Hgb 15.4, Hct 46.2, Plt Count 241 04/02/21 21:35: Sodium 139, Potassium 4.6, BUN 28 H, Creatinine 1.07, Glucose 166 H, Magnesium 2.1, Total Bilirubin 2.4 H, AST 28, ALT 71, Alkaline Phosphatase 146 H <Omi Boothe - Last Filed: 04/03/21 02:30> - Studies Laboratory Data (last 24 hrs) 04/02/21 21:35: PT 17.5 H, INR 1.52 04/02/21 21:35: WBC 29.60 H*, Hgb 15.4, Hct 46.2, Plt Count 241 04/02/21 21:35: Sodium 139, Potassium 4.6, BUN 28 H, Creatinine 1.07, Glucose 166 H, Magnesium 2.1, Total Bilirubin 2.4 H, AST 28, ALT 71, Alkaline Phosphatase 146 H <Kelsi Benavidez - Last Filed: 04/03/21 20:46> Assessment and Plan - Plan Assessment: Severe sepsis secondary to left-sided pneumonia complicated with history of 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 Patient also with metastasis to brain, this was not evident on CT scan without contrast here in the emergency department, will continue patient's Decadron 6 mg p.o. twice daily. Blood and sputum cultures obtained, continue to follow daily labs. Incentive spirometry. Patient very weak, ill prognosis guarded. This was discussed with son, patient may end up requiring vasopressor therapy this evening. Atrial fibrillation on chronic anticoagulation therapy: Continue home medications when appropriate, need to hold sotalol at this time given patient's low blood pressure. Chronic diastolic congestive heart failure: Patient on diuretics, currently hypotensive appears dry will continue with sepsis fluid bolus and reevaluate afterwards. Hypothyroidism: Obtain an continue home medication Gout: Obtain an continue home medication DVT PPX: Eliquis Code status: Fullthis should be revisited, son reports patient had mentioned DNR in the past but son reports that he believes if patient has a chance of recovery he would be okay with intubation/ventilator/CPR. Discharge Plan: Home Plan to discharge in: Greater than 2 days - Advance Directives Does patient have a Living Will: No Does patient have a Durable POA for Healthcare: No - Code Status/Comfort Care Code Status Assessed: Yes (Full code) Critical Care: No Time Spent Managing Pts Care (In Minutes): 55 <Omi Boothe - Last Filed: 04/03/21 02:30> Date of Service: 04/03/21 Subjective: Patient was vaccinated from the COVID-[address] scan has consolidated pneumonia in the left lung. Most likely bacterial. Patient is septic and will do broad-spectrum antibiotic coverage. Currently on Zosyn and will add vancomycin. Spoke with Nephrology regarding this interaction causing some renal insufficiency and they state this is very rare. Zosyn for gram- negative coverage and vancomycin for tomorrow say coverage. Do not want use Levaquin in in setting of amiodarone which I just started. Physical Examination: Vitals: Afebrile vital signs are stable Physical exam: Cardiovascular: Within normal limits. Lungs: Within normal limits Abdomen: Within normal limits Neuro: Awake, alert, oriented to person place and time Assessment: 1. Septic shock 2. Atrial fibrillation with rapid ventricular response 3. Lung cancer with metastasis 4. Consolidated pneumonia 5. Leukocytosis Plan: 1. Continue with current plan of care 2. Continue vasopressor support 3. Amiodarone drip 4. Broad-spectrum antibiotic coverage 5. Patient remains a full code 6. Pulmonary and Cardiology consultation 7. Patient goes to our local oncology may need to Consult them if patient's cli nical status worsens 8. GI and DVT prophylaxis <Kelsi Benavidez - Last Filed: 04/03/21 20:46>
[2021-04-03] MEDS ORDERED: ACETAMINOPHEN 650MG/RECT SUPP PR ONE ×2 (02:43→17:54)
[2021-04-03] MEDS ORDERED: HYDROCORTISONE SUC 100 MG INJ ONE (02:53)
[2021-04-03] MEDS ORDERED: NA CHLORIDE 0.9% 100 ML ONE ×4 (03:05→18:19)
[2021-04-03] MEDS ORDERED: PIPERACIL/TAZO 4.5 GM VIAL IV ONE (03:05)
--- NOTE | 2021-04-03 04:04 | P.INFCA ---
Sepsis Focused Assessment - Focused Assessment Complete? Sepsis Focused Assessment Completed?: Yes - Sepsis Screen Result Severe Sepsis: Positive Septic Shock: Positive - Evaluation Current stage of sepsis: Septic shock - Vital Signs Reviewed: Yes Temperature: 103 F Heart rate: 110 Blood Pressure: 72/50 Respiratory Rate: 22 O2 Sat by Pulse Oximetry: 95 - Examination Date exam was performed: 04/03/21 Time exam was performed: 04:03 Heart: Tachycardia Lungs: Diminished air movement, Decreased breath sounds Peripheral pulses: 2+ Slightly diminished Peripheral pulse location: Femoral Capillary refill: <2 Seconds Skin examination: Normal turgor <Omi Boothe - Last Filed: 04/03/21 04:03> - Examination Comments: Agree with clinical findings as mentioned above <Kelsi Benavidez - Last Filed: 04/03/21 20:48>
[2021-04-03] MEDS ORDERED: NOREPINEPHRINE 4mg/D5W 250mL 4 MG/250 ML BAG IV ONE (04:22)
[2021-04-03] MEDS ORDERED: ONDANSETRON 4 MG/2 ML VIAL IV PRN (04:48)
[2021-04-03] MEDS ORDERED: ACETAMINOPHEN 500 MG TAB PO PRN (04:48)
[2021-04-03] MEDS ORDERED: MELATONIN 5 MG TABLET PO PRN (04:48)
[2021-04-03] MEDS: D5 0.45 NS 1,000 ML IV SCH ×2 (04:48→18:08)
[2021-04-03] MEDS ORDERED: NOREPINEPHRINE 4 MG in D5W 250 ML IV PRN (04:48)
[2021-04-03 05:43] LABS: Absolute Lymphocytes (CBC) 1.4 K/uL (0.7-4.9); Basophils % 0.3 % (0-1.3); Hematocrit 40.3 % (39.6-49.0); MPV 7.3 fL (7.6-11.3); RBC Red Blood Cell Count 3.98 M/uL (4.33-5.43)
[2021-04-03] MEDS ORDERED: D5 0.45 NS 1,000 ML IV ONE ×2 (05:49→18:43)
[2021-04-03 06:07] LABS: Bilirubin Total 2.7 mg/dL (0.2-1.0); Magnesium 1.9 mg/dL (1.8-2.4); Potassium 3.5 mmol/L (3.5-5.1); Protein, Total 5.5 g/dL (6.4-8.2); Thyroid Stimulating Hormone 0.228 uIU/mL (0.360-3.740)
[2021-04-03] MEDS ORDERED: ZINC SULFATE 220 MG CAP ONE (08:49)
[2021-04-03] MEDS ORDERED: VITAMIN D 1000 UNIT TAB ONE (08:50)
[2021-04-03] MEDS ORDERED: THIAMINE HCL 100 MG TABLET ONE (08:50)
[2021-04-03] MEDS ORDERED: APIXABAN 5 MG TABLET ONE (08:50)
[2021-04-03] MEDS ORDERED: dexAMETHasone 4 MG TAB ONE (08:51)
[2021-04-03] MEDS ORDERED: APIXABAN 5 MG TABLET PO SCH (09:00)
[2021-04-03] MEDS: VITAMIN D 1000 UNIT TAB PO SCH (09:00)
[2021-04-03] MEDS: ZINC SULFATE 220 MG CAP PO SCH (09:00)
[2021-04-03] MEDS ORDERED: dexAMETHasone 4 MG TAB PO SCH (09:00)
[2021-04-03] MEDS: THIAMINE HCL 100 MG TABLET PO SCH (09:00)
[2021-04-03] MEDS ORDERED: PIPERACIL/TAZO 3.375 GM VIAL IV ONE ×2 (09:57→16:38)
[2021-04-03] MEDS: PIPER/TAZO/NS 3.375gm 3.375 GM/100 ML BAG IVPB SCH ×2 (11:00→17:00)
[2021-04-03] MEDS: NOREPINEPHRINE 8 MG in Dextrose 5%-Water 500 ML IV PRN ×2 (13:24→13:42)
[2021-04-03] MEDS ORDERED: AMIODARONE HCL 150 MG in D5W 100 ML IV STA (17:42)
[2021-04-03] MEDS ORDERED: ALBUMIN HUMAN 25% 100 ML IV ONE (17:45)
[2021-04-03] MEDS ORDERED: NA CHLORIDE 0.9% 500 ML IV ONE (17:46)
[2021-04-03] MEDS ORDERED: AMIODARONE HCL 150 MG/3 ML INJ IV ONE ×2 (18:11→18:15)
[2021-04-03] MEDS ORDERED: NA CHLORIDE 0.9% 500 ML ONE ×2 (18:15→18:50)
[2021-04-03] MEDS ORDERED: ALBUMIN HUMAN 25% 50 ML IV ONE (18:47)
[2021-04-03] MEDS ORDERED: AMIODARONE IN DEXTROSE,ISO-OSM 360 MG/200 ML BAG IV ONE (18:51)
[2021-04-03] MEDS: ALBUTEROL 2.5 MG/3 ML NEB SOL NEB SCH (19:30)
[2021-04-03] MEDS ORDERED: ACETAMINOPHEN 650MG/RECT SUPP PR PRN (19:34)
[2021-04-03] MEDS ORDERED: ALBUTEROL 2.5 MG/3 ML NEB SOL ONE (19:57)
[2021-04-03] MEDS: ENOXAPARIN 100 MG/ML SYR SQ SCH (20:17)
[2021-04-03] MEDS: dexAMETHasone 4 MG/ML VIAL IV SCH (20:17)
[2021-04-03] MEDS ORDERED: ENOXAPARIN 100 MG/ML SYR SQ ONE (20:34)
[2021-04-03] MEDS ORDERED: dexAMETHasone 4 MG/ML VIAL ONE (20:34)
--- NOTE | 2021-04-03 20:46 | P.PN ---
Date of Service: 04/03/21 Subjective: Patient was vaccinated from the COVID-[address] scan has consolidated pneumonia in the left lung. Most likely bacterial. Patient is septic and will do broad-spectrum antibiotic coverage. Currently on Zosyn and will add vancomycin. Spoke with Nephrology regarding this interaction causing some renal insufficiency and they state this is very rare. Zosyn for gram- negative coverage and vancomycin for tomorrow say coverage. Do not want use Levaquin in in setting of amiodarone which I just started. Physical Examination: Vitals: Afebrile vital signs are stable Physical exam: Cardiovascular: Within normal limits. Lungs: Within normal limits Abdomen: Within normal limits Neuro: Awake, alert, oriented to person place and time Assessment: 1. Septic shock 2. Atrial fibrillation with rapid ventricular response 3. Lung cancer with metastasis 4. Consolidated pneumonia 5. Leukocytosis Plan: 1. Continue with current plan of care 2. Continue vasopressor support 3. Amiodarone drip 4. Broad-spectrum antibiotic coverage 5. Patient remains a full code 6. Pulmonary and Cardiology consultation 7. Patient goes to our local oncology may need to Consult them if patient's clinical status worsens 8. GI and DVT prophylaxis Critical Care: Yes Time Spent Managing Pts Care (In Minutes): 45
[2021-04-03] MEDS: ACETAMINOPHEN 325 MG TABLET PO SCH (23:18)
[2021-04-04] MEDS ORDERED: AMIODARONE HCL 150 MG/3 ML INJ IV ONE (00:02)
[2021-04-04] MEDS: AMIODARONE HCL 900 MG in Dextrose 5%-Water 482 ML IV SCH (00:16)
[2021-04-04] MEDS: PIPER/TAZO/NS 3.375gm 3.375 GM/100 ML BAG IVPB SCH ×3 (00:36→16:47)
[2021-04-04] MEDS ORDERED: PIPERACIL/TAZO 3.375 GM VIAL IV ONE (00:36)
[2021-04-04] MEDS ORDERED: NA CHLORIDE 0.9% 100 ML ONE (00:36)
[2021-04-04] MEDS: NOREPINEPHRINE 8 MG in Dextrose 5%-Water 500 ML IV PRN (01:08)
[2021-04-04] MEDS ORDERED: NOREPINEPHRINE 4 MG/4 ML VIAL ONE (01:27)
[2021-04-04] MEDS: ALBUTEROL 2.5 MG/3 ML NEB SOL NEB SCH ×3 (02:00→14:00)
[2021-04-04] MEDS: ACETAMINOPHEN 325 MG TABLET PO SCH ×4 (03:00→21:00)
[2021-04-04 05:46] LABS: Urine Appearance CLEAR (Clear); Urine Blood 2+ (Negative); Urine Color DK YELLOW (Yellow); Urine Glucose NEGATIVE (Negative); Urine Protein 1+ (Negative); Urine Specific Gravity >=1.030 (1.005-1.030); Urine pH 6.5 (5.0-7.0)
[2021-04-04 05:50] LABS: Urine Microscopic Reflex ORDER UMIC
--- NOTE | 2021-04-04 05:50 | P.PN ---
Subjective Date of Service: 04/04/21 Chief Complaint: Sepsis, pneumonia Subjective: Improving, Other (Patient remains on IV amiodarone, Levophed.) Physical Examination - Vital Signs Temperature: 97.6 F Blood Pressure: 107/57 Pulse: 101 Respirations: 14 Pulse Ox (%): 98 Assessment & Plan Discharge Plan: LTAC Plan to discharge in: 48 Hours Physician Review Additional Text: COVID: Positive CT head: COMPARISON: CT head from March 16, 2021. FINDINGS: There is diffuse age-appropriate atrophy throughout the brain parenchyma. Moderate periventricular white matter changes are present, and there is mild ex vacuo dilatation of the ventricular system. Region of chronic encephalomalacia in the right frontal lobe white matter. There is no intra-axial or extra-axial bleed. There is no mass or mass effect. The visualized paranasal sinuses and mastoid air cells are patent. No acute fracture is identified. IMPRESSION: 1. No acute intracranial abnormality identified. 2. Chronic changes. CT chest: COMPARISON: CT chest abdomen and pelvis with contrast March 16, 2021. FINDINGS: Limitations: Evaluation severely limited by motion artifact. CHEST: Lungs: There are two large areas of consolidation in the left lower lobe, new compared to the prior exam. Emphysematous changes in lungs with an upper lung predominance, similar to the prior exam. Similar appearing 2 cm spiculated nodule in the left upper lobe. Previously seen right apical nodule is poorly visualized but again measures approximately 1.2 cm. 5 mm nodule within the medial left upper lobe which was poorly visualized on the previous exam. Scattered interstitial thickening in the lungs bilaterally. There are two calcified granulomas in the left lung. Pleural space: Unremarkable. No significant effusion. No pneumothorax. Heart: Unremarkable. No cardiomegaly. No significant pericardial effusion. ABDOMEN: Liver: Unremarkable. No mass. Gallbladder and bile ducts: Unremarkable. No calcified stones. No ductal dilation. Pancreas: Unremarkable. No ductal dilation. No mass. Spleen: Heterogeneous appearance of the upper spleen, similar to prior. Adrenals: Unremarkable. No mass. Kidneys and ureters: Unremarkable. No hydronephrosis. No solid mass. Stomach and bowel: Unremarkable. No obstruction. No mucosal thickening. PELVIS: Appendix: No findings to suggest acute appendicitis. Bladder: Unremarkable. No mass. Reproductive: Unremarkable as visualized. CHEST, ABDOMEN and PELVIS: Intraperitoneal space: Unremarkable. No significant fluid collection. No free air. Bones/joints: Similar-appearing 1.8 cm lucent lesion in the anterior superior T10 vertebral body which is nonspecific. No acute fracture. No dislocation. Soft tissues: Unremarkable. Vasculature: Scattered atherosclerotic vascular calcifications including at the origins of the mesenteric and renal arteries. No aortic aneurysm. Lymph nodes: Unremarkable. No enlarged lymph nodes. IMPRESSION: 1. There are two large areas of consolidation in the left lower lobe, new compared to the prior exam. Findings are suggestive of pneumonia. 2. Emphysematous changes in lungs with an upper lung predominance, similar to the prior exam. 3. Similar appearing 2 cm spiculated nodule in the left upper lobe. 4. Previously seen right apical nodule is poorly visualized but again measures approximately 1.2 cm. 5. 5 mm nodule within the medial left upper lobe which was poorly visualized on the previous exam. 6. No acute findings in the abdomen/pelvis. 7. Evaluation severely limited by motion artifact. Chest x-ray: COMPARISON: Chest Single View dated 03/16/2021; Chest Single View dated 03/11/2021; Chest Single View dated 12/07/2020; Chest Pa And Lat (2 Views) dated 11/16/2020; Chest For Pe Angio dated 03/11/2021 FINDINGS: Re- demonstrated emphysema without superimposed acute process. The previously identified left upper lobe pulmonary nodule is grossly similar to the chest CT from 03/11/2021. The heart size is within normal limits.No acute osseous abnormality. No significant pleural effusions or pneumothorax. Calcified left lower lobe nodules per IMPRESSION: Advanced emphysema without superimposed acute process. Left upper lobe pulmonary nodule better demonstrated on CT from 03/11/2021. Physical Examination: Vitals: Blood pressure stable. Patient afebrile. Patient remains on a fib. Physical exam: Cardiovascular: A. fib rate around 90-110 Lungs: Currently on 2 L per nasal cannula Abdomen: Within normal limits Neuro: Patient alert, cooperative. Assessment: Septic shock secondary to consolidated left lower lobe pneumonia complicated with Covid 19 and COPD Atrial fibrillation with RVR Chronic anticoagulation therapy Lung cancer with metastasis with CT scan showing 2 cm spiculated nodule in the left upper lobe, 1.2 cm right apical nodule, and 5 mm medial left upper lobe nodule Plan: Septic shock secondary to consolidated left lower lobe pneumonia complicated with Covid 19 and COPD: Continue with antibiotic therapy IV Zosyn. Continue with COPD medication including Brovana, Xopenex, and Atrovent. Currently on 2 L per nasal cannula. Patient also on IV Decadron to cover for COVID-19. Continue with supplementation as well. Continue to monitor the patient closely. Monitor CRP and ferritin. Pulmonology consulted to further evaluate and treat. Await further recommendation. Continue to wean off IV Levophed. Continue IV fluids. Continue to hold IV diuretic therapy. Recheck chest x-ray. Case discussed with patient and son. Patient likely would benefit with LTAC placement. We will pursue this. Atrial fibrillation with RVR: Patient takes sotalol. This was held due to his septic shock. Currently on IV amiodarone. Once blood pressure improves will transition back to sotalol. Continue with Eliquis. Cardiology consulted. Await recommendations. Will check echocardiogram. Chronic anticoagulation therapy: Discontinue Lovenox. Change back to Eliquis. Lung cancer with metastasis with CT scan showing 2 cm spiculated nodule in the left upper lobe, 1.2 cm right apical nodule, and 5 mm medial left upper lobe nodule: Will further monitor. Await recommendations by pulmonology Code status: Patient is full code DVT prophylaxis: Patient on Eliquis Advanced care planning-30 min: Case discussed with patient and son. Both agree with LTAC placement. Social work to help with this. Time Spent Managing Pts Care (In Minutes): 55
[2021-04-04 05:52] LABS: Urine Bilirubin 1+ (Negative)
[2021-04-04 06:00] LABS: Urine Bacteria <20 /HPF (NONE SEEN); Urine RBC 20-50 /HPF (NONE SEEN)
[2021-04-04 06:08] LABS: Absolute Lymphocytes (CBC) 0.8 K/uL (0.7-4.9); Basophils % 0.1 % (0-1.3); Hematocrit 37.1 % (39.6-49.0); Lymphocytes % 5.6 % (15.3-44.8); MPV 7.6 fL (7.6-11.3); RBC Red Blood Cell Count 3.63 M/uL (4.33-5.43)
[2021-04-04 06:14] VITALS: BMI 31.1
[2021-04-04 06:19] LABS: ALT/SGPT 34 U/L (12-78); AST/SGOT 20 U/L (15-37); Albumin 1.8 g/dL (3.4-5.0); Alkaline Phosphatase 94 U/L (45-117); BUN Blood Urea Nitrogen 13 mg/dL (7-18); Bicarbonate 26 mmol/L (21-32); Bilirubin Total 1.8 mg/dL (0.2-1.0); Glucose Level 202 mg/dL (74-106); Magnesium 1.9 mg/dL (1.8-2.4); Potassium 3.5 mmol/L (3.5-5.1); Protein, Total 5.1 g/dL (6.4-8.2); Sodium Level 138 mmol/L (136-145)
[2021-04-04] MEDS ORDERED: KCL 20 MEQ/100 mL IVPB 20 MEQ/100 ML BAG IV SCH (07:00)
[2021-04-04] MEDS: dexAMETHasone 4 MG/ML VIAL IV SCH ×2 (07:55→20:17)
[2021-04-04] MEDS: ENOXAPARIN 100 MG/ML SYR SQ SCH (07:59)
[2021-04-04] MEDS: VITAMIN D 1000 UNIT TAB PO SCH (07:59)
[2021-04-04] MEDS: THIAMINE HCL 100 MG TABLET PO SCH (07:59)
[2021-04-04] MEDS: ZINC SULFATE 220 MG CAP PO SCH (07:59)
[2021-04-04] MEDS: D5 0.45 NS 1,000 ML IV SCH (08:00)
--- NOTE | 2021-04-04 08:14 | RAD REPORT ---
EXAM DESCRIPTION: Head Brain Wo Cont. RadLex: CT HEAD WITHOUT IV CONTRAST CLINICAL HISTORY: WEAKNESS. TECHNIQUE: Axial, coronal, and sagittal images through the brain were performed in the absence of in travenous contrast. This exam was performed according to our departmental dose-optimization program w hich includes use of Automated Exposure Control, adjustment of the mA and/or kV according to patient size and/or use of iterative reconstruction technique. COMPARISON: CT head from March 16, 2021. FINDINGS: There is diffuse age-appropriate atrophy throughout the brain parenchyma. Moderate periven tricular white matter changes are present, and there is mild ex vacuo dilatation of the ventricular s ystem. Region of chronic encephalomalacia in the right frontal lobe white matter. There is no intra-a xial or extra-axial bleed. There is no mass or mass effect. The visualized paranasal sinuses and mastoid air cells are patent. No acute fracture is identified. IMPRESSION: 1. No acute intracranial abnormality identified. 2. Chronic changes. Electronically signed by: Caroline Martinez MD 04/02/2021 10:45 PM CDT Due to temporary technical issues with the PACS/Fluency reporting system, reports are being signed by the in house radiologists without review as a courtesy to insure prompt reporting. The interpreting radiologist is fully responsible for the content of the report.
--- NOTE | 2021-04-04 11:48 | RAD REPORT ---
EXAM DESCRIPTION: CT Chest, Abdomen and Pelvis With Intravenous Contrast CLINICAL HISTORY: The patient is 70 years old and is Male; weakness, back pain, leukocytosis TECHNIQUE: Axial computed tomography images of the chest, abdomen and pelvis with intravenous contra st. Sagittal and coronal reformatted images were created and reviewed. This CT exam was performed using one or more of the following dose reduction techniques: automated exposure control, adjustme nt of the mA and/or kV according to patient size, and/or use of iterative reconstruction technique. COMPARISON: CT chest abdomen and pelvis with contrast March 16, 2021. FINDINGS: Limitations: Evaluation severely limited by motion artifact. CHEST: Lungs: There are two large areas of consolidation in the left lower lobe, new compared to the megan or exam. Emphysematous changes in lungs with an upper lung predominance, similar to the prior exam. Similar appearing 2 cm spiculated nodule in the left upper lobe. Previously seen right apical nodule is poorly visualized but again measures approximately 1.2 cm. 5 mm nodule within the medial left upper lobe which was poorly visualized on the previous exa m. Scattered interstitial thickening in the lungs bilaterally. There are two calcified granulomas in the left lung. Pleural space: Unremarkable. No significant effusion. No pneumothorax. Heart: Unremarkable. No cardiomegaly. No significant pericardial effusion. ABDOMEN: Liver: Unremarkable. No mass. Gallbladder and bile ducts: Unremarkable. No calcified stones. No ductal dilation. Pancreas: Unremarkable. No ductal dilation. No mass. Spleen: Heterogeneous appearance of the upper spleen, similar to prior. Adrenals: Unremarkable. No mass. Kidneys and ureters: Unremarkable. No hydronephrosis. No solid mass. Stomach and bowel: Unremarkable. No obstruction. No mucosal thickening. PELVIS: Appendix: No findings to suggest acute appendicitis. Bladder: Unremarkable. No mass. Reproductive: Unremarkable as visualized. CHEST, ABDOMEN and PELVIS: Intraperitoneal space: Unremarkable. No significant fluid collection. No free air. Bones/joints: Similar-appearing 1.8 cm lucent lesion in the anterior superior T10 vertebral body which is nonspecific. No acute fracture. No dislocation. Soft tissues: Unremarkable. Vasculature: Scattered atherosclerotic vascular calcifications including at the origins of the me senteric and renal arteries. No aortic aneurysm. Lymph nodes: Unremarkable. No enlarged lymph nodes. IMPRESSION: 1. There are two large areas of consolidation in the left lower lobe, new compared to the prior exam. Findings are suggestive of pneumonia. 2. Emphysematous changes in lungs with an upper lung predominance, similar to the prior exam. 3. Similar appearing 2 cm spiculated nodule in the left upper lobe. 4. Previously seen right apical nodule is poorly visualized but again measures approximately 1.2 cm . 5. 5 mm nodule within the medial left upper lobe which was poorly visualized on the previous exam. 6. No acute findings in the abdomen/pelvis. 7. Evaluation severely limited by motion artifact. Electronically signed by: Pradeep Edouard MD 04/03/2021 1:29 AM CDT Due to temporary technical issues with the PACS/Fluency reporting system, reports are being signed by the in house radiologists without review as a courtesy to insure prompt reporting. The interpreting radiologist is fully responsible for the content of the report.
[2021-04-04] MEDS ORDERED: IPRATROPIUM BROM 0.5MG/2.5ML NEB PRN (15:07)
[2021-04-04] MEDS ORDERED: LEVALBUTEROL 0.63 MG/3 ML NEB NEB PRN (15:14)
[2021-04-04] MEDS: NACHLORIDE 0.45% 1,000 ML IV SCH (15:29)
[2021-04-04] MEDS: ARFORMOTEROL TARTRATE 15 MCG/2 ML VIAL.NEB NEB SCH (20:05)
[2021-04-04] MEDS: APIXABAN 5 MG TABLET PO SCH (20:17)
--- NOTE | 2021-04-04 21:04 | P.CNS ---
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 Lives by himself. - Social History Smoking Status: Unknown if ever smoked Alcohol use: Yes CD- Drugs: No Caffeine use: Yes Place of Residence: Home Review of Systems is unable to be obtained Physical Examination Temp Pulse Resp BP Pulse Ox 97.4 F 102 H 22 H 90/67 97 04/04/21 20:00 04/04/21 20:45 04/04/21 20:45 04/04/21 20:45 04/04/21 20:45 - Problems (1) Septic shock Current Visit: Yes Status: Acute Plan: age 70 AW septic shock, G- rods in bloodWBC declininglung cancer with mets/on Zosyn/NC in treatment/ bolus pt off levophed/ D/c decdron/ Doubt COVID penumonia/ Alert responsive coperative minimla O2
[2021-04-04] MEDS: NA CHLORIDE 0.9% 250 ML IV PRN ×2 (23:30→23:45)
[2021-04-05] MEDS: PIPER/TAZO/NS 3.375gm 3.375 GM/100 ML BAG IVPB SCH ×3 (00:47→17:16)
[2021-04-05] MEDS: ACETAMINOPHEN 325 MG TABLET PO SCH (02:24)
[2021-04-05] MEDS: NA CHLORIDE 0.9% 250 ML IV PRN ×2 (03:00→03:15)
[2021-04-05] MEDS: NACHLORIDE 0.45% 1,000 ML IV SCH ×2 (05:20→13:30)
--- NOTE | 2021-04-05 05:50 | P.PN ---
Subjective Date of Service: 04/05/21 Chief Complaint: Sepsis, pneumonia Subjective: Improving (Patient was taken off Levophed last night. IV fluid bolus given last night. Blood pressure stable.) Physical Examination - Vital Signs Temperature: 96.6 F Blood Pressure: 89/62 Pulse: 101 Respirations: 20 Pulse Ox (%): 96 Assessment & Plan Discharge Plan: LTAC Plan to discharge in: Greater than 2 days Physician Review Additional Text: COVID: Positive CT head: COMPARISON: CT head from March 16, 2021. FINDINGS: There is diffuse age-appropriate atrophy throughout the brain parenchyma. Moderate periventricular white matter changes are present, and there is mild ex vacuo dilatation of the ventricular system. Region of chronic encephalomalacia in the right frontal lobe white matter. There is no intra-axial or extra-axial bleed. There is no mass or mass effect. The visualized paranasal sinuses and mastoid air cells are patent. No acute fracture is identified. IMPRESSION: 1. No acute intracranial abnormality identified. 2. Chronic changes. CT chest: COMPARISON: CT chest abdomen and pelvis with contrast March 16, 2021. FINDINGS: Limitations: Evaluation severely limited by motion artifact. CHEST: Lungs: There are two large areas of consolidation in the left lower lobe, new compared to the prior exam. Emphysematous changes in lungs with an upper lung predominance, similar to the prior exam. Similar appearing 2 cm spiculated nodule in the left upper lobe. Previously seen right apical nodule is poorly visualized but again measures approximately 1.2 cm. 5 mm nodule within the medial left upper lobe which was poorly visualized on the previous exam. Scattered interstitial thickening in the lungs bilaterally. There are two calcified granulomas in the left lung. Pleural space: Unremarkable. No significant effusion. No pneumothorax. Heart: Unremarkable. No cardiomegaly. No significant pericardial effusion. ABDOMEN: Liver: Unremarkable. No mass. Gallbladder and bile ducts: Unremarkable. No calcified stones. No ductal dilation. Pancreas: Unremarkable. No ductal dilation. No mass. Spleen: Heterogeneous appearance of the upper spleen, similar to prior. Adrenals: Unremarkable. No mass. Kidneys and ureters: Unremarkable. No hydronephrosis. No solid mass. Stomach and bowel: Unremarkable. No obstruction. No mucosal thickening. PELVIS: Appendix: No findings to suggest acute appendicitis. Bladder: Unremarkable. No mass. Reproductive: Unremarkable as visualized. CHEST, ABDOMEN and PELVIS: Intraperitoneal space: Unremarkable. No significant fluid collection. No free air. Bones/joints: Similar-appearing 1.8 cm lucent lesion in the anterior superior T10 vertebral body which is nonspecific. No acute fracture. No dislocation. Soft tissues: Unremarkable. Vasculature: Scattered atherosclerotic vascular calcifications including at the origins of the mesenteric and renal arteries. No aortic aneurysm. Lymph nodes: Unremarkable. No enlarged lymph nodes. IMPRESSION: 1. There are two large areas of consolidation in the left lower lobe, new compared to the prior exam. Findings are suggestive of pneumonia. 2. Emphysematous changes in lungs with an upper lung predominance, similar to the prior exam. 3. Similar appearing 2 cm spiculated nodule in the left upper lobe. 4. Previously seen right apical nodule is poorly visualized but again measures approximately 1.2 cm. 5. 5 mm nodule within the medial left upper lobe which was poorly visualized on the previous exam. 6. No acute findings in the abdomen/pelvis. 7. Evaluation severely limited by motion artifact. Chest x-ray: COMPARISON: Chest Single View dated 04/02/2021; Chest Single View dated 03/16/2021; Chest Single View dated 03/11/2021; Chest Single View dated 12/07/2020; Chest Abdomen Pelvis W Cont dated 04/03/2021 FINDINGS: Consolidative airspace disease in left lung is again identified. This is grossly similar to the chest CT from 04/03/2021. Background of emphysema b orderline cardiomegalyNo acute osseous abnormality. Suspect small left effusion. IMPRESSION: Airspace disease in the left lung is grossly similar to the chest CT from 04/03/2021 and may reflect pneumonia. Physical Examination: Vitals: Blood pressure stable. Patient afebrile. Patient remains on a fib. Physical exam: Cardiovascular: A. fib rate around 90-110 Lungs: Currently on 1 L per nasal cannula Abdomen: Within normal limits Neuro: Patient alert, cooperative. Assessment: Septic shock secondary to consolidated left lower lobe pneumonia complicated with Covid 19, COPD and bacteremia gram-negative rods Atrial fibrillation with RVR Chronic anticoagulation therapy Lung cancer with metastasis with CT scan showing 2 cm spiculated nodule in the left upper lobe, 1.2 cm right apical nodule, and 5 mm medial left upper lobe nodule Plan: Septic shock secondary to consolidated left lower lobe pneumonia complicated with Covid 19, COPD, and bacteremia gram-negative rods: Continue with antibiotic therapy IV Zosyn. Cultures pending. Gram-negative rods noted. Continue with COPD medication including Brovana, Xopenex, and Atrovent. Currently on 2 L per nasal cannula. Patient was weaned off IV Levophed. Continue IV fluid hydration. Patient taken off IV Decadron as pulmonology feels this is bacterial related. Patient with COVID-19 but likely not related to Covid pneumonia. Continue to monitor CRP and ferritin. Will monitor closely. Patient off IV diuretic therapyAldactone. Recheck chest x-ray tomorrow. Monitor lab closely. Continue to wean off IV fluids. Awaiting LTAC placement approval. Atrial fibrillation with RVR: Patient takes sotalol. This was held due to his septic shock. Currently on IV amiodarone. Once blood pressure improves will transition back to sotalol but will discuss with cardiology. Continue with Eliquis. Cardiology consulted. Await recommendations. Will check echocardiogram. Chronic anticoagulation therapy: Patient remains on Eliquis Lung cancer with metastasis with CT scan showing 2 cm spiculated nodule in the left upper lobe, 1.2 cm right apical nodule, and 5 mm medial left upper lobe nodule: Will further monitor. Await recommendations by pulmonology Code status: Patient is full code DVT prophylaxis: Patient on Eliquis Advanced care planning-30 min: Case discussed with patient and son. Both agree with LTAC placement. Social work to help with this. Time Spent Managing Pts Care (In Minutes): 55
[2021-04-05 06:09] LABS: Absolute Lymphocytes (CBC) 0.8 K/uL (0.7-4.9); Basophils % 0.1 % (0-1.3); Hematocrit 35.3 % (39.6-49.0); Lymphocytes % 7.4 % (15.3-44.8); MPV 8.3 fL (7.6-11.3); RBC Red Blood Cell Count 3.45 M/uL (4.33-5.43)
[2021-04-05] MEDS: ACETAMINOPHEN 325 MG TABLET PO PRN ×2 (06:17→20:06)
[2021-04-05 06:29] LABS: ALT/SGPT 27 U/L (12-78); AST/SGOT 14 U/L (15-37); Albumin 1.6 g/dL (3.4-5.0); Alkaline Phosphatase 101 U/L (45-117); BUN Blood Urea Nitrogen 11 mg/dL (7-18); Bicarbonate 26 mmol/L (21-32); Bilirubin Total 1.2 mg/dL (0.2-1.0); Ferritin 995.5 ng/mL (26-388); Glucose Level 167 mg/dL (74-106); Magnesium 1.8 mg/dL (1.8-2.4); Potassium 3.8 mmol/L (3.5-5.1); Protein, Total 5.4 g/dL (6.4-8.2); Sodium Level 137 mmol/L (136-145)
--- NOTE | 2021-04-05 07:38 | RAD REPORT ---
EXAM DESCRIPTION: RAD - Chest Single View - 04/05/2021 7:20 am CLINICAL HISTORY: Follow-up Covid, pneumonia COMPARISON: Chest Single View dated 04/02/2021; Chest Single View dated 03/16/2021; Chest Single View dated 03/11/2021; Chest Single View dated 12/07/2020; Chest Abdomen Pelvis W Cont dated 04/03/2021 FINDINGS: Consolidative airspace disease in left lung is again identified. This is grossly similar t o the chest CT from 04/03/2021. Background of emphysema borderline cardiomegalyNo acute osseous abnor mality. Suspect small left effusion. IMPRESSION: Airspace disease in the left lung is grossly similar to the chest CT from 04/03/2021 and may reflect pneumonia.
[2021-04-05] MEDS: levETIRAcetam 500 MG TAB PO SCH ×2 (08:10→20:07)
[2021-04-05] MEDS: THIAMINE HCL 100 MG TABLET PO SCH (08:10)
[2021-04-05] MEDS: LEVOTHYROXINE SOD 0.075 MG TAB PO SCH (08:10)
[2021-04-05] MEDS: ZINC SULFATE 220 MG CAP PO SCH (08:10)
[2021-04-05] MEDS: APIXABAN 5 MG TABLET PO SCH ×2 (08:10→20:07)
[2021-04-05] MEDS: VITAMIN D 1000 UNIT TAB PO SCH (08:10)
[2021-04-05] MEDS: allopurinoL 300 MG TAB PO SCH (08:12)
[2021-04-05] MEDS: ARFORMOTEROL TARTRATE 15 MCG/2 ML VIAL.NEB NEB SCH ×2 (10:15→19:30)
[2021-04-06] MEDS: PIPER/TAZO/NS 3.375gm 3.375 GM/100 ML BAG IVPB SCH (00:28)
[2021-04-06 04:45] LABS: Absolute Lymphocytes (CBC) 0.9 K/uL (0.7-4.9); Basophils % 0.5 % (0-1.3); Hematocrit 34.2 % (39.6-49.0); Lymphocytes % 8.7 % (15.3-44.8); RBC Red Blood Cell Count 3.39 M/uL (4.33-5.43)
[2021-04-06 05:16] LABS: Blood Morphology Comment NOT SEEN (NOT SEEN); Platelet Estimate ADEQ
[2021-04-06 05:22] LABS: ALT/SGPT 52 U/L (12-78); AST/SGOT 37 U/L (15-37); Albumin 1.5 g/dL (3.4-5.0); Alkaline Phosphatase 139 U/L (45-117); BUN Blood Urea Nitrogen 13 mg/dL (7-18); Bicarbonate 26 mmol/L (21-32); Ferritin 1111.5 ng/mL (26-388); Glucose Level 180 mg/dL (74-106); Magnesium 1.7 mg/dL (1.8-2.4); Potassium 3.8 mmol/L (3.5-5.1); Protein, Total 5.4 g/dL (6.4-8.2); Sodium Level 136 mmol/L (136-145)
--- NOTE | 2021-04-06 05:51 | P.PN ---
Subjective Date of Service: 04/06/21 Chief Complaint: Sepsis, pneumonia Subjective: Improving (Patient off Levophed. Patient continues on IV fluids.) Physical Examination - Vital Signs Temperature: 97.2 F Blood Pressure: 105/68 Pulse: 87 Respirations: 20 Pulse Ox (%): 97 - Studies Microbiology Data (last 24 hrs): 04/03/21 00:15 Clean Catch Urine [place] Count - Final No growth. 04/03/21 00:15 Clean Catch Urine - Final No growth. Assessment & Plan Discharge Plan: LTAC Plan to discharge in: 24 Hours Physician Review Additional Text: COVID: Positive CT head: COMPARISON: CT head from March 16, 2021. FINDINGS: There is diffuse age-appropriate atrophy throughout the brain parenc hyma. Moderate periventricular white matter changes are present, and there is mild ex vacuo dilatation of the ventricular system. Region of chronic encephalomalacia in the right frontal lobe white matter. There is no intra-axial or extra-axial bleed. There is no mass or mass effect. The visualized paranasal sinuses and mastoid air cells are patent. No acute fracture is identified. IMPRESSION: 1. No acute intracranial abnormality identified. 2. Chronic changes. CT chest: COMPARISON: CT chest abdomen and pelvis with contrast March 16, 2021. FINDINGS: Limitations: Evaluation severely limited by motion artifact. CHEST: Lungs: There are two large areas of consolidation in the left lower lobe, new compared to the prior exam. Emphysematous changes in lungs with an upper lung predominance, similar to the prior exam. Similar appearing 2 cm spiculated nodule in the left upper lobe. Previously seen right apical nodule is poorly visualized but again measures approximately 1.2 cm. 5 mm nodule within the medial left upper lobe which was poorly visualized on the previous exam. Scattered interstitial thickening in the lungs bilaterally. There are two calcified granulomas in the left lung. Pleural space: Unremarkable. No significant effusion. No pneumothorax. Heart: Unremarkable. No cardiomegaly. No significant pericardial effusion. ABDOMEN: Liver: Unremarkable. No mass. Gallbladder and bile ducts: Unremarkable. No calcified stones. No ductal dilation. Pancreas: Unremarkable. No ductal dilation. No mass. Spleen: Heterogeneous appearance of the upper spleen, similar to prior. Adrenals: Unremarkable. No mass. Kidneys and ureters: Unremarkable. No hydronephrosis. No solid mass. Stomach and bowel: Unremarkable. No obstruction. No mucosal thickening. PELVIS: Appendix: No findings to suggest acute appendicitis. Bladder: Unremarkable. No mass. Reproductive: Unremarkable as visualized. CHEST, ABDOMEN and PELVIS: Intraperitoneal space: Unremarkable. No significant fluid collection. No free air. Bones/joints: Similar-appearing 1.8 cm lucent lesion in the anterior superior T10 vertebral body which is nonspecific. No acute fracture. No dislocation. Soft tissues: Unremarkable. Vasculature: Scattered atherosclerotic vascular calcifications including at the origins of the mesenteric and renal arteries. No aortic aneurysm. Lymph nodes: Unremarkable. No enlarged lymph nodes. IMPRESSION: 1. There are two large areas of consolidation in the left lower lobe, new compared to the prior exam. Findings are suggestive of pneumonia. 2. Emphysematous changes in lungs with an upper lung predominance, similar to the prior exam. 3. Similar appearing 2 cm spiculated nodule in the left upper lobe. 4. Previously seen right apical nodule is poorly visualized but again measures approximately 1.2 cm. 5. 5 mm nodule within the medial left upper lobe which was poorly visualized on the previous exam. 6. No acute findings in the abdomen/pelvis. 7. Evaluation severely limited by motion artifact. Chest x-ray: COMPARISON: Chest Single View dated 04/02/2021; Chest Single View dated 03/16/2021; Chest Single View dated 03/11/2021; Chest Single View dated 12/07/2020; Chest Abdomen Pelvis W Cont dated 04/03/2021 FINDINGS: Consolidative airspace disease in left lung is again identified. This is grossly similar to the chest CT from 04/03/2021. Background of emphysema borderline cardiomegalyNo acute osseous abnormality. Suspect small left effusion. IMPRESSION: Airspace disease in the left lung is grossly similar to the chest CT from 04/03/2021 and may reflect pneumonia. Physical Examination: Vitals: Blood pressure stable. Physical exam: Cardiovascular: A. fib rate controlled. Lungs: Lungs appear clear. Patient without respiratory distress currently on 1 L per nasal cannula Abdomen: Soft, nontender Neuro: Patient alert, cooperative. Assessment: Septic shock secondary to consolidated left lower lobe pneumonia complicated with Covid 19, COPD and bacteremia with positive blood cultures for Pseudomonas Atrial fibrillation with RVR Chronic anticoagulation therapy Lung cancer with metastasis with CT scan showing 2 cm spiculated nodule in the left upper lobe, 1.2 cm right apical nodule, and 5 mm medial left upper lobe nodule Plan: Septic shock secondary to consolidated left lower lobe pneumonia complicated with Covid 19, COPD, and bacteremia gram-negative rods: Patient now off IV Levophed. Continue with IV fluids. Blood cultures positive for Pseudomonas. Discontinue IV Zosyn. We will switch to IV Levaquin. Blood cultures repeated yesterday. Await findings. May need to repeat if still abnormal since IV Zosyn was resistant. Continue to monitor closely. Patient on 1 L per nasal cannula. Patient off diuretic therapy. Patient no longer on IV steroids. Continue with vitamin supplementation. Awaiting approval for LTAC. Continue physical therapy. Will discuss with family. Atrial fibrillation with RVR: Patient takes sotalol. This was held due to his septic shock. Currently on IV amiodarone. Once blood pressure improves will need to consider to transition back to sotalol but will discuss with cardiology. Continue with Eliquis. Cardiology consulted. Await recommendations. Will check echocardiogram. Chronic anticoagulation therapy: Patient remains on Eliquis Lung cancer with metastasis with CT scan showing 2 cm spiculated nodule in the left upper lobe, 1.2 cm right apical nodule, and 5 mm medial left upper lobe nodule: Will further monitor. Await recommendations by pulmonology Code status: Patient is full code DVT prophylaxis: Patient on Eliquis Advanced care planning-30 min: Case discussed with patient and son. Both agree with LTAC placement. Social work to help with this. Time Spent Managing Pts Care (In Minutes): 55
[2021-04-06] MEDS ORDERED: MAGNESIUM SULFATE 1 gm IVPB 1 GM/100 ML BAG IV ONE ×2 (06:13→08:00)
[2021-04-06] MEDS ORDERED: KCL 20 MEQ/100 mL IVPB 20 MEQ/100 ML BAG IV SCH ×2 (07:00→08:00)
[2021-04-06] MEDS: ZINC SULFATE 220 MG CAP PO SCH (07:28)
[2021-04-06] MEDS: levETIRAcetam 500 MG TAB PO SCH ×2 (07:28→20:06)
[2021-04-06] MEDS: APIXABAN 5 MG TABLET PO SCH ×2 (07:28→20:06)
[2021-04-06] MEDS: LEVOTHYROXINE SOD 0.075 MG TAB PO SCH (07:28)
[2021-04-06] MEDS: THIAMINE HCL 100 MG TABLET PO SCH (07:28)
[2021-04-06] MEDS: allopurinoL 300 MG TAB PO SCH (07:29)
[2021-04-06] MEDS: VITAMIN D 1000 UNIT TAB PO SCH (07:29)
[2021-04-06] MEDS: ACETAMINOPHEN 325 MG TABLET PO PRN (07:47)
[2021-04-06] MEDS: NACHLORIDE 0.45% 1,000 ML IV SCH ×2 (08:00→20:06)
[2021-04-06] MEDS: ARFORMOTEROL TARTRATE 15 MCG/2 ML VIAL.NEB NEB SCH ×2 (08:30→19:50)
--- NOTE | 2021-04-06 09:07 | RAD REPORT ---
EXAM DESCRIPTION: RAD - Chest Single View - 04/06/2021 5:37 am CLINICAL HISTORY: follow up pneumonia Chest pain. COMPARISON: Chest Single View dated 04/05/2021; Chest Single View dated 04/02/2021; Chest Single View d ated 03/16/2021; Chest Single View dated 03/11/2021 FINDINGS: Portable technique limits examination quality. Extensive bilateral pulmonary opacities are noted, showing no real change since yesterday's study. Th e heart is normal in size. No displaced fractures. IMPRESSION: No significant change is seen since yesterday's study.
--- NOTE | 2021-04-06 10:39 | P.PN ---
Subjective Date of Service: 04/06/21 Chief Complaint: Sepsis, pneumonia Subjective: Improving (Stable. Pseudomonas bactermia) Review of Systems General: Weakness Physical Examination - Vital Signs Temperature: 97.2 F Blood Pressure: 105/68 Pulse: 87 Respirations: 20 Pulse Ox (%): 97 - Physical Exam General: Alert, In no apparent distress, Oriented x3, Cooperative - Studies Microbiology Data (last 24 hrs): 04/03/21 01:55 Blood - Blood Aerobic Blood Culture - Final Pseudomonas Aeruginosa 04/03/21 01:55 Blood - Blood Blood Culture Gram Stain - Final 04/03/21 00:15 Clean Catch Urine [place] Count - Final No growth. 04/03/21 00:15 Clean Catch Urine - Final No growth. Assessment & Plan - Problems (Diagnosis) (1) Septic shock Current Visit: Yes Status: Acute Plan: Resolved/ pseudomonas baceremia/ Eating and drinking/ labs rev O2 satisfactory/ off vasopressore. O2 satisfactory
[2021-04-06] MEDS: Levofloxacin 750mg IV 750 MG/150 ML BAG IV SCH (11:02)
[2021-04-06 23:14] VITALS: O2SAT 95
--- NOTE | 2021-04-07 05:49 | P.PN ---
Subjective Date of Service: 04/07/21 Chief Complaint: Sepsis, pneumonia Subjective: Other (Patient overall stable. Patient remains on IV amiodarone, IV fluids.) Physical Examination - Vital Signs Temperature: 97.0 F Blood Pressure: 97/62 Pulse: 104 Respirations: 19 Pulse Ox (%): 95 - Studies Microbiology Data (last 24 hrs): 04/03/21 01:55 Blood - Blood Aerobic Blood Culture - Final Pseudomonas Aeruginosa 04/03/21 01:55 Blood - Blood Blood Culture Gram Stain - Final Assessment & Plan Discharge Plan: LTAC Plan to discharge in: 24 Hours Physician Review Additional Text: COVID: Positive CT head: COMPARISON: CT head from March 16, 2021. FINDINGS: There is diffuse age-appropriate atrophy throughout the brain parenchyma. Moderate periventricular white matter changes are present, and there is mild ex vacuo dilatation of the ventricular system. Region of chronic encephalomalacia in the right frontal lobe white matter. There is no intra-axial or extra-axial bleed. There is no mass or mass effect. The visualized paranasal sinuses and mastoid air cells are patent. No acute fracture is identified. IMPRESSION: 1. No acute intracranial abnormality identified. 2. Chronic changes. CT chest: COMPARISON: CT chest abdomen and pelvis with contrast March 16, 2021. FINDINGS: Limitations: Evaluation severely limited by motion artifact. CHEST: Lungs: There are two large areas of consolidation in the left lower lobe, new compared to the prior exam. Emphysematous changes in lungs with an upper lung predominance, similar to the prior exam. Similar appearing 2 cm spiculated nodule in the left upper lobe. Previously seen right apical nodule is poorly visualized but again measures approximately 1.2 cm. 5 mm nodule within the medial left upper lobe which was poorly visualized on the previous exam. Scattered interstitial thickening in the lungs bilaterally. There are two calcified granulomas in the left lung. Pleural space: Unremarkable. No significant effusion. No pneumothorax. Heart: Unremarkable. No cardiomegaly. No significant pericardial effusion. ABDOMEN: Liver: Unremarkable. No mass. Gallbladder and bile ducts: Unremarkable. No calcified stones. No ductal dilation. Pancreas: Unremarkable. No ductal dilation. No mass. Spleen: Heterogeneous appearance of the upper spleen, similar to prior. Adrenals: Unremarkable. No mass. Kidneys and ureters: Unremarkable. No hydronephrosis. No solid mass. Stomach and bowel: Unremarkable. No obstruction. No mucosal thickening. PELVIS: Appendix: No findings to suggest acute appendicitis. Bladder: Unremarkable. No mass. Reproductive: Unremarkable as visualized. CHEST, ABDOMEN and PELVIS: Intraperitoneal space: Unremarkable. No significant fluid collection. No free air. Bones/joints: Similar-appearing 1.8 cm lucent lesion in the anterior superior T10 vertebral body which is nonspecific. No acute fracture. No dislocation. Soft tissues: Unremarkable. Vasculature: Scattered atherosclerotic vascular calcifications including at the origins of the mesenteric and renal arteries. No aortic aneurysm. Lymph nodes: Unremarkable. No enlarged lymph nodes. IMPRESSION: 1. There are two large areas of consolidation in the left lower lobe, new compared to the prior exam. Findings are suggestive of pneumonia. 2. Emphysematous changes in lungs with an upper lung predominance, similar to the prior exam. 3. Similar appearing 2 cm spiculated nodule in the left upper lobe. 4. Previously seen right apical nodule is poorly visualized but again measures approximately 1.2 cm. 5. 5 mm nodule within the medial left upper lobe which was poorly visualized on the previous exam. 6. No acute findings in the abdomen/pelvis. 7. Evaluation severely limited by motion artifact. Chest x-ray: COMPARISON: Chest Single View dated 04/02/2021; Chest Single View dated 03/16/2021; Chest Single View dated 03/11/2021; Chest Single View dated 12/07/2020; Chest Abdomen Pelvis W Cont dated 04/03/2021 FINDINGS: Consolidative airspace disease in left lung is again identified. This is grossly similar to the chest CT from 04/03/2021. Background of emphysema borderline cardiomegalyNo acute osseous abnormality. Suspect small left effusion. IMPRESSION: Airspace disease in the left lung is grossly similar to the chest CT from 04/03/2021 and may reflect pneumonia. Physical Examination: Vitals: Blood pressure remained stable. No significant hypotension. Physical exam: Cardiovascular: A. fib rate controlled. Lungs: No respiratory distress noted patient on room air. Abdomen: Soft, nontender Neuro: Patient alert, cooperative. Assessment: Septic shock secondary to consolidated left lower lobe pneumonia complicated with Covid 19, COPD and bacteremia with positive blood cultures for Pseudomonas Atrial fibrillation with RVR Chronic anticoagulation therapy Lung cancer with metastasis with CT scan showing 2 cm spiculated nodule in the left upper lobe, 1.2 cm right apical nodule, and 5 mm medial left upper lobe nodule Hypothyroidism Plan: Septic shock secondary to consolidated left lower lobe pneumonia complicated with Covid 19, COPD, and bacteremia gram-negative rods: Patient remains off IV Levophed. Will add midodrine due to low blood pressure. Patient remains on IV fluids but will decrease fluids at this time. Blood cultures positive for Pseudomonas. Patient currently on IV Levaquin. Repeat blood culture so far negative. Continue to work with physical therapy. Recheck chest x-ray today. Will discuss with insurance on [id number] for approval for long-term acute care facility placement. I would recommend long-term acute care facility placement as the patient still on IV amiodarone, IV Levaquin and requires continued physical therapy. Atrial fibrillation with RVR: Patient previously on sotalol. Has not been restarted due to low blood pressure. Patient remains on IV amiodarone. Will consider switching back to sotalol once blood pressures more stable or consider with oral amiodarone. Will discuss with cardiology. Echocardiogram obtained. Chronic anticoagulation therapy: Patient remains on Eliquis Lung cancer with metastasis with CT scan showing 2 cm spiculated nodule in the left upper lobe, 1.2 cm right apical nodule, and 5 mm medial left upper lobe nodule: Patient remains on Keppra. Spoke with his radiology oncologist. Patient was to continue with radiation therapy but this has been held due to his current status. Radiology oncology agrees with plan for LTAC. Patient will need to be stronger in order to get back on radiation. He further recommends getting an MRI with and without contrast to evaluate to see if patient still has metastasis to the brain. This may be difficult at this time. Will check to see if this can be done if not this can likely be done at the LTAC facility. Recent CT scan did not show any significant change. Hypothyroidism: Continue with medication Code status: Patient is full code DVT prophylaxis: Patient on Eliquis Advanced care planning-30 min: Case discussed with patient and son. Both agree with LTAC placement. Social work to help with this. Time Spent Managing Pts Care (In Minutes): 55
[2021-04-07 06:04] LABS: Basophils % 0.5 % (0-1.3); Lymphocytes % 17.8 % (15.3-44.8); MPV 8.5 fL (7.6-11.3); RBC Red Blood Cell Count 3.65 M/uL (4.33-5.43)
[2021-04-07 06:20] LABS: ALT/SGPT 57 U/L (12-78); AST/SGOT 32 U/L (15-37); Albumin 1.5 g/dL (3.4-5.0); Alkaline Phosphatase 170 U/L (45-117); BUN Blood Urea Nitrogen 8 mg/dL (7-18); Bicarbonate 26 mmol/L (21-32); Bilirubin Total 1.1 mg/dL (0.2-1.0); Ferritin 1037.8 ng/mL (26-388); Glucose Level 142 mg/dL (74-106); Magnesium 1.7 mg/dL (1.8-2.4); Potassium 3.8 mmol/L (3.5-5.1); Protein, Total 5.9 g/dL (6.4-8.2); Sodium Level 135 mmol/L (136-145)
[2021-04-07] MEDS: levETIRAcetam 500 MG TAB PO SCH (08:11)
[2021-04-07] MEDS: THIAMINE HCL 100 MG TABLET PO SCH (08:11)
[2021-04-07] MEDS: VITAMIN D 1000 UNIT TAB PO SCH (08:11)
[2021-04-07] MEDS: APIXABAN 5 MG TABLET PO SCH (08:11)
[2021-04-07] MEDS: Levofloxacin 750mg IV 750 MG/150 ML BAG IV SCH (08:11)
[2021-04-07] MEDS: LEVOTHYROXINE SOD 0.075 MG TAB PO SCH (08:11)
[2021-04-07] MEDS: allopurinoL 300 MG TAB PO SCH (08:12)
[2021-04-07] MEDS: ZINC SULFATE 220 MG CAP PO SCH (08:12)
[2021-04-07] MEDS: ARFORMOTEROL TARTRATE 15 MCG/2 ML VIAL.NEB NEB SCH (08:44)
[2021-04-07] MEDS ORDERED: NACHLORIDE 0.45% 1,000 ML IV SCH (09:24)
[2021-04-07] MEDS ORDERED: MAGNESIUM SULFATE 1 gm IVPB 1 GM/100 ML BAG IV ONE (10:00)
[2021-04-07] MEDS ORDERED: POTASSIUM CL SA 10 MEQ TAB PO ONE (10:00)
[2021-04-07 10:28] LABS: Anisocytosis SLIGHT; Blood Morphology Comment NOTED (NOT SEEN); Macrocytosis SLIGHT; Platelet Estimate DECR
[2021-04-07] MEDS ORDERED: Meropenem 1 GM/100 ML BAG IV SCH (10:30)
--- NOTE | 2021-04-07 10:35 | RAD REPORT ---
EXAM DESCRIPTION: RAD - Chest Single View - 04/07/2021 10:17 am CLINICAL HISTORY: follow up COVID Chest pain. COMPARISON: Chest Single View dated 04/06/2021; Chest Single View dated 04/05/2021; Chest Single View da anthony 04/02/2021; Chest Single View dated 03/16/2021; Chest Abdomen Pelvis W Cont dated 04/03/2021 FINDINGS: Portable technique limits examination quality. Mild worsening in moderate bilateral pulmonary opacities are seen since comparative study. The heart is mildly moderately enlarged. No displaced fractures.Aortic atherosclerosis. IMPRESSION: Mild worsening in lung aeration is seen since yesterday's study.
--- NOTE | 2021-04-07 11:21 | PN ---
Date of Progress Note: 04/05/2021 Mr. Chapman came in with sepsis, COVID, atrial fibrillation, COPD, hypotension, metastatic disease o f lung cancer, gout, hypothyroidism, sleep apnea, history of DVT, had been in atrial fibrillation, on IV amiodarone now. He remains on Levophed for hypotension. Echocardiogram from November of this year was normal. I would not repeat any further cardiac workup. C ontinue IV amiodarone. Hold sotalol. Continue Lovenox, whenever he is able to take p.o. we can swit ch him to p.o. amiodarone. Continue steroids and antibiotics. I will sign off his case. AGUSTINA/LESA Voice ID: [id number] Report ID: [id number]
--- NOTE | 2021-04-07 11:21 | CON ---
Date of Consultation: 04/04/2021 Reason For Consultation: Atrial fibrillation. History Of Present Illness: Mr. Chapman is 70. Was admitted with COVID, sepsis, COPD, has lung can cer and has had a history of atrial fibrillation, congestive heart failure in the past. Has sleep ap socorro, DVT, gout, thyroidism. His lung cancer has metastatic disease to the brain, went into atrial fi brillation. I was consulted. The patient is already taking Eliquis. He is hypotensive. He is on L evophed. He is on Lovenox now instead of the Eliquis. He is getting inhaler, steroids, and antibiot ics. His atrial fibrillation has a rate of 100. Past Medical History: As stated above. Allergies: NONE. Review of Systems: Negative. Social History: Unobtainable. Family History: Unobtainable. Medications: At home include sotalol, levothyroxine, allopurinol, Eliquis. Physical Examination: Vital Signs: He was in atrial fibrillation, rate 100. HEENT: Negative. Neck: Supple with no bruit. Chest: Reveals crackles both sides. Cardiac: Atrial fibrillation. Abdomen: Benign. Extremities: No clubbing, cyanosis, or edema. Diagnostic Data: Showed a white count of 23,000. Atrial fibrillation at 100. Impression And Plan: Atrial fibrillation, actually paroxysmal. He takes sotalol and Eliquis at home . He is hypotensive and I would prefer to put him on IV amiodarone instead of the sotalol. Continue his Lovenox. Continue inhaler, steroids, and antibiotics. Continue his Levophed for his hypotensio n. Get an echocardiogram. I will be around for questions if the need arises. AGUSTINA/LESA Voice ID: [id number] Report ID: [id number]
[2021-04-07] MEDS: MIDODRINE HCL 5 MG TABLET PO SCH ×2 (12:44→17:30)
--- NOTE | 2021-04-07 16:08 | P.DS ---
Admission Date: 04/03/21 Discharge Date: 04/07/21 Primary Care Provider: unknown Disposition: [facility] Discharge Condition: FAIR Reason for Admission: Sepsis, pneumonia Consultations: Cardiology-Dr. Pizarro Pulmonary-Dr. Sparrow Procedures: COVID: Positive CT head: COMPARISON: CT head from March 16, 2021. FINDINGS: There is diffuse age-appropriate atrophy throughout the brain parenchyma. Moderate periventricular white matter changes are present, and there is mild ex vacuo dilatation of the ventricular system. Region of chronic encephalomalacia in the right frontal lobe white matter. There is no intra-axial or extra-axial bleed. There is no mass or mass effect. The visualized paranasal sinuses and mastoid air cells are patent. No acute fracture is identified. IMPRESSION: 1. No acute intracranial abnormality identified. 2. Chronic changes. CT chest: COMPARISON: CT chest abdomen and pelvis with contrast March 16, 2021. FINDINGS: Limitations: Evaluation severely limited by motion artifact. CHEST: Lungs: There are two large areas of consolidation in the left lower lobe, new compared to the prior exam. Emphysematous changes in lungs with an upper lung predominance, similar to the prior exam. Similar appearing 2 cm spiculated nodule in the left upper lobe. Previously seen right apical nodule is poorly visualized but again measures approximately 1.2 cm. 5 mm nodule within the medial left upper lobe which was poorly visualiz ed on the previous exam. Scattered interstitial thickening in the lungs bilaterally. There are two calcified granulomas in the left lung. Pleural space: Unremarkable. No significant effusion. No pneumothorax. Heart: Unremarkable. No cardiomegaly. No significant pericardial effusion. ABDOMEN: Liver: Unremarkable. No mass. Gallbladder and bile ducts: Unremarkable. No calcified stones. No ductal dilation. Pancreas: Unremarkable. No ductal dilation. No mass. Spleen: Heterogeneous appearance of the upper spleen, similar to prior. Adrenals: Unremarkable. No mass. Kidneys and ureters: Unremarkable. No hydronephrosis. No solid mass. Stomach and bowel: Unremarkable. No obstruction. No mucosal thickening. PELVIS: Appendix: No findings to suggest acute appendicitis. Bladder: Unremarkable. No mass. Reproductive: Unremarkable as visualized. CHEST, ABDOMEN and PELVIS: Intraperitoneal space: Unremarkable. No significant fluid collection. No free air. Bones/joints: Similar-appearing 1.8 cm lucent lesion in the anterior superior T10 vertebral body which is nonspecific. No acute fracture. No dislocation. Soft tissues: Unremarkable. Vasculature: Scattered atherosclerotic vascular calcifications including at the origins of the mesenteric and renal arteries. No aortic aneurysm. Lymph nodes: Unremarkable. No enlarged lymph nodes. IMPRESSION: 1. There are two large areas of consolidation in the left lower lobe, new compared to the prior exam. Findings are suggestive of pneumonia. 2. Emphysematous changes in lungs with an upper lung predominance, similar to the prior exam. 3. Similar appearing 2 cm spiculated nodule in the left upper lobe. 4. Previously seen right apical nodule is poorly visualized but again measures approximately 1.2 cm. 5. 5 mm nodule within the medial left upper lobe which was poorly visualized on the previous exam. 6. No acute findings in the abdomen/pelvis. 7. Evaluation severely limited by motion artifact. Chest x-ray: COMPARISON: Chest Single View dated 04/02/2021; Chest Single View dated 03/16/2021; Chest Single View dated 03/11/2021; Chest Single View dated 12/07/2020; Chest Abdomen Pelvis W Cont dated 04/03/2021 FINDINGS: Consolidative airspace disease in left lung is again identified. This is grossly similar to the chest CT from 04/03/2021. Background of emphysema borderline cardiomegalyNo acute osseous abnormality. Suspect small left effusion. IMPRESSION: Airspace disease in the left lung is grossly similar to the chest CT from 04/03/2021 and may reflect pneumonia. Medical problem list Septic shock secondary to consolidated left lower lobe pneumonia complicated with Covid 19, COPD and bacteremia with positive blood cultures for Pseudomonas Atrial fibrillation with RVR Chronic anticoagulation therapy Lung cancer with metastasis with CT scan showing 2 cm spiculated nodule in the left upper lobe, 1.2 cm right apical nodule, and 5 mm medial left upper lobe nodule Hypothyroidism Brief History of Present Illness: 70-year-old male with history of atrial fibrillation on chronic anticoagulation therapy, chronic diastolic congestive heart failure, lung cancer with metastasis, hypothyroidism presents emergency department for weakness, shortness of breath. Son reports patient has not been feeling himself since he was released from the [facility] approximately 1.5 weeks ago. Patient was evaluated in the emergency department, labs were significant for white blood cell count 29.6 MCV 100.9 creatinine 1.07 glucose 166 procalcitonin 0.97 urinalysis negative for infection Covid test positive CT chest abdomen pelvis demonstrates 2 large areas of consolidation in the left lower lobe suggestive of pneumonia with additional nonacute findings. Patient's blood pressure has maintained low throughout his stay in the emergency department around 80-90 systolic, currently receiving 30 cc/kg fluid bolus in the emergency department now. Patient was admitted for sepsis, pneumonia and Covid. Hospital Course: Patient presented with septic shock secondary to consolidated left lower lobe pneumonia. This was complicated with COVID-19, COPD and bacteremia with cultures positive for Pseudomonas. The patient required vasopressor therapy. Patient has been weaned off vasopressor therapy and continues with IV fluids. Midodrine has been added. Medications have been adjusted. Patient currently on IV meropenem to cover for bacteremia. Patient will need 2 weeks of IV antibiotic therapy. Patient has been evaluated for long-term acute care facility placement to continue his care. Patient has been accepted. Patient will continue with IV antibiotic therapy for 2 weeks. Repeat blood cultures so far negative. Pulmonology felt patient did not have significant Covid infection. Patient has been taken off IV steroids. Patient remains on vitamin supplementation at this time. Currently on room air. Patient will continue with care at the long-term acute care facility to continue current treatment and plan of care. As mentioned above patient has been weaned off vasopressor therapy. Patient was started on midodrine. Patient continues with IV fluids. Fluids can eventually being weaned off. Patient with underlying atrial fibrillation with RVR. Patient previously on sotalol. The patient is currently on IV amiodarone. Once his blood pressure stabilized patient can be either switched back to sotalol or to oral amiodarone. This can be further addressed with cardiology. Patient remains on Eliquis for chronic anticoagulation therapy. Patient with lung cancer with metastasis to the brain. CT scan shows 2 cm spiculated nodule in the left upper lobe, 1.2 cm right apical node and 5 mm med ial left upper lung nodule. Patient is getting radiation therapy. Case discussed with radiation oncology. Patient is currently on Keppra due to his metastasis to the brain. Radiation therapy is to be continued after treatment of bacteremia. Other consideration is to reassess lung cancer. Patient may require further treatment or other options of care will need to be considered. This can be done by oncology and radiation oncology after treatment. There is some consideration of rechecking MRI of brain to evaluate this further. Patient with hypothyroidism. At discharge patient will continue with his current medication. Vital Signs/Physical Exam: Temp Pulse Resp BP Pulse Ox 97.1 F 114 H 23 H 98/64 95 04/07/21 12:00 04/07/21 15:00 04/07/21 15:00 04/07/21 15:00 04/07/21 15:00 General: Alert, In no apparent distress, Oriented x3, Cooperative HEENT: Atraumatic Neck: Supple Respiratory: Clear to auscultation bilaterally Cardiovascular: Irregular heart rate/rhythm (Atrial fibrillation rate controlled) Gastrointestinal: Normal bowel sounds Neurological: Normal speech, Normal strength at 5/5 x4 extr, Normal tone Laboratory Data at Discharge: WBC 5.70 K/uL (4.3-10.9) D 04/07/21 05:00 Hgb 12.8 g/dL (13.6-17.9) L 04/07/21 05:00 Hct 37.0 % (39.6-49.0) L 04/07/21 05:00 Plt Count 100 K/uL (152-406) L 04/07/21 05:00 PT 17.5 SECONDS (9.5-12.5) H 04/02/21 21:35 INR 1.52 04/02/21 21:35 Sodium 135 mmol/L (136-145) L 04/07/21 05:00 Potassium 3.8 mmol/L (3.5-5.1) 04/07/21 05:00 BUN 8 mg/dL (7-18) 04/07/21 05:00 Creatinine 0.41 mg/dL (0.55-1.3) L 04/07/21 05:00 Glucose 142 mg/dL (74-106) H 04/07/21 05:00 Magnesium 1.7 mg/dL (1.8-2.4) L 04/07/21 05:00 Total Bilirubin 1.1 mg/dL (0.2-1.0) H 04/07/21 05:00 AST 32 U/L (15-37) 04/07/21 05:00 ALT 57 U/L (12-78) 04/07/21 05:00 Alkaline Phosphatase 170 U/L (45-117) H 04/07/21 05:00 Home Medications: Allopurinol 300 mg PO DAILY 11/15/20 Apixaban [Eliquis] 5 mg PO BID 11/15/20 Spironolactone [Aldactone] 50 mg PO DAILY 11/15/20 Sotalol HCl [Betapace*] 160 mg PO [id number] #60 tab 12/10/20 Levetiracetam [Keppra] 500 mg PO BID 04/04/21 Levothyroxine Sodium [Levothyroxine] 150 mcg PO DAILY 04/04/21 Physician Discharge Instructions: Patient to be transferred to long-term acute care facility to continue care. Diet: AHA Activity: Fall precautions Followup: NONE,NONE [Primary Care Provider] - Time spent managing pt's care (in minutes): 55
[2021-04-07 17:14] VITALS: TEMP 96.9
[2021-04-07] MEDS: AMIODARONE HCL 900 MG in Dextrose 5%-Water 482 ML IV SCH (18:41)
[2021-04-07 19:16] VITALS: BP 96/65
--- NOTE | 2021-04-11 15:00 | ECHO ---
HEIGHT: 6 ft 3 in WEIGHT: 249 lb 0 oz DATE OF STUDY: 04/04/[address]: Kelsi Benavidez MD 2-DIMENSIONAL: YES M.MODE: YES DOPPLER: YES COLOR FLOW: YES TDS: NO PORTABLE: YES DEFINITY: NO BUBBLE STUDY: NO DIAGNOSIS: HYPOTENSIVE CARDIAC HISTORY: CATHERIZATION: SURGERY: PROSTHETIC VALVE: PACEMAKER: MEASUREMENTS (cm) DIASTOLIC (NORMALS) SYSTOLIC (NORMALS) IVSd 1.0 (0.6-1.2) LA Diam 3.4 (1.9-4.0) LVEF 50-55% LVIDd 4.5 (3.5-5.7) LVIDs 3.4 (2.0-3.5) %FS 25% LVPWd 1.1 (0.6-1.2) Ao Diam 3.3 (2.0-3.7) 2 DIMENSIONAL ASSESSMENT: RIGHT ATRIUM: NORMAL LEFT ATRIUM: NORMAL RIGHT VENTRICLE: NORMAL LEFT VENTRICLE: NORMAL TRICUSPID VALVE: NORMAL MITRAL VALVE: THICKENED, NO MITRAL STENOSIS PULMONIC VALVE: NORMAL AORTIC VALVE: NORMAL PERICARDIAL EFFUSION: NONE AORTIC ROOT: NORMAL LEFT VENTRICULAR WALL MOTION: NORMAL. DOPPLER/COLOR FLOW: TRACE OF TRICUSPID REGURGITATION. COMMENTS: POOR WINDOWS, OVERALL LEFT VENTRICULAR EJECTION FRACTION IS NORMAL 50-55%. ATRIAL FIBRILLATION TECHNOLOGIST: REBEKAH PENN
== END 2021-04-07 18:50 | DRG 871 ==
LOC: ER 19:43 → ERHOLD 04-03 02:21 → 3RD-ICU 04-03 19:54
PROVIDERS: ADMIT Hospitalist; ATTEND Hospitalist
DX: A41.52 Sepsis due to Pseudomonas (principal); J18.9 Pneumonia, unspecified organism; R65.21 Severe sepsis with septic shock; U07.1 COVID-19; G92 Toxic encephalopathy; C34.90 Malignant neoplasm of unspecified part of unspecified bronchus or lung; C79.31 Secondary malignant neoplasm of brain; I48.20 Chronic atrial fibrillation, unspecified; I50.32 Chronic diastolic (congestive) heart failure; E44.1 Mild protein-calorie malnutrition; Z79.01 Long term (current) use of anticoagulants; E03.9 Hypothyroidism, unspecified; Z68.31 Body mass index [BMI] 31.0-31.9, adult
CPT/HCPCS: 36415; 51702; 70450; 71045; 71260; 74177; 80048; 80053; 80076; 81003; 81015; 82728; 82947; 83605; 83735; 83880; 84145; 84439; 84443; 84484; 85025; 85610; 86140; 87040; 87077; 87086; 87088; 87186; 87205; 93005; 93306; 94010; 94640; 96361; 96365; 96367; 96368; 96375; 97110; 97161; 97530; 99285; J0282; J0692; J1100; J1650; J1720; J2185; J2543; J3370; J3475; J3480; J7030; J7040; J7050; J7060; J7605; J7799; J8540; P9047; Q9967; U0003